=== PATIENT | female | born 1965 | race Caucasian/White ===

== ENCOUNTER 2016-06-22 15:52 | Emergency (ER) | payer MEDICAID ==
--- NOTE | 2016-06-22 16:32 | ERPHSYRPT ---
- History of Present Illness Time Seen by Provider: 06/22/16 16:26 Source: patient, family Exam Limitations: no limitations Patient Subjective Stated Complaint: PT FAMILY REPORTS THAT PT HAS BEEN HAVING SEIZURES AFTER LUNCH THE LAST FEW DAYS-TODAY SHE HAD BACK TO BACK SEIZURES- STATES THAT PT TURNED RED ET STOPPED BREATHING-STATES SHE TALKED PT THROUGH HER SEIZURE ET PT WAS THEN ANSWERING QUESTIONS LIKE HERSELF-DENIES INCONTINENCE Triage Nursing Assessment: PT PINK WARM ET [id number] EASY ET NONLABORED AT [facility] TIME-PT NOT ABLE TO ANSWER QUESTIONS-NORMAL FOR PT-BILATERAL EDEMA NOTED- PT FAMILY STATES THAT SHE HAS HX OF EDEMA-PT FOLLOWING SIMPLE COMMANDS ET MAKING NEEDS KNOWN DURING TRIAGE Physician History: The patient is a 50-year-old female with family brought in by ambulance from the [facility] where she had numerous [id number] seizures today. The last one was about 2 hours ago. She has a long history of seizure disorder. She has a VNS and is scheduled to have it reevaluated in 4 days. In addition to the seizure she had today she's had multiple seizures in the 2 days prior to today. The patient is mentally challenged. She has a past medical history that includes epilepsy, morbid obesity, hypertension, high cholesterol, and hypothyroidism. Timing/Duration: day(s) (3) Severity: moderate Character of Deficits: other (seizures) Deficits: decrease ability to walk Baseline/Normal Cognition: alert but confused Current Cognition: alert but confused Baseline Gait: uses walker Associated Symptoms: seizures Allergies/Adverse Reactions: No Known Drug Allergies Allergy (Unverified 06/22/16 16:10) Home Medications: Aspirin 81 gm Chew [Baby Aspirin 81 mg Chew] 81 mg PO DAILY 06/22/16 [ History] Atorvastatin Calcium [Lipitor] 10 mg PO DAILY 06/22/16 [History] Clobazam [Onfi] 15 mg PO DAILY 06/22/16 [History] Docusate Sodium 100 mg [Colace 100 MG] 100 mg PO BID 06/22/16 [History] Ferrous Sulfate 325 mg [Feosol 325 mg] 325 mg PO DAILY 06/22/16 [History] Levetiracetam [Keppra] 1,500 mg PO BID 06/22/16 [History] Levothyroxine Sodium 50 Mcg [Synthroid 50 Mcg] 50 mcg PO DAILY 06/22/16 [ History] Loratadine 10 mg [Claritin 10 mg] 10 mg PO DAILY 06/22/16 [History] Magnesium Oxide 400 mg [Mag-Ox 400] 400 mg PO DAILY 06/22/16 [History] Oxybutynin Chloride 5 mg PO BID 06/22/16 [History] PANTOPRAZOLE 40 mg Tablet [Protonix 40MG Tablet] 40 mg PO BID 06/22/16 [ History] Phenobarb 32.4 mg [Phenobarbital 32.4 mg] 32.4 mg PO TID 06/22/16 [History ] Potassium Chloride 20 Meq [Klor-Con 20 MEQ] 20 meq PO BID 06/22/16 [History] Ramipril 1.25 mg [Altace 1.25 MG] 1.25 mg PO DAILY 06/22/16 [History] Sennosides/Docusate Sodium [Senna Laxative Tablet] 1 each PO UD 06/22/16 [ History] Sertraline HCl 50 mg [Zoloft 50 mg Tablet] 100 mg PO DAILY 06/22/16 [History ] Torsemide [Demadex] 20 mg PO BID 06/22/16 [History] Hx Tetanus, Diphtheria Vaccination/Date Given: No Hx Influenza Vaccination/Date Given: Yes Hx Pneumococcal Vaccination/Date Given: Yes Immunizations Up to Date: Yes - Review of Systems Constitutional: No Fever, No Chills Eyes: No Symptoms Ears, Nose, & Throat: No Symptoms Respiratory: No Cough, No Dyspnea Cardiac: No Chest Pain, No Edema, No Syncope Abdominal/Gastrointestinal: No Abdominal Pain, No Nausea, No Vomiting, No Diarrhea Genitourinary Symptoms: No Dysuria Musculoskeletal: No Back Pain, No Neck Pain Skin: No Rash Neurological: No Dizziness, No Focal Weakness, No Sensory Changes Psychological: No Symptoms Endocrine: No Symptoms Hematologic/Lymphatic: No Symptoms Immunological/Allergic: No Symptoms All Other Systems: Reviewed and Negative - Past Medical History Pertinent Past Medical History: Yes Neurological History: Epilepsy Cardiac History: Congestive Heart Failure, High Cholesterol Endocrine Medical History: Hypothyroidism Psycho-Social History: Depression - Past Surgical History Past Surgical History: Yes - Social History Smoking Status: Never smoker Drug Use: none Patient Lives Alone: No - Nursing Vital Signs Nursing Vital Signs: Initial Vital Signs Temperature 98.7 F Temperature Source Oral Pulse Rate 68 Respiratory Rate 22 Blood Pressure [Right Arm] 151/76 Pain Intensity 0 - [place] Coma Scale Best Eye Response (Ramesh): (4) open spontaneously Best Verbal Response ([place]): (5) oriented Best Motor Response ([place]): (6) obeys commands [place] Total: 15 - Physical Exam General Appearance: no apparent distress, alert Eye Exam: bilateral eye: PERRL, EOMI Ears, Nose, Throat Exam: normal ENT inspection, moist mucous membranes Neck Exam: normal inspection, non-tender, supple Respiratory: normal breath sounds, lungs clear, airway intact, No respiratory distress Cardiovascular: regular rate/rhythm, No edema Gastrointestinal: soft, No tenderness, No distention Pelvic Exam: not done Rectal Exam: not done Back Exam: normal inspection Extremity Exam: pedal edema 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 Coordination/Gait: normal finger to nose Skin Exam: normal color, warm, dry, No rash SpO2 Interpretation: normal SpO2: 94 Oxygen Delivery: Room Air Ordered Tests: Active Orders 24 hr Category Date Time Status IV Insertion STAT Care 06/22/16 16:20 Active - Progress Progress: improved Counseled pt/family regarding: lab results, diagnosis, need for follow-up - Departure Time of Disposition: 17:27 Departure Disposition: Home Clinical Impression: Seizure, UTI (urinary tract infection) Condition: Stable Critical Care Time: No Additional Instructions: Jelly has a mild UTI that may be causing her to have more seizures. Take bactrim DS twice a day. Also increase phenobarbital at noon dose. Take 2 tabs of 32.4 mg of phenobarbital at noon dose. Follow up on Fri with the neurologist as scheduled. Prescriptions: Smz/Tmp Ds Tablet [Bactrim Ds Tablet] 1 udtab PO BID #6 tablet
[2016-06-22] MEDS ORDERED: Phenobarbital 65 MG/ML INJ. IV ONE (16:39)
[2016-06-22] MEDS ORDERED: Phenobarbital 65 MG/ML INJ. ONE (17:00)
[2016-06-22 17:02] LABS: BASOPHIL % 0.4 % (0.0-0.4); Granulocytes % 59.9 % (36.0-66.0); Lymphocytes % 30.2 % (24.0-44.0); Mean Corpuscular Hemoglobin 31.7 pg (26-32); Mean Platelet Volume 11.1 fl (6-9.5); Monocytes % 8.5 % (0.0-12.0); Platelet Count 162 K/mm3 (150-450); Red Blood Count 3.94 M/mm3 (4.1-5.4); Red Cell Distribution Width 12.8 % (11.5-14.0); White Blood Count 8.1 K/mm3 (4.0-10.5)
[2016-06-22 17:15] LABS: Bacteria RARE /HPF (NEGATIVE); COMPLETE URINE MICROSCOPIC? YES; Collection Type CATH; Ph 7.5 (5-6); WBC 0-2 /HPF (0-5)
[2016-06-22 17:22] LABS: ANION GAP 15.9 MEQ/L (5-15); Carbon Dioxide 25.4 mEq/L (21-32); Potassium 4.3 mEq/L (3.5-5.1)
[2016-06-22 17:35] VITALS: BP 136/77; PULSE 72; O2SAT 95
== END 2016-06-22 18:49 | disposition home or self-care (01) ==
LOC: ED 15:52
DX: R56.9 Unspecified convulsions (principal); N39.0 Urinary tract infection, site not specified; G40.909 Epilepsy, unspecified, not intractable, without status epilepticus; Z79.899 Other long term (current) drug therapy; Z79.82 Long term (current) use of aspirin; I50.9 Heart failure, unspecified; E78.00 Pure hypercholesterolemia, unspecified; E03.9 Hypothyroidism, unspecified
CPT/HCPCS: 36000; 36415; 80048; 80184; 81000; 85025; 93041; 96365; 96374; 99284; J2560; P9612

== ENCOUNTER 2016-06-23 15:19 | Emergency (ER) | payer MEDICARE ==
[2016-06-23] MEDS ORDERED: cereBYX 50 MG/ML*** 1,000 MG in Sodium Chloride 0.9% 100 ML IVPB 100 ML IV ONE (15:45)
--- NOTE | 2016-06-23 15:51 | ERPHSYRPT ---
- History of Present Illness Time Seen by Provider: 06/23/16 15:46 Source: family Exam Limitations: no limitations Patient Subjective Stated Complaint: seizure Triage Nursing Assessment: ems reports patient has had 10+ seizures today. had several yesterday and was seen here. phenobarb dose increased yesterday. Physician History: This is a 50-year-old female patient was brought into the emergency room by ambulance from the [facility] where she had a numerous [id number] seizure activities. Patient was seen in the emergency room yesterday, was treated for mild urinary tract infection and her phenobarbital nose was adjusted. She also has a vagal nerve stimulator and she is being scheduled with neurologist to have it reevaluated in next 4-5 days. After patient left emergency room yesterday. Patient continues to started having a seizure, which S in short burst. 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 Patient also has a Microcephaly, moderate to severe mental retardation, hypertension. Allergies/Adverse Reactions: No Known Drug Allergies Allergy (Verified 06/23/16 15:29) Home Medications: Aspirin 81 gm Chew [Baby Aspirin 81 mg Chew] 81 mg PO DAILY 06/22/16 [ History] Atorvastatin Calcium [Lipitor] 10 mg PO DAILY 06/22/16 [History] Clobazam [Onfi] 15 mg PO DAILY 06/22/16 [History] Docusate Sodium 100 mg [Colace 100 MG] 100 mg PO BID 06/22/16 [History] Ferrous Sulfate 325 mg [Feosol 325 mg] 325 mg PO DAILY 06/22/16 [History] Levetiracetam [Keppra] 1,500 mg PO BID 06/22/16 [History] Levothyroxine Sodium 50 Mcg [Synthroid 50 Mcg] 50 mcg PO DAILY 06/22/16 [ History] Loratadine 10 mg [Claritin 10 mg] 10 mg PO DAILY 06/22/16 [History] Magnesium Oxide 400 mg [Mag-Ox 400] 400 mg PO DAILY 06/22/16 [History] Oxybutynin Chloride 5 mg PO BID 06/22/16 [History] PANTOPRAZOLE 40 mg Tablet [Protonix 40MG Tablet] 40 mg PO BID 06/22/16 [ History] Phenobarb 32.4 mg [Phenobarbital 32.4 mg] 32.4 mg PO TID 06/22/16 [History ] Potassium Chloride 20 Meq [Klor-Con 20 MEQ] 20 meq PO BID 06/22/16 [History] Ramipril 1.25 mg [Altace 1.25 MG] 1.25 mg PO DAILY 06/22/16 [History] Sennosides/Docusate Sodium [Senna Laxative Tablet] 1 each PO UD 06/22/16 [ History] Sertraline HCl 50 mg [Zoloft 50 mg Tablet] 100 mg PO DAILY 06/22/16 [History ] Torsemide [Demadex] 20 mg PO BID 06/22/16 [History] Hx Tetanus, Diphtheria Vaccination/Date Given: No Hx Influenza Vaccination/Date Given: Yes Hx Pneumococcal Vaccination/Date Given: Yes - Review of Systems All Other Systems: Unable due to condition - Past Medical History Pertinent Past Medical History: Yes Neurological History: Epilepsy Cardiac History: Congestive Heart Failure, High Cholesterol Endocrine Medical History: Hypothyroidism Psycho-Social History: Depression - Past Surgical History Past Surgical History: Yes - Social History Smoking Status: Never smoker Exposure to second hand smoke: No Drug Use: none Patient Lives Alone: No - Nursing Vital Signs Nursing Vital Signs: Initial Vital Signs Temperature 99.6 F Temperature Source Oral Pulse Rate 77 Respiratory Rate 18 Blood Pressure [Right Arm] 140/85 Pain Intensity 0 - [place] Coma Scale Best Eye Response (Ramesh): (4) open spontaneously Best Verbal Response ([place]): (2) incomprehsible sounds Best Motor Response (Ramesh): (6) obeys commands [place] Total: 12 - Physical Exam General Appearance: no apparent distress Eye Exam: bilateral eye: normal inspection Ears, Nose, Throat Exam: normal ENT inspection Neck Exam: normal inspection Respiratory: normal breath sounds Cardiovascular: regular rate/rhythm Gastrointestinal: soft Pelvic Exam: not done Back Exam: normal inspection Extremity Exam: normal inspection Mental Status: alert SpO2: 100 Oxygen Delivery: Room Air - Course Nursing assessment & vital signs reviewed: Yes Ordered Tests: Medication Summary Generic Name Dose Route Start Last Admin Trade Name Freq PRN Reason Stop Dose Admin Fosphenytoin Sodium 1,000 mg/ 120 mls @ 240 mls/hr 06/23/16 15:45 Sodium Chloride IV 06/23/16 16:14 STAT ONE - Progress Progress: unchanged Discussed with Dr.: Other (hospitalist service at [place]- Dr Combs) Will see patient in: hospital (full admit) Counseled pt/family regarding: diagnosis - Departure Time of Disposition: 15:50 Departure Disposition: Transfer ([facility]) Clinical Impression: Intractable seizure disorder Condition: Stable Critical Care Time: Yes Critical Care Time(excluding separately billable procedures): 30-74 minutes Referrals: GUERRERO PATTEN [Primary Care Provider] -
[2016-06-23 16:40] VITALS: BP 136/100; PULSE 78; O2SAT 99
== END 2016-06-23 17:08 | disposition short-term general hospital (02) ==
LOC: ED 15:19
DX: G40.919 Epilepsy, unspecified, intractable, without status epilepticus (principal); Z79.899 Other long term (current) drug therapy
CPT/HCPCS: 99285

== ENCOUNTER 2018-05-10 08:10 | Emergency (ER) | payer MEDICARE ==
--- NOTE | 2018-05-10 08:51 | ERPHSYRPT ---
- History of Present Illness Time Seen by Provider: 05/10/18 08:39 Source: patient, sn[facility] records Exam Limitations: no limitations Patient Subjective Stated Complaint: snf nurs states "She has been getting more and more edema lately and now her face is swollen. Her wants her sent to ED." Triage Nursing Assessment: Pt alert and oriented X 3, skin pwd. Pt able to speak in full sentences. Difficulty to understand but that is her norm. Pt has +3 pitting edema noted bilat lower extremeties, facial edema on eyes and lower lip. Physician History: 52-year-old white female with history of epilepsy, congestive heart failure, hypercholesterolemia, hypothyroidism, depression Patient arrives with complaints of edema past several days now having swelling in her face she states she is having a hard time breathing. Patient does not have any chest pain no nausea no vomiting. Past medical history includes epilepsy, congestive heart failure, hypercholesterolemia, hypothyroidism, depression Timing/Duration: other (edema the last few days ) Severity of Dyspnea-Max: moderate Severity of Dyspnea-Current: mild Modifying Factors: Improves With: nothing Associated Symptoms: cough, edema, No constant, No intermittent, No anxiety, No chest pain/discomfort, No fever, No insomnia, No loss of appetite, No lightheadedness, No wheezing, No weakness, No ankle swelling, No chills, No hemoptysis (she wheezing she says sh), No dizziness, No heaviness, No heart racing, No lightheadedness, No leg swelling, No muscle spasms feet, No muscle spasms hands, No painful breathing, No productive cough, No sweating, No tightness, No tingling face International travel in last 2 weeks: No Allergies/Adverse Reactions: heparin Allergy (Verified 05/10/18 10:23) Home Medications: Aspirin 81 gm Chew [Baby Aspirin 81 mg Chew] 81 mg PO DAILY 06/22/16 [ History] Clobazam [Onfi] 15 mg PO DAILY 06/22/16 [History] Docusate Sodium 100 mg [Colace 100 MG] 100 mg PO BID 06/22/16 [History] Ferrous Sulfate 325 mg [Feosol 325 mg] 325 mg PO DAILY 06/22/16 [History] Levothyroxine Sodium 50 Mcg [Synthroid 50 Mcg] 50 mcg PO DAILY 06/22/16 [ History] Loratadine 10 mg [Claritin 10 mg] 10 mg PO DAILY 06/22/16 [History] Magnesium Oxide 400 mg [Mag-Ox 400] 400 mg PO DAILY 06/22/16 [History] PANTOPRAZOLE 40 mg Tablet [Protonix 40MG Tablet] 40 mg PO BID 06/22/16 [ History] Potassium Chloride 20 Meq [Klor-Con 20 MEQ] 20 meq PO BID 06/22/16 [History] Sertraline HCl 50 mg [Zoloft 50 mg Tablet] 100 mg PO DAILY 06/22/16 [History ] Torsemide [Demadex] 20 mg PO BID 06/22/16 [History] Brivaracetam [Briviact] 100 mg PO DAILY 05/10/18 [History] Ergocalciferol (Vitamin D2) [Vitamin D2] 50,000 unit PO Q7D 05/10/18 [History] Ergocalciferol (Vitamin D2) [Vitamin D] 400 unit PO DAILY 05/10/18 [History] Folic Acid 1 mg [Folate 1 mg] 1 mg PO DAILY 05/10/18 [History] Lacosamide [Vimpat] 100 mg PO BID 05/10/18 [History] Multivitamin [Raz-Qylfwo-Fvxon] 1 each PO DAILY 05/10/18 [History] Saw [place] Frt/Phytosterol 2 [Prostate Sr Softgel] 1 each PO BID 05/10/18 [ History] Hx Tetanus, Diphtheria Vaccination/Date Given: Yes Hx Influenza Vaccination/Date Given: Yes Hx Pneumococcal Vaccination/Date Given: No Immunizations Up to Date: Yes - Review of Systems Constitutional: No Fever, No Chills Eyes: No Symptoms Ears, Nose, & Throat: No Ear Pain, No Ear Discharge, No Hearing Changes, No Tinnitus, No Nose Pain, No Nose Congestion, No Nose Discharge, No Sinus Drainage , No Epistaxis, No Mouth Pain, No Mouth Swelling, No Loose Teeth, No Throat Pain , No Throat Swelling, No Hoarse, No Painful Swallowing, No Snoring, No Stridor Respiratory: Cough, Dyspnea Cardiac: Edema, No Chest Pain, No Syncope Abdominal/Gastrointestinal: No Abdominal Pain, No Nausea, No Vomiting, No Diarrhea Genitourinary Symptoms: No Dysuria Musculoskeletal: No Back Pain, No Neck Pain Skin: No Rash Neurological: No Dizziness, No Focal Weakness, No Sensory Changes Psychological: No Symptoms Endocrine: No Symptoms All Other Systems: Reviewed and Negative - Past Medical History Pertinent Past Medical History: Yes Neurological History: Epilepsy Cardiac History: Congestive Heart Failure, High Cholesterol Endocrine Medical History: Hypothyroidism Psycho-Social History: Depression - Past Surgical History Past Surgical History: Yes - Social History Smoking Status: Never smoker Exposure to second hand smoke: No Drug Use: none Patient Lives Alone: No - Female History Hx Now: No - Nursing Vital Signs Nursing Vital Signs: Initial Vital Signs Temperature 97.6 F 05/10/18 08:22 Pulse Rate 82 05/10/18 08:22 Respiratory Rate 20 05/10/18 08:22 Blood Pressure 155/97 05/10/18 08:22 O2 Sat by Pulse Oximetry 99 05/10/18 08:22 Pain Scale Pain Intensity 0 - Physical Exam General Appearance: mild distress, other (well-developed morbidly obese female occasional cough mild facial edema) Eye Exam: PERRL/EOMI Ears, Nose, Throat Exam: hearing grossly normal, No normal ENT inspection ( patient's uvula with mild edema) Neck Exam: normal inspection, supple, full range of motion Respiratory Exam: rhonchi Cardiovascular/Chest Exam: normal heart sounds, regular rate/rhythm, edema ( edema to lower extremities) Abdominal/Gastrointestinal Exam: soft, No tenderness, No distention, No mass Extremity Exam: non-tender, normal range of motion, normal inspection, no calf tenderness, no pedal edema Peripheral Pulses Exam: dorsalis-pedis (R): 2+, dorsalis-pedis (L): 2+ Neurologic Exam: alert, oriented x 3, cooperative, 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 Officer STAT Care 05/10/18 08:43 Active EKG-ER Only STAT Care 05/10/18 08:42 Active IV Insertion STAT Care 05/10/18 08:42 Active Oxygen-ED Only Nasal Cannula 4 lpm Care 05/10/18 08:42 Active Pulse Oximetry (ED) STAT Care 05/10/18 08:42 Active CHEST 1 VIEW (PORTABLE) Stat Exams 05/10/18 08:43 Completed BLOOD CULTURE Stat Lab 05/10/18 10:06 Ordered CBC W DIFF Stat Lab 05/10/18 09:00 Completed CMP Stat Lab 05/10/18 09:00 Completed CULTURE,SPUTUM Stat Lab 05/10/18 08:43 Uncollected NT PRO BNP Stat Lab 05/10/18 09:00 Completed TROPONIN Q3H Lab 05/10/18 09:00 Completed TROPONIN Q3H Lab 05/10/18 11:45 Ordered TROPONIN Q3H Lab 05/10/18 14:45 Ordered TROPONIN Q3H Lab 05/10/18 17:45 Ordered TROPONIN Q3H Lab 05/10/18 20:45 Ordered VENOUS BLOOD GAS Stat Lab 05/10/18 08:42 Completed Respiratory Nebulizer STAT RT 05/10/18 08:44 Completed Respiratory Therapy Assessment DAILY RT 05/10/18 09:15 Completed Medication Summary Discontinued Medications Generic Name Dose Route Start Last Admin Trade Name Freq PRN Reason Stop Dose Admin Albuterol/Ipratropium Confirm 05/10/18 08:56 Duoneb 0.5-3 Mg/3 Ml Neb Administered 05/10/18 08:57 Dose 3 ml IH .STK-MED ONE Epinephrine 0.5 ml 05/10/18 08:44 05/10/18 09:20 Racepinephrine Inh Solution 2.25% IH 05/10/18 08:45 0.5 ml STAT ONE Administration Epinephrine Confirm 05/10/18 09:17 Racepinephrine Inh Solution 2.25% Administered 05/10/18 09:18 Dose 0.5 ml IH .STK-MED ONE Ceftriaxone Sodium/Dextrose 1 g in 50 mls @ 100 mls/hr 05/10/18 10:08 10:19 Rocephin 1 Gm-D5w 50 Ml Bag IV 05/10/18 10:37 100 mls/hr STAT STA 100 mls/hr Administration Ceftriaxone Sodium/Dextrose Confirm 05/10/18 10:17 Rocephin 1 Gm-D5w 50 Ml Bag Administered 05/10/18 10:18 Dose 1 g in 50 mls @ ud IV .STK-MED ONE Methylprednisolone Sodium Succinate 125 mg 05/10/18 08:42 05/10/18 09:26 Solu-Medrol 125 Mg IV 05/10/18 08:43 125 mg STAT ONE Administration Methylprednisolone Sodium Succinate Confirm 05/10/18 09:15 Solu-Medrol 125 Mg Administered 05/10/18 09:16 Dose 125 mg .ROUTE .STK-MED ONE Sodium Chloride Confirm 05/10/18 09:18 Sodium Chloride 3 Ml Ud Nebules Administered 05/10/18 09:19 Dose 3 ml IH .STK-MED ONE Lab/Rad Data: Laboratory Result Diagrams 05/10/18 09:00 05/10/18 09:00 Laboratory Results 05/10/18 05/10/18 05/10/18 Range/Units 09:00 09:00 09:00 WBC 14.5 H (4.0-10.5) K/mm3 RBC 3.21 L (4.1-5.4) M/mm3 Hgb 9.8 L (12.0-16.0) gm/dl Hct 32.5 L (35-47) % MCV 101.2 H (78-100) fl MCH 30.5 (26-32) pg MCHC 30.2 L (32-36) g/dl RDW 16.5 H (11.5-14.0) % Plt Count 213 (150-450) K/mm3 MPV 10.8 H (6-9.5) fl Gran % 86.6 H (36.0-66.0) % Eos # (Auto) 0.29 (0-0.5) Absolute Lymphs (auto) 0.79 L (1.0-4.6) Absolute Monos (auto) 0.83 (0.0-1.3) Lymphocytes % 5.5 L (24.0-44.0) % Monocytes % 5.7 (0.0-12.0) % Eosinophils % 2.0 (0.00-5.0) % Basophils % 0.2 (0.0-0.4) % Absolute Granulocytes 12.53 H (1.4-6.9) Basophils # 0.03 (0-0.4) pO2/FiO2 Ratio % VBG pH (7.32-7.42) VBG pCO2 at Pat Temp (42-55) mm/Hg VBG pO2 at Pat Temp (25-40) mm/Hg VBG HCO3 (22-28) meq/L VBG O2 Sat (Yoel) (95-100) VBG Base Excess (-2.0-2.0) VBG Hemoglobin VBG Carboxyhemoglobin (0.0-6.9) % T HGB POC Potassium (3.5-5.1) Sodium 141 (137-145) mmol/L Potassium 4.4 (3.5-5.1) mmol/L Chloride 100 (98-107) mmol/L Carbon Dioxide 34 H (22-30) mmol/L Anion Gap 12.0 (5-15) MEQ/L BUN 35 H (7-17) mg/dL Creatinine 1.44 H (0.52-1.04) mg/dL Estimated GFR 40.5 ML/MIN Glucose 101 (74-106) mg/dL Calcium 9.7 (8.4-10.2) mg/dL Total Bilirubin 0.30 (0.2-1.3) mg/dL AST 28 (14-36) U/L ALT 16 (0-35) U/L Alkaline Phosphatase 173 H (38-126) U/L Troponin I < 0.012 (0.000-0.034) ng/mL NT-Pro-B Natriuret Pep 996 H (0-900) pg/mL Serum Total Protein 7.9 (6.3-8.2) g/dL Albumin 4.1 (3.5-5.0) g/dL 05/10/18 Range/Units 08:42 WBC (4.0-10.5) K/mm3 RBC (4.1-5.4) M/mm3 Hgb (12.0-16.0) gm/dl Hct (35-47) % MCV (78-100) fl MCH (26-32) pg MCHC (32-36) g/dl RDW (11.5-14.0) % Plt Count (150-450) K/mm3 MPV (6-9.5) fl Gran % (36.0-66.0) % Eos # (Auto) (0-0.5) Absolute Lymphs (auto) (1.0-4.6) Absolute Monos (auto) (0.0-1.3) Lymphocytes % (24.0-44.0) % Monocytes % (0.0-12.0) % Eosinophils % (0.00-5.0) % Basophils % (0.0-0.4) % Absolute Granulocytes (1.4-6.9) Basophils # (0-0.4) pO2/FiO2 Ratio 21.0 % VBG pH 7.39 (7.32-7.42) VBG pCO2 at Pat Temp 59 H (42-55) mm/Hg VBG pO2 at Pat Temp 114 H (25-40) mm/Hg VBG HCO3 35.7 H* (22-28) meq/L VBG O2 Sat (Yoel) 98.4 (95-100) VBG Base Excess 9.1 H (-2.0-2.0) VBG Hemoglobin 10.4 VBG Carboxyhemoglobin 2.0 (0.0-6.9) % T HGB POC Potassium 4.2 (3.5-5.1) Sodium (137-145) mmol/L Potassium (3.5-5.1) mmol/L Chloride (98-107) mmol/L Carbon Dioxide (22-30) mmol/L Anion Gap (5-15) MEQ/L BUN (7-17) mg/dL Creatinine (0.52-1.04) mg/dL Estimated GFR ML/MIN Glucose (74-106) mg/dL Calcium (8.4-10.2) mg/dL Total Bilirubin (0.2-1.3) mg/dL AST (14-36) U/L ALT (0-35) U/L Alkaline Phosphatase (38-126) U/L Troponin I (0.000-0.034) ng/mL NT-Pro-B Natriuret Pep (0-900) pg/mL Serum Total Protein (6.3-8.2) g/dL Albumin (3.5-5.0) g/dL - Progress Progress: improved Air Movement: fair Progress Note: 05/10/18 08:49 This is a 52-year-old morbidly obese white female with history of epilepsy, congestive heart failure, hypercholesterolemia, hypothyroidism, depression. Patient is sent from snf patient apparently has been having edema to her lower extremities for the past several days today complaining of shortness of breath she is noted to have some mild facial edema and infraorbital region. Patient frequently clears her throat she has some mild edema of the uvula. She has some rhonchi bilaterally with auscultation in the lung alvarado. Will give patient a racemic epinephrine Solu-Medrol obtain CBC CMP BMP troponin chest x-ray EKG. 05/10/18 10:37 Patient feeling better after receiving make epinephrine treatment and Solu- Medrol, chest x-ray shows new diffuse left lung airspace disease without consolidation or large effusion. Remaining heart, right lung, bony thorax and left electronic device lead unremarkable. Patient's labs white blood cell 14.5 hemoglobin 9.8 hematocrit 32.5 platelets 213 patient's Venous gases pH 7.39 PCO2 59 Chemistry sodium 141 potassium 4.4 chloride 100 bicarbonate 34 BUN 35 creatinine 1.44 glucose 101 Alkaline phosphatase 173 Troponin less than 0.012 BNP is elevated at 996 normal is 0-900 Blood cultures have been ordered Rocephin is ordered as soon as blood cultures are obtained sputum cultures have been ordered. Patient's extremities exam and possibly one to 2+ edema. Will discuss case with Dr. Roque. 05/10/18 10:46 I discussed the patient's case with Dr. Roque. He tells me that he recently started the patient on Zaroxolyn she is already on Bumex. Patient will receive Rocephin 1 g IV here she is feeling much better and wants to go back to the snf. Dr. Roque requests that we place the patient on Zithromax Z-Chi also place the patient on Omnicef 300 mg orally twice a day. Will also send patient on a tapering dose of prednisone. Diagnosis uvular edema. Left sided pneumonia. History of congestive heart failure. Plan Will continue the above, - Departure Time of Disposition: 10:47 Departure Disposition: Extended Care Facility Clinical Impression: Uvular edema, Shortness of breath, History of CHF (congestive heart failure) Pneumonia Qualifiers: Pneumonia type: due to unspecified organism Laterality: left Lung location: unspecified part of lung Qualified Code(s): J18.9 - Pneumonia, unspecified organism Condition: Fair Critical Care Time: No Referrals: HANS SALVADOR [Primary Care Provider] - Additional Instructions: Return home continue current medications and treatment including Zaroxolyn which was just started by patient's family doctor. Omnicef 300 mg orally twice a day for 7 days. Zithromax Z-CHI as directed. prednisone 20 mg 3 tablets orally daily 2 days then 2 tablets orally daily3 daysthen 1 tablet orally daily 3 days. Follow-up with patient's family doctor. Return for acute distress or for severe symptoms. Prescriptions: Azithromycin 250 mg [Zithromax 250 MG TABLET] 0 mg PO ZPACK #6 tablet Cefdinir [Omnicef] 300 mg PO BID #14 capsule
[2018-05-10] MEDS ORDERED: DUONEB 0.5-3 MG/3 ml Neb IH ONE (08:56)
[2018-05-10 09:08] LABS: VBG BASE EXCESS 9.1 (-2.0-2.0); VBG HCO3- 35.7 meq/L (22-28); VBG HEMOGLOBIN 10.4; VBG O2 SATURATION 98.4 (95-100); VBG POTASSIUM 4.2 (3.5-5.1); VBG pH 7.39 (7.32-7.42)
[2018-05-10] MEDS ORDERED: solu-MEDROL 125 MG ONE (09:15)
[2018-05-10] MEDS ORDERED: Racepinephrine INH Solution 2.25% IH ONE (09:17)
[2018-05-10] MEDS ORDERED: Sodium Chloride 3 ML UD NEBULES IH ONE (09:18)
[2018-05-10] MEDS: Racepinephrine INH Solution 2.25% IH ONE (09:20)
[2018-05-10] MEDS: solu-MEDROL 125 MG IV ONE (09:26)
[2018-05-10 09:31] LABS: BASOPHIL % 0.2 % (0.0-0.4); Basophil (Absolute #) 0.03 (0-0.4); Eosinophil (Absolute #) 0.29 (0-0.5); Granulocyte Absolute (ANC) 12.53 (1.4-6.9); Granulocytes % 86.6 % (36.0-66.0); Hematocrit 32.5 % (35-47); Hemoglobin 9.8 gm/dl (12.0-16.0); Lymphocyte (Absolute #) 0.79 (1.0-4.6); Lymphocytes % 5.5 % (24.0-44.0); Mean Cell Volume 101.2 fl (78-100); Mean Corpuscular Hemoglobin 30.5 pg (26-32); Mean Corpuscular Hgb Concent. 30.2 g/dl (32-36); Mean Platelet Volume 10.8 fl (6-9.5); Monocyte (Absolute #) 0.83 (0.0-1.3); Monocytes % 5.7 % (0.0-12.0); Platelet Count 213 K/mm3 (150-450); Red Blood Count 3.21 M/mm3 (4.1-5.4); Red Cell Distribution Width 16.5 % (11.5-14.0); White Blood Count 14.5 K/mm3 (4.0-10.5)
[2018-05-10 09:49] LABS: ALBUMIN 4.1 g/dL (3.5-5.0); BILIRUBIN,TOTAL 0.3 mg/dL (0.2-1.3); Calcium 9.7 mg/dL (8.4-10.2); Creatinine 1 1.44 mg/dL (0.52-1.04); Potassium 4.4 mmol/L (3.5-5.1); Total Protein 7.9 g/dL (6.3-8.2)
--- NOTE | 2018-05-10 09:49 | XRAY ---
Indication: Short of breath. Comparison: April 17, 2018. Portable chest demonstrates new diffuse left lung airspace disease without consolidation/large effusion. Remaining heart, right lung, bony thorax, and left electronic device/lead unremarkable.
[2018-05-10] MEDS ORDERED: ROCEPHIN 1 Gm-D5w 50 ml Bag** 1 G/50 ML IVPB IV ONE (10:17)
[2018-05-10] MEDS: ROCEPHIN 1 Gm-D5w 50 ml Bag** 1 G/50 ML IVPB IV STA (10:19)
[2018-05-10 11:39] VITALS: BP 124/78; PULSE 77; O2SAT 97
== END 2018-05-10 12:03 ==
LOC: ED 08:10
DX: J18.9 Pneumonia, unspecified organism (principal); R60.0 Localized edema; I50.9 Heart failure, unspecified; E66.01 Morbid (severe) obesity due to excess calories; G40.909 Epilepsy, unspecified, not intractable, without status epilepticus; E78.00 Pure hypercholesterolemia, unspecified; F32.9 Major depressive disorder, single episode, unspecified; Z79.899 Other long term (current) drug therapy
CPT/HCPCS: 36000; 36415; 71045; 80053; 82805; 83880; 84484; 85025; 87040; 93005; 93041; 94640; 96365; 96374; 99284; J0696; J2930; A9270-GY

== ENCOUNTER 2018-07-05 15:20 | Emergency (ER) | payer MEDICARE ==
[2018-07-05 15:54] VITALS: BP 119/69; O2SAT 98
[2018-07-05] MEDS ORDERED: TYLENOL 325 MG PO ONE (15:55)
--- NOTE | 2018-07-05 16:01 | ERPHSYRPT ---
- History of Present Illness Source: patient, EMS Exam Limitations: no limitations Patient Subjective Stated Complaint: [facility] called ahead stating she hasnt been herself today.patient denies abdominal pain. states she has a headache. was crying and states needed to go to the bathroom.. up with assist to the commode Triage Nursing Assessment: unable to tell me what her complaint is. [facility] states she has not been acting herself today. staff stated she vomited x 1. denies abdominal pain on palpation. states her head hurts.. staes her right side of her head. able to follow commands appears neuro intact. home care attendant = and strong.. Timing/Duration: today Severity: moderate Modifying Factors: Improves With: nothing Associated Symptoms: abdominal pain (usp thought patient was having some abdominal pain), headaches, other (patient appeared to be pale and not acting herself at [facility].), No nausea, No vomiting, No shortness of breath , No heartburn, No diaphoresis, No cough, No chills, No chest pain, No fever, No loss of appetite, No malaise, No rash, No syncope, No seizure, No weakness Hx Tetanus, Diphtheria Vaccination/Date Given: Yes Hx Influenza Vaccination/Date Given: Yes Hx Pneumococcal Vaccination/Date Given: No Immunizations Up to Date: Yes - History of Present Illness Time Seen by Provider: 07/05/18 15:55 Physician History: 52-year-old white female with history of epilepsy, congestive heart failure, hyperlipidemia, hypothyroidism, depression. Patient [facility] with reports that patient was "not acting like herself" he also stated the patient appear to be somewhat pale apparently some type of pain in her abdomen at the [facility] as well. On arrival patient is only complaint is that she is having some pain in the right side of her head she denies abdominal pain at this time she has not had any nausea or vomiting. Patient does have a history of a epilepsy, congestive heart failure, hyperlipidemia, hypothyroidism, depression. (MAYA MATIAS) Allergies/Adverse Reactions: heparin Allergy (Verified 05/10/18 10:23) Home Medications: Aspirin 81 gm Chew [Baby Aspirin 81 mg Chew] 81 mg PO DAILY 06/22/16 [ History] Clobazam [Onfi] 15 mg PO DAILY 06/22/16 [History] Docusate Sodium 100 mg [Colace 100 MG] 100 mg PO BID 06/22/16 [History] Ferrous Sulfate 325 mg [Feosol 325 mg] 325 mg PO DAILY 06/22/16 [History] Levothyroxine Sodium 50 Mcg [Synthroid 50 Mcg] 50 mcg PO DAILY 06/22/16 [ History] Loratadine 10 mg [Claritin 10 mg] 10 mg PO DAILY 06/22/16 [History] Magnesium Oxide 400 mg [Mag-Ox 400] 400 mg PO DAILY 06/22/16 [History] PANTOPRAZOLE 40 mg Tablet [Protonix 40MG Tablet] 40 mg PO BID 06/22/16 [ History] Potassium Chloride 20 Meq [Klor-Con 20 MEQ] 20 meq PO BID 06/22/16 [History] Sertraline HCl 50 mg [Zoloft 50 mg Tablet] 100 mg PO DAILY 06/22/16 [History ] Torsemide [Demadex] 20 mg PO BID 06/22/16 [History] Brivaracetam [Briviact] 100 mg PO DAILY 05/10/18 [History] Ergocalciferol (Vitamin D2) [Vitamin D2] 50,000 unit PO Q7D 05/10/18 [History] Ergocalciferol (Vitamin D2) [Vitamin D] 400 unit PO DAILY 05/10/18 [History] Folic Acid 1 mg [Folate 1 mg] 1 mg PO DAILY 05/10/18 [History] Lacosamide [Vimpat] 100 mg PO BID 05/10/18 [History] Multivitamin [Ejk-Zwqsnv-Uqymh] 1 each PO DAILY 05/10/18 [History] Saw [place] Frt/Phytosterol 2 [Prostate Sr Softgel] 1 each PO BID 05/10/18 [ History] - Review of Systems Constitutional: No Fever, No Chills Eyes: No Symptoms Ears, Nose, & Throat: No Symptoms Respiratory: No Cough, No Dyspnea Cardiac: Edema (chronic lower extremity edema with skin changes), No Chest Pain , No Syncope Abdominal/Gastrointestinal: No Abdominal Pain, No Nausea, No Vomiting, No Diarrhea Genitourinary Symptoms: No Dysuria Musculoskeletal: No Back Pain, No Neck Pain Skin: No Rash Neurological: Headache (right-sided headache per patient), Other (usp felt patient was not acting like herself earlier), No Dizziness, No Focal Weakness, No Gait Changes, No Irritability, No Lethargy, No Paralysis, No Parasthesia, No Sensory Changes, No Speech Changes, No Tics, No Tremors, No Vertigo Psychological: No Symptoms Endocrine: No Symptoms All Other Systems: Reviewed and Negative - Past Medical History Pertinent Past Medical History: Yes Neurological History: Epilepsy Cardiac History: Congestive Heart Failure, High Cholesterol Endocrine Medical History: Hypothyroidism Psycho-Social History: Depression - Past Surgical History Past Surgical History: Yes - Social History Smoking Status: Never smoker Exposure to second hand smoke: No Drug Use: none Patient Lives Alone: No - Physical Exam General Appearance: no apparent distress, other (Morbidly obese white female she is alert oriented to herself answers questions well ) Eye Exam: PERRL/EOMI, eyes nml inspection Ears, Nose, Throat Exam: normal ENT inspection ( on), TMs normal, pharynx normal , moist mucous membranes Neck Exam: normal inspection, non-tender, supple, full range of motion Respiratory Exam: normal breath sounds, lungs clear, No respiratory distress Cardiovascular Exam: regular rate/rhythm, normal heart sounds, normal peripheral pulses, capillary refill <2 sec Gastrointestinal/Abdomen Exam: soft, normal bowel sounds, No tenderness, No mass Back Exam: normal inspection, normal range of motion, No CVA tenderness, No vertebral tenderness Extremity Exam: normal inspection (family family feel like she), normal range of motion, pelvis stable, other (patient with chronic edema lower extremities nonpitting today old residual skin changes) Neurologic Exam: alert, oriented x 3, cooperative, maintenance supervisor II-XII nml as tested Skin Exam: other (old residual skin changes lower extremities no erythema) SpO2 Interpretation: normal (98%) SpO2: 98 - Nursing Vital Signs Nursing Vital Signs: Initial Vital Signs Pulse Rate 85 07/05/18 15:30 Respiratory Rate 18 07/05/18 15:30 Blood Pressure 119/69 07/05/18 15:30 O2 Sat by Pulse Oximetry 98 07/05/18 15:30 Pain Scale Pain Intensity 0 - Course Nursing assessment & vital signs reviewed: Yes EKG Interpreted by Me: RATE (82 bpm), Sinus Rhythm, NORMAL AXIS, Other (EKG: Sinus rhythm, 82 bpm normal axis, no acute ST or T wave changes compared to May 10, 2018) Ordered Tests: Active Orders 24 hr Category Date Time Status Accucheck STAT Care 07/05/18 16:58 Active Manager Of Transportation STAT Care 07/05/18 15:51 Active EKG-ER Only STAT Care 07/05/18 15:51 Active Pulse Oximetry (ED) STAT Care 07/05/18 15:51 Active CHEST 1 VIEW (PORTABLE) Stat Exams 07/05/18 15:51 Completed UA W/RFX UR CULTURE Stat Lab 07/05/18 17:15 Completed Medication Summary Discontinued Medications Generic Name Dose Route Start Last Admin Trade Name Freq PRN Reason Stop Dose Admin Acetaminophen 650 mg 07/05/18 15:55 07/05/18 18:15 Tylenol 325 Mg PO 07/05/18 15:56 Not Given STAT ONE Acetaminophen Confirm 07/05/18 16:15 Tylenol 325 Mg Administered 07/05/18 16:16 Dose 650 mg .ROUTE .ST[place]umatek-MED ONE Lab/Rad Data: Laboratory Results 07/05/18 Range/Units 17:15 Urine Color YELLOW (YELLOW) Urine Appearance CLEAR (CLEAR) Urine pH 6.0 (5-6) Ur Specific [place] 1.014 (1.005-1.025) Urine Protein NEGATIVE (Negative) Urine Ketones NEGATIVE (NEGATIVE) Urine Blood NEGATIVE (0-5) Gurjit/ul Urine Nitrite NEGATIVE (NEGATIVE) Urine Bilirubin NEGATIVE (NEGATIVE) Urine Urobilinogen NEGATIVE (0-1) mg/dL Ur Leukocyte Esterase TRACE (NEGATIVE) Urine WBC (Auto) 0-2 (0-5) /HPF Urine RBC (Auto) NONE (0-2) /HPF U Hyaline Cast (Auto) 0-2 (0-2) /LPF U Epithel Cells (Auto) RARE (FEW) /HPF Urine Bacteria (Auto) NONE (NEGATIVE) /HPF Urine Culture Reflexed NO (NO) Urine Glucose NEGATIVE (NEGATIVE) mg/dL - Progress Progress: improved - Progress Progress Note: 07/05/18 16:02 This is a 52-year-old white female with history of epilepsy, congestive heart failure, hyperlipidemia, hypothyroidism, depression She is [facility] with complaints that the patient had apparently been, complaining of some abdominal pain earlier and had appear to be pale and was not acting herself. On arrival patient denies any abdominal pain she does state she has some right- sided head pain she is alert is oriented she responds well to her family. She denies any shortness of breath or chest pain Patient is chronically mentally challenged. However she does appear to be alert she is able to indicate that she is not having abdominal pain any problems breathing or any chest pain . Because of the findings at the [facility] as well as the fact that the patient has a long history of congestive heart failure. Will go ahead and obtain of CT of the head chest x-ray EKG troponin CBC CMP amylase lipase and urine. Will go ahead and give patient Tylenol at this time for her headache. I have examined the patient's lower extremities I do see that she has some chronic edema however there does not appear to be any pitting there are some chronic skin changes on the lower extremities however the areas are not hot nor are they weeping. 07/05/18 16:10 I've had a discussion with the patient's power of property developer. She feels like the patient was up all night playing with an eye pad and perhaps could have a headache secondary to this, she also got new glasses this week she is not really wanting a head CT. She feels like the patient is acting her normal self. She is okay with going ahead and obtaining chest x-ray and blood work as well as urine. Will go ahead and cancel head CT at this point in time. 07/05/18 16:53 Patient is in no distress at this time she says she has a mild headache on the right. Parents do not want a head CT. Lab attempted to draw blood work on this patient however they've been unsuccessful. Patient is really denying any abdominal pain at all at this time patient's EKG is essentially normal. Chest x-ray no acute disease process patient's lungs are clear. Will go ahead and they have nurses obtain a urine on this patient. Will forgo blood work at this time patient had been stuck multiple times. 07/05/18 16:59 I discussed case with Dr. Canas who is performance management consultant for the patient's group. I've discussed the difficulty of obtaining blood on this patient. Patient really does not appear to be in any acute distress her parents feel like she is her normal self she denies any chest pain she does have a mild headache Tylenol has been ordered. Will go ahead and obtain an Accu-Chek on this patient. Will also check the patient's urine I have looked at her chest x-ray it appears to be no acute disease process. do not feel that aggressive measures for obtaining blood are warranted in this case at this time, 07/05/18 17:32 patient in no distress. Patient refused Tylenol. Accu-Chek 91. Urinalysis unremarkable. Will discharge patient. (MAYA MATIAS) call recieved from Dr. España that he agreed with Lou Matias that there was no CHF , but that there is persisting although improved Left lung diffuse infiltrate and minimal RML infiltrate/atelectasis- I advised Dr. Canas, who is covering for Dr. Roque , and she will f/u with [facility] on pt progress and determine if ab might be indicated or some further eval or intervention. addendum by Gary Gerber MD 20:00. 07/05/18 19:59 (GARY GERBER) - Departure Time of Disposition: 17:33 Departure Disposition: Home Critical Care Time: No - Departure Clinical Impression: Mental status change resolved, reported abdominal pain resolved Headache Qualifiers: Headache type: unspecified Headache chronicity pattern: acute headache Intractability: not intractable Qualified Code(s): R51 - Headache Condition: Fair Referrals: HANS SALVADOR [Primary Care Provider] - Additional Instructions: Return to [facility]. Resume current medications and treatments. Follow-up with patient's family doctor. Return for acute distress or for severe symptoms.
[2018-07-05] MEDS ORDERED: TYLENOL 325 MG ONE (16:15)
[2018-07-05 16:56] VITALS: PULSE 84
[2018-07-05 17:28] LABS: Appearance CLEAR (CLEAR); Bilirubin NEGATIVE (NEGATIVE); Blood NEGATIVE Ery/ul (0-5); Epithelial Cells RARE /HPF (FEW); Glucose NEGATIVE (NEGATIVE); Hyaline Casts 0-2 /LPF (0-2); Ketones NEGATIVE (NEGATIVE); Leukocyte Esterase TRACE (NEGATIVE); Nitrite NEGATIVE (NEGATIVE); Protein,Urine Dip NEGATIVE (Negative); Specific Gravity 1.014 (1.005-1.025); Urobilinogen NEGATIVE mg/dL (0-1); WBC 0-2 /HPF (0-5)
--- NOTE | 2018-07-05 19:34 | XRAY ---
Indication: CHF. Comparison: May 10, 2018. Portable chest again demonstrates diffuse left lung airspace opacity but much less than before. Minimal right mid to lower lung infiltrate/atelectasis. Remaining heart, bony thorax, and left electronic device/lead unremarkable. Comment: Lung findings not reported on preliminary interpretation by ER clinician. Case discussed with Dr. Gerber in the ER at 1930 hrs om July 05, 2018.
== END 2018-07-05 18:15 | disposition home or self-care (01) ==
LOC: ED 15:20
DX: R41.82 Altered mental status, unspecified (principal); R51 Headache; G40.909 Epilepsy, unspecified, not intractable, without status epilepticus; I50.9 Heart failure, unspecified; E78.5 Hyperlipidemia, unspecified; E03.9 Hypothyroidism, unspecified; F32.9 Major depressive disorder, single episode, unspecified; Z79.899 Other long term (current) drug therapy
CPT/HCPCS: 71045; 81001; 82962; 93005; 93041; 99284; A9270-GY

== ENCOUNTER 2019-06-06 15:56 | Emergency (ER) | payer MEDICARE ==
[2019-06-06 16:19] VITALS: BP 154/97
[2019-06-06 17:30] LABS: Absolute Neutrophil Ct (ANC) 8.17 (1.4-6.9); BASOPHIL % 0.2 % (0.0-0.4); Basophil (Absolute #) 0.03 (0-0.4); Eosinophil % 0.7 % (0.00-5.0); Eosinophil (Absolute #) 0.08 (0-0.5); Hemoglobin 13.5 gm/dl (12.0-16.0); Lymphocyte (Absolute #) 2.68 (1.0-4.6); Mean Cell Volume 93.5 fl (78-100); Mean Corpuscular Hemoglobin 30.1 pg (26-32); Mean Corpuscular Hgb Concent. 32.1 g/dl (32-36); Mean Platelet Volume 10.8 fl (7.5-11.0); Monocyte (Absolute #) 1.21 (0.0-1.3); Monocytes % 9.9 % (0.0-12.0); Neutrophil % 67.2 % (36.0-66.0); Platelet Count 207 K/mm3 (150-450); Red Blood Count 4.49 M/mm3 (4.1-5.4); Red Cell Distribution Width 14.8 % (11.5-14.0); White Blood Count 12.2 K/mm3 (4.0-10.5)
[2019-06-06 17:57] LABS: ALBUMIN 4.7 g/dL (3.5-5.0); BILIRUBIN,TOTAL 0.6 mg/dL (0.2-1.3); Calcium 9.7 mg/dL (8.4-10.2); Creatinine 1 1.36 mg/dL (0.52-1.04); Total Protein 9.9 g/dL (6.3-8.2)
--- NOTE | 2019-06-06 18:01 | ERPHSYRPT ---
- History of Present Illness Time Seen by Provider: 06/06/19 16:38 Historian: patient, family, EMS Exam Limitations: clinical condition (seizure disorder, ? MR - lives in a [facility]) Patient Subjective Stated Complaint: NH AND EMS REPORTS PATIENT HAD A SEIZURE TODAY AND ATTEMPTED TO USE BRACELET OVER CHEST TO STOP SEIZURE. AFTER SEIZURE PATIENT C/O CHEST PAIN SO WAS BROUGHT TO ER. PATIENT HAD ALSO VOMITED LAST NIGHT ONCE AND AGAIN THIS AM. PATIENT DENIES ANY PAIN AT THIS TIME. HX OF FREQ SEIZURES. Triage Nursing Assessment: TO ROOM PER EMS COT. SKIN W/D, COLOR NORMAL. RESP EASY. NO SEIZURE ACTIVITY AT THIS TIME AND DENIES ANY CHEST PAIN. PULSE REGULAR RHYTHM, STRONG. Timing/Duration: today, improved Activities at Onset: other (may have strained chest muscles moving her right arm ) Quality: stabbing (right chest, few episodes of stabbing pain , gone now) Location: central (right costochondral joints) Chest Pain Radiation: no radiation Severity of Pain-Max: mild Severity of Pain-Current: none Modifying Factors: Improves With: palpation Associated Symptoms: nausea (resolved) Prior Chest Pain/Cardiac Workup: no prior chest pain (limited history) Nitro Today/Relief: no nitro taken today (Not applicable) Aspirin Treatment Today: no aspirin today Allergies/Adverse Reactions: heparin Allergy (Verified 06/06/19 16:10) Home Medications: Aspirin 81 gm Chew [Baby Aspirin 81 mg Chew] 81 mg PO DAILY 06/22/16 [ History] Clobazam [Onfi] 15 mg PO DAILY 06/22/16 [History] Docusate Sodium 100 mg [Colace 100 MG] 100 mg PO BID 06/22/16 [History] Ferrous Sulfate 325 mg [Feosol 325 mg] 325 mg PO DAILY 06/22/16 [History] Levothyroxine Sodium 50 Mcg [Synthroid 50 Mcg] 50 mcg PO DAILY 06/22/16 [ History] Loratadine 10 mg [Claritin 10 mg] 10 mg PO DAILY 06/22/16 [History] Magnesium Oxide 400 mg [Mag-Ox 400] 400 mg PO DAILY 06/22/16 [History] PANTOPRAZOLE 40 mg Tablet [Protonix 40MG Tablet] 40 mg PO BID 06/22/16 [ History] Potassium Chloride 20 Meq [Klor-Con 20 MEQ] 20 meq PO BID 06/22/16 [History] Sertraline HCl 50 mg [Zoloft 50 mg Tablet] 100 mg PO DAILY 06/22/16 [History ] Torsemide [Demadex] 20 mg PO BID 06/22/16 [History] Brivaracetam [Briviact] 100 mg PO DAILY 05/10/18 [History] Ergocalciferol (Vitamin D2) [Vitamin D2] 50,000 unit PO Q7D 05/10/18 [History] Ergocalciferol (Vitamin D2) [Vitamin D] 400 unit PO DAILY 05/10/18 [History] Folic Acid 1 mg [Folate 1 mg] 1 mg PO DAILY 05/10/18 [History] Lacosamide [Vimpat] 100 mg PO BID 05/10/18 [History] Multivitamin [Ykb-Ulabbp-Midem] 1 each PO DAILY 05/10/18 [History] Saw [place] Frt/Phytosterol 2 [Prostate Sr Softgel] 1 each PO BID 05/10/18 [ History] Hx Tetanus, Diphtheria Vaccination/Date Given: Yes Hx Influenza Vaccination/Date Given: Yes Hx Pneumococcal Vaccination/Date Given: Yes - Review of Systems Constitutional: No Symptoms Eyes: No Symptoms Ears, Nose, & Throat: No Symptoms Respiratory: No Symptoms Cardiac: No Symptoms Abdominal/Gastrointestinal: Nausea Genitourinary Symptoms: No Symptoms Musculoskeletal: No Symptoms Skin: No Symptoms Neurological: No Symptoms Psychological: No Symptoms Endocrine: No Symptoms Hematologic/Lymphatic: No Symptoms Immunological/Allergic: No Symptoms All Other Systems: Reviewed and Negative - Past Medical History Pertinent Past Medical History: Yes Neurological History: Epilepsy Cardiac History: Congestive Heart Failure, High Cholesterol Endocrine Medical History: Hypothyroidism Psycho-Social History: Depression - Past Surgical History Past Surgical History: Yes - Social History Smoking Status: Never smoker Exposure to second hand smoke: No Drug Use: none Patient Lives Alone: No - Female History Hx Now: No - Nursing Vital Signs Nursing Vital Signs: Initial Vital Signs Temperature 98.2 F 06/06/19 15:57 Pulse Rate 86 06/06/19 15:57 Respiratory Rate 16 06/06/19 15:57 Blood Pressure 154/97 06/06/19 15:57 O2 Sat by Pulse Oximetry 92 L 06/06/19 15:57 Pain Scale Pain Intensity 0 - Physical Exam General Appearance: no apparent distress, obese Eye Exam: PERRL/EOMI, eyes nml inspection Ears, Nose, Throat Exam: normal ENT inspection Neck Exam: normal inspection, non-tender Respiratory Exam: normal breath sounds, chest tenderness (TTP right costochondral joints, this reproduces her pain) Cardiovascular Exam: regular rate/rhythm, normal heart sounds Gastrointestinal/Abdomen Exam: soft, normal bowel sounds Pelvic Exam: not done Rectal Exam: deferred Back Exam: other (N/E) Extremity Exam: normal inspection Neurologic Exam: alert, cooperative, normal mood/affect, other (at baseline per her sister) Skin Exam: normal color, warm SpO2 Interpretation: normal SpO2: 99 O2 Delivery: Room Air - Course Nursing assessment & vital signs reviewed: Yes EKG Interpreted by Me: RATE (86), Sinus Rhythm, NORMAL AXIS, NORMAL INTERVALS, NORMAL QRS, NORMAL ST-T, Other (Unchanged from June 2018.) - Radiology Exams Chest X-ray Interpretation: Interpreted by me, Reviewed by me, No Pneumonia, No Pneumothorax, No Infiltrates, Nml Mediastinum Ordered Tests: Active Orders 24 hr Category Date Time Status EKG-ER Only STAT Care 06/06/19 16:35 Active CHEST 1 VIEW (PORTABLE) Stat Exams 06/06/19 16:48 Taken CBC W DIFF Stat Lab 06/06/19 17:33 Completed CMP Stat Lab 06/06/19 17:51 Received TROPONIN Q3H Lab 06/06/19 17:51 Received TROPONIN Q3H Lab 06/06/19 19:45 Ordered TROPONIN Q3H Lab 06/06/19 22:45 Ordered TROPONIN Q3H Lab 06/07/19 01:45 Ordered TROPONIN Q3H Lab 06/07/19 04:45 Ordered Lab/Rad Data: Laboratory Result Diagrams 06/06/19 17:33 Laboratory Results 06/06/19 Range/Units 17:33 WBC 12.2 H (4.0-10.5) K/mm3 RBC 4.49 (4.1-5.4) M/mm3 Hgb 13.5 (12.0-16.0) gm/dl Hct 42.0 (35-47) % MCV 93.5 (78-100) fl MCH 30.1 (26-32) pg MCHC 32.1 (32-36) g/dl RDW 14.8 H (11.5-14.0) % Plt Count 207 (150-450) K/mm3 MPV 10.8 (7.5-11.0) fl Gran % 67.2 H (36.0-66.0) % Eos # (Auto) 0.08 (0-0.5) Absolute Lymphs (auto) 2.68 (1.0-4.6) Absolute Monos (auto) 1.21 (0.0-1.3) Lymphocytes % 22.0 L (24.0-44.0) % Monocytes % 9.9 (0.0-12.0) % Eosinophils % 0.7 (0.00-5.0) % Basophils % 0.2 (0.0-0.4) % Absolute Granulocytes 8.17 H (1.4-6.9) Basophils # 0.03 (0-0.4) - Progress Progress: unchanged Air Movement: good Progress Note: Chest wall pain, cardiac work-up neg, she refuses to be admitted anyway. Incidental finding of low potassium (2.8), she is on a 80 mg dose or demadex daily, and 80 MEq potassium daily. Mg level normal at 2.1 She and her sister want her to go back to the [place]. Gave KCl 75 MEq here and she will need a BMP in the morning and staff there to notify Dr. Bliss for further orders. 06/06/19 18:20 Blood Culture(s) Obtained: No Antibiotics given: No Counseled pt/family regarding: lab results, need for follow-up - Departure Departure Disposition: Extended Care Facility Clinical Impression: Chest wall pain, Hypokalemia Condition: Fair Critical Care Time: No Referrals: ZAIRA BLISS MD [Primary Care Provider] - Additional Instructions: BMP in the morning - call result to Dr. Bliss.Chest wall pain. Hypokalemia.
[2019-06-06 18:06] LABS: Potassium 2.8 mmol/L (3.5-5.1)
[2019-06-06] MEDS ORDERED: Zofran 4 MG/2 ML VIAL IV ONE (18:11)
[2019-06-06 18:12] LABS: ANION GAP 18.8 MEQ/L (5-15)
[2019-06-06] MEDS ORDERED: K-LYTE 25 MEQ PO ONE (18:12)
[2019-06-06] MEDS ORDERED: K-LYTE 25 MEQ ONE ×2 (18:13→18:15)
[2019-06-06] MEDS ORDERED: ZOFRAN ODT 4 MG ONE (18:13)
[2019-06-06] MEDS ORDERED: Zofran 4 MG/2 ML VIAL ONE (18:14)
--- NOTE | 2019-06-06 18:53 | XRAY ---
Indication: Chest pain. Comparison: July 05, 2018. Portable apical lordotic chest underinflated. No focal infiltrate, consolidation, or large effusion. Heart is not enlarged for AP portable technique. Bony thorax intact again with left sided electronic device and lead. Impression: Nonacute underinflated chest.
[2019-06-06 19:30] VITALS: PULSE 76; O2SAT 100
== END 2019-06-06 19:32 ==
LOC: ED 15:56
DX: R07.89 Other chest pain (principal); E87.6 Hypokalemia; Z79.899 Other long term (current) drug therapy; I50.9 Heart failure, unspecified; E78.00 Pure hypercholesterolemia, unspecified; E03.9 Hypothyroidism, unspecified
CPT/HCPCS: 36000; 36415; 71045; 80053; 83735; 84484; 85025; 93005; 96374; 99284; J2405; Q0162; A9270-GY

== ENCOUNTER 2020-05-16 00:34 | Observation (INO) | payer MEDICARE ==
[2020-05-16] MEDS ORDERED: Ativan 2 MG/1 ML VIAL IV ONE (01:09)
[2020-05-16] MEDS ORDERED: Ativan 2 MG/1 ML VIAL ONE (01:12)
--- NOTE | 2020-05-16 01:14 | ERPHSYRPT ---
- History of Present Illness Time Seen by Provider: 05/16/20 00:45 Source: patient Exam Limitations: no limitations Patient Subjective Stated Complaint: chest pain Triage Nursing Assessment: pt arrived per EMS. Per Detention staff, pt has had seizures off and on all day. Pt began complaining of chest pain around midnight. Pt denies chest pain upon arrival to ER. Pt has had 3 seizures while in ER during triage, one for 10 seconds and 2 for 20 seconds. Lungs clear, heart tones reg. Pt has 4+ pitting edema to bilat lower ext, red in color. Pt is alert and oriented x2, but is mentally challenged. Physician History: Patient is a 54-year-old female with a history of seizures presents to our ED from retirement via EMS for evaluation of recurrent seizures. Patient also complaining of chest pain. No trauma. No fever. No nausea or vomiting. No diaphoresis. Staff reports that they have been observing intermittent seizures throughout the day. Patient started to complain of chest pain just prior to a rrival. Patient has a history of mental retardation. HPI limited. Patient voices no other complaints or concerns at this time. Timing/Duration: today Severity: moderate Modifying Factors: Improves With: nothing Associated Symptoms: chest pain, No nausea, No vomiting, No abdominal pain, No shortness of breath, No diaphoresis, No cough, No chills, No fever, No headaches, No loss of appetite, No malaise, No rash, No syncope Allergies/Adverse Reactions: heparin Allergy (Verified 05/16/20 00:59) Home Medications: Aspirin 81 gm Chew [Baby Aspirin 81 mg Chew] 81 mg PO DAILY 06/22/16 [History] Clobazam [Onfi] 20 mg PO DAILY 06/22/16 [History] Docusate Sodium 100 mg [Colace 100 MG] 100 mg PO BID 06/22/16 [History] Ferrous Sulfate 325 mg [Feosol 325 mg] 325 mg PO DAILY 06/22/16 [History] Levothyroxine Sodium 50 Mcg [Synthroid 50 Mcg] 50 mcg PO DAILY 06/22/16 [History] Magnesium Oxide 400 mg [Mag-Ox 400] 400 mg PO DAILY 06/22/16 [History] PANTOPRAZOLE 40 mg Tablet [Protonix 40MG Tablet] 40 mg PO DAILY 06/22/16 [History] Potassium Chloride 20 Meq [Klor-Con 20 MEQ] 20 meq PO QID 06/22/16 [History] Sertraline HCl 50 mg [Zoloft 50 mg Tablet] 75 mg PO DAILY 06/22/16 [History] Torsemide [Demadex] 20 mg PO BID 06/22/16 [History] Brivaracetam [Briviact] 100 mg PO DAILY 05/10/18 [History] Ergocalciferol (Vitamin D2) [Vitamin D2] 50,000 unit PO Q7D 05/10/18 [History] Folic Acid 1 mg [Folate 1 mg] 1 mg PO DAILY 05/10/18 [History] Lacosamide [Vimpat] 100 mg PO BID 05/10/18 [History] Multivitamin [Xkf-Duvoim-Auxih] 1 each PO DAILY 05/10/18 [History] Albuterol Sulfate [Proair Hfa] 2 puff IH TID 05/16/20 [History] Budesonide/Formoterol Fumarate [Symbicort 160-4.5 Mcg Inhaler] 2 puff IH BID 05/16/20 [History] Cholecalciferol (Vitamin D3) [Vitamin D3] 400 unit PO DAILY 05/16/20 [History] Sulfamethoxazole/Trimethoprim [Bactrim Ds Tablet] 1 tab PO BID 05/16/20 [History] Hx Tetanus, Diphtheria Vaccination/Date Given: Yes Hx Influenza Vaccination/Date Given: Yes Hx Pneumococcal Vaccination/Date Given: Yes Immunizations Up to Date: Yes Travel Risk - International Travel Have you traveled outside of the country in past 3 weeks: No - Coronavirus Screening Are you exhibiting any of the following symptoms?: No Close contact with a COVID-19 positive Pt in past 14-21 Days: No - Review of Systems All Other Systems: Unable due to condition - Past Medical History Pertinent Past Medical History: Yes Neurological History: Epilepsy Cardiac History: Congestive Heart Failure, High Cholesterol Endocrine Medical History: Hypothyroidism GI Medical History: GERD Psycho-Social History: Depression - Past Surgical History Past Surgical History: Yes - Social History Smoking Status: Never smoker Exposure to second hand smoke: No Drug Use: none Patient Lives Alone: No - Female History Hx Now: No - Nursing Vital Signs Nursing Vital Signs: Initial Vital Signs O2 Sat by Pulse Oximetry 100 05/16/20 00:39 Pain Scale Pain Intensity 0 - Physical Exam General Appearance: no apparent distress, alert Eye Exam: PERRL/EOMI, eyes nml inspection Ears, Nose, Throat Exam: normal ENT inspection, TMs normal, pharynx normal, moist mucous membranes Neck Exam: normal inspection, non-tender, supple, full range of motion Respiratory Exam: normal breath sounds, lungs clear, No respiratory distress Cardiovascular Exam: regular rate/rhythm, normal heart sounds, normal peripheral pulses Gastrointestinal/Abdomen Exam: soft, normal bowel sounds, No tenderness, No mass Back Exam: normal inspection, normal range of motion, No CVA tenderness, No ve rtebral tenderness Extremity Exam: normal inspection, normal range of motion, pelvis stable, other (Lower extremity cellulitis patient currently on Bactrim.) Neurologic Exam: alert, oriented x 3, cooperative, normal mood/affect, sensation nml, No motor deficits Skin Exam: normal color, warm, dry, No rash Lymphatic Exam: No adenopathy SpO2 Interpretation: normal SpO2: 99 O2 Delivery: Room Air - Course Nursing assessment & vital signs reviewed: No - Radiology Exams Chest X-ray Interpretation: Teleradiologist Report (Inspiration. Lungs appear clear. Bony thorax intact. No infiltrate or consolidation. Left-sided electronic device observed.) - CT Exams Head CT Interpretation: Tele-radiologist Report (No acute intracranial process. Diffuse cortical atrophy and chronic deep white matter small vessel disease.) Ordered Tests: Active Orders 24 hr Category Date Time Status Balance And Hairspring Assembler STAT Care 05/16/20 00:40 Active EKG-ER Only STAT Care 05/16/20 00:39 Active IV Insertion STAT Care 05/16/20 00:39 Active Pulse Oximetry (ED) STAT Care 05/16/20 00:39 Active CHEST 1 VIEW (PORTABLE) Stat Exams 05/16/20 00:46 Taken HEAD WITHOUT CONTRAST [CT] Stat Exams 05/16/20 01:08 Taken CBC W DIFF Stat Lab 05/16/20 01:25 Completed CMP Stat Lab 05/16/20 01:25 Completed MAGNESIUM Stat Lab 05/16/20 01:25 Completed NT PRO BNP Stat Lab 05/16/20 01:25 Completed TROPONIN Q3H Lab 05/16/20 01:25 Completed TROPONIN Q3H Lab 05/16/20 03:45 Ordered TROPONIN Q3H Lab 05/16/20 06:45 Ordered TROPONIN Q3H Lab 05/16/20 09:45 Ordered TROPONIN Q3H Lab 05/16/20 12:45 Ordered TSH [TSH, 3RD Generation] Stat Lab 05/16/20 01:25 Completed UA W/RFX UR CULTURE Stat Lab 05/16/20 00:40 Ordered Transfer Order Routine Transfer 05/16/20 Ordered Medication Summary Discontinued Medications Generic Name Dose Route Start Last Admin Trade Name Jessica PRN Reason Stop Dose Admin Lorazepam 1 mg 05/16/20 01:09 05/16/20 01:24 Ativan 2 Mg/1 Ml Vial IV 05/16/20 01:10 1 mg STAT ONE Administration Lorazepam Confirm 05/16/20 01:12 Ativan 2 Mg/1 Ml Vial Administered 05/16/20 01:13 Dose 2 mg .ROUTE .STK-MED ONE Lab/Rad Data: Laboratory Result Diagrams 05/16/20 01:25 05/16/20 01:25 Laboratory Results 05/16/20 05/16/20 05/16/20 Range/Units 01:25 01:25 01:25 WBC (4.0-10.5) K/mm3 RBC (4.1-5.4) M/mm3 Hgb (12.0-16.0) gm/dl Hct (35-47) % MCV (78-100) fl MCH (26-32) pg MCHC (32-36) g/dl RDW (11.5-14.0) % Plt Count (150-450) K/mm3 MPV (7.5-11.0) fl Gran % (36.0-66.0) % Eos # (Auto) (0-0.5) Absolute Lymphs (auto) (1.0-4.6) Absolute Monos (auto) (0.0-1.3) Lymphocytes % (24.0-44.0) % Monocytes % (0.0-12.0) % Eosinophils % (0.00-5.0) % Basophils % (0.0-0.4) % Absolute Granulocytes (1.4-6.9) Basophils # (0-0.4) Sodium 133 L (137-145) mmol/L Potassium 3.9 (3.5-5.1) mmol/L Chloride 100 (98-107) mmol/L Carbon Dioxide 26 (22-30) mmol/L Anion Gap 11.3 (5-15) MEQ/L BUN 15 (7-17) mg/dL Creatinine 1.22 H (0.52-1.04) mg/dL Estimated GFR 48.6 ML/MIN Glucose 119 H (74-106) mg/dL Calcium 9.6 (8.4-10.2) mg/dL Magnesium 2.4 H (1.6-2.3) mg/dL Total Bilirubin 0.40 (0.2-1.3) mg/dL AST 39 H (14-36) U/L ALT 18 (0-35) U/L Alkaline Phosphatase 165 H (38-126) U/L Troponin I < 0.012 (0.000-0.034) ng/mL NT-Pro-B Natriuret Pep 465 (0-900) pg/mL Serum Total Protein 8.1 (6.3-8.2) g/dL Albumin 4.2 (3.5-5.0) g/dL TSH 3rd Generation 2.290 (0.47-4.68) mIU/L 05/16/20 Range/Units 01:25 WBC 9.9 (4.0-10.5) K/mm3 RBC 3.52 L (4.1-5.4) M/mm3 Hgb 10.5 L (12.0-16.0) gm/dl Hct 34.1 L (35-47) % MCV 96.9 (78-100) fl MCH 29.8 (26-32) pg MCHC 30.8 L (32-36) g/dl RDW 15.1 H (11.5-14.0) % Plt Count 220 (150-450) K/mm3 MPV 10.6 (7.5-11.0) fl Gran % 66.7 H (36.0-66.0) % Eos # (Auto) 0.12 (0-0.5) Absolute Lymphs (auto) 2.10 (1.0-4.6) Absolute Monos (auto) 1.04 (0.0-1.3) Lymphocytes % 21.2 L (24.0-44.0) % Monocytes % 10.5 (0.0-12.0) % Eosinophils % 1.2 (0.00-5.0) % Basophils % 0.4 (0.0-0.4) % Absolute Granulocytes 6.60 (1.4-6.9) Basophils # 0.04 (0-0.4) Sodium (137-145) mmol/L Potassium (3.5-5.1) mmol/L Chloride (98-107) mmol/L Carbon Dioxide (22-30) mmol/L Anion Gap (5-15) MEQ/L BUN (7-17) mg/dL Creatinine (0.52-1.04) mg/dL Estimated GFR ML/MIN Glucose (74-106) mg/dL Calcium (8.4-10.2) mg/dL Magnesium (1.6-2.3) mg/dL Total Bilirubin (0.2-1.3) mg/dL AST (14-36) U/L ALT (0-35) U/L Alkaline Phosphatase (38-126) U/L Troponin I (0.000-0.034) ng/mL NT-Pro-B Natriuret Pep (0-900) pg/mL Serum Total Protein (6.3-8.2) g/dL Albumin (3.5-5.0) g/dL TSH 3rd Generation (0.47-4.68) mIU/L - Progress Progress: improved Progress Note: 05/16/20 02:[address] Bliss who accepts admission to observation. Patient currently on Bactrim for lower extremity cellulitis. There is question as to whether the Bactrim may be contributing to seizures. We will admit patient to [facility] telemetry for cardiac rule out and telemetry neuro consult. Patient has a seizure electronic device implanted. Family reports that this is due for adjustment. Family updated on admission. Patient understand that she will be admitted to [facility] for further evaluation and treatment. Discussed with : Aminah Will see patient in: hospital (observation) Counseled pt/family regarding: lab results, diagnosis, rad results - Departure Departure Disposition: Observation Clinical Impression: Seizure, ACS (acute coronary syndrome), Cellulitis Condition: Stable Critical Care Time: No Referrals: ZAIRA BLISS MD [Primary Care Provider] -
[2020-05-16 01:34] LABS: BASOPHIL % 0.4 % (0.0-0.4); Basophil (Absolute #) 0.04 (0-0.4); Eosinophil % 1.2 % (0.00-5.0); Eosinophil (Absolute #) 0.12 (0-0.5); Hematocrit 34.1 % (35-47); Hemoglobin 10.5 gm/dl (12.0-16.0); Lymphocytes % 21.2 % (24.0-44.0); Mean Cell Volume 96.9 fl (78-100); Mean Corpuscular Hemoglobin 29.8 pg (26-32); Mean Corpuscular Hgb Concent. 30.8 g/dl (32-36); Mean Platelet Volume 10.6 fl (7.5-11.0); Monocyte (Absolute #) 1.04 (0.0-1.3); Monocytes % 10.5 % (0.0-12.0); Neutrophil % 66.7 % (36.0-66.0); Platelet Count 220 K/mm3 (150-450); Red Blood Count 3.52 M/mm3 (4.1-5.4); Red Cell Distribution Width 15.1 % (11.5-14.0); White Blood Count 9.9 K/mm3 (4.0-10.5)
[2020-05-16 01:51] LABS: ALBUMIN 4.2 g/dL (3.5-5.0); ANION GAP 11.3 MEQ/L (5-15); BILIRUBIN,TOTAL 0.4 mg/dL (0.2-1.3); Calcium 9.6 mg/dL (8.4-10.2); Creatinine 1 1.22 mg/dL (0.52-1.04); EST GLOMERULAR FILTRATION RATE 48.6 ML/MIN; MAGNESIUM 2.4 mg/dL (1.6-2.3); Potassium 3.9 mmol/L (3.5-5.1); Total Protein 8.1 g/dL (6.3-8.2)
[2020-05-16] MEDS ORDERED: TYLENOL 325 MG PO PRN ×2 (03:11→08:53)
[2020-05-16] MEDS ORDERED: Zofran 4 MG/2 ML VIAL IV PRN (03:11)
[2020-05-16] MEDS ORDERED: MAALOX ES 30 ML UNIT DOSE PO PRN (03:11)
[2020-05-16] MEDS ORDERED: Senokot-S Tablet PO PRN (03:11)
[2020-05-16] MEDS ORDERED: MILK OF MAGNESIA 30 ML PO PRN ×2 (03:11→08:53)
[2020-05-16 04:34] LABS: Risk Ratio 3.8
[2020-05-16] MEDS ORDERED: Ativan 2 MG/1 ML VIAL IV PRN (04:39)
[2020-05-16 05:12] LABS: Appearance CLEAR (CLEAR); Bacteria RARE /HPF (NEGATIVE); Bilirubin NEGATIVE (NEGATIVE); Blood NEGATIVE Ery/ul (0-5); Epithelial Cells RARE /HPF (FEW); Glucose NEGATIVE (NEGATIVE); Ketones NEGATIVE (NEGATIVE); Leukocyte Esterase SMALL (NEGATIVE); Nitrite NEGATIVE (NEGATIVE); Protein,Urine Dip NEGATIVE (Negative); Specific Gravity 1.012 (1.005-1.025); Urobilinogen NEGATIVE mg/dL (0-1)
[2020-05-16 08:24] VITALS: BP 116/56
--- NOTE | 2020-05-16 08:24 | PCM.SSS ---
History of Present Illness - Chief Complaint Chief Complaint: Chest pain History of Present Illness: is a 54 year old female with seizure disorder, has a VNS device and sees Dr Sanchez, having recurrent seizures, chronic lymphedema of lower extremities. - Review of Systems Constitutional: No Fever, No Chills Respiratory: No Cough, No Short Of Breath Cardiac: Chest Pain, No Edema, No Syncope Abdominal/Gastrointestinal: No Abdominal Pain, No Nausea, No Vomiting, No Diarrhea Skin: No Rash All Other Systems: Reviewed and Negative Medications & Allergies Home Medications: Home Medication List Aspirin 81 gm Chew [Baby Aspirin 81 mg Chew] 81 mg PO DAILY 06/22/16 [Hist ory Confirmed 05/16/20] Clobazam [Onfi] 20 mg PO BID 06/22/16 [History Confirmed 05/16/20] Docusate Sodium 100 mg [Colace 100 MG] 100 mg PO BID 06/22/16 [History Confirmed 05/16/20] Ferrous Sulfate 325 mg [Feosol 325 mg] 325 mg PO DAILY 06/22/16 [History Confirmed 05/16/20] Levothyroxine Sodium 50 Mcg [Synthroid 50 Mcg] 50 mcg PO DAILY 06/22/16 [History Confirmed 05/16/20] Magnesium Oxide 400 mg [Mag-Ox 400] 400 mg PO DAILY 06/22/16 [History Confirmed 05/16/20] PANTOPRAZOLE 40 mg Tablet [Protonix 40MG Tablet] 40 mg PO DAILY 06/22/16 [History Confirmed 05/16/20] Potassium Chloride 20 Meq [Klor-Con 20 MEQ] 20 meq PO QID 06/22/16 [History Confirmed 05/16/20] Sertraline HCl 50 mg [Zoloft 50 mg Tablet] 75 mg PO DAILY 06/22/16 [History Confirmed 05/16/20] Torsemide [Demadex] 20 mg PO BID 06/22/16 [History Confirmed 05/16/20] Brivaracetam [Briviact] 100 mg PO DAILY 05/10/18 [History Confirmed 05/16/20] Ergocalciferol (Vitamin D2) [Vitamin D2] 50,000 unit PO Q7D 05/10/18 [History Confirmed 05/16/20] Folic Acid 1 mg [Folate 1 mg] 1 mg PO DAILY 05/10/18 [History Confirmed 05/16/20] Lacosamide [Vimpat] 150 mg PO BID 05/10/18 [History Confirmed 05/16/20] Multivitamin [Pny-Malhim-Mdyrm] 1 each PO DAILY 05/10/18 [History Confirmed 05/16/20] Acetaminophen 325 mg [Tylenol 325 mg] 325 mg PO Q4H PRN PRN 05/16/20 [History Confirmed 05/16/20] Albuterol Sulfate [Proair Hfa] 2 puff IH TID 05/16/20 [History Confirmed 05/16/20] Budesonide/Formoterol Fumarate [Symbicort 160-4.5 Mcg Inhaler] 2 puff IH BID 05/16/20 [History Confirmed 05/16/20] Calcium Carbonate [Tums] 500 mg PO Q2H/PRN PRN 05/16/20 [History Confirmed 05/16/20] Cholecalciferol (Vitamin D3) [Vitamin D3] 400 unit PO DAILY 05/16/20 [History Confirmed 05/16/20] Guaifenesin 100 mg/5 ml [Robitussin 100 MG/5 ML] 10 ml [id number] PRN 05/16/20 [History Confirmed 05/16/20] Loratadine 10 mg [Claritin 10 mg] 10 mg PO DAILY PRN PRN 05/16/20 [History Confirmed 05/16/20] Magnesium Hydroxide 30 ml [Milk of Magnesia 30 ml] 30 ml PO DAILY PRN PRN 05/16/20 [History Confirmed 05/16/20] Nystatin Powder 15 gm [Nystop Powder 15 gm] 1 gm TP BID #1 powder 05/16/20 [Rx] Sennosides [Senna] 8.6 mg PO HS PRN PRN 05/16/20 [History Confirmed 05/16/20] Sodium Phosphate,Antelope-Dibasic [Fleet Enema] 133 ml RC DAILY PRN PRN 05/16/20 [History Confirmed 05/16/20] Allergies/Adverse Reactions: Allergies Allergy/AdvReac Type Severity Reaction Status Date / Time heparin Allergy Verified 05/16/20 00:59 - Past Medical History Past Medical History: Yes Neurological History: Epilepsy ENT History: No Pertinent History Cardiac History: Congestive Heart Failure, High Cholesterol Respiratory History: No Pertinent History Endocrine Medical History: Hypothyroidism Musculoskelatal History: No Pertinent History GI Medical History: GERD History: No Pertinent History Pyscho-Social History: Depression Reproductive Disorders: No Pertinent History - Female History Are you now?: No - Past Surgical History Past Surgical History: Yes Other Surgical History: implanted seizure device - Social History Smoking Status: Never smoker Exposure to second hand smoke: No Alcohol: None Drug Use: none - Physical Exam Vital Signs: Vital Signs - 24 hr Temp Pulse Pulse Resp BP Pulse Ox 05/16/20 03:50 98.4 F 101 H 20 142/78 96 05/16/20 03:11 98.4 F 101 H 20 142/78 96 05/16/20 03:08 98.4 F 101 H 20 142/78 96 05/16/20 02:42 99 05/16/20 02:00 89 22 134/77 95 05/16/20 01:45 89 22 134/77 95 05/16/20 00:47 95 H 05/16/20 00:45 98.1 F 95 H 24 158/89 99 05/16/20 00:39 100 General Appearance: obese Neurologic Exam: alert, oriented x 3 Respiratory Exam: normal breath sounds, lungs clear, No respiratory distress Cardiovascular Exam: regular rate/rhythm, normal heart sounds, normal peripheral pulses Gastrointestinal/Abdomen Exam: soft, normal bowel sounds, No tenderness, No mass Extremity Exam: swelling Results - Labs Lab/Micro Results: Lab Results-Last 24 Hours 05/16/20 05/16/20 05/16/20 Range/Units 01:25 01:25 01:25 WBC 9.9 (4.0-10.5) K/mm3 RBC 3.52 L (4.1-5.4) M/mm3 Hgb 10.5 L (12.0-16.0) gm/dl Hct 34.1 L (35-47) % MCV 96.9 (78-100) fl MCH 29.8 (26-32) pg MCHC 30.8 L (32-36) g/dl RDW 15.1 H (11.5-14.0) % Plt Count 220 (150-450) K/mm3 MPV 10.6 (7.5-11.0) fl Gran % 66.7 H (36.0-66.0) % Eos # (Auto) 0.12 (0-0.5) Absolute Lymphs (auto) 2.10 (1.0-4.6) Absolute Monos (auto) 1.04 (0.0-1.3) Lymphocytes % 21.2 L (24.0-44.0) % Monocytes % 10.5 (0.0-12.0) % Eosinophils % 1.2 (0.00-5.0) % Basophils % 0.4 (0.0-0.4) % Absolute Granulocytes 6.60 (1.4-6.9) Basophils # 0.04 (0-0.4) Sodium 133 L (137-145) mmol/L Potassium 3.9 (3.5-5.1) mmol/L Chloride 100 (98-107) mmol/L Carbon Dioxide 26 (22-30) mmol/L Anion Gap 11.3 (5-15) MEQ/L BUN 15 (7-17) mg/dL Creatinine 1.22 H (0.52-1.04) mg/dL Estimated GFR 48.6 ML/MIN Glucose 119 H (74-106) mg/dL Calcium 9.6 (8.4-10.2) mg/dL Magnesium 2.4 H (1.6-2.3) mg/dL Total Bilirubin 0.40 (0.2-1.3) mg/dL AST 39 H (14-36) U/L ALT 18 (0-35) U/L Alkaline Phosphatase 165 H (38-126) U/L Troponin I < 0.012 (0.000-0.034) ng/mL NT-Pro-B Natriuret Pep 465 (0-900) pg/mL Serum Total Protein 8.1 (6.3-8.2) g/dL Albumin 4.2 (3.5-5.0) g/dL Triglycerides (30-150) mg/dL Cholesterol (50-200) mg/dL LDL Cholesterol (30-100) mg/dL HDL Cholesterol (40-60) mg/dL Heart Disease Risk Ratio TSH 3rd Generation (0.47-4.68) mIU/L Urine Color (YELLOW) Urine Appearance (CLEAR) Urine pH (5-6) Ur Specific Hunter (1.005-1.025) Urine Protein (Negative) Urine Ketones (NEGATIVE) Urine Blood (0-5) Gurjit/ul Urine Nitrite (NEGATIVE) Urine Bilirubin (NEGATIVE) Urine Urobilinogen (0-1) mg/dL Ur Leukocyte Esterase (NEGATIVE) Urine WBC (Auto) (0-5) /HPF Urine RBC (Auto) (0-2) /HPF U Hyaline Cast (Auto) (0-2) /LPF U Epithel Cells (Auto) (FEW) /HPF Urine Bacteria (Auto) (NEGATIVE) /HPF Urine Culture Reflexed (NO) Urine Glucose (NEGATIVE) mg/dL 05/16/20 05/16/20 05/16/20 Range/Units 01:25 03:59 04:05 WBC (4.0-10.5) K/mm3 RBC (4.1-5.4) M/mm3 Hgb (12.0-16.0) gm/dl Hct (35-47) % MCV (78-100) fl MCH (26-32) pg MCHC (32-36) g/dl RDW (11.5-14.0) % Plt Count (150-450) K/mm3 MPV (7.5-11.0) fl Gran % (36.0-66.0) % Eos # (Auto) (0-0.5) Absolute Lymphs (auto) (1.0-4.6) Absolute Monos (auto) (0.0-1.3) Lymphocytes % (24.0-44.0) % Monocytes % (0.0-12.0) % Eosinophils % (0.00-5.0) % Basophils % (0.0-0.4) % Absolute Granulocytes (1.4-6.9) Basophils # (0-0.4) Sodium (137-145) mmol/L Potassium (3.5-5.1) mmol/L Chloride (98-107) mmol/L Carbon Dioxide (22-30) mmol/L Anion Gap (5-15) MEQ/L BUN (7-17) mg/dL Creatinine (0.52-1.04) mg/dL Estimated GFR ML/MIN Glucose (74-106) mg/dL Calcium (8.4-10.2) mg/dL Magnesium (1.6-2.3) mg/dL Total Bilirubin (0.2-1.3) mg/dL AST (14-36) U/L ALT (0-35) U/L Alkaline Phosphatase (38-126) U/L Troponin I < 0.012 (0.000-0.034) ng/mL NT-Pro-B Natriuret Pep (0-900) pg/mL Serum Total Protein (6.3-8.2) g/dL Albumin (3.5-5.0) g/dL Triglycerides (30-150) mg/dL Cholesterol (50-200) mg/dL LDL Cholesterol (30-100) mg/dL HDL Cholesterol (40-60) mg/dL Heart Disease Risk Ratio TSH 3rd Generation 2.290 (0.47-4.68) mIU/L Urine Color YELLOW (YELLOW) Urine Appearance CLEAR (CLEAR) Urine pH 7.0 (5-6) Ur Specific Hunter 1.012 (1.005-1.025) Urine Protein NEGATIVE (Negative) Urine Ketones NEGATIVE (NEGATIVE) Urine Blood NEGATIVE (0-5) Gurjit/ul Urine Nitrite NEGATIVE (NEGATIVE) Urine Bilirubin NEGATIVE (NEGATIVE) Urine Urobilinogen NEGATIVE (0-1) mg/dL Ur Leukocyte Esterase SMALL (NEGATIVE) Urine WBC (Auto) 6-10 (0-5) /HPF Urine RBC (Auto) 3-5 (0-2) /HPF U Hyaline Cast (Auto) 3-5 (0-2) /LPF U Epithel Cells (Auto) RARE (FEW) /HPF Urine Bacteria (Auto) RARE (NEGATIVE) /HPF Urine Culture Reflexed NO (NO) Urine Glucose NEGATIVE (NEGATIVE) mg/dL 05/16/20 05/16/20 Range/Units 04:05 06:50 WBC (4.0-10.5) K/mm3 RBC (4.1-5.4) M/mm3 Hgb (12.0-16.0) gm/dl Hct (35-47) % MCV (78-100) fl MCH (26-32) pg MCHC (32-36) g/dl RDW (11.5-14.0) % Plt Count (150-450) K/mm3 MPV (7.5-11.0) fl Gran % (36.0-66.0) % Eos # (Auto) (0-0.5) Absolute Lymphs (auto) (1.0-4.6) Absolute Monos (auto) (0.0-1.3) Lymphocytes % (24.0-44.0) % Monocytes % (0.0-12.0) % Eosinophils % (0.00-5.0) % Basophils % (0.0-0.4) % Absolute Granulocytes (1.4-6.9) Basophils # (0-0.4) Sodium (137-145) mmol/L Potassium (3.5-5.1) mmol/L Chloride (98-107) mmol/L Carbon Dioxide (22-30) mmol/L Anion Gap (5-15) MEQ/L BUN (7-17) mg/dL Creatinine (0.52-1.04) mg/dL Estimated GFR ML/MIN Glucose (74-106) mg/dL Calcium (8.4-10.2) mg/dL Magnesium (1.6-2.3) mg/dL Total Bilirubin (0.2-1.3) mg/dL AST (14-36) U/L ALT (0-35) U/L Alkaline Phosphatase (38-126) U/L Troponin I < 0.012 (0.000-0.034) ng/mL NT-Pro-B Natriuret Pep (0-900) pg/mL Serum Total Protein (6.3-8.2) g/dL Albumin (3.5-5.0) g/dL Triglycerides 80 (30-150) mg/dL Cholesterol 226 H (50-200) mg/dL LDL Cholesterol 117 H (30-100) mg/dL HDL Cholesterol 60 (40-60) mg/dL Heart Disease Risk Ratio 3.8 TSH 3rd Generation (0.47-4.68) mIU/L Urine Color (YELLOW) Urine Appearance (CLEAR) Urine pH (5-6) Ur Specific Hunter (1.005-1.025) Urine Protein (Negative) Urine Ketones (NEGATIVE) Urine Blood (0-5) Gurjit/ul Urine Nitrite (NEGATIVE) Urine Bilirubin (NEGATIVE) Urine Urobilinogen (0-1) mg/dL Ur Leukocyte Esterase (NEGATIVE) Urine WBC (Auto) (0-5) /HPF Urine RBC (Auto) (0-2) /HPF U Hyaline Cast (Auto) (0-2) /LPF U Epithel Cells (Auto) (FEW) /HPF Urine Bacteria (Auto) (NEGATIVE) /HPF Urine Culture Reflexed (NO) Urine Glucose (NEGATIVE) mg/dL - Radiology Impressions Radiology Exams & Impressions: Radiology Procedures Category Date Time Status CHEST 1 VIEW (PORTABLE) Stat Exams 05/16/20 00:46 Taken HEAD WITHOUT CONTRAST [CT] Stat Exams 05/16/20 01:08 Taken - Other Procedures and Tests Respiratory Therapy 05/16/20 07:00 Oxygen Nasal Cannula 2 lpm 05/16/20 08:39 EKG ROUTINE 05/17/20 05:00 EKG DAILY 05/18/20 05:00 EKG DAILY 05/19/20 05:00 EKG DAILY Assessment/Plan (1) Seizure Current Visit: Yes Status: Acute Assessment & Plan: discharging to see Dr Sanchez today per family request, has appt at 10:00 Code(s): R56.9 - UNSPECIFIED CONVULSIONS (2) Lymphedema Current Visit: Yes Status: Acute Assessment & Plan: chronic, elevated legs and compression. no further abx required Code(s): I89.0 - LYMPHEDEMA, NOT ELSEWHERE CLASSIFIED (3) Chest wall pain Current Visit: No Status: Acute Code(s): R07.89 - OTHER CHEST PAIN (4) History of CHF (congestive heart failure) Current Visit: No Status: Acute Code(s): Z86.79 - PERSONAL HISTORY OF OTHER DISEASES OF THE CIRCULATORY SYSTEM Hospital Summary - Vitals & Intake/Output Vital Signs: Vital Signs Temperature 98.4 F 05/16/20 03:50 Pulse Rate 101 H 05/16/20 03:50 Respiratory Rate 20 05/16/20 03:50 Blood Pressure 142/78 05/16/20 03:50 O2 Sat by Pulse Oximetry 96 05/16/20 03:50 Intake & Output: Intake & Output 05/13/20 05/14/20 05/15/20 05/16/20 11:59 11:59 11:59 11:59 Output Total 200 Balance -200 Weight 113.9 kg - Lab Result Diagrams: 05/16/20 01:25 05/16/20 01:25 Lab Results-Last 24 Hrs: Lab Results-Last 24 Hours 05/16/20 05/16/20 05/16/20 Range/Units 01:25 01:25 01:25 WBC 9.9 (4.0-10.5) K/mm3 RBC 3.52 L (4.1-5.4) M/mm3 Hgb 10.5 L (12.0-16.0) gm/dl Hct 34.1 L (35-47) % MCV 96.9 (78-100) fl MCH 29.8 (26-32) pg MCHC 30.8 L (32-36) g/dl RDW 15.1 H (11.5-14.0) % Plt Count 220 (150-450) K/mm3 MPV 10.6 (7.5-11.0) fl Gran % 66.7 H (36.0-66.0) % Eos # (Auto) 0.12 (0-0.5) Absolute Lymphs (auto) 2.10 (1.0-4.6) Absolute Monos (auto) 1.04 (0.0-1.3) Lymphocytes % 21.2 L (24.0-44.0) % Monocytes % 10.5 (0.0-12.0) % Eosinophils % 1.2 (0.00-5.0) % Basophils % 0.4 (0.0-0.4) % Absolute Granulocytes 6.60 (1.4-6.9) Basophils # 0.04 (0-0.4) Sodium 133 L (137-145) mmol/L Potassium 3.9 (3.5-5.1) mmol/L Chloride 100 (98-107) mmol/L Carbon Dioxide 26 (22-30) mmol/L Anion Gap 11.3 (5-15) MEQ/L BUN 15 (7-17) mg/dL Creatinine 1.22 H (0.52-1.04) mg/dL Estimated GFR 48.6 ML/MIN Glucose 119 H (74-106) mg/dL Calcium 9.6 (8.4-10.2) mg/dL Magnesium 2.4 H (1.6-2.3) mg/dL Total Bilirubin 0.40 (0.2-1.3) mg/dL AST 39 H (14-36) U/L ALT 18 (0-35) U/L Alkaline Phosphatase 165 H (38-126) U/L Troponin I < 0.012 (0.000-0.034) ng/mL NT-Pro-B Natriuret Pep 465 (0-900) pg/mL Serum Total Protein 8.1 (6.3-8.2) g/dL Albumin 4.2 (3.5-5.0) g/dL Triglycerides (30-150) mg/dL Cholesterol (50-200) mg/dL LDL Cholesterol (30-100) mg/dL HDL Cholesterol (40-60) mg/dL Heart Disease Risk Ratio TSH 3rd Generation (0.47-4.68) mIU/L Urine Color (YELLOW) Urine Appearance (CLEAR) Urine pH (5-6) Ur Specific Hunter (1.005-1.025) Urine Protein (Negative) Urine Ketones (NEGATIVE) Urine Blood (0-5) Gurjit/ul Urine Nitrite (NEGATIVE) Urine Bilirubin (NEGATIVE) Urine Urobilinogen (0-1) mg/dL Ur Leukocyte Esterase (NEGATIVE) Urine WBC (Auto) (0-5) /HPF Urine RBC (Auto) (0-2) /HPF U Hyaline Cast (Auto) (0-2) /LPF U Epithel Cells (Auto) (FEW) /HPF Urine Bacteria (Auto) (NEGATIVE) /HPF Urine Culture Reflexed (NO) Urine Glucose (NEGATIVE) mg/dL 05/16/20 05/16/20 05/16/20 Range/Units 01:25 03:59 04:05 WBC (4.0-10.5) K/mm3 RBC (4.1-5.4) M/mm3 Hgb (12.0-16.0) gm/dl Hct (35-47) % MCV (78-100) fl MCH (26-32) pg MCHC (32-36) g/dl RDW (11.5-14.0) % Plt Count (150-450) K/mm3 MPV (7.5-11.0) fl Gran % (36.0-66.0) % Eos # (Auto) (0-0.5) Absolute Lymphs (auto) (1.0-4.6) Absolute Monos (auto) (0.0-1.3) Lymphocytes % (24.0-44.0) % Monocytes % (0.0-12.0) % Eosinophils % (0.00-5.0) % Basophils % (0.0-0.4) % Absolute Granulocytes (1.4-6.9) Basophils # (0-0.4) Sodium (137-145) mmol/L Potassium (3.5-5.1) mmol/L Chloride (98-107) mmol/L Carbon Dioxide (22-30) mmol/L Anion Gap (5-15) MEQ/L BUN (7-17) mg/dL Creatinine (0.52-1.04) mg/dL Estimated GFR ML/MIN Glucose (74-106) mg/dL Calcium (8.4-10.2) mg/dL Magnesium (1.6-2.3) mg/dL Total Bilirubin (0.2-1.3) mg/dL AST (14-36) U/L ALT (0-35) U/L Alkaline Phosphatase (38-126) U/L Troponin I < 0.012 (0.000-0.034) ng/mL NT-Pro-B Natriuret Pep (0-900) pg/mL Serum Total Protein (6.3-8.2) g/dL Albumin (3.5-5.0) g/dL Triglycerides (30-150) mg/dL Cholesterol (50-200) mg/dL LDL Cholesterol (30-100) mg/dL HDL Cholesterol (40-60) mg/dL Heart Disease Risk Ratio TSH 3rd Generation 2.290 (0.47-4.68) mIU/L Urine Color YELLOW (YELLOW) Urine Appearance CLEAR (CLEAR) Urine pH 7.0 (5-6) Ur Specific Hunter 1.012 (1.005-1.025) Urine Protein NEGATIVE (Negative) Urine Ketones NEGATIVE (NEGATIVE) Urine Blood NEGATIVE (0-5) Gurjit/ul Urine Nitrite NEGATIVE (NEGATIVE) Urine Bilirubin NEGATIVE (NEGATIVE) Urine Urobilinogen NEGATIVE (0-1) mg/dL Ur Leukocyte Esterase SMALL (NEGATIVE) Urine WBC (Auto) 6-10 (0-5) /HPF Urine RBC (Auto) 3-5 (0-2) /HPF U Hyaline Cast (Auto) 3-5 (0-2) /LPF U Epithel Cells (Auto) RARE (FEW) /HPF Urine Bacteria (Auto) RARE (NEGATIVE) /HPF Urine Culture Reflexed NO (NO) Urine Glucose NEGATIVE (NEGATIVE) mg/dL 05/16/20 05/16/20 Range/Units 04:05 06:50 WBC (4.0-10.5) K/mm3 RBC (4.1-5.4) M/mm3 Hgb (12.0-16.0) gm/dl Hct (35-47) % MCV (78-100) fl MCH (26-32) pg MCHC (32-36) g/dl RDW (11.5-14.0) % Plt Count (150-450) K/mm3 MPV (7.5-11.0) fl Gran % (36.0-66.0) % Eos # (Auto) (0-0.5) Absolute Lymphs (auto) (1.0-4.6) Absolute Monos (auto) (0.0-1.3) Lymphocytes % (24.0-44.0) % Monocytes % (0.0-12.0) % Eosinophils % (0.00-5.0) % Basophils % (0.0-0.4) % Absolute Granulocytes (1.4-6.9) Basophils # (0-0.4) Sodium (137-145) mmol/L Potassium (3.5-5.1) mmol/L Chloride (98-107) mmol/L Carbon Dioxide (22-30) mmol/L Anion Gap (5-15) MEQ/L BUN (7-17) mg/dL Creatinine (0.52-1.04) mg/dL Estimated GFR ML/MIN Glucose (74-106) mg/dL Calcium (8.4-10.2) mg/dL Magnesium (1.6-2.3) mg/dL Total Bilirubin (0.2-1.3) mg/dL AST (14-36) U/L ALT (0-35) U/L Alkaline Phosphatase (38-126) U/L Troponin I < 0.012 (0.000-0.034) ng/mL NT-Pro-B Natriuret Pep (0-900) pg/mL Serum Total Protein (6.3-8.2) g/dL Albumin (3.5-5.0) g/dL Triglycerides 80 (30-150) mg/dL Cholesterol 226 H (50-200) mg/dL LDL Cholesterol 117 H (30-100) mg/dL HDL Cholesterol 60 (40-60) mg/dL Heart Disease Risk Ratio 3.8 TSH 3rd Generation (0.47-4.68) mIU/L Urine Color (YELLOW) Urine Appearance (CLEAR) Urine pH (5-6) Ur Specific Hunter (1.005-1.025) Urine Protein (Negative) Urine Ketones (NEGATIVE) Urine Blood (0-5) Gurjit/ul Urine Nitrite (NEGATIVE) Urine Bilirubin (NEGATIVE) Urine Urobilinogen (0-1) mg/dL Ur Leukocyte Esterase (NEGATIVE) Urine WBC (Auto) (0-5) /HPF Urine RBC (Auto) (0-2) /HPF U Hyaline Cast (Auto) (0-2) /LPF U Epithel Cells (Auto) (FEW) /HPF Urine Bacteria (Auto) (NEGATIVE) /HPF Urine Culture Reflexed (NO) Urine Glucose (NEGATIVE) mg/dL - Radiology Exams Ordered Rad Exams-Entire Visit: Radiology Procedures Category Date Time Status CHEST 1 VIEW (PORTABLE) Stat Exams 05/16/20 00:46 Taken HEAD WITHOUT CONTRAST [CT] Stat Exams 05/16/20 01:08 Taken - Procedures and Test Procedures and Tests throughout Hospitalization: Therapy Orders & Screens 05/16/20 03:11 EKG Q8HX2,QAMX3,PRN Comment: 05/16/20 07:00 Oxygen Nasal Cannula 2 lpm Comment: Diagnosis: Chest pain 05/16/20 08:39 EKG ROUTINE Comment: Diagnosis: Chest pain 05/17/20 05:00 EKG DAILY Comment: Diagnosis: Chest pain 05/18/20 05:00 EKG DAILY Comment: Diagnosis: Chest pain 05/19/20 05:00 EKG DAILY Comment: Diagnosis: Chest pain - Discharge Disposition: Home, Self-Care Condition: Stable Prescriptions: New Nystatin Powder 15 gm [Nystop Powder 15 gm] 1 gm TP BID #1 powder Continue Torsemide [Demadex] 20 mg PO BID Levothyroxine Sodium 50 Mcg [Synthroid 50 Mcg] 50 mcg PO DAILY Potassium Chloride 20 Meq [Klor-Con 20 MEQ] 20 meq PO QID PANTOPRAZOLE 40 mg Tablet [Protonix 40MG Tablet] 40 mg PO DAILY Clobazam [Onfi] 20 mg PO BID Magnesium Oxide 400 mg [Mag-Ox 400] 400 mg PO DAILY Ferrous Sulfate 325 mg [Feosol 325 mg] 325 mg PO DAILY Docusate Sodium 100 mg [Colace 100 MG] 100 mg PO BID Aspirin 81 gm Chew [Baby Aspirin 81 mg Chew] 81 mg PO DAILY Sertraline HCl 50 mg [Zoloft 50 mg Tablet] 75 mg PO DAILY Multivitamin [Oie-Scdthr-Apmlj] 1 each PO DAILY Lacosamide [Vimpat] 150 mg PO BID Ergocalciferol (Vitamin D2) [Vitamin D2] 50,000 unit PO Q7D Folic Acid 1 mg [Folate 1 mg] 1 mg PO DAILY Brivaracetam [Briviact] 100 mg PO DAILY Cholecalciferol (Vitamin D3) [Vitamin D3] 400 unit PO DAILY Budesonide/Formoterol Fumarate [Symbicort 160-4.5 Mcg Inhaler] 2 puff IH BID Albuterol Sulfate [Proair Hfa] 2 puff IH TID Loratadine 10 mg [Claritin 10 mg] 10 mg PO DAILY PRN PRN PRN Reason: Allergies Sodium Phosphate,Antelope-Dibasic [Fleet Enema] 133 ml RC DAILY PRN PRN PRN Reason: Constipation Sennosides [Senna] 8.6 mg PO HS PRN PRN PRN Reason: Constipation Magnesium Hydroxide 30 ml [Milk of Magnesia 30 ml] 30 ml PO DAILY PRN PRN PRN Reason: Constipation Guaifenesin 100 mg/5 ml [Robitussin 100 MG/5 ML] 10 ml [id number] PRN PRN Reason: Cough Calcium Carbonate [Tums] 500 mg PO Q2H/PRN PRN PRN Reason: GERD Acetaminophen 325 mg [Tylenol 325 mg] 325 mg PO Q4H PRN PRN PRN Reason: pain/temp Follow up with: ZAIRA BLISS MD [Primary Care Provider] -
[2020-05-16] MEDS ORDERED: Tums EX 750 MG PO PRN (08:53)
[2020-05-16] MEDS ORDERED: Robitussin 100 MG/5 ML PO PRN (08:53)
[2020-05-16] MEDS ORDERED: CLARITIN 10 MG PO PRN (08:53)
[2020-05-16] MEDS ORDERED: SENOKOT 8.6 MG PO PRN (08:53)
--- NOTE | 2020-05-16 09:13 | XRAY ---
Indication: Chest pain, hypokalemia, and pitting edema. Comparison: February 04, 2020. Portable apical lordotic chest demonstrates new borderline cardiomegaly and central vascular prominence. No focal infiltrate, consolidation, or large effusion. New left electronic stimulator device with lead terminating base of neck. Bony thorax intact. Impression: New borderline cardiomegaly and central vascular prominence possibly related to apical lordotic projection. Early cardiac decompensation not completely excluded.
[2020-05-16] MEDS ORDERED: Advair Hfa 115/21 Common canister IH SCH (09:15)
--- NOTE | 2020-05-16 09:17 | XRAY ---
Indication: Multiple seizures. Multiple contiguous axial images obtained through the head without contrast. Comparison: None Global atrophy more than expected for patient's age either developmental, metabolic, or sequela to old injury/insult. Mild periventricular degenerative micro-ischemia bilaterally. No acute intracranial hemorrhage, hydrocephalus, or mass effect. Fourth ventricle is midline without hydrocephalus. Duke-white matter differentiation preserved. Bony calvarium intact. Visualized paranasal sinuses and mastoid air cells are clear. Impression: Global atrophy and degenerative micro-ischemia. No acute intracranial abnormalities. Comment: Preliminary interpretation was made by [facility]. No critical discrepancy.
[2020-05-16] MEDS ORDERED: MEDICATION INTERVENTION MC SCH ×3 (09:30)
[2020-05-16 09:43] VITALS: PULSE 82; O2SAT 96
[2020-05-16] MEDS ORDERED: LACOSAMIDE 150 MG PO SCH (10:00)
[2020-05-16] MEDS ORDERED: BRIVARACETAM 100 MG PO SCH (10:00)
[2020-05-16] MEDS ORDERED: NYSTOP POWDER 15 GM TP SCH (10:00)
[2020-05-16] MEDS ORDERED: THERAGRAN MULTIVITAMIN PO SCH (10:00)
[2020-05-16] MEDS ORDERED: BABY ASPIRIN 81 MG CHEW PO SCH (10:00)
[2020-05-16] MEDS ORDERED: Ventolin Hfa MDI IH SCH (10:00)
[2020-05-16] MEDS ORDERED: Klor Con 10 MEQ PO SCH (10:00)
[2020-05-16] MEDS ORDERED: FEOSOL 325 MG PO SCH (10:00)
[2020-05-16] MEDS ORDERED: NON-FORMULARY ITEM (Cholecalciferol (Vitamin D3) [Vitamin D3] 400 UNIT) PO SCH (10:00)
[2020-05-16] MEDS ORDERED: ZOLOFT 50 MG TABLET PO SCH (10:00)
[2020-05-16] MEDS ORDERED: DEMADEX 20 MG PO SCH (10:00)
[2020-05-16] MEDS ORDERED: NON-FORMULARY ITEM (Potassium Chloride 20 Meq [Klor-Con 20 Meq] 20 MEQ) PO SCH (10:00)
[2020-05-16] MEDS ORDERED: NON-FORMULARY ITEM (Budesonide/Formoterol Fumarate [Symbicort 160-4.5 Mcg Inhaler] 2 PUFF) IH SCH (10:00)
[2020-05-16] MEDS ORDERED: SYNTHROID 50 MCG PO SCH (10:00)
[2020-05-16] MEDS ORDERED: FOLATE 1 MG PO SCH (10:00)
[2020-05-16] MEDS ORDERED: MAG-OX 400 PO SCH (10:00)
[2020-05-16] MEDS ORDERED: CLOBAZAM 20 MG PO SCH (10:00)
[2020-05-16] MEDS ORDERED: MULTIVITAMIN PO SCH (10:00)
[2020-05-16] MEDS ORDERED: ECOTRIN 81 MG PO SCH (10:00)
[2020-05-16] MEDS ORDERED: Colace 100 MG PO SCH (10:00)
[2020-05-16] MEDS ORDERED: Protonix 40MG Tablet PO SCH (10:00)
[2020-05-16] MEDS ORDERED: VENTOLIN COMMON CANISTER IH SCH (13:00)
[2020-05-22] MEDS ORDERED: VITAMIN D2 PO SCH (09:00)
== END 2020-05-16 09:55 ==
LOC: ED 00:34 → MED SURG 03:01
PROVIDERS: ADMIT Family Medicine; ATTEND Family Medicine
DX: R56.9 Unspecified convulsions (principal); R07.89 Other chest pain; E78.00 Pure hypercholesterolemia, unspecified; E03.9 Hypothyroidism, unspecified; I89.0 Lymphedema, not elsewhere classified; Z86.79 Personal history of other diseases of the circulatory system; Z79.899 Other long term (current) drug therapy; Z96.82 Presence of neurostimulator
CPT/HCPCS: 36000; 36415; 70450; 71045; 80053; 80061; 81001; 83721; 83735; 83880; 84443; 84484; 85025; 93005; 93041; 93268; 94640; 94760; 96374; 99284; G0378; J2060; A9270-GY

== ENCOUNTER 2020-05-24 08:55 | Emergency (ER) | payer MEDICARE ==
[2020-05-24] MEDS ORDERED: Keppra 500 MG/5 ML*** 1,000 MG in D5w 100ML Mini Bag 100 ML 100 ML IV ONE (09:02)
[2020-05-24] MEDS ORDERED: Sodium Chloride 0.9% 1000 ML 1,000 ML IV STA (09:02)
[2020-05-24] MEDS ORDERED: Zofran 4 MG/2 ML VIAL IV ONE (09:02)
[2020-05-24] MEDS ORDERED: Ativan 2 MG/1 ML VIAL IM ONE (09:02)
[2020-05-24] MEDS ORDERED: Ativan 2 MG/1 ML VIAL ONE (09:06)
[2020-05-24] MEDS ORDERED: Keppra 500 MG/5 ML ONE (09:06)
[2020-05-24] MEDS ORDERED: Sodium Chloride 0.9% 100 ML IVPB 100 ML IV ONE (09:08)
[2020-05-24 09:13] LABS: Absolute Neutrophil Ct (ANC) 5.99 (1.4-6.9); BASOPHIL % 0.3 % (0.0-0.4); Basophil (Absolute #) 0.03 (0-0.4); Eosinophil % 2.5 % (0.00-5.0); Eosinophil (Absolute #) 0.22 (0-0.5); Hematocrit 36.7 % (35-47); Hemoglobin 10.9 gm/dl (12.0-16.0); Lymphocyte (Absolute #) 1.99 (1.0-4.6); Lymphocytes % 22.4 % (24.0-44.0); Mean Cell Volume 100.3 fl (78-100); Mean Corpuscular Hemoglobin 29.8 pg (26-32); Mean Corpuscular Hgb Concent. 29.7 g/dl (32-36); Mean Platelet Volume 10.3 fl (7.5-11.0); Monocyte (Absolute #) 0.64 (0.0-1.3); Monocytes % 7.2 % (0.0-12.0); Neutrophil % 67.6 % (36.0-66.0); Platelet Count 253 K/mm3 (150-450); Red Blood Count 3.66 M/mm3 (4.1-5.4); Red Cell Distribution Width 15.4 % (11.5-14.0); White Blood Count 8.9 K/mm3 (4.0-10.5)
[2020-05-24] MEDS ORDERED: Zofran 4 MG/2 ML VIAL ONE (09:19)
[2020-05-24] MEDS ORDERED: Sodium Chloride 0.9% 1000 ML 1,000 ML ONE (09:20)
[2020-05-24] MEDS ORDERED: Ativan 2 MG/1 ML VIAL IV ONE (09:22)
--- NOTE | 2020-05-24 09:29 | ERPHSYRPT ---
- History of Present Illness Time Seen by Provider: 05/24/20 09:05 Patient Subjective Stated Complaint: . Triage Nursing Assessment: . Physician History: 54 years old female with complicated medical history including seizure disorder, hypertension, hyperlipidemia, hypothyroidism, mental retardation resident of assisted living is brought in the ER with chief complaint of left-sided weakness/left side facial droop and multiple seizures. Per report patient is having weakness in left upper and lower extremities since yesterday and this morning started to have left facial droop. She is having uncontrolled seizures for the last week and had 4 seizures episodes prior to arrival in the ER where her left body started shaking, last for 10-15 seconds and improved and patient is fully conversant in between. She has another episode on presentation in the ER. Patient is able to move her left upper and lower extremities and follows commands. Not a good historian and history is limited. She also had a fall yesterday with a bruise on the left shoulder/upper arm area. Allergies/Adverse Reactions: heparin Allergy (Verified 05/16/20 00:59) Home Medications: Aspirin 81 gm Chew [Baby Aspirin 81 mg Chew] 81 mg PO DAILY 06/22/16 [History] Clobazam [Onfi] 20 mg PO BID 06/22/16 [History] Docusate Sodium 100 mg [Colace 100 MG] 100 mg PO BID 06/22/16 [History] Ferrous Sulfate 325 mg [Feosol 325 mg] 325 mg PO DAILY 06/22/16 [History] Levothyroxine Sodium 50 Mcg [Synthroid 50 Mcg] 50 mcg PO DAILY 06/22/16 [History] Magnesium Oxide 400 mg [Mag-Ox 400] 400 mg PO DAILY 06/22/16 [History] PANTOPRAZOLE 40 mg Tablet [Protonix 40MG Tablet] 40 mg PO DAILY 06/22/16 [History] Potassium Chloride 20 Meq [Klor-Con 20 MEQ] 20 meq PO QID 06/22/16 [History] Sertraline HCl 50 mg [Zoloft 50 mg Tablet] 75 mg PO DAILY 06/22/16 [History] Torsemide [Demadex] 20 mg PO BID 06/22/16 [History] Brivaracetam [Briviact] 100 mg PO DAILY 05/10/18 [History] Ergocalciferol (Vitamin D2) [Vitamin D2] 50,000 unit PO Q7D 05/10/18 [History] Folic Acid 1 mg [Folate 1 mg] 1 mg PO DAILY 05/10/18 [History] Lacosamide [Vimpat] 150 mg PO BID 05/10/18 [History] Multivitamin [Bja-Kclpvx-Ajpok] 1 each PO DAILY 05/10/18 [History] Acetaminophen 325 mg [Tylenol 325 mg] 325 mg PO Q4H PRN PRN 05/16/20 [History] Albuterol Sulfate [Proair Hfa] 2 puff IH TID 05/16/20 [History] Budesonide/Formoterol Fumarate [Symbicort 160-4.5 Mcg Inhaler] 2 puff IH BID 05/16/20 [History] Calcium Carbonate [Tums] 500 mg PO Q2H/PRN PRN 05/16/20 [History] Cholecalciferol (Vitamin D3) [Vitamin D3] 400 unit PO DAILY 05/16/20 [History] Guaifenesin 100 mg/5 ml [Robitussin 100 MG/5 ML] 10 ml [id number] PRN 05/16 [History] Loratadine 10 mg [Claritin 10 mg] 10 mg PO DAILY PRN PRN 05/16/20 [History] Magnesium Hydroxide 30 ml [Milk of Magnesia 30 ml] 30 ml PO DAILY PRN PRN 05/16/20 [History] Sennosides [Senna] 8.6 mg PO HS PRN PRN 05/16/20 [History] Sodium Phosphate,[place]-Dibasic [Fleet Enema] 133 ml RC DAILY PRN PRN 05/16/20 [History] Hx Tetanus, Diphtheria Vaccination/Date Given: No Hx Influenza Vaccination/Date Given: No Hx Pneumococcal Vaccination/Date Given: No Immunizations Up to Date: No Travel Risk - International Travel Have you traveled outside of the country in past 3 weeks: No - Coronavirus Screening Are you exhibiting any of the following symptoms?: No Close contact with a COVID-19 positive Pt in past 14-21 Days: No - Review of Systems All Other Systems: Unable due to condition - Past Medical History Pertinent Past Medical History: Yes Neurological History: Epilepsy, Seizures ENT History: No Pertinent History Cardiac History: Congestive Heart Failure, High Cholesterol Respiratory History: No Pertinent History Endocrine Medical History: Hypothyroidism, Other Musculoskeletal History: No Pertinent History GI Medical History: GERD History: No Pertinent History Psycho-Social History: Depression Female Reproductive Disorders: No Pertinent History Other Medical History: kidney disease - Past Surgical History Past Surgical History: Yes Other Surgical History: implanted seizure device - Social History Smoking Status: Unknown if ever smoked Exposure to second hand smoke: No Drug Use: none Patient Lives Alone: (unknown) - Nursing Vital Signs Nursing Vital Signs: Initial Vital Signs Temperature 97.1 F 05/24/20 09:02 Pulse Rate 85 05/24/20 09:02 Respiratory Rate 24 05/24/20 09:02 Blood Pressure 142/77 05/24/20 09:02 O2 Sat by Pulse Oximetry 98 05/24/20 09:02 Pain Scale Pain Intensity 0 - [place] Coma Scale Best Eye Response (Ramesh): (4) open spontaneously Best Verbal Response ([place]): (5) oriented Best Motor Response ([place]): (6) obeys commands [place] Total: 15 - Physical Exam General Appearance: no apparent distress, alert Eye Exam: bilateral eye: normal inspection, PERRL, EOMI Ears, Nose, Throat Exam: pharyngeal erythema, other (Dry mucous membranes) Neck Exam: normal inspection, non-tender, full range of motion Respiratory: normal breath sounds, lungs clear, No chest tenderness Cardiovascular: regular rate/rhythm, normal heart sounds Gastrointestinal: soft, normal bowel sounds, No tenderness Back Exam: normal inspection Extremity Exam: limited range of motion (Left shoulder with bruising on the left outer upper arm), swelling, tenderness 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 Exam: normal hearing, normal speech, PERRL Motor/Sensory: weak motor strength LUE, weak motor strength LLE DTR: bicep (R): 2+, bicep (L): 2+, knee (R): 2+, knee (L): 2+ Skin Exam: normal color SpO2 Interpretation: normal SpO2: 98 O2 Delivery: Nasal Cannula - Course EKG Interpreted by Me: RATE (78), Sinus Rhythm, NORMAL AXIS, prolonged QT interval, Q-wave (Anterior) Ordered Tests: Active Orders 24 hr Category Date Time Status Virtual Classroom Manager STAT Care 05/24/20 09:03 Active EKG-ER Only STAT Care 05/24/20 09:02 Active IV Insertion STAT Care 05/24/20 09:02 Active NPO (ED) STAT Care 05/24/20 09:02 Active Oxygen-ED Only Nasal Cannula 3 lpm Care 05/24/20 09:02 Active POCT Glucose Check STAT Care 05/24/20 09:02 Active CHEST 1 VIEW (PORTABLE) Stat Exams 05/24/20 09:[address] ANGIOGRAPHY NECK [CT] Stat Exams 05/24/20 11:24 Completed CTA HEAD W AND/OR WO CONTRAST [CT] Stat Exams 05/24/20 11:24 Completed HEAD WITHOUT CONTRAST [CT] Stat Exams 05/24/20 09:03 Completed SHOULDER Stat Exams 05/24/20 09:38 Completed BLOOD CULTURE Stat Lab 05/24/20 09:30 Ordered CBC W DIFF Stat Lab 05/24/20 09:02 Completed CMP Stat Lab 05/24/20 09:40 Completed Lactic Acid Stat Lab 05/24/20 09:09 Completed MAG [MAGNESIUM] Stat Lab 05/24/20 10:36 Completed TSH [TSH, 3RD Generation] Stat Lab 05/24/20 09:04 Completed UA W/RFX UR CULTURE Stat Lab 05/24/20 09:43 Completed Medication Summary Generic Name Dose Route Start Last Admin Trade Name Freq PRN Reason Stop Dose Admin Ceftriaxone Sodium/Dextrose 1 g in 50 mls @ 100 mls/hr 05/24/20 13:11 Rocephin 1 Gm-D5w 50 Ml Bag IV 05/24/20 13:40 STAT STA Discontinued Medications Generic Name Dose Route Start Last Admin Trade Name Freq PRN Reason Stop Dose Admin Aspirin 324 mg 05/24/20 11:25 05/24/20 12:26 Baby Aspirin 81 Mg Chew PO 05/24/20 11:26 Not Given STAT ONE Aspirin 325 mg 05/24/20 12:26 05/24/20 12:29 Aspirin 600 Mg WA 05/24/20 12:27 325 mg STAT ONE Administration Aspirin Confirm 05/24/20 12:28 Aspirin 600 Mg Administered 05/24/20 12:29 Dose 600 mg .ROUTE .STK-MED ONE Sodium Chloride 1,000 mls @ 999 mls/hr 05/24/20 09:02 05/24/20 10:21 Sodium Chloride 0.9% 1000 Ml IV 05/24/20 10:02 Infused .Q1H1M STA Infusion Levetiracetam 1,000 mg/ 110 mls @ 400 mls/hr 05/24/20 09:02 05/24/20 09:18 Dextrose IV 05/24/20 09:18 400 mls/hr STAT ONE Administration Sodium Chloride Confirm 05/24/20 09:08 Sodium Chloride 0.9% 100 Ml Ivpb Administered 05/24/20 09:09 Dose 100 mls @ ud IV .STK-MED ONE Sodium Chloride Confirm 05/24/20 09:20 Sodium Chloride 0.9% 1000 Ml Administered 05/24/20 09:21 Dose 1,000 mls @ ud .ROUTE .STK-MED ONE Levetiracetam Confirm 05/24/20 09:06 Keppra 500 Mg/5 Ml Administered 05/24/20 09:07 Dose 1,000 mg .ROUTE .STK-MED ONE Lorazepam 2 mg 05/24/20 09:02 05/24/20 09:02 Ativan 2 Mg/1 Ml Vial IM 05/24/20 09:03 2 mg STAT ONE Administration Lorazepam Confirm 05/24/20 09:06 Ativan 2 Mg/1 Ml Vial Administered 05/24/20 09:07 Dose 2 mg .ROUTE .STK-MED ONE Lorazepam 2 mg 05/24/20 09:22 05/24/20 09:23 Ativan 2 Mg/1 Ml Vial IV 05/24/20 09:23 2 mg STAT ONE Administration Ondansetron HCl 4 mg 05/24/20 09:02 05/24/20 09:20 Zofran 4 Mg/2 Ml Vial IV 05/24/20 09:03 4 mg STAT ONE Administration Ondansetron HCl Confirm 05/24/20 09:19 Zofran 4 Mg/2 Ml Vial Administered 05/24/20 09:20 Dose 4 mg .ROUTE .STK-MED ONE Lab/Rad Data: Laboratory Result Diagrams 05/24/20 09:02 05/24/20 09:40 Laboratory Results 02/03/21 02/03/21 02/03/21 Range/Units 10:36 09:43 09:40 WBC (4.0-10.5) K/mm3 RBC (4.1-5.4) M/mm3 Hgb (12.0-16.0) gm/dl Hct (35-47) % MCV (78-100) fl MCH (26-32) pg MCHC (32-36) g/dl RDW (11.5-14.0) % Plt Count (150-450) K/mm3 MPV (7.5-11.0) fl Gran % (36.0-66.0) % Eos # (Auto) (0-0.5) Absolute Lymphs (auto) (1.0-4.6) Absolute Monos (auto) (0.0-1.3) Lymphocytes % (24.0-44.0) % Monocytes % (0.0-12.0) % Eosinophils % (0.00-5.0) % Basophils % (0.0-0.4) % Absolute Granulocytes (1.4-6.9) Basophils # (0-0.4) Sodium 138 (137-145) mmol/L Potassium 4.7 (3.5-5.1) mmol/L Chloride 102 (98-107) mmol/L Carbon Dioxide 28 (22-30) mmol/L Anion Gap 12.4 (5-15) MEQ/L BUN 22 H (7-17) mg/dL Creatinine 1.04 (0.52-1.04) mg/dL Estimated GFR 58.5 ML/MIN Glucose 103 (74-106) mg/dL Lactic Acid (0.4-2.0) Calcium 9.0 (8.4-10.2) mg/dL Magnesium 2.4 H (1.6-2.3) mg/dL Total Bilirubin 0.40 (0.2-1.3) mg/dL AST 42 H (14-36) U/L ALT 20 (0-35) U/L Alkaline Phosphatase 126 (38-126) U/L Serum Total Protein 7.5 (6.3-8.2) g/dL Albumin 3.8 (3.5-5.0) g/dL TSH 3rd Generation (0.47-4.68) mIU/L Urine Color YELLOW (YELLOW) Urine Appearance CLEAR (CLEAR) Urine pH 6.0 (5-6) Ur Specific [place] 1.012 (1.005-1.025) Urine Protein NEGATIVE (Negative) Urine Ketones NEGATIVE (NEGATIVE) Urine Blood NEGATIVE (0-5) Gurjit/ul Urine Nitrite NEGATIVE (NEGATIVE) Urine Bilirubin NEGATIVE (NEGATIVE) Urine Urobilinogen NEGATIVE (0-1) mg/dL Ur Leukocyte Esterase TRACE (NEGATIVE) Urine WBC (Auto) 6-10 (0-5) /HPF Urine RBC (Auto) 0-2 (0-2) /HPF U Epithel Cells (Auto) NONE (FEW) /HPF Urine Bacteria (Auto) FEW (NEGATIVE) /HPF Urine Culture Reflexed NO (NO) Urine Glucose NEGATIVE (NEGATIVE) mg/dL 05/24/20 05/24/20 05/24/20 Range/Units 09:09 09:04 09:02 WBC 8.9 (4.0-10.5) K/mm3 RBC 3.66 L (4.1-5.4) M/mm3 Hgb 10.9 L (12.0-16.0) gm/dl Hct 36.7 (35-47) % MCV 100.3 H (78-100) fl MCH 29.8 (26-32) pg MCHC 29.7 L (32-36) g/dl RDW 15.4 H (11.5-14.0) % Plt Count 253 (150-450) K/mm3 MPV 10.3 (7.5-11.0) fl Gran % 67.6 H (36.0-66.0) % Eos # (Auto) 0.22 (0-0.5) Absolute Lymphs (auto) 1.99 (1.0-4.6) Absolute Monos (auto) 0.64 (0.0-1.3) Lymphocytes % 22.4 L (24.0-44.0) % Monocytes % 7.2 (0.0-12.0) % Eosinophils % 2.5 (0.00-5.0) % Basophils % 0.3 (0.0-0.4) % Absolute Granulocytes 5.99 (1.4-6.9) Basophils # 0.03 (0-0.4) Sodium (137-145) mmol/L Potassium (3.5-5.1) mmol/L Chloride (98-107) mmol/L Carbon Dioxide (22-30) mmol/L Anion Gap (5-15) MEQ/L BUN (7-17) mg/dL Creatinine (0.52-1.04) mg/dL Estimated GFR ML/MIN Glucose (74-106) mg/dL Lactic Acid 1.7 (0.4-2.0) Calcium (8.4-10.2) mg/dL Magnesium (1.6-2.3) mg/dL Total Bilirubin (0.2-1.3) mg/dL AST (14-36) U/L ALT (0-35) U/L Alkaline Phosphatase (38-126) U/L Serum Total Protein (6.3-8.2) g/dL Albumin (3.5-5.0) g/dL TSH 3rd Generation 1.310 (0.47-4.68) mIU/L Urine Color (YELLOW) Urine Appearance (CLEAR) Urine pH (5-6) Ur Specific [place] (1.005-1.025) Urine Protein (Negative) Urine Ketones (NEGATIVE) Urine Blood (0-5) Gurjit/ul Urine Nitrite (NEGATIVE) Urine Bilirubin (NEGATIVE) Urine Urobilinogen (0-1) mg/dL Ur Leukocyte Esterase (NEGATIVE) Urine WBC (Auto) (0-5) /HPF Urine RBC (Auto) (0-2) /HPF U Epithel Cells (Auto) (FEW) /HPF Urine Bacteria (Auto) (NEGATIVE) /HPF Urine Culture Reflexed (NO) Urine Glucose (NEGATIVE) mg/dL - Progress Progress: improved Progress Note: 05/24/20 11:04 54 years old is evaluated for multiple seizures focally on the left side and weakness on the left side with left facial droop. Patient had multiple seizure while in the ER as well and is given Ativan and loading dose of Keppra. I have obtained CT head which is negative for any acute intracranial findings. She has grossly unremarkable chemistries. Normal white count. EKG did not show any acute ischemic changes. I have obtained [facility] neurology consult with recommendations to get MRI of brain to rule out stroke. Patient left-sided weakness could be is part of paralysis most probably per neurology. Also recommended increasing dose of Vimpat to 200 twice a day and brei act 100 twice a day. Patient does have a VNS that needs to be short of before getting MRI. Do not have any interrogation services available here at [facility] and also patient needs further evaluation by neurology because of her intractable seizures despite being on multiple medication and VNS implant. Recommended transfer to a higher level of care with inpatient neuro services. I have discussed with On you may at [facility] and patient is accepted for transfer. 05/24/20 13:19 Patient does have UTI and is given a dose of Rocephin as well. As per recommendation from neurology CTA head neck is obtained which is negative for an y large occlusion. Discussed with DrObinna: Other ([place] ) Counseled pt/family regarding: lab results, diagnosis, rad results - Departure Departure Disposition: Transfer Clinical Impression: Seizure, Left-sided weakness UTI (urinary tract infection) Qualifiers: Urinary tract infection type: site unspecified Hematuria presence: without hematuria Qualified Code(s): N39.0 - Urinary tract infection, site not specified Condition: Fair Critical Care Time: Yes Critical Care Time(excluding separately billable procedures): Critical 30-74 mins Referrals: ZAIRA BLISS MD [Primary Care Provider] -
--- NOTE | 2020-05-24 09:35 | XRAY ---
Indication: Seizure. Possible stroke. Multiple contiguous axial images obtained through the head without contrast. Comparison: May 16, 2020. Stable global atrophy and mild periventricular degenerative micro-ischemia. No acute intracranial hemorrhage, abnormal extra-axial fluid collection, or mass effect. Fourth ventricle is midline. Bony calvarium remains intact. Visualized paranasal sinuses and mastoid air cells are clear. Impression: Stable atrophy and degenerative micro-ischemia. No new/acute intracranial abnormalities.
--- NOTE | 2020-05-24 09:46 | XRAY ---
Indication: Pain following fall. Comparison: None 2 view left humerus demonstrates left chest stimulator device and benign-appearing chunky left breast calcification. No other bony, articular, or soft tissue abnormalities.
--- NOTE | 2020-05-24 09:48 | XRAY ---
Indication: Seizure. Comparison: May 16, 2020. Portable chest again demonstrates cardiomegaly, left mid lung fibrosis/scarring, and left chest stimulator device with lead terminating base of neck. Remaining heart, lungs, and bony thorax unremarkable.
[2020-05-24 10:20] LABS: ALBUMIN 3.8 g/dL (3.5-5.0); ANION GAP 12.4 MEQ/L (5-15); BILIRUBIN,TOTAL 0.4 mg/dL (0.2-1.3); Creatinine 1 1.04 mg/dL (0.52-1.04); EST GLOMERULAR FILTRATION RATE 58.5 ML/MIN; Potassium 4.7 mmol/L (3.5-5.1); Total Protein 7.5 g/dL (6.3-8.2)
[2020-05-24 10:26] LABS: Appearance CLEAR (CLEAR); Bacteria FEW /HPF (NEGATIVE); Bilirubin NEGATIVE (NEGATIVE); Blood NEGATIVE Ery/ul (0-5); Glucose NEGATIVE (NEGATIVE); Ketones NEGATIVE (NEGATIVE); Leukocyte Esterase TRACE (NEGATIVE); Nitrite NEGATIVE (NEGATIVE); Protein,Urine Dip NEGATIVE (Negative); RBC 0-2 /HPF (0-2); Specific Gravity 1.012 (1.005-1.025); Urobilinogen NEGATIVE mg/dL (0-1)
[2020-05-24] MEDS ORDERED: BABY ASPIRIN 81 MG CHEW PO ONE (11:25)
[2020-05-24] MEDS ORDERED: ASPIRIN 600 MG PR ONE (12:26)
[2020-05-24] MEDS ORDERED: ASPIRIN 600 MG ONE (12:28)
--- NOTE | 2020-05-24 12:31 | XRAY ---
Indication: Stroke. Conventional contrast enhanced CTA neck performed using 80 cc Isovue 370 contrast. Two-dimensional sagittal and coronal reformatted images obtained. Additional 3-dimensional reformatted images obtained using a separate workstation. Comparison: None Visualized aortic arch is normal in course and caliber with anatomic variant for bovine arch. Examination of the right carotid circulation demonstrates minimal eccentric calcified plaquing in the proximal internal carotid artery. Remaining common carotid, carotid bulb, and external carotid arteries are normal in CTA appearance. Examination of the left carotid circulation demonstrates normal CT appearance to the common carotid, carotid bulb, internal carotid, and external carotid arteries. Vertebral arteries are bilaterally symmetric and normal in CTA appearance. Visualized soft tissues demonstrates stimulator lead terminating posterior left lateral to the hyoid, probable vagus nerve stimulator. No pathologic cervical/supraclavicular lymphadenopathy. Supra-and infraglottic airway widely patent. Lung apices demonstrates bilateral subsegmental atelectasis/scarring. Cervical spine intact. Patient is incidentally edentulous. Impression: Minimal right internal carotid calcification. Remaining CTA neck is normal.
--- NOTE | 2020-05-24 12:33 | XRAY ---
Indication: Stroke. Conventional contrast enhanced CTA head performed using 80 cc Isovue 370 contrast. Two-dimensional sagittal and coronal reformatted images obtained. Additional 3-dimensional reformatted images obtained using a separate workstation. Comparison: None Distal internal carotid arteries demonstrates minimal parasellar calcifications right greater than left without critical stenosis/obstruction. Remaining distal internal carotid arteries are widely patent. Normal carotid terminus with normal branching A1 and M1 segments. More distal anterior cerebral and middle cerebral arteries are normal in CTA appearance bilaterally. Posterior circulation demonstrates normal CTA appearance to the distal vertebral, basilar, posterior cerebral, and superior cerebellar arteries. Whole brain images are negative for abnormal enhancing intra or extra-axial mass. Venous sinuses are unremarkable. Impression: Minimal distal internal carotid calcifications right greater than left. Remaining CTA head is normal.
[2020-05-24] MEDS ORDERED: ROCEPHIN 1 Gm-D5w 50 ml Bag** 1 G/50 ML IVPB IV STA (13:11)
[2020-05-24] MEDS ORDERED: ROCEPHIN 1 Gm-D5w 50 ml Bag** 1 G/50 ML IVPB IV ONE (13:36)
[2020-05-24 14:03] VITALS: PULSE 80
[2020-05-24 15:33] VITALS: BP 141/99; O2SAT 98
== END 2020-05-24 15:48 | disposition short-term general hospital (02) ==
LOC: ED 08:55
DX: R56.9 Unspecified convulsions (principal); I10 Essential (primary) hypertension; E78.5 Hyperlipidemia, unspecified; E03.9 Hypothyroidism, unspecified
CPT/HCPCS: 36000; 36415; 51702; 70450; 70496; 70498; 71045; 73030; 80053; 81001; 83605; 83735; 84443; 85025; 87040; 93005; 93041; 96360; 96365; 96372; 96374; 96375; 96376; 99285; 99291; J0696; J1953; J2060; J2405; A9270-GY

== ENCOUNTER 2020-06-12 17:47 | Emergency (ER) | payer MEDICARE ==
--- NOTE | 2020-06-12 17:50 | ERPHSYRPT ---
- History of Present Illness Time Seen by Provider: 06/12/20 17:50 Source: patient, EMS Exam Limitations: clinical condition Physician History: This is a morbidly obese 54-year-old white female who has a history of CHF, chronic recurrent shortness of breath, morbid obesity, bilateral lower extremity lymphedema and is significantly mentally challenged. She is a resident of [facility]. Patient has been having worsening shortness of breath and increased bilateral lower extremity swelling over 3 days. Patient was brought in to the emergency department by the [facility] ([facility] They came in only after the patient was able to continue eating her dinner. Patient was on 2 L of oxygen via nasal cannula at the [facility]. Upon arrival to the emergency department her oxygen saturation on 2 L nasal cannula is 98%. Timing/Duration: day(s) (Last few days) Activities at Onset: none Severity of Dyspnea-Max: mild Severity of Dyspnea-Current: mild Possible Cause: occasional episodes Modifying Factors: Improves With: activity Associated Symptoms: ankle swelling Allergies/Adverse Reactions: heparin Allergy (Verified 05/16/20 00:59) Home Medications: Aspirin 81 gm Chew [Baby Aspirin 81 mg Chew] 81 mg PO DAILY 06/22/16 [History] Clobazam [Onfi] 20 mg PO BID 06/22/16 [History] Docusate Sodium 100 mg [Colace 100 MG] 100 mg PO BID 06/22/16 [History] Ferrous Sulfate 325 mg [Feosol 325 mg] 325 mg PO DAILY 06/22/16 [History] Levothyroxine Sodium 50 Mcg [Synthroid 50 Mcg] 50 mcg PO DAILY 06/22/16 [History] Magnesium Oxide 400 mg [Mag-Ox 400] 400 mg PO DAILY 06/22/16 [History] PANTOPRAZOLE 40 mg Tablet [Protonix 40MG Tablet] 40 mg PO DAILY 06/22/16 [History] Potassium Chloride 20 Meq [Klor-Con 20 MEQ] 20 meq PO QID 06/22/16 [History] Sertraline HCl 50 mg [Zoloft 50 mg Tablet] 75 mg PO DAILY 06/22/16 [History] Torsemide [Demadex] 20 mg PO BID 06/22/16 [History] Brivaracetam [Briviact] 100 mg PO DAILY 05/10/18 [History] Ergocalciferol (Vitamin D2) [Vitamin D2] 50,000 unit PO Q7D 05/10/18 [History] Folic Acid 1 mg [Folate 1 mg] 1 mg PO DAILY 05/10/18 [History] Lacosamide [Vimpat] 150 mg PO BID 05/10/18 [History] Multivitamin [Lps-Wurdng-Itcza] 1 each PO DAILY 05/10/18 [History] Acetaminophen 325 mg [Tylenol 325 mg] 325 mg PO Q4H PRN PRN 05/16/20 [History] Albuterol Sulfate [Proair Hfa] 2 puff IH TID 05/16/20 [History] Budesonide/Formoterol Fumarate [Symbicort 160-4.5 Mcg Inhaler] 2 puff IH BID 05/16/20 [History] Calcium Carbonate [Tums] 500 mg PO Q2H/PRN PRN 05/16/20 [History] Cholecalciferol (Vitamin D3) [Vitamin D3] 400 unit PO DAILY 05/16/20 [History] Guaifenesin 100 mg/5 ml [Robitussin 100 MG/5 ML] 10 ml [id number] PRN 05/16/20 [History] Loratadine 10 mg [Claritin 10 mg] 10 mg PO DAILY PRN PRN 05/16/20 [History] Magnesium Hydroxide 30 ml [Milk of Magnesia 30 ml] 30 ml PO DAILY PRN PRN 05/16/20 [History] Sennosides [Senna] 8.6 mg PO HS PRN PRN 05/16/20 [History] Sodium Phosphate,[place]-Dibasic [Fleet Enema] 133 ml RC DAILY PRN PRN 05/16/20 [History] Hx Tetanus, Diphtheria Vaccination/Date Given: No Hx Influenza Vaccination/Date Given: No Hx Pneumococcal Vaccination/Date Given: No Travel Risk - International Travel Have you traveled outside of the country in past 3 weeks: No - Coronavirus Screening Are you exhibiting any of the following symptoms?: No Close contact with a COVID-19 positive Pt in past 14-21 Days: No - Review of Systems Constitutional: No Symptoms Eyes: No Symptoms Ears, Nose, & Throat: No Symptoms Respiratory: No Symptoms Cardiac: No Symptoms Abdominal/Gastrointestinal: No Symptoms Genitourinary Symptoms: No Symptoms Musculoskeletal: No Symptoms Skin: Other (Bilateral lower extremity lymphedema with mild anterior pretibial redness) Neurological: No Symptoms Psychological: No Symptoms Endocrine: No Symptoms Hematologic/Lymphatic: No Symptoms Immunological/Allergic: No Symptoms All Other Systems: Reviewed and Negative - Past Medical History Pertinent Past Medical History: Yes Neurological History: Epilepsy, Seizures ENT History: No Pertinent History Cardiac History: Congestive Heart Failure, High Cholesterol Respiratory History: No Pertinent History Endocrine Medical History: Hypothyroidism, Other Musculoskeletal History: No Pertinent History GI Medical History: GERD History: No Pertinent History Psycho-Social History: Depression Female Reproductive Disorders: No Pertinent History Other Medical History: kidney disease - Past Surgical History Past Surgical History: Yes Neuro Surgical History: No Pertinent History Cardiac: No Pertinent History Respiratory: No Pertinent History Gastrointestinal: No Pertinent History Genitourinary: No Pertinent History Musculoskeletal: No Pertinent History Female Surgical History: No Pertinent History Other Surgical History: implanted seizure device - Social History Smoking Status: Unknown if ever smoked Exposure to second hand smoke: No Drug Use: none Patient Lives Alone: (unknown) - Nursing Vital Signs Nursing Vital Signs: Initial Vital Signs Temperature 98.6 F 06/12/20 18:07 Pulse Rate 83 06/12/20 18:07 Respiratory Rate 22 06/12/20 18:07 Blood Pressure 112/74 06/12/20 18:07 O2 Sat by Pulse Oximetry 96 06/12/20 18:07 Pain Scale Pain Intensity 0 - Physical Exam General Appearance: no apparent distress, alert, anxiety, obese Eye Exam: PERRL/EOMI, eyes nml inspection Ears, Nose, Throat Exam: hearing grossly normal Neck Exam: normal inspection, non-tender, supple, full range of motion Respiratory Exam: normal breath sounds, lungs clear, No chest tenderness, No respiratory distress, No airway intact Cardiovascular/Chest Exam: normal heart sounds, regular rate/rhythm, murmur Abdominal/Gastrointestinal Exam: soft, normal bowel sounds, No tenderness Rectal Exam: not done Extremity Exam: pedal edema (Bilateral lower extremity lower extremity lymphedema with mild redness anterior tibial region bilaterally) Neurologic Exam: alert, oriented x 3, cooperative, changer fixer II-XII nml as tested, normal mood/affect Skin Exam: normal color, warm, dry Lymphatic Exam: No adenopathy SpO2 Interpretation: normal O2 Delivery: Room Air - Course Nursing assessment & vital signs reviewed: Yes EKG Interpreted by Me: RATE (81), Sinus Rhythm, prolonged QT interval, NORMAL ST-T, Other (Borderline prolonged AR interval. When compared to EKG dated 05/24/2020, there are no changes present. There are no acute ischemic changes on either EKG.) Ordered Tests: Active Orders 24 hr Category Date Time Status EKG-ER Only STAT Care 06/12/20 17:50 Active IV Insertion STAT Care 06/12/20 17:50 Active Pulse Oximetry (ED) STAT Care 06/12/20 17:50 Active CHEST 1 VIEW (PORTABLE) Stat Exams 06/12/20 17:50 Taken CHEST WITH CONTRAST [CT] Stat Exams 06/12/20 22:23 Taken BMP Routine Lab 06/12/20 21:40 Completed CBC W DIFF Stat Lab 06/12/20 18:45 Completed CMP Stat Lab 06/12/20 18:45 Completed CULTURE,URINE Stat Lab 06/12/20 19:10 Received D-DIMER QUANTITATIVE Stat Lab 06/12/20 18:45 Completed MAGNESIUM Stat Lab 06/12/20 18:45 Completed NT PRO BNP Stat Lab 06/12/20 18:45 Completed PROTIME WITH INR Stat Lab 06/12/20 18:45 Completed T4 (Thyroxine) Stat Lab 06/12/20 18:45 Completed TROPONIN Q3H Lab 06/12/20 18:45 Completed TROPONIN Q3H Lab 06/12/20 21:40 Completed TROPONIN Q3H Lab 06/13/20 00:00 Ordered TROPONIN Q3H Lab 06/13/20 03:00 Ordered TROPONIN Q3H Lab 06/13/20 06:00 Ordered TSH, 3RD Generation Stat Lab 06/12/20 18:45 Completed UA W/RFX UR CULTURE Stat Lab 06/12/20 19:10 Completed Medication Summary Discontinued Medications Generic Name Dose Route Start Last Admin Trade Name Freq PRN Reason Stop Dose Admin Sodium Chloride 500 mls @ 500 mls/hr 06/12/20 19:53 06/12/20 20:51 Sodium Chloride 0.9% 500 Ml IV 06/12/20 20:52 Infused .Q1H ONE Infusion Ceftriaxone Sodium/Dextrose 1 g in 50 mls @ 100 mls/hr 06/12/20 19:54 06/12/20 20:51 Rocephin 1 Gm-D5w 50 Ml Bag IV 06/12/20 20:23 Infused STAT STA Infusion Ceftriaxone Sodium/Dextrose Confirm 06/12/20 19:55 Rocephin 1 Gm-D5w 50 Ml Bag Administered 06/12/20 19:56 Dose 1 g in 50 mls @ ud IV .STK-MED ONE Sodium Chloride Confirm 06/12/20 19:55 Sodium Chloride 0.9% 500 Ml Administered 06/12/20 19:56 Dose 500 mls @ ud IV .STK-MED ONE Lab/Rad Data: Laboratory Result Diagrams 06/12/20 18:45 06/12/20 21:40 Laboratory Results 06/12/20 06/12/20 06/12/20 Range/Units 21:40 19:10 18:45 WBC (4.0-10.5) K/mm3 RBC (4.1-5.4) M/mm3 Hgb (12.0-16.0) gm/dl Hct (35-47) % MCV (78-100) fl MCH (26-32) pg MCHC (32-36) g/dl RDW (11.5-14.0) % Plt Count (150-450) K/mm3 MPV (7.5-11.0) fl Gran % (36.0-66.0) % Eos # (Auto) (0-0.5) Absolute Lymphs (auto) (1.0-4.6) Absolute Monos (auto) (0.0-1.3) Lymphocytes % (24.0-44.0) % Monocytes % (0.0-12.0) % Eosinophils % (0.00-5.0) % Basophils % (0.0-0.4) % Absolute Granulocytes (1.4-6.9) Basophils # (0-0.4) PT (9.95-12.35) SECONDS INR (0.8-3.0) D-Dimer (215-500) ng/mL Sodium 138 (137-145) mmol/L Potassium 5.0 (3.5-5.1) mmol/L Chloride 101 (98-107) mmol/L Carbon Dioxide 33 H (22-30) mmol/L Anion Gap 10.2 (5-15) MEQ/L BUN 29 H (7-17) mg/dL Creatinine 1.16 H (0.52-1.04) mg/dL Estimated GFR 51.6 ML/MIN Glucose 101 (74-106) mg/dL Calcium 9.1 (8.4-10.2) mg/dL Magnesium (1.6-2.3) mg/dL Total Bilirubin (0.2-1.3) mg/dL AST (14-36) U/L ALT (0-35) U/L Alkaline Phosphatase (38-126) U/L Troponin I < 0.012 < 0.012 (0.000-0.034) ng/mL NT-Pro-B Natriuret Pep (0-900) pg/mL Serum Total Protein (6.3-8.2) g/dL Albumin (3.5-5.0) g/dL Thyroxine (T4) (5.53-10.96) ug/dL TSH 3rd Generation (0.47-4.68) mIU/L Urine Color YELLOW (YELLOW) Urine Appearance CLOUDY (CLEAR) Urine pH 5.0 (5-6) Ur Specific [place] 1.012 (1.005-1.025) Urine Protein NEGATIVE (Negative) Urine Ketones NEGATIVE (NEGATIVE) Urine Blood NEGATIVE (0-5) Gurjit/ul Urine Nitrite NEGATIVE (NEGATIVE) Urine Bilirubin NEGATIVE (NEGATIVE) Urine Urobilinogen NEGATIVE (0-1) mg/dL Ur Leukocyte Esterase LARGE (NEGATIVE) Urine WBC (Auto) >100 (0-5) /HPF Urine RBC (Auto) 6-10 (0-2) /HPF U Hyaline Cast (Auto) 0-2 (0-2) /LPF U Epithel Cells (Auto) RARE (FEW) /HPF Urine Bacteria (Auto) MODERATE (NEGATIVE) /HPF Urine Culture Reflexed YES (NO) Urine Glucose NEGATIVE (NEGATIVE) mg/dL Slides for Path Review 06/12/20 06/12/20 06/12/20 Range/Units 18:45 18:45 18:45 WBC 9.9 (4.0-10.5) K/mm3 RBC 3.14 L (4.1-5.4) M/mm3 Hgb 9.3 L (12.0-16.0) gm/dl Hct 32.4 L (35-47) % MCV 103.2 H (78-100) fl MCH 29.6 (26-32) pg MCHC 28.7 L (32-36) g/dl RDW 16.5 H (11.5-14.0) % Plt Count 210 (150-450) K/mm3 MPV 10.3 (7.5-11.0) fl Gran % 69.5 H (36.0-66.0) % Eos # (Auto) 0.33 (0-0.5) Absolute Lymphs (auto) 1.91 (1.0-4.6) Absolute Monos (auto) 0.74 (0.0-1.3) Lymphocytes % 19.4 L (24.0-44.0) % Monocytes % 7.5 (0.0-12.0) % Eosinophils % 3.3 (0.00-5.0) % Basophils % 0.3 (0.0-0.4) % Absolute Granulocytes 6.85 (1.4-6.9) Basophils # 0.03 (0-0.4) PT 12.7 H (9.95-12.35) SECONDS INR 1.12 (0.8-3.0) D-Dimer 1069 H* (215-500) ng/mL Sodium 141 (137-145) mmol/L Potassium 4.4 (3.5-5.1) mmol/L Chloride 99 (98-107) mmol/L Carbon Dioxide 36 H (22-30) mmol/L Anion Gap 10.5 (5-15) MEQ/L BUN 26 H (7-17) mg/dL Creatinine 1.45 H (0.52-1.04) mg/dL Estimated GFR 39.8 ML/MIN Glucose 151 H (74-106) mg/dL Calcium 9.4 (8.4-10.2) mg/dL Magnesium 2.5 H (1.6-2.3) mg/dL Total Bilirubin 0.20 (0.2-1.3) mg/dL AST 33 (14-36) U/L ALT 26 (0-35) U/L Alkaline Phosphatase 144 H (38-126) U/L Troponin I (0.000-0.034) ng/mL NT-Pro-B Natriuret Pep 753 (0-900) pg/mL Serum Total Protein 8.2 (6.3-8.2) g/dL Albumin 4.3 (3.5-5.0) g/dL Thyroxine (T4) 7.11 (5.53-10.96) ug/dL TSH 3rd Generation 2.200 (0.47-4.68) mIU/L Urine Color (YELLOW) Urine Appearance (CLEAR) Urine pH (5-6) Ur Specific [place] (1.005-1.025) Urine Protein (Negative) Urine Ketones (NEGATIVE) Urine Blood (0-5) Gurjit/ul Urine Nitrite (NEGATIVE) Urine Bilirubin (NEGATIVE) Urine Urobilinogen (0-1) mg/dL Ur Leukocyte Esterase (NEGATIVE) Urine WBC (Auto) (0-5) /HPF Urine RBC (Auto) (0-2) /HPF U Hyaline Cast (Auto) (0-2) /LPF U Epithel Cells (Auto) (FEW) /HPF Urine Bacteria (Auto) (NEGATIVE) /HPF Urine Culture Reflexed (NO) Urine Glucose (NEGATIVE) mg/dL Slides for Path Review YES - Progress Progress: improved, re-examined Air Movement: good Progress Note: 06/12/20 23:48 Chest x-ray shows a ? Right mid to lower lobe infiltrate. 06/12/20 23:50 CTA of the chest vRad reading shows patchy bilateral airspace opacities reflux and infectious process. There initially was no mention of pulmonary emboli. I contacted Dr. Wood Cody and I discussed that with him and he stated that there was no gross evidence of any pulmonary emboli and he will make an addendum to his V rad reading. 06/12/20 23:56 Medical decision making: I spoke with Dr. Zaira Bliss earlier this evening and told him that the patient had a urinary tract infection as well as an infiltrate on the chest x-ray. The patient is oxygenating well on the 2 L that she came in on. He told me that her BNP was normal earlier today and the repeat BNP tonight is also normal. The patient had an elevated D-dimer and we performed a CTA of the chest. There was no evidence of any pulmonary emboli but there was pulmonary infiltrates and therefore we will treat her urinary tract infection and pulmonary infiltrate with Levaquin orally as suggested by Dr. Bliss earlier today. We will send her back to the [facility]. Blood Culture(s) Obtained: Yes Antibiotics given: Yes Discussed with : Aminah Counseled pt/family regarding: lab results, diagnosis, need for follow-up, rad results - Departure Departure Disposition: Extended Care Facility Clinical Impression: Pulmonary infiltrate on chest x-ray, UTI (urinary tract infection) Condition: Stable Critical Care Time: No Referrals: ZAIRA BLISS MD [Primary Care Provider] - Additional Instructions: Resume [facility] orders. Fill the Levaquin prescription. Contact Dr. Bliss for any further management issues.
[2020-06-12 19:01] LABS: Absolute Neutrophil Ct (ANC) 6.85 (1.4-6.9); BASOPHIL % 0.3 % (0.0-0.4); Basophil (Absolute #) 0.03 (0-0.4); Eosinophil % 3.3 % (0.00-5.0); Eosinophil (Absolute #) 0.33 (0-0.5); Hematocrit 32.4 % (35-47); Hemoglobin 9.3 gm/dl (12.0-16.0); Lymphocyte (Absolute #) 1.91 (1.0-4.6); Lymphocytes % 19.4 % (24.0-44.0); Mean Cell Volume 103.2 fl (78-100); Mean Corpuscular Hemoglobin 29.6 pg (26-32); Mean Corpuscular Hgb Concent. 28.7 g/dl (32-36); Mean Platelet Volume 10.3 fl (7.5-11.0); Monocyte (Absolute #) 0.74 (0.0-1.3); Monocytes % 7.5 % (0.0-12.0); Neutrophil % 69.5 % (36.0-66.0); Platelet Count 210 K/mm3 (150-450); Red Blood Count 3.14 M/mm3 (4.1-5.4); Red Cell Distribution Width 16.5 % (11.5-14.0); White Blood Count 9.9 K/mm3 (4.0-10.5)
[2020-06-12 19:14] LABS: INR 1.12 (0.8-3.0); PROTIME 12.7 SECONDS (9.95-12.35)
[2020-06-12 19:31] LABS: Appearance CLOUDY (CLEAR); Bacteria MODERATE /HPF (NEGATIVE); Bilirubin NEGATIVE (NEGATIVE); Blood NEGATIVE Ery/ul (0-5); Epithelial Cells RARE /HPF (FEW); Glucose NEGATIVE (NEGATIVE); Hyaline Casts 0-2 /LPF (0-2); Ketones NEGATIVE (NEGATIVE); Leukocyte Esterase LARGE (NEGATIVE); Nitrite NEGATIVE (NEGATIVE); Protein,Urine Dip NEGATIVE (Negative); Specific Gravity 1.012 (1.005-1.025); Urobilinogen NEGATIVE mg/dL (0-1); WBC >100 /HPF (0-5)
[2020-06-12 19:49] LABS: ALBUMIN 4.3 g/dL (3.5-5.0); ANION GAP 10.5 MEQ/L (5-15); BILIRUBIN,TOTAL 0.2 mg/dL (0.2-1.3); Calcium 9.4 mg/dL (8.4-10.2); Creatinine 1 1.45 mg/dL (0.52-1.04); EST GLOMERULAR FILTRATION RATE 39.8 ML/MIN; MAGNESIUM 2.5 mg/dL (1.6-2.3); Potassium 4.4 mmol/L (3.5-5.1); T4 (Thyroxine) 7.11 ug/dL (5.53-10.96); TSH, 3RD Generation 2.2 mIU/L (0.47-4.68); Total Protein 8.2 g/dL (6.3-8.2)
[2020-06-12] MEDS ORDERED: Sodium Chloride 0.9% 500 ML 500 ML IV ONE ×2 (19:53→19:55)
[2020-06-12] MEDS ORDERED: ROCEPHIN 1 Gm-D5w 50 ml Bag** 1 G/50 ML IVPB IV STA (19:54)
[2020-06-12] MEDS ORDERED: ROCEPHIN 1 Gm-D5w 50 ml Bag** 1 G/50 ML IVPB IV ONE (19:55)
[2020-06-12 21:59] LABS: ANION GAP 10.2 MEQ/L (5-15); BLOOD UREA NITROGEN 29 mg/dL (7-17); CHLORIDE 101 mmol/L (98-107); Calcium 9.1 mg/dL (8.4-10.2); Carbon Dioxide 33 mmol/L (22-30); Creatinine 1 1.16 mg/dL (0.52-1.04); EST GLOMERULAR FILTRATION RATE 51.6 ML/MIN; Glucose 101 mg/dL (74-106); SODIUM 138 mmol/L (137-145); TROPONIN < 0.012 ng/mL (0.000-0.034)
[2020-06-12 22:44] LABS: Slide Review 1 YES
[2020-06-13 00:06] VITALS: BP 98/54; PULSE 75; O2SAT 96
--- NOTE | 2020-06-13 08:38 | XRAY ---
Indication: Chronic short of breath. Elevated d-dimer. CHF. Multiple contiguous axial images obtained through the chest using 100 cc Isovue 370 contrast and PE protocol. Comparison: None There is inadequate opacification of the pulmonary arteries and mild diffuse respiration artifact limiting evaluation for pulmonary embolus. No obvious central pulmonary embolus. Heart is enlarged. Aorta is normal in course and caliber. No pathologic mediastinal/hilar lymphadenopathy. Moderate size hiatal hernia with partial intrathoracic stomach. Visualized lungs demonstrates diffuse patchy airspace disease, right greater than left. Also scattered subsegmental atelectasis/scarring bilaterally. No consolidation or effusion. Bony thorax intact. Incidental left anterior chest wall vagus nerve stimulator with lead. Limited upper abdomen demonstrates mild diffuse fecal debris. Impression: 1. Pulmonary embolus evaluation limited due to inadequate opacification and respiration artifact. No obvious central pulmonary embolus. 2. Diffuse bilateral patchy airspace disease. 3. Incidental cardiomegaly and hiatal hernia with partial intrathoracic stomach. Comment: Preliminary interpretation was made by [facility]. No critical discrepancy.
--- NOTE | 2020-06-13 08:40 | XRAY ---
Indication: Short of breath. Comparison: May 24, 2020. Portable chest demonstrates new diffuse bilateral patchy interstitial alveolar opacities without consolidation/large effusion. Heart borderline enlarged. Stable left vagus nerve stimulator device.
== END 2020-06-13 00:30 | disposition home or self-care (01) ==
LOC: ED 17:47
DX: R06.02 Shortness of breath (principal); M79.89 Other specified soft tissue disorders; N39.0 Urinary tract infection, site not specified; R79.89 Other specified abnormal findings of blood chemistry; R91.8 Other nonspecific abnormal finding of lung field; I50.9 Heart failure, unspecified; E78.5 Hyperlipidemia, unspecified; E03.9 Hypothyroidism, unspecified; E66.9 Obesity, unspecified; Z79.899 Other long term (current) drug therapy
CPT/HCPCS: 36000; 36415; 71045; 71260; 80048; 80053; 81001; 83735; 83880; 84436; 84443; 84484; 85025; 85027; 85379; 85610; 87077; 87086; 87186; 93005; 94760; 96360; 99284; P9603; J0696

== ENCOUNTER 2020-06-13 08:51 | Inpatient (IN) | payer MEDICARE ==
[2020-06-13] MEDS: BUMEX 1 MG IV SCH (20:52)
[2020-06-13] MEDS ORDERED: Ativan 2 MG/1 ML VIAL IV PRN (21:59)
[2020-06-13] MEDS ORDERED: DEMADEX 20 MG PO SCH (22:00)
[2020-06-13] MEDS ORDERED: Keppra 500 MG/5 ML*** 1,000 MG in D5w 100ML Mini Bag 100 ML 100 ML IV SCH (22:00)
[2020-06-13] MEDS ORDERED: DILANTIN IV 250 MG/5 ML IV SCH (22:00)
[2020-06-13] MEDS ORDERED: SENOKOT 8.6 MG PO SCH (22:00)
[2020-06-13] MEDS ORDERED: DEMADEX 20 MG ONE (22:07)
[2020-06-13] MEDS: Klor Con 10 MEQ PO SCH (22:10)
[2020-06-13] MEDS: Colace 100 MG PO SCH (22:10)
[2020-06-13] MEDS ORDERED: KEPPRA 500 MG ONE (23:06)
[2020-06-13] MEDS ORDERED: Dilantin 100 MG ONE (23:16)
[2020-06-13] MEDS: KEPPRA 500 MG PO SCH (23:20)
[2020-06-13] MEDS: Dilantin 100 MG PO SCH (23:20)
[2020-06-14] MEDS: KEPPRA 500 MG PO SCH (04:41)
[2020-06-14 05:27] LABS: Absolute Neutrophil Ct (ANC) 6.56 (1.4-6.9); BASOPHIL % 0.3 % (0.0-0.4); Basophil (Absolute #) 0.03 (0-0.4); Eosinophil % 4.7 % (0.00-5.0); Eosinophil (Absolute #) 0.45 (0-0.5); Hematocrit 31.2 % (35-47); Lymphocyte (Absolute #) 1.72 (1.0-4.6); Lymphocytes % 18.1 % (24.0-44.0); Mean Cell Volume 102.6 fl (78-100); Mean Corpuscular Hemoglobin 29.6 pg (26-32); Mean Corpuscular Hgb Concent. 28.8 g/dl (32-36); Mean Platelet Volume 11.1 fl (7.5-11.0); Monocyte (Absolute #) 0.74 (0.0-1.3); Monocytes % 7.8 % (0.0-12.0); Neutrophil % 69.1 % (36.0-66.0); Platelet Count 191 K/mm3 (150-450); Red Blood Count 3.04 M/mm3 (4.1-5.4); Red Cell Distribution Width 16.4 % (11.5-14.0); White Blood Count 9.5 K/mm3 (4.0-10.5)
[2020-06-14 05:35] LABS: ANION GAP 9.1 MEQ/L (5-15); Calcium 9.2 mg/dL (8.4-10.2); Creatinine 1 1.2 mg/dL (0.52-1.04); EST GLOMERULAR FILTRATION RATE 49.6 ML/MIN; Potassium 4.2 mmol/L (3.5-5.1)
[2020-06-14] MEDS ORDERED: Dilantin 100 MG ONE (06:42)
[2020-06-14] MEDS: Dilantin 100 MG PO SCH (06:43)
[2020-06-14] MEDS ORDERED: Voltaren GEL TOP PRN (06:57)
[2020-06-14] MEDS ORDERED: ACETYLCYSTEINE IH PRN (06:57)
[2020-06-14] MEDS ORDERED: MILK OF MAGNESIA 30 ML PO PRN (06:57)
[2020-06-14] MEDS ORDERED: Robitussin 100 MG/5 ML PO PRN (06:57)
[2020-06-14] MEDS ORDERED: CLARITIN 10 MG PO PRN (06:57)
[2020-06-14] MEDS ORDERED: NYSTOP POWDER 15 GM TP PRN (06:57)
[2020-06-14] MEDS ORDERED: TYLENOL 325 MG PO PRN (06:57)
[2020-06-14] MEDS ORDERED: VITAMIN D2 PO SCH (07:00)
[2020-06-14] MEDS ORDERED: VENTOLIN COMMON CANISTER IH SCH (07:00)
[2020-06-14] MEDS ORDERED: Mucomyst 200 MG/ML IH PRN (07:17)
[2020-06-14] MEDS: Advair Hfa 230/21 Mcg COMMON CANISTER IH SCH ×2 (07:37→19:33)
[2020-06-14] MEDS: VENTOLIN COMMON CANISTER IH SCH ×4 (07:37→19:33)
[2020-06-14] MEDS ORDERED: MEDICATION INTERVENTION MC SCH ×3 (07:45→08:15)
[2020-06-14] MEDS: BUMEX 1 MG IV SCH ×2 (07:51→19:35)
[2020-06-14 08:34] LABS: Slide Review 1 YES
--- NOTE | 2020-06-14 08:55 | PCM.HP ---
History of Present Illness - Chief Complaint Chief Complaint: CHF History of Present Illness: is a 54 year old female patient of [facility] with history of seizure disorder, has VNS managed by Dr Sanchez and history of chf. she has had increasing swelling and shortness of breath at [facility], had evaluation yesterday by Dr Allen and recommended IV diuresis so direct admitted, she denies any pain this morning. has swelling and shortness of breath, has tenderness to lower legs. - Review of Systems Constitutional: No Fever, No Chills Respiratory: Short Of Breath Cardiac: Edema Abdominal/Gastrointestinal: No Abdominal Pain, No Nausea, No Vomiting, No Diarrhea Skin: Cellulitis All Other Systems: Reviewed and Negative Medications & Allergies Home Medications: Home Medication List Aspirin 81 gm Chew [Baby Aspirin 81 mg Chew] 81 mg PO DAILY 06/22/16 [History Confirmed 06/13/20] Clobazam [Onfi] 20 mg PO BID 06/22/16 [History Confirmed 06/13/20] Docusate Sodium 100 mg [Colace 100 MG] 100 mg PO BID 06/22/16 [History Confirmed 06/13/20] Ferrous Sulfate 325 mg [Feosol 325 mg] 325 mg PO DAILY 06/22/16 [History Confirmed 06/13/20] Levothyroxine Sodium 50 Mcg [Synthroid 50 Mcg] 50 mcg PO DAILY 06/22/16 [History Confirmed 06/13/20] Magnesium Oxide 400 mg [Mag-Ox 400] 400 mg PO DAILY 06/22/16 [History Confirmed 06/13/20] PANTOPRAZOLE 40 mg Tablet [Protonix 40MG Tablet] 40 mg PO DAILY 06/22/16 [History Confirmed 06/13/20] Potassium Chloride 20 Meq [Klor-Con 20 MEQ] 20 meq PO QID 06/22/16 [History Confirmed 06/13/20] Sertraline HCl 50 mg [Zoloft 50 mg Tablet] 75 mg PO DAILY 06/22/16 [History Confirmed 06/13/20] Torsemide [Demadex] 40 mg PO BID 06/22/16 [History Confirmed 06/13/20] Brivaracetam [Briviact] 100 mg PO BID 05/10/18 [History Confirmed 06/13/20] Ergocalciferol (Vitamin D2) [Vitamin D2] 50,000 unit PO Q7D 05/10/18 [History Confirmed 06/13/20] Folic Acid 1 mg [Folate 1 mg] 1 mg PO DAILY 05/10/18 [History Confirmed 06/13/20] Lacosamide [Vimpat] 200 mg PO BID 05/10/18 [History Confirmed 06/13/20] Multivitamin [Jqy-Gwlqew-Lvtnt] 1 each PO DAILY 05/10/18 [History Confirmed 06/13/20] Acetaminophen 325 mg [Tylenol 325 mg] 325 mg PO Q4H PRN PRN 05/16/20 [History Confirmed 06/13/20] Albuterol Sulfate [Proair Hfa] 2 puff IH TID 05/16/20 [History Confirmed 06/13/20] Budesonide/Formoterol Fumarate [Symbicort 160-4.5 Mcg Inhaler] 2 puff IH BID 05/16/20 [History Confirmed 06/13/20] Calcium Carbonate [Tums] 500 mg PO Q2H/PRN PRN 05/16/20 [History Confirmed 06/13/20] Cholecalciferol (Vitamin D3) [Vitamin D3] 400 unit PO DAILY 05/16/20 [History Confirmed 06/13/20] Guaifenesin 100 mg/5 ml [Robitussin 100 MG/5 ML] 10 ml [id number] PRN 05/16/20 [History Confirmed 06/13/20] Loratadine 10 mg [Claritin 10 mg] 10 mg PO DAILY PRN PRN 05/16/20 [History Confirmed 06/13/20] Magnesium Hydroxide 30 ml [Milk of Magnesia 30 ml] 30 ml PO DAILY PRN PRN 05/16/20 [History Confirmed 06/13/20] Sennosides [Senna] 8.6 mg PO HS PRN PRN 05/16/20 [History Confirmed 06/13/20] Sodium Phosphate,[place]-Dibasic [Fleet Enema] 133 ml RC DAILY PRN PRN 05/16/20 [History Confirmed 06/13/20] Acetylcysteine 3 ml IH QIDPRN PRN 06/13/20 [History Confirmed 06/13/20] Albuterol Sulfate 3 ml IH QIDPRN PRN 06/13/20 [History Confirmed 06/13/20] Diclofenac Sodium Gel [Voltaren GEL] 4 gm TOP BID PRN PRN 06/13/20 [History Confirmed 06/13/20] Nystatin Powder 15 gm [Nystop Powder 15 gm] 1 gm TP BID PRN PRN 06/13/20 [ History Confirmed 06/13/20] Allergies/Adverse Reactions: Allergies Allergy/AdvReac Type Severity Reaction Status Date / Time eslicarbazepine Allergy Verified 06/13/20 20:19 heparin Allergy Verified 05/16/20 00:59 perampanel [From Fycompa] Allergy Verified 06/13/20 20:20 - Past Medical History Past Medical History: Yes Neurological History: Epilepsy, Seizures ENT History: No Pertinent History Cardiac History: Congestive Heart Failure, High Cholesterol Respiratory History: No Pertinent History Endocrine Medical History: Hypothyroidism, Other Musculoskelatal History: No Pertinent History GI Medical History: GERD History: No Pertinent History Pyscho-Social History: Depression Reproductive Disorders: No Pertinent History Comment: kidney disease - Female History Are you now?: No - Past Surgical History Past Surgical History: Yes Neuro Surgical History: No Pertinent History Cardiac History: No Pertinent History Respiratory Surgery: No Pertinent History GI Surgical History: No Pertinent History Genitourinary Surgical Hx: No Pertinent History Musculskeletal Surgical Hx: No Pertinent History Female Surgical History: No Pertinent History Other Surgical History: implanted seizure device - Social History Smoking Status: Never smoker Exposure to second hand smoke: No Alcohol: None Drug Use: none - Physical Exam Vital Signs: Vital Signs - 24 hr Temp Pulse Resp BP Pulse Ox 06/14/20 07:15 98.0 F 76 16 122/69 95 06/14/20 04:50 98.2 F 74 18 132/80 96 06/14/20 04:00 97.9 F 72 18 120/73 92 L 06/14/20 00:00 97.9 F 72 18 120/73 92 L 06/13/20 22:00 73 20 97 06/13/20 20:21 97.5 F 85 20 130/78 100 06/13/20 18:31 97.5 F 85 20 100 General Appearance: no apparent distress, obese Neurologic Exam: cooperative Respiratory Exam: rhonchi Cardiovascular Exam: regular rate/rhythm, normal heart sounds, normal peripheral pulses Gastrointestinal/Abdomen Exam: soft, normal bowel sounds, No tenderness, No mass Extremity Exam: swelling (lymphedema changes to lower extremities, erythema to anterior lower shins, tender to palpation, slight warmth) Wound Assessment: Skin/Wound Assessment Wound/Incision Assessment Start: 06/13/20 20:42 Text: Status: Active Freq: Q6H Protocol: Document 06/14/20 02:00 (Rec: 06/14/20 02:22 [id number]) Wound/Incision Assessment Lower Other Wound Assessment Admission Wound Type cellulitis and blisters Dressing Status Dry & Intact Drainage Amount None Drainage Odor None/Absent Surrounding Tissue [place] Comment cellulitis and blisters noted on bilateral lower legs and feet. no drainage noted and no dressings needed at this point Results - Labs Lab/Micro Results: Lab Results-Last 24 Hours 06/14/20 06/14/20 Range/Units 04:25 04:25 WBC 9.5 (4.0-10.5) K/mm3 RBC 3.04 L (4.1-5.4) M/mm3 Hgb 9.0 L (12.0-16.0) gm/dl Hct 31.2 L (35-47) % MCV 102.6 H (78-100) fl MCH 29.6 (26-32) pg MCHC 28.8 L (32-36) g/dl RDW 16.4 H (11.5-14.0) % Plt Count 191 (150-450) K/mm3 MPV 11.1 H (7.5-11.0) fl Gran % 69.1 H (36.0-66.0) % Eos # (Auto) 0.45 (0-0.5) Absolute Lymphs (auto) 1.72 (1.0-4.6) Absolute Monos (auto) 0.74 (0.0-1.3) Lymphocytes % 18.1 L (24.0-44.0) % Monocytes % 7.8 (0.0-12.0) % Eosinophils % 4.7 (0.00-5.0) % Basophils % 0.3 (0.0-0.4) % Absolute Granulocytes 6.56 (1.4-6.9) Basophils # 0.03 (0-0.4) Sodium 138 (137-145) mmol/L Potassium 4.2 (3.5-5.1) mmol/L Chloride 97 L (98-107) mmol/L Carbon Dioxide 36 H (22-30) mmol/L Anion Gap 9.1 (5-15) MEQ/L BUN 23 H (7-17) mg/dL Creatinine 1.20 H (0.52-1.04) mg/dL Estimated GFR 49.6 ML/MIN Glucose 93 (74-106) mg/dL Calcium 9.2 (8.4-10.2) mg/dL Slides for Path Review YES Microbiology 06/13/20 18:30 Urine Culture - Preliminary Urine, Indwelling Catheter NO GROWTH TO DATE - Other Procedures and Tests Respiratory Therapy 06/13/20 22:12 Oxygen Nasal Cannula 2 lpm Respiratory Therapy Assessment DAILY Assessment/Plan (1) Acute exacerbation of CHF (congestive heart failure) Current Visit: Yes Status: Acute Assessment & Plan: continue IV bumetanide at this time, monitor input/output Code(s): I50.9 - HEART FAILURE, UNSPECIFIED (2) Cellulitis of both lower extremities Current Visit: Yes Status: Acute Assessment & Plan: add Unasyn Code(s): L03.115 - CELLULITIS OF RIGHT LOWER LIMB; L03.116 - CELLULITIS OF LEFT LOWER LIMB (3) Seizure disorder Current Visit: Yes Status: Acute Assessment & Plan: resume home meds Code(s): G40.909 - EPILEPSY, UNSP, NOT INTRACTABLE, WITHOUT STATUS EPILEPTICUS
[2020-06-14] MEDS ORDERED: MULTIVITAMIN PO SCH (10:00)
[2020-06-14] MEDS ORDERED: BABY ASPIRIN 81 MG CHEW PO SCH (10:00)
[2020-06-14] MEDS ORDERED: NON-FORMULARY ITEM (Cholecalciferol (Vitamin D3) [Vitamin D3] 400 UNIT) PO SCH (10:00)
[2020-06-14] MEDS ORDERED: CLOBAZAM 20 MG PO SCH (10:00)
[2020-06-14] MEDS ORDERED: VITAMIN D PO SCH (10:00)
[2020-06-14] MEDS ORDERED: BRIVARACETAM 100 MG PO SCH (10:00)
[2020-06-14] MEDS ORDERED: LACOSAMIDE 200 MG PO SCH (10:00)
[2020-06-14] MEDS: SYNTHROID 50 MCG PO SCH (10:01)
[2020-06-14] MEDS: FOLATE 1 MG PO SCH (10:01)
[2020-06-14] MEDS: Colace 100 MG PO SCH ×2 (10:01→22:35)
[2020-06-14] MEDS: ECOTRIN 81 MG PO SCH (10:01)
[2020-06-14] MEDS: MAG-OX 400 PO SCH (10:01)
[2020-06-14] MEDS: THERAGRAN MULTIVITAMIN PO SCH (10:01)
[2020-06-14] MEDS: Protonix 40MG Tablet PO SCH (10:01)
[2020-06-14] MEDS: FEOSOL 325 MG PO SCH (10:02)
[2020-06-14] MEDS: Klor Con 10 MEQ PO SCH ×4 (10:02→22:35)
[2020-06-14] MEDS: ZOLOFT 50 MG TABLET PO SCH (10:03)
[2020-06-14] MEDS: PATIENT OWN MEDICATION PO SCH ×6 (10:04→22:40)
[2020-06-14] MEDS ORDERED: SENOKOT 8.6 MG PO PRN (11:17)
[2020-06-14] MEDS: Unasyn 3GM / NaCl 100ML 3 GM/100 ML IVPB IV SCH ×3 (12:02→23:45)
[2020-06-14] MEDS: Tums EX 750 MG PO PRN (19:35)
[2020-06-15] MEDS: Unasyn 3GM / NaCl 100ML 3 GM/100 ML IVPB IV SCH (05:16)
[2020-06-15 05:18] LABS: Absolute Neutrophil Ct (ANC) 5.67 (1.4-6.9); BASOPHIL % 0.3 % (0.0-0.4); Basophil (Absolute #) 0.02 (0-0.4); Eosinophil % 4.8 % (0.00-5.0); Eosinophil (Absolute #) 0.38 (0-0.5); Hematocrit 28.7 % (35-47); Hemoglobin 8.3 gm/dl (12.0-16.0); Lymphocyte (Absolute #) 1.12 (1.0-4.6); Lymphocytes % 14.1 % (24.0-44.0); Mean Cell Volume 102.1 fl (78-100); Mean Corpuscular Hemoglobin 29.5 pg (26-32); Mean Corpuscular Hgb Concent. 28.9 g/dl (32-36); Mean Platelet Volume 11.2 fl (7.5-11.0); Monocyte (Absolute #) 0.73 (0.0-1.3); Monocytes % 9.2 % (0.0-12.0); Neutrophil % 71.6 % (36.0-66.0); Platelet Count 172 K/mm3 (150-450); Red Blood Count 2.81 M/mm3 (4.1-5.4); Red Cell Distribution Width 16.2 % (11.5-14.0); White Blood Count 7.9 K/mm3 (4.0-10.5)
[2020-06-15 05:33] LABS: ANION GAP 7.5 MEQ/L (5-15); Creatinine 1 1.03 mg/dL (0.52-1.04); EST GLOMERULAR FILTRATION RATE 59.1 ML/MIN; MAGNESIUM 2.3 mg/dL (1.6-2.3); Potassium 4.1 mmol/L (3.5-5.1)
[2020-06-15] MEDS: Advair Hfa 230/21 Mcg COMMON CANISTER IH SCH ×2 (06:43→20:34)
[2020-06-15] MEDS: VENTOLIN COMMON CANISTER IH SCH ×4 (06:43→20:34)
[2020-06-15] MEDS: BUMEX 1 MG IV SCH ×2 (07:37→20:51)
[2020-06-15 08:40] LABS: Slide Review 1 YES
--- NOTE | 2020-06-15 09:01 | PCM.NOTE ---
Date and Time: 06/15/2059 Subjective Assessment: patient with no specific complaints, "I want to go home" and "I want a pop" Objective Exam General Appearance: obese Neurologic Exam: alert, cooperative Wound Assessment: Skin/Wound Assessment Wound/Incision Assessment Start: 06/13/20 20:42 Text: Status: Active Freq: Q6H Protocol: Document 06/15/20 07:59 MS (Rec: 06/15/20 08:01 MS [id number]) Wound/Incision Assessment Lower Other Wound Assessment Shift Assessment Wound Type CELLULITIS WITH BLISTERS Drainage Amount None Drainage Odor None/Absent Surrounding Tissue Okay Comment NO DRAINAGE SEEN AT THIS TIME. OPEN TO AIR. Respiratory Exam: normal breath sounds, lungs clear, No respiratory distress Cardiovascular Exam: regular rate/rhythm, normal heart sounds Gastrointestinal/Abdomen Exam: soft, No tenderness, No mass Extremity Exam: pedal edema, swelling, other (erythema and warmth to lower legs) OBJECTIVE DATA Vital Signs: Vital Signs - 24 hr Temp Pulse Resp BP Pulse Ox 06/15/20 07:34 97.4 F 67 18 108/56 06/15/20 06:44 71 21 95 06/15/20 04:00 97.5 F 69 21 119/74 94 L 06/15/20 00:22 21 06/14/20 23:52 97.9 F 69 22 118/73 100 06/14/20 19:52 97.9 F 64 21 133/82 100 06/14/20 19:33 62 20 98 06/14/20 16:00 97.9 F 65 20 126/72 95 06/14/20 14:48 70 22 97 06/14/20 12:00 97.7 F 64 18 117/63 96 06/14/20 10:57 61 16 96 Pain Assessment - Last Documented Pain Intensity 0 Pain Scale Used [facility] Intake and Output: Intake & Output 06/12/20 06/13/20 06/14/20 06/15/20 11:59 11:59 11:59 11:59 Intake Total 180 Output Total 1100 2350 Balance -1100 -2170 Weight 125 kg 123.4 kg Lab Results: Lab Results-Last 24 Hours 06/15/20 06/15/20 Range/Units 04:58 04:58 WBC 7.9 (4.0-10.5) K/mm3 RBC 2.81 L (4.1-5.4) M/mm3 Hgb 8.3 L (12.0-16.0) gm/dl Hct 28.7 L (35-47) % MCV 102.1 H (78-100) fl MCH 29.5 (26-32) pg MCHC 28.9 L (32-36) g/dl RDW 16.2 H (11.5-14.0) % Plt Count 172 (150-450) K/mm3 MPV 11.2 H (7.5-11.0) fl Gran % 71.6 H (36.0-66.0) % Eos # (Auto) 0.38 (0-0.5) Absolute Lymphs (auto) 1.12 (1.0-4.6) Absolute Monos (auto) 0.73 (0.0-1.3) Lymphocytes % 14.1 L (24.0-44.0) % Monocytes % 9.2 (0.0-12.0) % Eosinophils % 4.8 (0.00-5.0) % Basophils % 0.3 (0.0-0.4) % Absolute Granulocytes 5.67 (1.4-6.9) Basophils # 0.02 (0-0.4) Sodium 137 (137-145) mmol/L Potassium 4.1 (3.5-5.1) mmol/L Chloride 97 L (98-107) mmol/L Carbon Dioxide 36 H (22-30) mmol/L Anion Gap 7.5 (5-15) MEQ/L BUN 18 H (7-17) mg/dL Creatinine 1.03 (0.52-1.04) mg/dL Estimated GFR 59.1 ML/MIN Glucose 86 (74-106) mg/dL Calcium 9.0 (8.4-10.2) mg/dL Magnesium 2.3 (1.6-2.3) mg/dL NT-Pro-B Natriuret Pep 497 (0-900) pg/mL Slides for Path Review YES Assessment/Plan (1) Acute exacerbation of CHF (congestive heart failure) Current Visit: Yes Status: Acute Assessment & Plan: continue bumex IV Code(s): I50.9 - HEART FAILURE, UNSPECIFIED (2) Cellulitis of both lower extremities Current Visit: Yes Status: Acute Assessment & Plan: on unasyn, appears to have a component of lymphedema Code(s): L03.115 - CELLULITIS OF RIGHT LOWER LIMB; L03.116 - CELLULITIS OF LEFT LOWER LIMB (3) Seizure disorder Current Visit: Yes Status: Acute Code(s): G40.909 - EPILEPSY, UNSP, NOT INTRACTABLE, WITHOUT STATUS EPILEPTICUS
[2020-06-15] MEDS: FEOSOL 325 MG PO SCH (09:22)
[2020-06-15] MEDS: MAG-OX 400 PO SCH (09:22)
[2020-06-15] MEDS: ZOLOFT 50 MG TABLET PO SCH (09:22)
[2020-06-15] MEDS: Protonix 40MG Tablet PO SCH (09:22)
[2020-06-15] MEDS: Klor Con 10 MEQ PO SCH ×3 (09:23→21:47)
[2020-06-15] MEDS: ECOTRIN 81 MG PO SCH (09:23)
[2020-06-15] MEDS: THERAGRAN MULTIVITAMIN PO SCH (09:23)
[2020-06-15] MEDS: Colace 100 MG PO SCH ×2 (09:23→21:46)
[2020-06-15] MEDS: FOLATE 1 MG PO SCH (09:23)
[2020-06-15] MEDS: SYNTHROID 50 MCG PO SCH (09:23)
[2020-06-15] MEDS: PATIENT OWN MEDICATION PO SCH ×6 (09:39→21:48)
[2020-06-15] MEDS: Levofloxacin 500 MG Tablet PO SCH (10:57)
[2020-06-16 05:05] LABS: BASOPHIL % 0.3 % (0.0-0.4); Basophil (Absolute #) 0.02 (0-0.4); Eosinophil % 5.7 % (0.00-5.0); Eosinophil (Absolute #) 0.37 (0-0.5); Hematocrit 28.3 % (35-47); Hemoglobin 8.2 gm/dl (12.0-16.0); Lymphocyte (Absolute #) 1.43 (1.0-4.6); Mean Cell Volume 102.5 fl (78-100); Mean Corpuscular Hemoglobin 29.7 pg (26-32); Mean Platelet Volume 11.1 fl (7.5-11.0); Monocyte (Absolute #) 0.69 (0.0-1.3); Monocytes % 10.6 % (0.0-12.0); Neutrophil % 61.4 % (36.0-66.0); Platelet Count 175 K/mm3 (150-450); Red Blood Count 2.76 M/mm3 (4.1-5.4); Red Cell Distribution Width 15.9 % (11.5-14.0); White Blood Count 6.5 K/mm3 (4.0-10.5)
[2020-06-16 06:04] LABS: ANION GAP 8.1 MEQ/L (5-15); Calcium 9.1 mg/dL (8.4-10.2); Creatinine 1 1.19 mg/dL (0.52-1.04); EST GLOMERULAR FILTRATION RATE 50.1 ML/MIN
[2020-06-16] MEDS: VENTOLIN COMMON CANISTER IH SCH ×4 (06:43→19:33)
[2020-06-16] MEDS: Advair Hfa 230/21 Mcg COMMON CANISTER IH SCH ×2 (06:43→19:33)
--- NOTE | 2020-06-16 08:56 | PCM.NOTE ---
Date and Time: 06/16/20 0853 Subjective Assessment: patient eating breakfast, states she feels better Objective Exam General Appearance: obese Neurologic Exam: alert, cooperative Wound Assessment: Skin/Wound Assessment Wound/Incision Assessment Start: 06/13/20 20:42 Text: Status: Active Freq: Q6H Protocol: Document 06/16/20 08:00 RN (Rec: 06/16/20 08:28 RN [id number]) Wound/Incision Assessment Lower Other Wound Assessment Shift Assessment Wound Type CELLULITIS WITH BLISTERS Drainage Amount None Drainage Odor None/Absent General Appearance Open to air Surrounding Tissue [place] Wound Photo Photo Taken No Respiratory Exam: normal breath sounds, lungs clear, No respiratory distress Cardiovascular Exam: regular rate/rhythm, normal heart sounds Gastrointestinal/Abdomen Exam: soft, No tenderness, No mass Extremity Exam: pedal edema (improving, erythema and warmth improving.) OBJECTIVE DATA Vital Signs: Vital Signs - 24 hr Temp Pulse Resp BP Pulse Ox 06/16/20 08:00 16 06/16/20 07:44 97.6 F 76 16 112/59 97 06/16/20 06:46 66 20 97 06/16/20 04:00 97.7 F 75 21 111/56 98 06/16/20 00:05 21 06/16/20 00:00 97.5 F 69 21 114/68 98 06/15/20 20:40 22 06/15/20 20:34 71 22 96 06/15/20 20:00 97.9 F 73 21 127/71 94 L 06/15/20 16:00 95.3 F 70 22 117/70 93 L 06/15/20 12:00 96.3 F 62 18 99/58 96 Pain Assessment - Last Documented Pain Intensity 0 Pain Scale Used [facility] Intake and Output: Intake & Output 06/13/20 06/14/20 06/15/20 06/16/20 11:59 11:59 11:59 11:59 Intake Total 180 240 Output Total 1100 2350 Balance -1100 -2170 240 Weight 125 kg 123.4 kg 122.9 kg Lab Results: Lab Results-Last 24 Hours 06/16/20 06/16/20 Range/Units 05:00 05:00 WBC 6.5 (4.0-10.5) K/mm3 RBC 2.76 L (4.1-5.4) M/mm3 Hgb 8.2 L (12.0-16.0) gm/dl Hct 28.3 L (35-47) % MCV 102.5 H (78-100) fl MCH 29.7 (26-32) pg MCHC 29.0 L (32-36) g/dl RDW 15.9 H (11.5-14.0) % Plt Count 175 (150-450) K/mm3 MPV 11.1 H (7.5-11.0) fl Gran % 61.4 (36.0-66.0) % Eos # (Auto) 0.37 (0-0.5) Absolute Lymphs (auto) 1.43 (1.0-4.6) Absolute Monos (auto) 0.69 (0.0-1.3) Lymphocytes % 22.0 L (24.0-44.0) % Monocytes % 10.6 (0.0-12.0) % Eosinophils % 5.7 H (0.00-5.0) % Basophils % 0.3 (0.0-0.4) % Absolute Granulocytes 4.00 (1.4-6.9) Basophils # 0.02 (0-0.4) Sodium 138 (137-145) mmol/L Potassium 4.0 (3.5-5.1) mmol/L Chloride 99 (98-107) mmol/L Carbon Dioxide 35 H (22-30) mmol/L Anion Gap 8.1 (5-15) MEQ/L BUN 17 (7-17) mg/dL Creatinine 1.19 H (0.52-1.04) mg/dL Estimated GFR 50.1 ML/MIN Glucose 82 (74-106) mg/dL Calcium 9.1 (8.4-10.2) mg/dL NT-Pro-B Natriuret Pep 603 (0-900) pg/mL Multi-Disciplinary Progress Notes: Multi-Disciplinary Progress Notes 06/15/20 13:01 Case Management Note by Di Cohen NO CHANGE IN DC PLANS AT THIS TIME, PATIENT LIKELY BACK TO [place] TOMORROW Initialized on 06/15/20 13:01 - END OF NOTE Assessment/Plan (1) Acute exacerbation of CHF (congestive heart failure) Current Visit: Yes Status: Acute Assessment & Plan: diuresing, wt down >2kg since admission, clinically improving. continue IV bumex, likely back to [facility] tomorrow Code(s): I50.9 - HEART FAILURE, UNSPECIFIED (2) Cellulitis of both lower extremities Current Visit: Yes Status: Acute Assessment & Plan: on levaquin, improving. Code(s): L03.115 - CELLULITIS OF RIGHT LOWER LIMB; L03.116 - CELLULITIS OF LEFT LOWER LIMB (3) UTI (urinary tract infection) Current Visit: No Status: Acute Assessment & Plan: levaquin based on culture from 06/12 with morganella morganii Code(s): N39.0 - URINARY TRACT INFECTION, SITE NOT SPECIFIED (4) Seizure disorder Current Visit: Yes Status: Acute Code(s): G40.909 - EPILEPSY, UNSP, NOT INTRACTABLE, WITHOUT STATUS EPILEPTICUS
[2020-06-16] MEDS: ECOTRIN 81 MG PO SCH (09:03)
[2020-06-16] MEDS: ZOLOFT 50 MG TABLET PO SCH (09:03)
[2020-06-16] MEDS: MAG-OX 400 PO SCH (09:03)
[2020-06-16] MEDS: FEOSOL 325 MG PO SCH (09:03)
[2020-06-16] MEDS: FOLATE 1 MG PO SCH (09:04)
[2020-06-16] MEDS: Colace 100 MG PO SCH ×2 (09:04→21:16)
[2020-06-16] MEDS: SYNTHROID 50 MCG PO SCH (09:04)
[2020-06-16] MEDS: Protonix 40MG Tablet PO SCH (09:04)
[2020-06-16] MEDS: Levofloxacin 500 MG Tablet PO SCH (09:04)
[2020-06-16] MEDS: THERAGRAN MULTIVITAMIN PO SCH (09:04)
[2020-06-16] MEDS: Klor Con 10 MEQ PO SCH ×5 (09:04→21:15)
[2020-06-16] MEDS: BUMEX 1 MG IV SCH ×2 (09:07→19:43)
[2020-06-16] MEDS: PATIENT OWN MEDICATION PO SCH ×6 (09:08→21:17)
[2020-06-16] MEDS: Tums EX 750 MG PO PRN (10:32)
[2020-06-17 06:18] LABS: Absolute Neutrophil Ct (ANC) 4.13 (1.4-6.9); BASOPHIL % 0.4 % (0.0-0.4); Basophil (Absolute #) 0.03 (0-0.4); Eosinophil % 5.1 % (0.00-5.0); Eosinophil (Absolute #) 0.34 (0-0.5); Hemoglobin 8.5 gm/dl (12.0-16.0); Lymphocyte (Absolute #) 1.58 (1.0-4.6); Lymphocytes % 23.5 % (24.0-44.0); Mean Cell Volume 102.7 fl (78-100); Mean Corpuscular Hemoglobin 29.1 pg (26-32); Mean Corpuscular Hgb Concent. 28.3 g/dl (32-36); Mean Platelet Volume 10.9 fl (7.5-11.0); Monocyte (Absolute #) 0.64 (0.0-1.3); Monocytes % 9.5 % (0.0-12.0); Neutrophil % 61.5 % (36.0-66.0); Platelet Count 191 K/mm3 (150-450); Red Blood Count 2.92 M/mm3 (4.1-5.4); Red Cell Distribution Width 15.9 % (11.5-14.0); White Blood Count 6.7 K/mm3 (4.0-10.5)
[2020-06-17 06:25] LABS: ANION GAP 10.1 MEQ/L (5-15); Calcium 9.1 mg/dL (8.4-10.2); Creatinine 1 1.14 mg/dL (0.52-1.04); EST GLOMERULAR FILTRATION RATE 52.6 ML/MIN; MAGNESIUM 2.3 mg/dL (1.6-2.3); Potassium 3.8 mmol/L (3.5-5.1)
[2020-06-17] MEDS: Advair Hfa 230/21 Mcg COMMON CANISTER IH SCH (06:34)
[2020-06-17] MEDS: VENTOLIN COMMON CANISTER IH SCH ×2 (06:34→10:31)
[2020-06-17] MEDS: BUMEX 1 MG IV SCH (08:23)
--- NOTE | 2020-06-17 08:25 | PCM.DS ---
Discharge Summary Date of Admission: 06/14/20 08:51 Admitting Physician: ZAIRA BLISS Primary Care Provider: ZAIRA BLISS Allergies Allergies eslicarbazepine Allergy (Verified 06/13/20 20:19) heparin Allergy (Verified 05/16/20 00:59) perampanel [From [facility]] Allergy (Verified 06/13/20 20:20) Hospital Summary - Hospital Course Hospital Course: Chief Complaint Diagnosis ACUTE EXAC CHF, CELLULITIS BLE Allergies Allergy/AdvReac Type Severity Reaction Status Date / Time eslicarbazepine Allergy Verified 06/13/20 20:19 heparin Allergy Verified 05/16/20 00:59 perampanel [From [facility]] Allergy Verified 06/13/20 20:20 Vital Signs (Last 24 hours) Temp Pulse Resp BP Pulse Ox 06/17/20 07:13 98.2 F 74 18 121/71 96 06/17/20 06:38 71 18 94 L 06/17/20 04:08 98.2 F 86 22 112/56 94 L 06/17/20 04:00 22 06/17/20 00:00 24 06/16/20 23:44 97.9 F 78 24 128/64 95 06/16/20 22:00 77 16 98 06/16/20 20:00 21 06/16/20 19:31 97.7 F 83 21 110/57 96 06/16/20 16:00 98.6 F 67 15 106/53 99 06/16/20 12:00 18 06/16/20 11:49 97.5 F 74 15 106/63 94 L 06/16/20 10:56 76 18 96 Home Medications Medication Instructions Recorded Confirmed Last Taken Type Acetylcysteine 3 ml IH QIDPRN PRN 06/13/20 06/13/20 Unknown History Albuterol Sulfate 3 ml IH QIDPRN PRN 06/13/20 06/13/20 Unknown History Diclofenac Sodium Gel [Voltaren 4 gm TOP BID PRN PRN 06/13/20 06/13/20 Unknown History GEL] Nystatin Powder 15 gm [Nystop 1 gm TP BID PRN PRN 06/13/20 06/13/20 Unknown History Powder 15 gm] Current Medications Generic Name Dose Route Start Last Admin Trade Name Freq PRN Reason Stop Dose Admin Acetaminophen 325 mg 06/14/20 06:57 06/14/20 15:45 Tylenol 325 Mg PO 07/14/20 06:56 325 mg Q4H PRN PRN Administration pain/temp Acetylcysteine 600 mg 06/14/20 07:17 Mucomyst 200 Mg/Ml IH 07/14/20 07:16 QIDPRN PRN cough/SOB Albuterol Sulfate 2 puff 06/14/20 07:00 06/17/20 06:34 Ventolin Common Canister IH 07/14/20 06:59 2 puff QIDRT ANDREE Administration Aspirin 81 mg 06/14/20 10:00 06/16/20 09:03 Ecotrin 81 Mg PO 07/14/20 09:59 81 mg DAILY ANDREE Administration Bumetanide 2 mg 06/13/20 19:30 06/16/20 19:43 Bumex 1 Mg IV 07/13/20 19:29 2 mg Q12H ANDREE Administration Calcium Carbonate/Glycine 500 mg 06/14/20 06:57 06/16/20 10:32 Tums Ex 750 Mg PO 07/14/20 06:56 500 mg Q2H/PRN PRN Administration GERD Diclofenac Sodium 4 gm 06/14/20 06:57 Voltaren Gel TOP 07/14/20 06:56 BID PRN PRN PAIN Docusate Sodium 100 mg 06/13/20 22:00 06/16/20 21:16 Colace 100 Mg PO 07/13/20 21:59 100 mg BID ANDREE Administration Ergocalciferol 50,000 unit 06/14/20 07:00 06/14/20 07:51 Vitamin D2 PO 07/14/20 06:59 50,000 unit Q7D ANDREE Administration Ferrous Sulfate 325 mg 06/14/20 10:00 06/16/20 09:03 Feosol 325 Mg PO 07/14/20 09:59 325 mg DAILY ANDREE Administration Folic Acid 1 mg 06/14/20 10:00 06/16/20 09:04 Folate 1 Mg PO 07/14/20 09:59 1 mg DAILY ANDREE Administration Guaifenesin 10 ml 06/14/20 06:57 06/16/20 22:28 Robitussin 100 Mg/5 Ml PO 07/14/20 06:56 10 ml [id number] PRN Administration COUGH Levofloxacin 500 mg 06/15/20 11:00 06/16/20 09:04 Levofloxacin 500 Mg Tablet PO 07/15/20 10:59 500 mg DAILY ANDREE Administration Levothyroxine Sodium 50 mcg 06/14/20 10:00 06/16/20 09:04 Synthroid 50 Mcg PO 07/14/20 09:59 50 mcg DAILY ANDREE Administration Loratadine 10 mg 06/14/20 06:57 Claritin 10 Mg PO 07/14/20 06:56 DAILY PRN PRN ALLERGIES Lorazepam 2 mg 06/13/20 21:59 Ativan 2 Mg/1 Ml Vial IV 07/13/20 21:58 Q1HPRN PRN SEIZURES Magnesium Hydroxide 30 ml 06/14/20 06:57 Milk Of Magnesia 30 Ml PO 07/14/20 06:56 DAILY PRN PRN CONSTIPATION Magnesium Oxide 400 mg 06/14/20 10:00 06/16/20 09:03 Mag-Ox 400 PO 07/14/20 09:59 400 mg DAILY ANDREE Administration Multivitamins Therapeutic 1 tab 06/14/20 10:00 06/16/20 09:04 Theragran Multivitamin PO 07/14/20 09:59 1 tab DAILY ANDREE Administration Nystatin 1 gm 06/14/20 06:57 Nystop Powder 15 Gm TP 07/14/20 06:56 BID PRN PRN Gaulding Pantoprazole Sodium 40 mg 06/14/20 10:00 06/16/20 09:04 Protonix 40mg Tablet PO 07/14/20 09:59 40 mg DAILY ANDREE Administration Patient Own Med ( 0 each 06/14/20 10:00 06/16/20 21:17 Briviact) PO 07/14/20 09:59 10 each BID ANDREE Administration Patient Own Med( 0 each 06/14/20 10:00 06/16/20 21:16 Clobazam) PO 07/14/20 09:59 1 each BID ANDREE Administration Patient Own Med ( 0 each 06/14/20 10:00 02/26/21 21:17 Vimpat) PO 07/14/20 09:59 1 each BID ANDREE Administration Potassium Chloride 20 meq 06/13/20 22:00 06/16/20 21:15 Klor Con 10 Meq PO 07/13/20 21:59 20 meq QID ANDREE Administration Fluticasone/Salmeterol 2 puff 06/14/20 07:00 06/17/20 06:34 Advair Hfa 230/21 Mcg Common Canister* IH 07/14/20 06:59 2 puff BIDRT ANDREE Administration Senna 8.6 mg 06/14/20 11:17 06/15/20 21:47 Senokot 8.6 Mg PO 07/14/20 11:15 8.6 mg HSPRN PRN Administration CONSTIPATION Sertraline HCl 75 mg 06/14/20 10:00 06/16/20 09:03 Zoloft 50 Mg Tablet PO 07/14/20 09:59 75 mg DAILY ANDREE Administration Discontinued Medications Generic Name Dose Route Start Last Admin Trade Name Freq PRN Reason Stop Dose Admin Albuterol Sulfate 4 puff 06/14/20 07:00 Ventolin Common Canister IH 07/14/20 06:59 QIDRT ANDREE Levetiracetam 1,000 mg/ 110 mls @ 220 mls/hr 06/13/20 22:00 06/14/20 11:29 Dextrose IV 07/13/20 21:59 Not Given Q6H ANDREE Ampicillin Sodium/Sulbactam Sodium 3 gm in 100 mls @ 200 mls/hr 06/14/20 12:00 06/15/20 05:16 Unasyn 3gm / Nacl 100ml IV 07/14/20 11:59 200 mls/hr Q6HT ANDREE Administration Levetiracetam 1,000 mg 06/13/20 23:00 06/14/20 04:41 Keppra 500 Mg PO 07/13/20 22:59 1,000 mg Q6H ANDREE Administration Levetiracetam Confirm 06/13/20 23:06 Keppra 500 Mg Administered 06/13/20 23:07 Dose 1,000 mg .ROUTE .STK-MED ONE Miscellaneous Information 0 each 06/14/20 07:45 Medication Intervention 07/14/20 07:44 .RN TO CHECK WITH PT ANDREE Miscellaneous Information 0 each 06/14/20 08:00 Medication Intervention 07/14/20 07:59 .RN TO CHECK WITH PT ANDREE Miscellaneous Information 0 each 06/14/20 08:15 Medication Intervention 07/14/20 08:14 .RN TO CHECK WITH PT ANDREE Phenytoin Sodium 750 mg 06/13/20 22:00 06/14/20 11:29 Dilantin Iv 250 Mg/5 Ml IV 07/13/20 21:59 Not Given Q8H ANDREE Phenytoin Sodium 750 mg 06/13/20 23:00 06/14/20 06:43 Dilantin 100 Mg PO 07/13/20 22:59 700 mg Q8H ANDREE Administration Phenytoin Sodium Confirm 06/13/20 23:16 Dilantin 100 Mg Administered 06/13/20 23:17 Dose 700 mg .ROUTE .STK-MED ONE Phenytoin Sodium Confirm 06/14/20 06:42 Dilantin 100 Mg Administered 06/14/20 06:43 Dose 700 mg .ROUTE .STK-MED ONE Senna 8.6 mg 06/13/20 22:00 06/13/20 22:11 Senokot 8.6 Mg PO 07/13/20 21:59 8.6 mg HS ANDREE Administration Torsemide 40 mg 06/13/20 22:00 06/13/20 22:11 Demadex 20 Mg PO 07/13/20 21:59 40 mg BID ANDREE Administration Torsemide Confirm 06/13/20 22:07 Demadex 20 Mg Administered 06/13/20 22:08 Dose 40 mg .ROUTE .STK-MED ONE Intake & Output (Last 24 hours) 06/14/20 06/15/20 06/16/20 06/17/20 11:59 11:59 11:59 11:59 Intake Total 636 601 1642 Output Total 1100 2350 2150 Balance -1100 -2170 240 -170 Weight 125 kg 123.4 kg 122.9 kg 122.2 kg Microbiology Results (Last 24 hours) 06/15/20 14:19 Catherized Urine Culture - Pending 06/13/20 18:30 Urine, Indwelling Catheter Urine Culture - Final Enterococcus Faecium Laboratory Results (Last 24 hours) 06/17/20 06/17/20 05:35 05:35 WBC 6.7 RBC 2.92 L Hgb 8.5 L Hct 30.0 L MCV 102.7 H MCH 29.1 MCHC 28.3 L RDW 15.9 H Plt Count 191 MPV 10.9 Gran % 61.5 Eos # (Auto) 0.34 Absolute Lymphs (auto) 1.58 Absolute Monos (auto) 0.64 Lymphocytes % 23.5 L Monocytes % 9.5 Eosinophils % 5.1 H Basophils % 0.4 Absolute Granulocytes 4.13 Basophils # 0.03 Sodium 136 L Potassium 3.8 Chloride 97 L Carbon Dioxide 33 H Anion Gap 10.1 BUN 16 Creatinine 1.14 H Estimated GFR 52.6 Glucose 99 Calcium 9.1 Magnesium 2.3 Orders (Last 24 hours) Category Date Time Status BMP AM.LAB Lab 06/17/20 05:35 Completed CBC W DIFF AM.LAB Lab 06/17/20 05:35 Completed MAGNESIUM AM.LAB Lab 06/17/20 05:35 Completed Patient Care Notes (Last 24 hours) 06/16/20 13:30 Case Management Note by Di Cohen NO CHANGE IN DC PLANS AT THIS TIME- PATIENT TO RETURN TO [place] AT TIME OF DC Initialized on 06/16/20 13:30 - END OF NOTE - Vitals & Intake/Output Vital Signs: Vital Signs Temperature 98.2 F 06/17/20 07:13 Pulse Rate 74 06/17/20 07:13 Respiratory Rate 18 06/17/20 07:13 Blood Pressure 121/71 06/17/20 07:13 O2 Sat by Pulse Oximetry 96 06/17/20 07:13 Intake & Output: Intake & Output 06/14/20 06/15/20 06/16/20 06/17/20 11:59 11:59 11:59 11:59 Intake Total 021 597 9109 Output Total 1100 2350 2150 Balance -1100 -2170 240 -170 Weight 125 kg 123.4 kg 122.9 kg 122.2 kg - Lab Result Diagrams: 06/17/20 05:35 06/17/20 05:35 Lab Results-Last 24 Hrs: Lab Results-Last 24 Hours 06/17/20 06/17/20 Range/Units 05:35 05:35 WBC 6.7 (4.0-10.5) K/mm3 RBC 2.92 L (4.1-5.4) M/mm3 Hgb 8.5 L (12.0-16.0) gm/dl Hct 30.0 L (35-47) % MCV 102.7 H (78-100) fl MCH 29.1 (26-32) pg MCHC 28.3 L (32-36) g/dl RDW 15.9 H (11.5-14.0) % Plt Count 191 (150-450) K/mm3 MPV 10.9 (7.5-11.0) fl Gran % 61.5 (36.0-66.0) % Eos # (Auto) 0.34 (0-0.5) Absolute Lymphs (auto) 1.58 (1.0-4.6) Absolute Monos (auto) 0.64 (0.0-1.3) Lymphocytes % 23.5 L (24.0-44.0) % Monocytes % 9.5 (0.0-12.0) % Eosinophils % 5.1 H (0.00-5.0) % Basophils % 0.4 (0.0-0.4) % Absolute Granulocytes 4.13 (1.4-6.9) Basophils # 0.03 (0-0.4) Sodium 136 L (137-145) mmol/L Potassium 3.8 (3.5-5.1) mmol/L Chloride 97 L (98-107) mmol/L Carbon Dioxide 33 H (22-30) mmol/L Anion Gap 10.1 (5-15) MEQ/L BUN 16 (7-17) mg/dL Creatinine 1.14 H (0.52-1.04) mg/dL Estimated GFR 52.6 ML/MIN Glucose 99 (74-106) mg/dL Calcium 9.1 (8.4-10.2) mg/dL Magnesium 2.3 (1.6-2.3) mg/dL Micro Results-Entire Visit: Microbiology 06/13/20 18:30 Urine Culture - Final Urine, Indwelling Catheter Enterococcus Faecium - Procedures and Test Procedures and Tests throughout Hospitalization: Therapy Orders & Screens 06/13/20 22:12 Oxygen Nasal Cannula 2 lpm Comment: Diagnosis: CHF Respiratory Therapy Assessment DAILY Comment: Diagnosis: CHF Discharge Exam General Appearance: no apparent distress, alert Neurologic Exam: alert, oriented x 3, cooperative, normal mood/affect, nml cerebellar function, sensation nml, No motor deficits Eye Exam: PERRL, EOMI, eyes nml inspection Ears, Nose, Throat Exam: normal ENT inspection, pharynx normal, moist mucous membranes Neck Exam: normal inspection, non-tender, supple, full range of motion Respiratory Exam: normal breath sounds, lungs clear, No respiratory distress Cardiovascular Exam: regular rate/rhythm, normal heart sounds Gastrointestinal/Abdomen Exam: soft, No tenderness, No mass Pelvic Exam: deferred Rectal Exam: deferred Back Exam: normal inspection, normal range of motion, No CVA tenderness, No vertebral tenderness Extremity Exam: normal inspection, normal range of motion Skin Exam: normal color, warm, dry Wound Assessment: Skin/Wound Assessment Wound/Incision Assessment Start: 06/13/20 20:42 Text: Status: Active Freq: Q6H Protocol: Document 06/17/20 02:00 SG (Rec: 06/17/20 02:44 SG [id number]) Wound/Incision Assessment Lower Other Wound Assessment Shift Assessment Wound Type CELLULITIS WITH BLISTERS Drainage Amount None Drainage Odor None/Absent General Appearance Open to air Surrounding Tissue [place] Wound Photo Photo Taken No Final Diagnosis/Problem List - Final Discharge Diagnosis/Problem (1) Acute exacerbation of CHF (congestive heart failure) Current Visit: Yes Status: Resolved Code(s): I50.9 - HEART FAILURE, UNSPECIFIED (2) Cellulitis of both lower extremities Current Visit: Yes Status: Chronic Code(s): L03.115 - CELLULITIS OF RIGHT LOWER LIMB; L03.116 - CELLULITIS OF LEFT LOWER LIMB (3) Seizure disorder Current Visit: Yes Status: Chronic Code(s): G40.909 - EPILEPSY, UNSP, NOT INTRACTABLE, WITHOUT STATUS EPILEPTICUS - Discharge Discharge Date: 06/17/20 Disposition: Skilled Care @ [facility] Condition: Stable Prescriptions: Continue Torsemide [Demadex] 40 mg PO BID Levothyroxine Sodium 50 Mcg [Synthroid 50 Mcg] 50 mcg PO DAILY Potassium Chloride 20 Meq [Klor-Con 20 MEQ] 20 meq PO QID PANTOPRAZOLE 40 mg Tablet [Protonix 40MG Tablet] 40 mg PO DAILY Clobazam [Onfi] 20 mg PO BID Magnesium Oxide 400 mg [Mag-Ox 400] 400 mg PO DAILY Ferrous Sulfate 325 mg [Feosol 325 mg] 325 mg PO DAILY Docusate Sodium 100 mg [Colace 100 MG] 100 mg PO BID Aspirin 81 gm Chew [Baby Aspirin 81 mg Chew] 81 mg PO DAILY Sertraline HCl 50 mg [Zoloft 50 mg Tablet] 75 mg PO DAILY Multivitamin [Unr-Vqkyfc-Oiqad] 1 each PO DAILY Lacosamide [Vimpat] 200 mg PO BID Ergocalciferol (Vitamin D2) [Vitamin D2] 50,000 unit PO Q7D Folic Acid 1 mg [Folate 1 mg] 1 mg PO DAILY Brivaracetam [Briviact] 100 mg PO BID Cholecalciferol (Vitamin D3) [Vitamin D3] 400 unit PO DAILY Budesonide/Formoterol Fumarate [Symbicort 160-4.5 Mcg Inhaler] 2 puff IH BID Albuterol Sulfate [Proair Hfa] 2 puff IH TID Loratadine 10 mg [Claritin 10 mg] 10 mg PO DAILY PRN PRN PRN Reason: Allergies Sodium Phosphate,Waldo-Dibasic [Fleet Enema] 133 ml RC DAILY PRN PRN PRN Reason: Constipation Sennosides [Senna] 8.6 mg PO HS PRN PRN PRN Reason: Constipation Magnesium Hydroxide 30 ml [Milk of Magnesia 30 ml] 30 ml PO DAILY PRN PRN PRN Reason: Constipation Guaifenesin 100 mg/5 ml [Robitussin 100 MG/5 ML] 10 ml [id number] PRN PRN Reason: Cough Calcium Carbonate [Tums] 500 mg PO Q2H/PRN PRN PRN Reason: GERD Acetaminophen 325 mg [Tylenol 325 mg] 325 mg PO Q4H PRN PRN PRN Reason: pain/temp Nystatin Powder 15 gm [Nystop Powder 15 gm] 1 gm TP BID PRN PRN PRN Reason: Gaulding Acetylcysteine 3 ml IH QIDPRN PRN PRN Reason: cough/SOB Diclofenac Sodium Gel [Voltaren GEL] 4 gm TOP BID PRN PRN PRN Reason: Pain Albuterol Sulfate 3 ml IH QIDPRN PRN PRN Reason: cough/SOB Follow up with: ZAIRA BLISS MD [Primary Care Provider] -
[2020-06-17 10:36] LABS: Slide Review 1 YES
[2020-06-17] MEDS: MAG-OX 400 PO SCH (11:14)
[2020-06-17] MEDS: ECOTRIN 81 MG PO SCH (11:14)
[2020-06-17] MEDS: ZOLOFT 50 MG TABLET PO SCH (11:15)
[2020-06-17] MEDS: FOLATE 1 MG PO SCH (11:16)
[2020-06-17] MEDS: Colace 100 MG PO SCH (11:16)
[2020-06-17] MEDS: FEOSOL 325 MG PO SCH (11:16)
[2020-06-17] MEDS: Protonix 40MG Tablet PO SCH (11:16)
[2020-06-17] MEDS: SYNTHROID 50 MCG PO SCH (11:16)
[2020-06-17] MEDS: Klor Con 10 MEQ PO SCH (11:16)
[2020-06-17] MEDS: Levofloxacin 500 MG Tablet PO SCH (11:16)
[2020-06-17] MEDS: THERAGRAN MULTIVITAMIN PO SCH (11:16)
[2020-06-17] MEDS: PATIENT OWN MEDICATION PO SCH ×3 (11:17→11:20)
[2020-06-17 11:49] VITALS: BP 114/80; PULSE 73; O2SAT 99
== END 2020-06-17 13:00 | DRG 292 ==
LOC: MED SURG 08:51 → OBSVTOIN 06-14 08:51
PROVIDERS: ADMIT Family Medicine; ATTEND Family Medicine
DX: I50.9 Heart failure, unspecified (principal); L03.115 Cellulitis of right lower limb; L03.116 Cellulitis of left lower limb; N39.0 Urinary tract infection, site not specified; G40.909 Epilepsy, unspecified, not intractable, without status epilepticus; Z79.899 Other long term (current) drug therapy; E78.00 Pure hypercholesterolemia, unspecified; E03.9 Hypothyroidism, unspecified
CPT/HCPCS: 36415; 80048; 83735; 83880; 85025; 87077; 87086; 87186; 93268; 94640; 94760; G0378; J0295; A9270-GY

== ENCOUNTER 2020-10-26 18:39 | Observation (INO) | payer MEDICARE ==
[2020-10-26] MEDS ORDERED: Zofran 4 MG/2 ML VIAL IV ONE (19:27)
[2020-10-26] MEDS ORDERED: MORPHINE SULFATE 2 MG INJ IV ONE (19:27)
[2020-10-26] MEDS ORDERED: Sodium Chloride 0.9% 1000 ML 1,000 ML IV SCH (19:30)
--- NOTE | 2020-10-26 19:56 | ERPHSYRPT ---
- History of Present Illness Time Seen by Provider: 10/26/20 18:54 Historian: EMS, skilled nursing records Exam Limitations: physical impairment Patient Subjective Stated Complaint: skilled nursing states that pt has been vomiting for 2 days and has only had a couple of bowel movements today that have been janell, stated that bowel sounds x3 and none at the LLQ Triage Nursing Assessment: Pt brought to the ER by EMS, vitals wnl, vomiting, diaz catheter in place upon arrival, pt stated that she "pooped" but she had not, denies pain, denies pain to the abdomen with palpatation, bowel sounds heard in all 4 quadrants, keeps asking for a pop Physician History: 55 years old female with cognitive impairment, multiple medical problems resident of skilled nursing and sent in ER with 2 days history of off and on nonprojectile, nonbilious vomiting with no hematemesis and generalized abdominal pain with constipation. She does have 2 small bowel movements today. Is not able to hold anything down. snf is concerned about intestinal obstruction. History is limited secondary to her clinical impairment. Timing/Duration: day(s) (2), constant, gradual onset, worse Activities at Onset: rest Quality: sharpness Abdominal Pain Onset Location: generalized abdomen Severity of Pain-Max: moderate Severity of Pain-Current: moderate Modifying Factors: Worsens With: vomiting Associated Symptoms: nausea, vomiting Allergies/Adverse Reactions: eslicarbazepine Allergy (Verified 10/26/20 19:18) heparin Allergy (Verified 10/26/20 19:18) perampanel [From Fycompa] Allergy (Verified 10/26/20 19:18) Home Medications: Aspirin 81 gm Chew [Baby Aspirin 81 mg Chew] 81 mg PO DAILY 06/22/16 [History] Clobazam [Onfi] 20 mg PO BID 06/22/16 [History] Docusate Sodium 100 mg [Colace 100 MG] 100 mg PO BID 06/22/16 [History] Ferrous Sulfate 325 mg [Feosol 325 mg] 325 mg PO DAILY 06/22/16 [History] Levothyroxine Sodium 50 Mcg [Synthroid 50 Mcg] 50 mcg PO DAILY 06/22/16 [History] Magnesium Oxide 400 mg [Mag-Ox 400] 400 mg PO DAILY 06/22/16 [History] PANTOPRAZOLE 40 mg Tablet [Protonix 40MG Tablet] 40 mg PO DAILY 06/22/16 [History] Potassium Chloride 20 Meq [Klor-Con 20 MEQ] 20 meq PO QID 06/22/16 [History] Sertraline HCl 50 mg [Zoloft 50 mg Tablet] 75 mg PO DAILY 06/22/16 [History] Torsemide [Demadex] 40 mg PO BID 06/22/16 [History] Brivaracetam [Briviact] 100 mg PO BID 05/10/18 [History] Ergocalciferol (Vitamin D2) [Vitamin D2] 50,000 unit PO Q7D 05/10/18 [History] Folic Acid 1 mg [Folate 1 mg] 1 mg PO DAILY 05/10/18 [History] Lacosamide [Vimpat] 200 mg PO BID 05/10/18 [History] Multivitamin [Qtk-Rjipnz-Yhnir] 1 each PO DAILY 05/10/18 [History] Albuterol Sulfate [Proair Hfa] 2 puff IH TID 05/16/20 [History] Budesonide/Formoterol Fumarate [Symbicort 160-4.5 Mcg Inhaler] 2 puff IH BID 05/16/20 [History] Cholecalciferol (Vitamin D3) [Vitamin D3] 400 unit PO DAILY 05/16/20 [History] Albuterol/Ipratropium 3ml Neb* [DUONEB 0.5-3 MG/3 ml Neb] 3 ml IH TID 10/26/20 [History] Bumetanide [Bumex] 2 mg PO BID 10/26/20 [History] Oxcarbazepine 300 mg [Trileptal 300 MG Tablet] 900 mg PO UD 10/26/20 [History] Spironolactone 25 mg [Aldactone 25 MG] 25 mg PO DAILY 10/26/20 [History] Hx Tetanus, Diphtheria Vaccination/Date Given: No Hx Influenza Vaccination/Date Given: No Hx Pneumococcal Vaccination/Date Given: No Travel Risk - International Travel Have you traveled outside of the country in past 3 weeks: No - Coronavirus Screening Are you exhibiting any of the following symptoms?: No Close contact with a COVID-19 positive Pt in past 14-21 Days: No - Vaccine Status Have you recieved a Covid-19 vaccination: No (unknown) - Review of Systems All Other Systems: Unable due to condition - Past Medical History Pertinent Past Medical History: Yes Neurological History: Epilepsy, Seizures ENT History: No Pertinent History Cardiac History: Congestive Heart Failure, High Cholesterol Respiratory History: No Pertinent History Endocrine Medical History: Hypothyroidism, Other Musculoskeletal History: No Pertinent History GI Medical History: GERD History: No Pertinent History Psycho-Social History: Depression Female Reproductive Disorders: No Pertinent History Other Medical History: kidney disease - Past Surgical History Past Surgical History: Yes Neuro Surgical History: No Pertinent History Cardiac: No Pertinent History Respiratory: No Pertinent History Gastrointestinal: No Pertinent History Genitourinary: No Pertinent History Musculoskeletal: No Pertinent History Female Surgical History: No Pertinent History Other Surgical History: implanted seizure device - Social History Smoking Status: Never smoker Exposure to second hand smoke: No Drug Use: none Patient Lives Alone: No - Female History Hx Now: No - Nursing Vital Signs Nursing Vital Signs: Initial Vital Signs Temperature 97.2 F 10/26/20 18:51 Pulse Rate 78 10/26/20 18:51 Blood Pressure 110/75 10/26/20 18:51 O2 Sat by Pulse Oximetry 100 10/26/20 18:51 Pain Scale Pain Intensity 0 - Physical Exam General Appearance: no apparent distress, alert Eye Exam: eyes nml inspection Ears, Nose, Throat Exam: TMs normal, pharyngeal erythema Neck Exam: non-tender, full range of motion Respiratory Exam: normal breath sounds, wheezing Cardiovascular Exam: regular rate/rhythm, normal heart sounds Gastrointestinal/Abdomen Exam: soft, tenderness (Generalized), guarding (Minimal guarding in the upper abdomen), No normal bowel sounds (Hypoactive bowel sounds) Extremity Exam: pelvis stable Neurologic Exam: alert, cooperative, No oriented x 3 Skin Exam: normal color SpO2 Interpretation: normal SpO2: 100 O2 Delivery: Room Air Ordered Tests: Active Orders 24 hr Category Date Time Status IV Insertion STAT Care 10/26/20 19:27 Active NPO (ED) STAT Care 10/26/20 19:27 Active ABDOMEN AND PELVIS W/0 CONTRAS [CT] Stat Exams 10/26/20 19:28 Taken CBC W DIFF Stat Lab 10/26/20 19:55 Completed CMP Stat Lab 10/26/20 19:55 Completed LIPASE Stat Lab 10/26/20 19:55 Completed Manual Differential NC Stat Lab 10/26/20 19:55 Completed UA W/RFX UR CULTURE Stat Lab 10/27/20 00:04 Ordered Medication Summary Generic Name Dose Route Start Last Admin Trade Name Jessica PRN Reason Stop Dose Admin Sodium Chloride 1,000 mls @ 100 mls/hr 10/26/20 19:30 Sodium Chloride 0.9% 1000 Ml IV 11/25/20 19:29 .Q10H ANDREE Discontinued Medications Generic Name Dose Route Start Last Admin Trade Name Jessica PRN Reason Stop Dose Admin Morphine Sulfate 2 mg 10/26/20 19:27 Morphine Sulfate 2 Mg Inj IV 10/26/20 19:28 STAT ONE Ondansetron HCl 4 mg 10/26/20 19:27 Zofran 4 Mg/2 Ml Vial IV 10/26/20 19:28 STAT ONE Lab/Rad Data: Laboratory Result Diagrams 10/26/20 19:55 10/26/20 19:55 Laboratory Results 10/26/20 10/26/20 Range/Units 19:55 19:55 WBC 10.1 (4.0-10.5) K/mm3 RBC 3.83 L (4.1-5.4) M/mm3 Hgb 11.7 L (12.0-16.0) gm/dl Hct 37.8 (35-47) % MCV 98.7 (78-100) fl MCH 30.5 (26-32) pg MCHC 31.0 L (32-36) g/dl RDW 16.1 H (11.5-14.0) % Plt Count 196 (150-450) K/mm3 MPV 9.7 (7.5-11.0) fl Sodium 135 L (137-145) mmol/L Potassium 3.2 L (3.5-5.1) mmol/L Chloride 83 L (98-107) mmol/L Carbon Dioxide 32 H (22-30) mmol/L Anion Gap 23.2 H (5-15) MEQ/L BUN 33 H (7-17) mg/dL Creatinine 1.28 H (0.52-1.04) mg/dL Estimated GFR 45.8 ML/MIN Glucose 96 (74-106) mg/dL Calcium 10.1 (8.4-10.2) mg/dL Total Bilirubin 0.10 L (0.2-1.3) mg/dL AST 50 H (14-36) U/L ALT 44 H (0-35) U/L Alkaline Phosphatase 155 H (38-126) U/L Serum Total Protein 9.3 H (6.3-8.2) g/dL Albumin 4.6 (3.5-5.0) g/dL Lipase 339 H (23-300) U/L - Progress Progress: improved, pain not gone completely, re-examined Progress Note: 10/27/20 00:14 55 years old is evaluated for multiple episodes of vomiting and abdominal pain. She is given Zofran and small dose of morphine, on reevaluation feeling much better. She has a normal white count chemistry profile showed mild hypokalemia and dehydration with elevated BUN 33, and creatinine of 1.28 and a gap of 23 with normal glucose. She is given fluid bolus. I believe patient is dehydrated from multiple episodes of vomiting. She has also has mildly elevated lipase of [address] negative for any acute findings related to pancreatitis. CT did show diffuse fecal stasis and some impaction in the rectum. She did have a b owel movement while in the ER and feeling much better. Patient discussed with Dr. Roque and is being admitted for IV hydration. Counseled pt/family regarding: lab results, diagnosis, need for follow-up, rad results - Departure Departure Disposition: Observation Clinical Impression: Dehydration, AMOR (acute kidney injury) Nausea & vomiting Qualifiers: Vomiting type: unspecified Vomiting Intractability: non-intractable Qualified Code(s): R11.2 - Nausea with vomiting, unspecified Constipation Qualifiers: Constipation type: unspecified constipation type Qualified Code(s): K59.00 - Constipation, unspecified Condition: Stable Critical Care Time: No Referrals: HANS SALVADOR [Primary Care Provider] -
[2020-10-26 20:05] LABS: Hematocrit 37.8 % (35-47); Hemoglobin 11.7 gm/dl (12.0-16.0); Mean Cell Volume 98.7 fl (78-100); Mean Corpuscular Hemoglobin 30.5 pg (26-32); Mean Platelet Volume 9.7 fl (7.5-11.0); Platelet Count 196 K/mm3 (150-450); Red Blood Count 3.83 M/mm3 (4.1-5.4); Red Cell Distribution Width 16.1 % (11.5-14.0); White Blood Count 10.1 K/mm3 (4.0-10.5)
[2020-10-26 20:11] LABS: ALBUMIN 4.6 g/dL (3.5-5.0); BILIRUBIN,TOTAL 0.1 mg/dL (0.2-1.3); Calcium 10.1 mg/dL (8.4-10.2); Creatinine 1 1.28 mg/dL (0.52-1.04); EST GLOMERULAR FILTRATION RATE 45.8 ML/MIN; Potassium 3.2 mmol/L (3.5-5.1); Total Protein 9.3 g/dL (6.3-8.2)
[2020-10-26 20:19] LABS: ANION GAP 23.2 MEQ/L (5-15)
[2020-10-27] MEDS ORDERED: Sodium Chloride 0.9% 1000 ML 1,000 ML ONE ×2 (00:12→00:14)
[2020-10-27] MEDS ORDERED: Zofran 4 MG/2 ML VIAL ONE (00:19)
[2020-10-27] MEDS ORDERED: MORPHINE SULFATE 2 MG INJ ONE (00:19)
[2020-10-27 00:49] LABS: Appearance CLEAR (CLEAR); Bilirubin NEGATIVE (NEGATIVE); Blood MODERATE Ery/ul (0-5); Glucose NEGATIVE (NEGATIVE); Ketones NEGATIVE (NEGATIVE); Mucus SLIGHT /HPF (NEGATIVE); Nitrite NEGATIVE (NEGATIVE); Protein,Urine Dip NEGATIVE (Negative); Specific Gravity 1.009 (1.005-1.025); Urobilinogen NEGATIVE mg/dL (0-1)
[2020-10-27 00:50] LABS: Leukocyte Esterase TRACE (NEGATIVE)
[2020-10-27 01:47] LABS: Basophil 2 % (0.0-1.0); Eosinophil 2 % (0.00-3.0); Lymphocytes 26 % (24-44); Monocyte 6 % (0.0-12.0); Neutrophils 64 % (36.0-66.0); Platelet Estimate NORMAL (NORMAL); Total Cells Counted 100
[2020-10-27] MEDS ORDERED: Sodium Chloride 0.9% W/ 20 mEq KCl/LITER 1,000 ML IV SCH (04:11)
[2020-10-27] MEDS ORDERED: DUONEB 0.5-3 MG/3 ml Neb IH PRN (04:11)
[2020-10-27] MEDS ORDERED: Zofran 4 MG/2 ML VIAL IV PRN (04:11)
[2020-10-27] MEDS ORDERED: MORPHINE SULFATE 2 MG INJ IV PRN (04:11)
[2020-10-27] MEDS ORDERED: TYLENOL 325 MG PO PRN (04:11)
[2020-10-27 06:32] LABS: Calcium 9.3 mg/dL (8.4-10.2); Creatinine 1 1.16 mg/dL (0.52-1.04); EST GLOMERULAR FILTRATION RATE 51.4 ML/MIN; PREALBUMIN 23.69 mg/dL (17.6-36.0)
[2020-10-27 06:51] LABS: Hematocrit 34.4 % (35-47); Hemoglobin 10.5 gm/dl (12.0-16.0); Mean Cell Volume 99.4 fl (78-100); Mean Corpuscular Hemoglobin 30.3 pg (26-32); Mean Corpuscular Hgb Concent. 30.5 g/dl (32-36); Mean Platelet Volume 9.8 fl (7.5-11.0); Platelet Count 170 K/mm3 (150-450); Red Blood Count 3.46 M/mm3 (4.1-5.4); Red Cell Distribution Width 16.2 % (11.5-14.0)
[2020-10-27] MEDS: DUONEB 0.5-3 MG/3 ml Neb IH SCH ×3 (07:55→19:55)
[2020-10-27] MEDS: Advair Hfa 230/21 Mcg COMMON CANISTER IH SCH ×2 (07:55→19:55)
[2020-10-27] MEDS ORDERED: K-LYTE 25 MEQ PO ONE (08:26)
--- NOTE | 2020-10-27 08:33 | PCM.HP ---
History of Present Illness - Chief Complaint Chief Complaint: Nausea vomiting History of Present Illness: is a 55 year old female who was sent to ER from [facility] last evening with acute onset of vomiting and abd pain, had a large bowel movement in ER and improved, CT scan showed fecal impaction, had low potassium on labs. 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 She has a seizure disorder and significant mental handicap. - Review of Systems Constitutional: No Symptoms Respiratory: No Cough, No Short Of Breath Abdominal/Gastrointestinal: Constipation, No Abdominal Pain, No Nausea, No Vomiting Genitourinary Symptoms: No Dysuria Skin: No Rash All Other Systems: Reviewed and Negative Medications & Allergies Home Medications: Home Medication List Aspirin 81 gm Chew [Baby Aspirin 81 mg Chew] 81 mg PO DAILY 06/22/16 [History Confirmed 10/26/20] Clobazam [Onfi] 20 mg PO BID 06/22/16 [History Confirmed 10/26/20] Docusate Sodium 100 mg [Colace 100 MG] 100 mg PO BID 06/22/16 [History Confirmed 10/26/20] Ferrous Sulfate 325 mg [Feosol 325 mg] 325 mg PO DAILY 06/22/16 [History Confirmed 10/26/20] Levothyroxine Sodium 50 Mcg [Synthroid 50 Mcg] 50 mcg PO DAILY 06/22/16 [History Confirmed 10/26/20] Magnesium Oxide 400 mg [Mag-Ox 400] 400 mg PO DAILY 06/22/16 [History Confirmed 10/26/20] PANTOPRAZOLE 40 mg Tablet [Protonix 40MG Tablet] 40 mg PO DAILY 06/22/16 [History Confirmed 10/26/20] Potassium Chloride 20 Meq [Klor-Con 20 MEQ] 20 meq PO QID 06/22/16 [History Confirmed 10/26/20] Sertraline HCl 50 mg [Zoloft 50 mg Tablet] 75 mg PO DAILY 06/22/16 [History Confirmed 10/26/20] Torsemide [Demadex] 40 mg PO BID 06/22/16 [History Confirmed 06/13/20] Ergocalciferol (Vitamin D2) [Vitamin D2] 50,000 unit PO Q7D 05/10/18 [History Confirmed 10/26/20] Folic Acid 1 mg [Folate 1 mg] 1 mg PO DAILY 05/10/18 [History Confirmed 10/26/20] Lacosamide [Vimpat] 200 mg PO BID 05/10/18 [History Confirmed 10/26/20] Multivitamin [Hcy-Gpwcjt-Ajxdt] 1 each PO DAILY 05/10/18 [History Confirmed 10/26/20] Albuterol Sulfate [Proair Hfa] 2 puff IH TID 05/16/20 [History Confirmed 10/26/20] Budesonide/Formoterol Fumarate [Symbicort 160-4.5 Mcg Inhaler] 2 puff IH BID 05/16/20 [History Confirmed 10/26/20] Cholecalciferol (Vitamin D3) [Vitamin D3] 400 unit PO DAILY 05/16/20 [History Confirmed 10/26/20] Albuterol/Ipratropium 3ml Neb* [DUONEB 0.5-3 MG/3 ml Neb] 3 ml IH TID 10/26/20 [History Confirmed 10/26/20] Bumetanide [Bumex] 2 mg PO BID 10/26/20 [History Confirmed 10/26/20] Oxcarbazepine 300 mg [Trileptal 300 MG Tablet] 450 mg PO BID 10/26/20 [History Confirmed 10/27/20] Spironolactone 25 mg [Aldactone 25 MG] 25 mg PO DAILY 10/26/20 [History Confirmed 10/26/20] Brivaracetam [Briviact] 10 ml PO BID 10/27/20 [History Confirmed 10/27/20] Melatonin 1 tab PO HS 10/27/20 [History Confirmed 10/27/20] Metolazone 2.5 mg [Zaroxolyn 2.5 MG] 2.5 mg PO UD 10/27/20 [History Confirmed 10/27/20] Non-Formulary Drug [Non-Formulary Bulk Item] 30 ml PO TID 10/27/20 [History Confirmed 10/27/20] Allergies/Adverse Reactions: Allergies Allergy/AdvReac Type Severity Reaction Status Date / Time eslicarbazepine Allergy Verified 10/26/20 19:18 heparin Allergy Verified 10/26/20 19:18 perampanel [From Fycompa] Allergy Verified 10/26/20 19:18 - Past Medical History Past Medical History: Yes Neurological History: Epilepsy, Seizures ENT History: No Pertinent History Cardiac History: Congestive Heart Failure, High Cholesterol Respiratory History: No Pertinent History Endocrine Medical History: Hypothyroidism, Other Musculoskelatal History: No Pertinent History GI Medical History: GERD History: No Pertinent History Pyscho-Social History: Depression Reproductive Disorders: No Pertinent History Comment: kidney disease - Female History Are you now?: No - Past Surgical History Past Surgical History: Yes Neuro Surgical History: No Pertinent History Cardiac History: No Pertinent History Respiratory Surgery: No Pertinent History GI Surgical History: No Pertinent History Genitourinary Surgical Hx: No Pertinent History Musculskeletal Surgical Hx: No Pertinent History Female Surgical History: No Pertinent History Other Surgical History: implanted seizure device - Social History Smoking Status: Never smoker Exposure to second hand smoke: No Alcohol: None Drug Use: none - Physical Exam Vital Signs: Vital Signs - 24 hr Temp Pulse Resp BP Pulse Ox 10/27/20 07:55 64 16 97 10/27/20 05:47 73 22 98 10/27/20 04:20 98.2 F 73 22 110/70 98 10/27/20 03:46 74 118/76 98 10/27/20 00:35 69 122/83 99 10/27/20 00:20 100 10/26/20 18:51 97.2 F 78 110/75 100 Oxygen-Last 24 hours Oxygen Flowrate (L/min)-RT 2 General Appearance: no apparent distress, obese Neurologic Exam: alert, cooperative Respiratory Exam: normal breath sounds, lungs clear, No respiratory distress Cardiovascular Exam: regular rate/rhythm, normal heart sounds, normal peripheral pulses Gastrointestinal/Abdomen Exam: soft, normal bowel sounds, No tenderness, No distention, No mass, No guarding Extremity Exam: pedal edema, swelling Skin Exam: normal color, warm, dry Results - Labs Lab/Micro Results: Lab Results-Last 24 Hours 10/26/20 10/26/20 10/27/20 Range/Units 19:55 19:55 00:04 WBC 10.1 (4.0-10.5) K/mm3 RBC 3.83 L (4.1-5.4) M/mm3 Hgb 11.7 L (12.0-16.0) gm/dl Hct 37.8 (35-47) % MCV 98.7 (78-100) fl MCH 30.5 (26-32) pg MCHC 31.0 L (32-36) g/dl RDW 16.1 H (11.5-14.0) % Plt Count 196 (150-450) K/mm3 MPV 9.7 (7.5-11.0) fl Segmented Neutrophils 64 (36.0-66.0) % Lymphocytes (Manual) 26 (24-44) % Monocytes (Manual) 6 (0.0-12.0) % Eosinophils (Manual) 2 (0.00-3.0) % Basophils (Manual) 2 H (0.0-1.0) % Platelet Estimate NORMAL (NORMAL) RBC Morphology NORMAL Sodium 135 L (137-145) mmol/L Potassium 3.2 L (3.5-5.1) mmol/L Chloride 83 L (98-107) mmol/L Carbon Dioxide 32 H (22-30) mmol/L Anion Gap 23.2 H (5-15) MEQ/L BUN 33 H (7-17) mg/dL Creatinine 1.28 H (0.52-1.04) mg/dL Estimated GFR 45.8 ML/MIN Glucose 96 (74-106) mg/dL Calcium 10.1 (8.4-10.2) mg/dL Total Bilirubin 0.10 L (0.2-1.3) mg/dL AST 50 H (14-36) U/L ALT 44 H (0-35) U/L Alkaline Phosphatase 155 H (38-126) U/L Serum Total Protein 9.3 H (6.3-8.2) g/dL Albumin 4.6 (3.5-5.0) g/dL Prealbumin (17.6-36.0) mg/dL Lipase 339 H (23-300) U/L Urine Color YELLOW (YELLOW) Urine Appearance CLEAR (CLEAR) Urine pH 6.0 (5-6) Ur Specific [place] 1.009 (1.005-1.025) Urine Protein NEGATIVE (Negative) Urine Ketones NEGATIVE (NEGATIVE) Urine Blood MODERATE (0-5) Gurjit/ul Urine Nitrite NEGATIVE (NEGATIVE) Urine Bilirubin NEGATIVE (NEGATIVE) Urine Urobilinogen NEGATIVE (0-1) mg/dL Ur Leukocyte Esterase TRACE (NEGATIVE) Urine WBC (Auto) NONE (0-5) /HPF Urine RBC (Auto) 6-10 (0-2) /HPF U Hyaline Cast (Auto) 6-10 (0-2) /LPF U Epithel Cells (Auto) NONE (FEW) /HPF Urine Bacteria (Auto) NONE (NEGATIVE) /HPF Urine Mucus (Auto) SLIGHT (NEGATIVE) /HPF Urine Culture Reflexed NO (NO) Urine Glucose NEGATIVE (NEGATIVE) mg/dL SARS-CoV-2 (PCR) (NEGATIVE) 10/27/20 10/27/20 10/27/20 Range/Units 00:34 04:35 04:35 WBC 9.0 (4.0-10.5) K/mm3 RBC 3.46 L (4.1-5.4) M/mm3 Hgb 10.5 L (12.0-16.0) gm/dl Hct 34.4 L (35-47) % MCV 99.4 (78-100) fl MCH 30.3 (26-32) pg MCHC 30.5 L (32-36) g/dl RDW 16.2 H (11.5-14.0) % Plt Count 170 (150-450) K/mm3 MPV 9.8 (7.5-11.0) fl Segmented Neutrophils (36.0-66.0) % Lymphocytes (Manual) (24-44) % Monocytes (Manual) (0.0-12.0) % Eosinophils (Manual) (0.00-3.0) % Basophils (Manual) (0.0-1.0) % Platelet Estimate (NORMAL) RBC Morphology Sodium 135 L (137-145) mmol/L Potassium 3.0 L* (3.5-5.1) mmol/L Chloride 86 L (98-107) mmol/L Carbon Dioxide 36 H (22-30) mmol/L Anion Gap 16.0 H (5-15) MEQ/L BUN 33 H (7-17) mg/dL Creatinine 1.16 H (0.52-1.04) mg/dL Estimated GFR 51.4 ML/MIN Glucose 99 (74-106) mg/dL Calcium 9.3 (8.4-10.2) mg/dL Total Bilirubin (0.2-1.3) mg/dL AST (14-36) U/L ALT (0-35) U/L Alkaline Phosphatase (38-126) U/L Serum Total Protein (6.3-8.2) g/dL Albumin (3.5-5.0) g/dL Prealbumin 23.69 (17.6-36.0) mg/dL Lipase (23-300) U/L Urine Color (YELLOW) Urine Appearance (CLEAR) Urine pH (5-6) Ur Specific [place] (1.005-1.025) Urine Protein (Negative) Urine Ketones (NEGATIVE) Urine Blood (0-5) Gurjit/ul Urine Nitrite (NEGATIVE) Urine Bilirubin (NEGATIVE) Urine Urobilinogen (0-1) mg/dL Ur Leukocyte Esterase (NEGATIVE) Urine WBC (Auto) (0-5) /HPF Urine RBC (Auto) (0-2) /HPF U Hyaline Cast (Auto) (0-2) /LPF U Epithel Cells (Auto) (FEW) /HPF Urine Bacteria (Auto) (NEGATIVE) /HPF Urine Mucus (Auto) (NEGATIVE) /HPF Urine Culture Reflexed (NO) Urine Glucose (NEGATIVE) mg/dL SARS-CoV-2 (PCR) NEGATIVE (NEGATIVE) - Radiology Impressions Radiology Exams & Impressions: Radiology Procedures Category Date Time Status ABDOMEN AND PELVIS W/0 CONTRAS [CT] Stat Exams 10/26/20 19:28 Taken - Other Procedures and Tests Respiratory Therapy 10/27/20 05:46 Oxygen Nasal Cannula 2 lpm Respiratory Therapy Assessment DAILY Assessment/Plan (1) Hypokalemia Current Visit: No Status: Acute Assessment & Plan: replacing potassium po, advance to clear diet Code(s): E87.6 - HYPOKALEMIA (2) Nausea & vomiting Current Visit: Yes Status: Acute Qualifiers: Vomiting type: unspecified Vomiting Intractability: non-intractable Qualified Code(s): R11.2 - Nausea with vomiting, unspecified Assessment & Plan: advance diet, resolved and appears related to her constipation on arrival Code(s): R11.2 - NAUSEA WITH VOMITING, UNSPECIFIED (3) Lymphedema Current Visit: No Status: Acute Code(s): I89.0 - LYMPHEDEMA, NOT ELSEWHERE CLASSIFIED (4) Seizure disorder Current Visit: No Status: Chronic Code(s): G40.909 - EPILEPSY, UNSP, NOT INTRACTABLE, WITHOUT STATUS EPILEPTICUS
--- NOTE | 2020-10-27 08:50 | XRAY ---
Indication: Difficulty with bowel movements 10 days. Hard stools. Bowel obstruction. Multiple contiguous axial images obtained through the abdomen and pelvis without contrast. Comparison: None Lung bases demonstrates mild subsegmental atelectasis/scarring. No focal infiltrate or effusion. Heart is not enlarged. Moderate size hiatal hernia with partial intrathoracic stomach. Noncontrasted stomach and bowel loops nonobstructed. Normal appendix. There is moderate diffuse scattered colonic fecal debris throughout including moderate rectal impaction. No free fluid/air. Urinary bladder is empty with Loera balloon catheter in situ. Remaining liver, gallbladder, pancreas, spleen, adrenal glands, kidneys, ureters, uterus, and aorta are unremarkable for noncontrast exam. 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 No ventral or inguinal hernias. Impression: 1. Moderate diffuse fecal stasis with rectal impaction. 2. Hiatal hernia with partial intrathoracic stomach and chronic bony findings. 3. Remaining CT abdomen/pelvis without contrast exam is negative.
[2020-10-27] MEDS ORDERED: MEDICATION INTERVENTION MC SCH ×3 (09:15)
[2020-10-27] MEDS ORDERED: CLOBAZAM 20 MG PO SCH (10:00)
[2020-10-27] MEDS ORDERED: NON-FORMULARY ITEM (Bumetanide [Bumex] 2 MG) PO SCH (10:00)
[2020-10-27] MEDS ORDERED: NON-FORMULARY ITEM (Potassium Chloride 20 Meq [Klor-Con 20 Meq] 20 MEQ) PO SCH (10:00)
[2020-10-27] MEDS ORDERED: BRIVARACETAM PO SCH (10:00)
[2020-10-27] MEDS ORDERED: PROTONIX 40 MG IV IV SCH (10:00)
[2020-10-27] MEDS ORDERED: LACOSAMIDE 200 MG PO SCH (10:00)
[2020-10-27] MEDS ORDERED: BABY ASPIRIN 81 MG CHEW PO SCH (10:00)
[2020-10-27] MEDS: MAG-OX 400 PO SCH (10:01)
[2020-10-27] MEDS: ZOLOFT 50 MG TABLET PO SCH (10:01)
[2020-10-27] MEDS: Klor Con 10 MEQ PO SCH ×4 (10:01→22:50)
[2020-10-27] MEDS: BUMEX 1 MG PO SCH ×2 (10:04→22:50)
[2020-10-27] MEDS: SYNTHROID 50 MCG PO SCH (10:04)
[2020-10-27] MEDS: Aldactone 25 MG PO SCH (10:04)
[2020-10-27] MEDS: Colace 100 MG PO SCH ×2 (10:04→22:50)
[2020-10-27] MEDS: Protonix 40MG Tablet PO SCH (10:04)
[2020-10-27] MEDS: ECOTRIN 81 MG PO SCH (10:04)
[2020-10-27] MEDS: Trileptal 300 MG Tablet PO SCH ×2 (10:05→22:50)
[2020-10-28 06:11] LABS: Absolute Neutrophil Ct (ANC) 3.07 (1.4-6.9); BASOPHIL % 0.6 % (0.0-0.4); Basophil (Absolute #) 0.04 (0-0.4); Eosinophil % 6.3 % (0.00-5.0); Eosinophil (Absolute #) 0.42 (0-0.5); Hemoglobin 10.7 gm/dl (12.0-16.0); Lymphocyte (Absolute #) 2.61 (1.0-4.6); Mean Cell Volume 99.2 fl (78-100); Mean Corpuscular Hemoglobin 30.3 pg (26-32); Mean Corpuscular Hgb Concent. 30.6 g/dl (32-36); Mean Platelet Volume 9.8 fl (7.5-11.0); Monocyte (Absolute #) 0.56 (0.0-1.3); Monocytes % 8.4 % (0.0-12.0); Neutrophil % 45.7 % (36.0-66.0); Platelet Count 190 K/mm3 (150-450); Red Blood Count 3.53 M/mm3 (4.1-5.4); Red Cell Distribution Width 15.9 % (11.5-14.0); White Blood Count 6.7 K/mm3 (4.0-10.5)
[2020-10-28 07:06] LABS: ALBUMIN 4.2 g/dL (3.5-5.0); BILIRUBIN,TOTAL < 0.10 mg/dL (0.2-1.3); CHLORIDE 84 mmol/L (98-107); Calcium 9.5 mg/dL (8.4-10.2); Potassium 3.5 mmol/L (3.5-5.1); SGOT/AST 47 U/L (14-36); SODIUM 135 mmol/L (137-145)
[2020-10-28 07:26] LABS: ALKALINE PHOSPHATASE 130 U/L (38-126); BLOOD UREA NITROGEN 30 mg/dL (7-17); Creatinine 1 1.04 mg/dL (0.52-1.04); EST GLOMERULAR FILTRATION RATE 58.3 ML/MIN; Glucose 94 mg/dL (74-106); SGPT/ALT 42 U/L (0-35); Total Protein 8.4 g/dL (6.3-8.2)
[2020-10-28 07:33] LABS: ANION GAP 13.5 MEQ/L (5-15); Carbon Dioxide 41 mmol/L (22-30)
[2020-10-28] MEDS: DUONEB 0.5-3 MG/3 ml Neb IH SCH (07:54)
[2020-10-28] MEDS: Advair Hfa 230/21 Mcg COMMON CANISTER IH SCH (07:54)
[2020-10-28] MEDS: BUMEX 1 MG PO SCH (09:24)
[2020-10-28] MEDS: Protonix 40MG Tablet PO SCH (09:25)
[2020-10-28] MEDS: Aldactone 25 MG PO SCH (09:25)
[2020-10-28] MEDS: SYNTHROID 50 MCG PO SCH (09:25)
[2020-10-28] MEDS: ZOLOFT 50 MG TABLET PO SCH (09:25)
[2020-10-28] MEDS: ECOTRIN 81 MG PO SCH (09:25)
[2020-10-28] MEDS: Klor Con 10 MEQ PO SCH ×2 (09:26→12:54)
[2020-10-28] MEDS: MAG-OX 400 PO SCH (09:26)
[2020-10-28] MEDS: Colace 100 MG PO SCH (09:26)
[2020-10-28] MEDS: Trileptal 300 MG Tablet PO SCH (10:44)
--- NOTE | 2020-10-28 11:19 | PCM.DS ---
Discharge Summary Date of Admission: 10/27/20 04:00 Admitting Physician: ZAIRA BLISS Primary Care Provider: GENOVEVA Allergies Allergies eslicarbazepine Allergy (Verified 10/26/20 19:18) heparin Allergy (Verified 10/26/20 19:18) perampanel [From [facility]] Allergy (Verified 10/26/20 19:18) Hospital Summary - Hospital Course Hospital Course: patient was admitted with nausea and vomiting, had a large bowel movement in ER. had a low potassium and doing better now, she is tolerating po and feels well. - Vitals & Intake/Output Vital Signs: Vital Signs Temperature 98.3 F 10/28/20 08:00 Pulse Rate 66 10/28/20 08:00 Respiratory Rate 18 10/28/20 08:00 Blood Pressure 110/66 10/28/20 08:00 O2 Sat by Pulse Oximetry 98 10/28/20 08:00 Intake & Output: Intake & Output 10/25/20 10/26/20 10/27/20 10/28/20 11:59 11:59 11:59 11:59 Intake Total 30 1540 Output Total 1850 Balance 30 -310 Weight 103.4 kg - Lab Result Diagrams: 10/28/20 05:54 10/28/20 05:54 Lab Results-Last 24 Hrs: Lab Results-Last 24 Hours 10/28/20 10/28/20 10/28/20 Range/Units 05:54 05:54 05:54 WBC 6.7 (4.0-10.5) K/mm3 RBC 3.53 L (4.1-5.4) M/mm3 Hgb 10.7 L (12.0-16.0) gm/dl Hct 35.0 (35-47) % MCV 99.2 (78-100) fl MCH 30.3 (26-32) pg MCHC 30.6 L (32-36) g/dl RDW 15.9 H (11.5-14.0) % Plt Count 190 (150-450) K/mm3 MPV 9.8 (7.5-11.0) fl Gran % 45.7 (36.0-66.0) % Eos # (Auto) 0.42 (0-0.5) Absolute Lymphs (auto) 2.61 (1.0-4.6) Absolute Monos (auto) 0.56 (0.0-1.3) Lymphocytes % 39.0 (24.0-44.0) % Monocytes % 8.4 (0.0-12.0) % Eosinophils % 6.3 H (0.00-5.0) % Basophils % 0.6 (0.0-0.4) % Absolute Granulocytes 3.07 (1.4-6.9) Basophils # 0.04 (0-0.4) Sodium 135 L (137-145) mmol/L Potassium 3.5 (3.5-5.1) mmol/L Chloride 84 L (98-107) mmol/L Carbon Dioxide 41 H (22-30) mmol/L Anion Gap 13.5 (5-15) MEQ/L BUN 30 H (7-17) mg/dL Creatinine 1.04 (0.52-1.04) mg/dL Estimated GFR 58.3 ML/MIN Glucose 94 (74-106) mg/dL Calcium 9.5 (8.4-10.2) mg/dL Magnesium 2.0 (1.6-2.3) mg/dL Total Bilirubin < 0.10 L (0.2-1.3) mg/dL AST 47 H (14-36) U/L ALT 42 H (0-35) U/L Alkaline Phosphatase 130 H (38-126) U/L Serum Total Protein 8.4 H (6.3-8.2) g/dL Albumin 4.2 (3.5-5.0) g/dL - Radiology Exams Ordered Rad Exams-Entire Visit: Radiology Procedures Category Date Time Status ABDOMEN AND PELVIS W/0 CONTRAS [CT] Stat Exams 10/26/20 19:28 Completed - Procedures and Test Procedures and Tests throughout Hospitalization: Therapy Orders & Screens 10/27/20 05:46 Oxygen Nasal Cannula 2 lpm Comment: Diagnosis: Nausea vomiting Respiratory Therapy Assessment DAILY Comment: Diagnosis: Nausea vomiting Discharge Exam General Appearance: no apparent distress, alert, obese Eye Exam: PERRL, EOMI, eyes nml inspection Respiratory Exam: normal breath sounds, lungs clear, No respiratory distress Cardiovascular Exam: regular rate/rhythm, normal heart sounds Gastrointestinal/Abdomen Exam: soft, No tenderness, No mass Skin Exam: normal color, warm, dry Final Diagnosis/Problem List - Final Discharge Diagnosis/Problem (1) Hypokalemia Current Visit: No Status: Acute Assessment & Plan: replaced Code(s): E87.6 - HYPOKALEMIA (2) Nausea & vomiting Current Visit: Yes Status: Acute Code(s): R11.2 - NAUSEA WITH VOMITING, UNSPECIFIED (3) Lymphedema Current Visit: No Status: Acute Code(s): I89.0 - LYMPHEDEMA, NOT ELSEWHERE CLASSIFIED (4) Seizure disorder Current Visit: No Status: Chronic Code(s): G40.909 - EPILEPSY, UNSP, NOT INTRACTABLE, WITHOUT STATUS EPILEPTICUS - Discharge Disposition: Home, Self-Care Condition: Stable Prescriptions: Continue Levothyroxine Sodium 50 Mcg [Synthroid 50 Mcg] 50 mcg PO DAILY Potassium Chloride 20 Meq [Klor-Con 20 MEQ] 20 meq PO QID PANTOPRAZOLE 40 mg Tablet [Protonix 40MG Tablet] 40 mg PO DAILY Clobazam [Onfi] 20 mg PO BID Magnesium Oxide 400 mg [Mag-Ox 400] 400 mg PO DAILY Ferrous Sulfate 325 mg [Feosol 325 mg] 325 mg PO DAILY Docusate Sodium 100 mg [Colace 100 MG] 100 mg PO BID Aspirin 81 gm Chew [Baby Aspirin 81 mg Chew] 81 mg PO DAILY Sertraline HCl 50 mg [Zoloft 50 mg Tablet] 75 mg PO DAILY Multivitamin [Blg-Iwswzq-Tkhur] 1 each PO DAILY Lacosamide [Vimpat] 200 mg PO BID Ergocalciferol (Vitamin D2) [Vitamin D2] 50,000 unit PO Q7D Folic Acid 1 mg [Folate 1 mg] 1 mg PO DAILY Cholecalciferol (Vitamin D3) [Vitamin D3] 400 unit PO DAILY Budesonide/Formoterol Fumarate [Symbicort 160-4.5 Mcg Inhaler] 2 puff IH BID Albuterol Sulfate [Proair Hfa] 2 puff IH TID Albuterol/Ipratropium 3ml Neb* [DUONEB 0.5-3 MG/3 ml Neb] 3 ml IH TID Spironolactone 25 mg [Aldactone 25 MG] 25 mg PO DAILY Oxcarbazepine 300 mg [Trileptal 300 MG Tablet] 450 mg PO BID Bumetanide [Bumex] 2 mg PO BID Non-Formulary Drug [Non-Formulary Bulk Item] 30 ml PO TID Melatonin 1 tab PO HS Brivaracetam [Briviact] 10 ml PO BID Metolazone 2.5 mg [Zaroxolyn 2.5 MG] 2.5 mg PO UD Discontinued Torsemide [Demadex] 40 mg PO BID Follow up with: HANS SALVADOR [Primary Care Provider] -
[2020-10-28 12:02] VITALS: BP 105/72; PULSE 62; O2SAT 99
== END 2020-10-28 13:12 ==
LOC: ED 18:39 → MED SURG 10-27 04:00
PROVIDERS: ADMIT Family Medicine; ATTEND Family Medicine
DX: E87.6 Hypokalemia (principal); E86.0 Dehydration; I89.0 Lymphedema, not elsewhere classified; R11.2 Nausea with vomiting, unspecified; R10.9 Unspecified abdominal pain; G40.909 Epilepsy, unspecified, not intractable, without status epilepticus; Z79.899 Other long term (current) drug therapy; E03.9 Hypothyroidism, unspecified; E78.00 Pure hypercholesterolemia, unspecified; Z20.828 Contact with and (suspected) exposure to other viral communicable diseases; F71 Moderate intellectual disabilities
CPT/HCPCS: 36000; 36415; 74176; 80048; 80053; 81001; 83690; 83735; 83880; 84134; 85025; 85027; 94640; 94760; 96360; 96361; 96374; 96375; 99285; G0378; P9604; U0003; J2270; J2405; A9270-GY

== ENCOUNTER 2021-03-18 08:05 | Inpatient (IN) | payer MEDICARE ==
[2021-03-18] MEDS ORDERED: Zofran 4 MG/2 ML VIAL IV ONE (08:10)
[2021-03-18] MEDS ORDERED: ZOFRAN ODT 4 MG PO ONE (09:12)
[2021-03-18] MEDS ORDERED: ZOFRAN ODT 4 MG ONE (09:13)
[2021-03-18 09:34] LABS: Hematocrit 40.5 % (35-47); Hemoglobin 13.2 gm/dl (12.0-16.0); Mean Cell Volume 98.3 fl (78-100); Mean Corpuscular Hgb Concent. 32.6 g/dl (32-36); Mean Platelet Volume 10.7 fl (7.5-11.0); Platelet Count 235 K/mm3 (150-450); Red Blood Count 4.12 M/mm3 (4.1-5.4); Red Cell Distribution Width 13.7 % (11.5-14.0); White Blood Count 22.9 K/mm3 (4.0-10.5)
[2021-03-18 09:38] LABS: Appearance CLEAR (CLEAR); Bilirubin NEGATIVE (NEGATIVE); Blood NEGATIVE Ery/ul (0-5); Glucose NEGATIVE (NEGATIVE); Ketones NEGATIVE (NEGATIVE); Leukocyte Esterase NEGATIVE (NEGATIVE); Mucus SLIGHT /HPF (NEGATIVE); Nitrite NEGATIVE (NEGATIVE); Protein,Urine Dip NEGATIVE (Negative); Specific Gravity 1.011 (1.005-1.025); Urobilinogen NEGATIVE mg/dL (0-1)
[2021-03-18 09:39] LABS: ALBUMIN 4.7 g/dL (3.5-5.0); BILIRUBIN,TOTAL 0.5 mg/dL (0.2-1.3); Calcium 9.6 mg/dL (8.4-10.2); Creatinine 1 1.16 mg/dL (0.52-1.04); EST GLOMERULAR FILTRATION RATE 51.4 ML/MIN; Potassium 3.1 mmol/L (3.5-5.1); Total Protein 9.2 g/dL (6.3-8.2)
[2021-03-18 09:50] LABS: ANION GAP 15.1 MEQ/L (5-15)
[2021-03-18 09:57] LABS: INR 1.05 (0.8-3.0); PROTIME 12.4 SECONDS (9.4-12.5)
[2021-03-18] MEDS ORDERED: Zofran 4 MG/2 ML VIAL ONE (10:04)
[2021-03-18] MEDS: Sodium Chloride 0.9% 1000 ML 1,000 ML IV SCH ×2 (10:29→17:28)
[2021-03-18 10:30] LABS: BAND 10 % (0.0-2.0); Lymphocytes 5 % (24-44); Neutrophils 85 % (36.0-66.0); Platelet Estimate NORMAL (NORMAL); Total Cells Counted 100; Toxic Granulation 2+
--- NOTE | 2021-03-18 10:43 | ERPHSYRPT ---
- History of Present Illness Time Seen by Provider: 03/18/21 08:15 Historian: patient, EMS, retirement records Exam Limitations: clinical condition Patient Subjective Stated Complaint: skilled nursing states "Her sister thinks she has a bowel obstruction, she has a hx of them. She has been vomiting since yesterday and her sister said it was kind of bowel colored." Triage Nursing Assessment: Pt presented alert and oriented X 3, skin pwd Pt ambulates with an upright steady gait, able to speak in clear full sentences pt in no apparent respiratory distress. Physician History: Patient is a 55-year-old white female who presents to the ER by ambulance with a questionable bowel obstruction. She started vomiting early this morning at the retirement and she has been vomiting on and off since. She has not vomited while she has been here in the ER to this point. Her sister is concerned she might have a bowel obstruction because she has a history of those. She has a long history of seizure disorder she has a history of CHF and she has a history of constipation. The patient complains of generalized abdominal pain but really has no rebound no guarding only a subjective complaint of tenderness. Timing/Duration: today Activities at Onset: none Quality: fullness Abdominal Pain Onset Location: generalized abdomen Pain Radiation: no radiation Severity of Pain-Max: mild Severity of Pain-Current: mild Modifying Factors: Improves With: vomiting Previous symptoms: same symptoms as today Allergies/Adverse Reactions: eslicarbazepine Allergy (Verified 10/26/20 19:18) heparin Allergy (Verified 10/26/20 19:18) perampanel [From [facility]] Allergy (Verified 10/26/20 19:18) Home Medications: Aspirin 81 gm Chew [Baby Aspirin 81 mg Chew] 81 mg PO DAILY 06/22/16 [History] Clobazam [Onfi] 20 mg PO BID 06/22/16 [History] Docusate Sodium 100 mg [Colace 100 MG] 100 mg PO BID 06/22/16 [History] Ferrous Sulfate 325 mg [Feosol 325 mg] 325 mg PO DAILY 06/22/16 [History] Levothyroxine Sodium 50 Mcg [Synthroid 50 Mcg] 50 mcg PO DAILY 06/22/16 [History] Magnesium Oxide 400 mg [Mag-Ox 400] 400 mg PO DAILY 06/22/16 [History] PANTOPRAZOLE 40 mg Tablet [Protonix 40MG Tablet] 40 mg PO DAILY 06/22/16 [History] Potassium Chloride 20 Meq [Klor-Con 20 MEQ] 20 meq PO QID 06/22/16 [History] Sertraline HCl 50 mg [Zoloft 50 mg Tablet] 75 mg PO DAILY 06/22/16 [History] Ergocalciferol (Vitamin D2) [Vitamin D2] 50,000 unit PO Q7D 05/10/18 [History] Folic Acid 1 mg [Folate 1 mg] 1 mg PO DAILY 05/10/18 [History] Lacosamide [Vimpat] 200 mg PO BID 05/10/18 [History] Multivitamin [Dpb-Iijhxh-Qhcmg] 1 each PO DAILY 05/10/18 [History] Albuterol Sulfate [Proair Hfa] 2 puff IH TID 05/16/20 [History] Budesonide/Formoterol Fumarate [Symbicort 160-4.5 Mcg Inhaler] 2 puff IH BID 05/16/20 [History] Cholecalciferol (Vitamin D3) [Vitamin D3] 400 unit PO DAILY 05/16/20 [History] Albuterol/Ipratropium 3ml Neb* [DUONEB 0.5-3 MG/3 ml Neb] 3 ml IH TID 10/26/20 [History] Bumetanide [Bumex] 2 mg PO BID 10/26/20 [History] Oxcarbazepine 300 mg [Trileptal 300 MG Tablet] 450 mg PO BID 10/26/20 [History] Spironolactone 25 mg [Aldactone 25 MG] 25 mg PO DAILY 10/26/20 [History] Brivaracetam [Briviact] 10 ml PO BID 10/27/20 [History] Melatonin 1 tab PO HS 10/27/20 [History] Metolazone 2.5 mg [Zaroxolyn 2.5 MG] 2.5 mg PO UD 10/27/20 [History] Non-Formulary Drug [Non-Formulary Bulk Item] 30 ml PO TID 10/27/20 [History] Hx Tetanus, Diphtheria Vaccination/Date Given: No Hx Influenza Vaccination/Date Given: No Hx Pneumococcal Vaccination/Date Given: No Immunizations Up to Date: Yes Travel Risk - International Travel Have you traveled outside of the country in past 3 weeks: No - Coronavirus Screening Are you exhibiting any of the following symptoms?: No Close contact with a COVID-19 positive Pt in past 14-21 Days: No - Vaccine Status Have you recieved a Covid-19 vaccination: No (unknown) - Review of Systems Constitutional: No Fever, No Chills Eyes: No Symptoms Ears, Nose, & Throat: No Symptoms Respiratory: No Cough, No Dyspnea Cardiac: No Chest Pain, No Edema, No Syncope Abdominal/Gastrointestinal: Abdominal Pain, Nausea, Vomiting, No Diarrhea Genitourinary Symptoms: No Dysuria Musculoskeletal: No Back Pain, No Neck Pain Skin: No Rash Neurological: No Dizziness, No Focal Weakness, No Sensory Changes Psychological: No Symptoms Endocrine: No Symptoms All Other Systems: Reviewed and Negative - Past Medical History Pertinent Past Medical History: Yes Neurological History: Epilepsy, Seizures ENT History: No Pertinent History Cardiac History: Congestive Heart Failure, High Cholesterol Respiratory History: No Pertinent History Endocrine Medical History: Hypothyroidism, Other Musculoskeletal History: No Pertinent History GI Medical History: GERD History: No Pertinent History Psycho-Social History: Depression Female Reproductive Disorders: No Pertinent History Other Medical History: kidney disease - Past Surgical History Past Surgical History: Yes Neuro Surgical History: No Pertinent History Cardiac: No Pertinent History Respiratory: No Pertinent History Gastrointestinal: No Pertinent History Genitourinary: No Pertinent History Musculoskeletal: No Pertinent History Female Surgical History: No Pertinent History Other Surgical History: implanted seizure device - Social History Smoking Status: Never smoker Exposure to second hand smoke: No Drug Use: none Patient Lives Alone: No - Nursing Vital Signs Nursing Vital Signs: Initial Vital Signs Temperature 97.5 F 03/18/21 08:05 Pulse Rate 82 03/18/21 08:05 Respiratory Rate 20 03/18/21 08:05 Blood Pressure 180/120 03/18/21 08:05 O2 Sat by Pulse Oximetry 96 03/18/21 08:05 Pain Scale Pain Intensity 4 - Physical Exam General Appearance: mild distress, alert Eye Exam: PERRL/EOMI, eyes nml inspection Ears, Nose, Throat Exam: normal ENT inspection, pharynx normal, moist mucous membranes Neck Exam: normal inspection, non-tender, supple, full range of motion Respiratory Exam: normal breath sounds, lungs clear, No respiratory distress Cardiovascular Exam: regular rate/rhythm, normal heart sounds Gastrointestinal/Abdomen Exam: soft, tenderness, No mass, No guarding, No rebound Back Exam: normal inspection, normal range of motion, No CVA tenderness, No vertebral tenderness Extremity Exam: normal inspection, normal range of motion, pelvis stable Neurologic Exam: alert, oriented x 3, cooperative, normal mood/affect, nml cerebellar function, sensation nml, No motor deficits Skin Exam: normal color, warm, dry SpO2 Interpretation: normal SpO2: 98 O2 Delivery: Room Air - Radiology Exams Chest X-ray Interpretation: Reviewed by me, Pneumonia (Left lower lobe) - CT Exams Abdomen/Pelvis CT Interpretation: Tele-radiologist Report Ordered Tests: Active Orders 24 hr Category Date Time Status EKG-ER Only STAT Care 03/18/21 08:10 Active ABDOMEN AND PELVIS W/0 CONTRAS [CT] Stat Exams 03/18/21 09:29 Taken CHEST 1 VIEW (PORTABLE) Stat Exams 03/18/21 09:28 Taken AMYLASE Stat Lab 03/18/21 09:10 Completed BLOOD CULTURE Stat Lab 03/18/21 09:10 Received CBC W DIFF Stat Lab 03/18/21 09:10 Completed CMP Stat Lab 03/18/21 09:10 Completed CULTURE,URINE Stat Lab 03/18/21 08:38 Ordered LIPASE Stat Lab 03/18/21 09:10 Completed Lactic Acid Stat Lab 03/18/21 08:10 Ordered Manual Differential NC Stat Lab 03/18/21 09:10 Completed PROTIME WITH INR Stat Lab 03/18/21 09:10 Completed TROPONIN Q3H Lab 03/18/21 09:10 Completed TROPONIN Q3H Lab 03/18/21 11:15 Ordered TROPONIN Q3H Lab 03/18/21 14:15 Ordered TROPONIN Q3H Lab 03/18/21 17:15 Ordered TROPONIN Q3H Lab 03/18/21 20:15 Ordered UA W/RFX UR CULTURE Stat Lab 03/18/21 08:38 Completed Medication Summary Generic Name Dose Route Start Last Admin Trade Name Freq PRN Reason Stop Dose Admin Sodium Chloride 1,000 mls @ 200 mls/hr 03/18/21 08:15 03/18/21 10:29 Sodium Chloride 0.9% 1000 Ml IV 04/17/21 08:14 200 mls/hr .Q5H ANDREE Administration Ceftriaxone Sodium/Dextrose 1 g in 50 mls @ 100 mls/hr 03/18/21 10:52 Rocephin 1 Gm-D5w 50 Ml Bag IV 03/18/21 11:21 STAT STA Azithromycin 500 mg in 250 mls @ 250 mls/hr 03/18/21 11:05 Zithromax 500 Mg/ 250 Ml Nacl Premix IV 03/18/21 12:04 STAT STA Discontinued Medications Generic Name Dose Route Start Last Admin Trade Name Freq PRN Reason Stop Dose Admin Ondansetron HCl 4 mg 03/18/21 08:10 03/18/21 10:29 Ondansetron Hcl 4 Mg/2 Ml Vial IV 03/18/21 08:11 4 mg STAT ONE Administration Ondansetron HCl 4 mg 03/18/21 09:12 03/18/21 09:14 Zofran 4 Mg/Udtablet Orally Disintegrating PO 03/18/21 09:13 4 mg STAT ONE Administration Ondansetron HCl Confirm 03/18/21 09:13 Zofran 4 Mg/Udtablet Orally Disintegrating Administered 03/18/21 09:14 Dose 4 mg .ROUTE .STK-MED ONE Ondansetron HCl Confirm 03/18/21 10:04 Ondansetron Hcl 4 Mg/2 Ml Vial Administered 03/18/21 10:05 Dose 4 mg .ROUTE .STK-MED ONE Lab/Rad Data: Laboratory Result Diagrams 03/18/21 09:10 03/18/21 09:10 Laboratory Results 03/18/21 03/18/21 03/18/21 Range/Units 09:10 09:10 09:10 WBC (4.0-10.5) K/mm3 RBC (4.1-5.4) M/mm3 Hgb (12.0-16.0) gm/dl Hct (35-47) % MCV (78-100) fl MCH (26-32) pg MCHC (32-36) g/dl RDW (11.5-14.0) % Plt Count (150-450) K/mm3 MPV (7.5-11.0) fl Segmented Neutrophils (36.0-66.0) % Band Neutrophils (0.0-2.0) % Lymphocytes (Manual) (24-44) % Toxic Granulation Platelet Estimate (NORMAL) RBC Morphology PT 12.4 (9.4-12.5) SECONDS INR 1.05 (0.8-3.0) Sodium 137 (137-145) mmol/L Potassium 3.1 L (3.5-5.1) mmol/L Chloride 87 L (98-107) mmol/L Carbon Dioxide 38 H (22-30) mmol/L Anion Gap 15.1 H (5-15) MEQ/L BUN 25 H (7-17) mg/dL Creatinine 1.16 H (0.52-1.04) mg/dL Estimated GFR 51.4 ML/MIN Glucose 125 H (74-106) mg/dL Calcium 9.6 (8.4-10.2) mg/dL Total Bilirubin 0.50 (0.2-1.3) mg/dL AST 28 (14-36) U/L ALT 20 (0-35) U/L Alkaline Phosphatase 158 H (38-126) U/L Troponin I < 0.012 (0.000-0.034) ng/mL Serum Total Protein 9.2 H (6.3-8.2) g/dL Albumin 4.7 (3.5-5.0) g/dL Amylase 120 H (30-110) U/L Lipase 138 (23-300) U/L Urine Color (YELLOW) Urine Appearance (CLEAR) Urine pH (5-6) Ur Specific [place] (1.005-1.025) Urine Protein (Negative) Urine Ketones (NEGATIVE) Urine Blood (0-5) Gurjit/ul Urine Nitrite (NEGATIVE) Urine Bilirubin (NEGATIVE) Urine Urobilinogen (0-1) mg/dL Ur Leukocyte Esterase (NEGATIVE) Urine WBC (Auto) (0-5) /HPF Urine RBC (Auto) (0-2) /HPF U Hyaline Cast (Auto) (0-2) /LPF U Epithel Cells (Auto) (FEW) /HPF Urine Bacteria (Auto) (NEGATIVE) /HPF Urine Mucus (Auto) (NEGATIVE) /HPF Urine Culture Reflexed (NO) Urine Glucose (NEGATIVE) mg/dL 03/18/21 03/18/21 Range/Units 09:10 08:38 WBC 22.9 H (4.0-10.5) K/mm3 RBC 4.12 (4.1-5.4) M/mm3 Hgb 13.2 (12.0-16.0) gm/dl Hct 40.5 (35-47) % MCV 98.3 (78-100) fl MCH 32.0 (26-32) pg MCHC 32.6 (32-36) g/dl RDW 13.7 (11.5-14.0) % Plt Count 235 (150-450) K/mm3 MPV 10.7 (7.5-11.0) fl Segmented Neutrophils 85 H (36.0-66.0) % Band Neutrophils 10 H (0.0-2.0) % Lymphocytes (Manual) 5 L (24-44) % Toxic Granulation 2+ Platelet Estimate NORMAL (NORMAL) RBC Morphology NORMAL PT (9.4-12.5) SECONDS INR (0.8-3.0) Sodium (137-145) mmol/L Potassium (3.5-5.1) mmol/L Chloride (98-107) mmol/L Carbon Dioxide (22-30) mmol/L Anion Gap (5-15) MEQ/L BUN (7-17) mg/dL Creatinine (0.52-1.04) mg/dL Estimated GFR ML/MIN Glucose (74-106) mg/dL Calcium (8.4-10.2) mg/dL Total Bilirubin (0.2-1.3) mg/dL AST (14-36) U/L ALT (0-35) U/L Alkaline Phosphatase (38-126) U/L Troponin I (0.000-0.034) ng/mL Serum Total Protein (6.3-8.2) g/dL Albumin (3.5-5.0) g/dL Amylase (30-110) U/L Lipase (23-300) U/L Urine Color YELLOW (YELLOW) Urine Appearance CLEAR (CLEAR) Urine pH 7.0 (5-6) Ur Specific [place] 1.011 (1.005-1.025) Urine Protein NEGATIVE (Negative) Urine Ketones NEGATIVE (NEGATIVE) Urine Blood NEGATIVE (0-5) Gurjit/ul Urine Nitrite NEGATIVE (NEGATIVE) Urine Bilirubin NEGATIVE (NEGATIVE) Urine Urobilinogen NEGATIVE (0-1) mg/dL Ur Leukocyte Esterase NEGATIVE (NEGATIVE) Urine WBC (Auto) NONE (0-5) /HPF Urine RBC (Auto) NONE (0-2) /HPF U Hyaline Cast (Auto) 3-5 (0-2) /LPF U Epithel Cells (Auto) NONE (FEW) /HPF Urine Bacteria (Auto) NONE (NEGATIVE) /HPF Urine Mucus (Auto) SLIGHT (NEGATIVE) /HPF Urine Culture Reflexed ORDERED SEPARATELY (NO) Urine Glucose NEGATIVE (NEGATIVE) mg/dL - Progress Progress: improved Discussed with : Mannie Will see patient in: hospital (full admit) - Departure Departure Disposition: In-patient Admission Clinical Impression: Left lower lobe pneumonia, Pulmonary infiltrate on chest x-ray, Seizure disorder, Nausea & vomiting Condition: Fair Critical Care Time: No Referrals: HANS SALVADOR [Primary Care Provider] - Follow up/PCP as directed
[2021-03-18] MEDS ORDERED: ROCEPHIN 1 Gm-D5w 50 ml Bag** 1 G/50 ML IVPB IV STA (10:52)
[2021-03-18] MEDS ORDERED: Zithromax 500 MG/ 250 ML NaCl Premix 500 MG/250 ML IVPB IV STA (11:05)
[2021-03-18] MEDS ORDERED: ROCEPHIN 1 Gm-D5w 50 ml Bag** 1 G/50 ML IVPB IV ONE (11:27)
[2021-03-18] MEDS ORDERED: Zithromax 500 MG/ 250 ML NaCl Premix 500 MG/250 ML IVPB IV ONE (11:27)
[2021-03-18 12:16] LABS: INFLUENZA A NEGATIVE (NEGATIVE); INFLUENZA B NEGATIVE (NEGATIVE); RESPIRATORY SYNCTIAL VIRUS NEGATIVE (Negative); SARS-CoV-2 Xpert Express NEGATIVE (NEGATIVE)
[2021-03-18] MEDS ORDERED: K-LYTE 25 MEQ PO ONE (16:23)
[2021-03-18 17:58] LABS: Appearance CLEAR (CLEAR); Bilirubin NEGATIVE (NEGATIVE); Blood NEGATIVE Ery/ul (0-5); Glucose NEGATIVE (NEGATIVE); Ketones NEGATIVE (NEGATIVE); Leukocyte Esterase NEGATIVE (NEGATIVE); Nitrite NEGATIVE (NEGATIVE); Protein,Urine Dip NEGATIVE (Negative); RBC 0-2 /HPF (0-2); Specific Gravity 1.014 (1.005-1.025); Urobilinogen NEGATIVE mg/dL (0-1); WBC 0-2 /HPF (0-5)
[2021-03-18 17:59] LABS: Bacteria NONE SEEN /HPF (NEGATIVE)
--- NOTE | 2021-03-18 18:43 | XRAY ---
Indication: Abdomen pain, nausea, and vomiting. Fecal impaction. Multiple contiguous axial images obtained through the abdomen and pelvis without contrast. Comparison: October 26, 2020. Lung bases demonstrates new moderate diffuse consolidating/nonconsolidating left lung patchy airspace disease without effusion. Heart is not enlarged. Stable moderate-sized hiatal hernia with partial intrathoracic stomach. Noncontrasted stomach and bowel loops remain nonobstructed and normal appendix. Minimal scattered colonic fecal debris without rectal impaction. No free fluid/air. Urinary bladder demonstrates new tiny intraluminal air bubble either iatrogenic from recent catheterization versus gas-forming infection. Remaining liver, gallbladder, pancreas, spleen, adrenal glands, kidneys, ureters, bladder, uterus, and aorta are unremarkable for noncontrast exam. Osseous structures intact taken with minimal degenerative changes throughout the spine, T12 vertebral hemangioma/Schmorl node, and congenital fusion L4-L5. Impression: 1. New diffuse left lung consolidating/nonconsolidating airspace disease. 2. Negative fecal stasis/rectal impaction. 3. New urinary bladder intraluminal air bubble either iatrogenic versus gas-forming infection. 4. Again incidental hiatal hernia with partial intrathoracic stomach and chronic bony findings. Comment: Preliminary interpretation made by [facility]. No critical discrepancy.
--- NOTE | 2021-03-18 18:45 | XRAY ---
Indication: Abdomen pain. Vomiting. Comparison: June 12, 2020. Portable chest again demonstrates diffuse bilateral interstitial alveolar opacities, worsened in left lung and improved in right lung. Heart remains borderline enlarged. Bony thorax intact again with osteopenia and incidental left vagus nerve stimulator device.
[2021-03-18] MEDS ORDERED: Trileptal 300 MG Tablet PO SCH (22:00)
--- NOTE | 2021-03-19 00:01 | PCM.HP ---
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 Patient has Hx SBO ,started vomiting and was brought to ER . Evaluation showed WBC 22.900 CXR bilateral opacities Left > Right. Medications & Allergies Home Medications: Home Medication List Aspirin 81 gm Chew [Baby Aspirin 81 mg Chew] 81 mg PO DAILY 06/22/16 [History Confirmed 03/18/21] Clobazam [Onfi] 20 mg PO BID 06/22/16 [History Confirmed 03/18/21] Docusate Sodium 100 mg [Colace 100 MG] 100 mg PO BID 06/22/16 [History Confirmed 03/18/21] Ferrous Sulfate 325 mg [Feosol 325 mg] 325 mg PO DAILY 06/22/16 [History Confirmed 03/18/21] Levothyroxine Sodium 50 Mcg [Synthroid 50 Mcg] 50 mcg PO DAILY 06/22/16 [History Confirmed 03/18/21] Magnesium Oxide 400 mg [Mag-Ox 400] 400 mg PO DAILY 06/22/16 [History Confirmed 03/18/21] PANTOPRAZOLE 40 mg Tablet [Protonix 40MG Tablet] 40 mg PO DAILY 06/22/16 [History Confirmed 03/18/21] Potassium Chloride 20 Meq [Klor-Con 20 MEQ] 20 meq PO QID 06/22/16 [History Confirmed 03/18/21] Sertraline HCl 50 mg [Zoloft 50 mg Tablet] 75 mg PO DAILY 06/22/16 [History Confirmed 03/18/21] Ergocalciferol (Vitamin D2) [Vitamin D2] 50,000 unit PO Q7D 05/10/18 [History Confirmed 03/18/21] Folic Acid 1 mg [Folate 1 mg] 1 mg PO DAILY 05/10/18 [History Confirmed 03/18/21] Lacosamide [Vimpat] 200 mg PO BID 05/10/18 [History Confirmed 03/18/21] Multivitamin [Uuf-Toshsa-Jvuaz] 1 each PO DAILY 05/10/18 [History Confirmed 03/18/21] Albuterol Sulfate [Proair Hfa] 2 puff IH TID 05/16/20 [History Confirmed 03/18/21] Budesonide/Formoterol Fumarate [Symbicort 160-4.5 Mcg Inhaler] 2 puff IH BID 05/16/20 [History Confirmed 03/18/21] Cholecalciferol (Vitamin D3) [Vitamin D3] 400 unit PO DAILY 05/16/20 [History Confirmed 03/18/21] Albuterol/Ipratropium 3ml Neb* [DUONEB 0.5-3 MG/3 ml Neb] 3 ml IH TID 10/26/20 [History Confirmed 03/18/21] Bumetanide [Bumex] 2 mg PO BID 10/26/20 [History Confirmed 03/18/21] Oxcarbazepine 300 mg [Trileptal 300 MG Tablet] 450 mg PO BID 10/26/20 [History Confirmed 03/18/21] Spironolactone 25 mg [Aldactone 25 MG] 25 mg PO DAILY 10/26/20 [History Confirmed 03/18/21] Brivaracetam [Briviact] 10 ml PO BID 10/27/20 [History Confirmed 03/18/21] Melatonin 1 tab PO HS 10/27/20 [History Confirmed 03/18/21] Metolazone 2.5 mg [Zaroxolyn 2.5 MG] 2.5 mg PO UD 10/27/20 [History Confirmed 03/18/21] Non-Formulary Drug [Non-Formulary Bulk Item] 30 ml PO TID 10/27/20 [History Confirmed 03/18/21] Allergies/Adverse Reactions: Allergies Allergy/AdvReac Type Severity Reaction Status Date / Time eslicarbazepine Allergy Verified 10/26/20 19:18 heparin Allergy Verified 10/26/20 19:18 perampanel [From Fycompa] Allergy Verified 10/26/20 19:18 - Past Medical History Past Medical History: Yes Neurological History: Epilepsy, Seizures ENT History: No Pertinent History Cardiac History: Congestive Heart Failure, High Cholesterol Respiratory History: No Pertinent History Endocrine Medical History: Hypothyroidism, Other Musculoskelatal History: No Pertinent History GI Medical History: GERD History: No Pertinent History Pyscho-Social History: Depression Reproductive Disorders: No Pertinent History Comment: kidney disease - Female History Are you now?: No - Past Surgical History Past Surgical History: Yes Neuro Surgical History: No Pertinent History Cardiac History: No Pertinent History Respiratory Surgery: No Pertinent History GI Surgical History: No Pertinent History Genitourinary Surgical Hx: No Pertinent History Musculskeletal Surgical Hx: No Pertinent History Female Surgical History: No Pertinent History Other Surgical History: implanted seizure device - Social History Smoking Status: Never smoker Exposure to second hand smoke: No Alcohol: None Drug Use: none - Physical Exam Vital Signs: Vital Signs - 24 hr Temp Pulse Resp BP Pulse Ox 03/18/21 19:45 98.2 F 70 18 107/56 100 03/18/21 16:00 98.7 F 78 22 120/68 98 03/18/21 14:45 98.2 F 78 20 92/44 100 03/18/21 12:14 78 20 92/44 100 03/18/21 11:14 98 03/18/21 11:00 80 18 111/63 98 03/18/21 09:19 98.2 F 93 H 22 180/104 98 03/18/21 08:05 97.5 F 82 20 180/120 96 Results - Labs Lab/Micro Results: Lab Results-Last 24 Hours 03/18/21 03/18/21 03/18/21 Range/Units 08:38 09:10 09:10 WBC 22.9 H (4.0-10.5) K/mm3 RBC 4.12 (4.1-5.4) M/mm3 Hgb 13.2 (12.0-16.0) gm/dl Hct 40.5 (35-47) % MCV 98.3 (78-100) fl MCH 32.0 (26-32) pg MCHC 32.6 (32-36) g/dl RDW 13.7 (11.5-14.0) % Plt Count 235 (150-450) K/mm3 MPV 10.7 (7.5-11.0) fl Segmented Neutrophils 85 H (36.0-66.0) % Band Neutrophils 10 H (0.0-2.0) % Lymphocytes (Manual) 5 L (24-44) % Toxic Granulation 2+ Platelet Estimate NORMAL (NORMAL) RBC Morphology NORMAL PT (9.4-12.5) SECONDS INR (0.8-3.0) Sodium 137 (137-145) mmol/L Potassium 3.1 L (3.5-5.1) mmol/L Chloride 87 L (98-107) mmol/L Carbon Dioxide 38 H (22-30) mmol/L Anion Gap 15.1 H (5-15) MEQ/L BUN 25 H (7-17) mg/dL Creatinine 1.16 H (0.52-1.04) mg/dL Estimated GFR 51.4 ML/MIN Glucose 125 H (74-106) mg/dL POC Glucometer (74 to 106) mg/dL Hemoglobin A1c (4.5-6.0) % Lactic Acid (0.4-2.0) Calcium 9.6 (8.4-10.2) mg/dL Total Bilirubin 0.50 (0.2-1.3) mg/dL AST 28 (14-36) U/L ALT 20 (0-35) U/L Alkaline Phosphatase 158 H (38-126) U/L Troponin I (0.000-0.034) ng/mL Serum Total Protein 9.2 H (6.3-8.2) g/dL Albumin 4.7 (3.5-5.0) g/dL Amylase 120 H (30-110) U/L Lipase 138 (23-300) U/L Urine Color YELLOW (YELLOW) Urine Appearance CLEAR (CLEAR) Urine pH 7.0 (5-6) Ur Specific [place] 1.011 (1.005-1.025) Urine Protein NEGATIVE (Negative) Urine Ketones NEGATIVE (NEGATIVE) Urine Blood NEGATIVE (0-5) Gurjit/ul Urine Nitrite NEGATIVE (NEGATIVE) Urine Bilirubin NEGATIVE (NEGATIVE) Urine Urobilinogen NEGATIVE (0-1) mg/dL Ur Leukocyte Esterase NEGATIVE (NEGATIVE) Urine WBC (Auto) NONE (0-5) /HPF Urine RBC (Auto) NONE (0-2) /HPF U Hyaline Cast (Auto) 3-5 (0-2) /LPF U Epithel Cells (Auto) NONE (FEW) /HPF Urine Bacteria (Auto) NONE (NEGATIVE) /HPF Urine Mucus (Auto) SLIGHT (NEGATIVE) /HPF Urine Culture Reflexed ORDERED SEPARATELY (NO) Urine Glucose NEGATIVE (NEGATIVE) mg/dL Influenza Type A Ag (NEGATIVE) Influenza Type B Ag (NEGATIVE) RSV (PCR) (Negative) SARS-CoV-2 (PCR) (NEGATIVE) 03/18/21 03/18/21 03/18/21 Range/Units 09:10 09:10 09:18 WBC (4.0-10.5) K/mm3 RBC (4.1-5.4) M/mm3 Hgb (12.0-16.0) gm/dl Hct (35-47) % MCV (78-100) fl MCH (26-32) pg MCHC (32-36) g/dl RDW (11.5-14.0) % Plt Count (150-450) K/mm3 MPV (7.5-11.0) fl Segmented Neutrophils (36.0-66.0) % Band Neutrophils (0.0-2.0) % Lymphocytes (Manual) (24-44) % Toxic Granulation Platelet Estimate (NORMAL) RBC Morphology PT 12.4 (9.4-12.5) SECONDS INR 1.05 (0.8-3.0) Sodium (137-145) mmol/L Potassium (3.5-5.1) mmol/L Chloride (98-107) mmol/L Carbon Dioxide (22-30) mmol/L Anion Gap (5-15) MEQ/L BUN (7-17) mg/dL Creatinine (0.52-1.04) mg/dL Estimated GFR ML/MIN Glucose (74-106) mg/dL POC Glucometer (74 to 106) mg/dL Hemoglobin A1c (4.5-6.0) % Lactic Acid 2.9 H (0.4-2.0) Calcium (8.4-10.2) mg/dL Total Bilirubin (0.2-1.3) mg/dL AST (14-36) U/L ALT (0-35) U/L Alkaline Phosphatase (38-126) U/L Troponin I < 0.012 (0.000-0.034) ng/mL Serum Total Protein (6.3-8.2) g/dL Albumin (3.5-5.0) g/dL Amylase (30-110) U/L Lipase (23-300) U/L Urine Color (YELLOW) Urine Appearance (CLEAR) Urine pH (5-6) Ur Specific [place] (1.005-1.025) Urine Protein (Negative) Urine Ketones (NEGATIVE) Urine Blood (0-5) Gurjit/ul Urine Nitrite (NEGATIVE) Urine Bilirubin (NEGATIVE) Urine Urobilinogen (0-1) mg/dL Ur Leukocyte Esterase (NEGATIVE) Urine WBC (Auto) (0-5) /HPF Urine RBC (Auto) (0-2) /HPF U Hyaline Cast (Auto) (0-2) /LPF U Epithel Cells (Auto) (FEW) /HPF Urine Bacteria (Auto) (NEGATIVE) /HPF Urine Mucus (Auto) (NEGATIVE) /HPF Urine Culture Reflexed (NO) Urine Glucose (NEGATIVE) mg/dL Influenza Type A Ag (NEGATIVE) Influenza Type B Ag (NEGATIVE) RSV (PCR) (Negative) SARS-CoV-2 (PCR) (NEGATIVE) 03/18/21 03/18/21 03/18/21 Range/Units 09:25 11:00 11:30 WBC (4.0-10.5) K/mm3 RBC (4.1-5.4) M/mm3 Hgb (12.0-16.0) gm/dl Hct (35-47) % MCV (78-100) fl MCH (26-32) pg MCHC (32-36) g/dl RDW (11.5-14.0) % Plt Count (150-450) K/mm3 MPV (7.5-11.0) fl Segmented Neutrophils (36.0-66.0) % Band Neutrophils (0.0-2.0) % Lymphocytes (Manual) (24-44) % Toxic Granulation Platelet Estimate (NORMAL) RBC Morphology PT (9.4-12.5) SECONDS INR (0.8-3.0) Sodium (137-145) mmol/L Potassium (3.5-5.1) mmol/L Chloride (98-107) mmol/L Carbon Dioxide (22-30) mmol/L Anion Gap (5-15) MEQ/L BUN (7-17) mg/dL Creatinine (0.52-1.04) mg/dL Estimated GFR ML/MIN Glucose (74-106) mg/dL POC Glucometer (74 to 106) mg/dL Hemoglobin A1c 5.12 (4.5-6.0) % Lactic Acid (0.4-2.0) Calcium (8.4-10.2) mg/dL Total Bilirubin (0.2-1.3) mg/dL AST (14-36) U/L ALT (0-35) U/L Alkaline Phosphatase (38-126) U/L Troponin I < 0.012 (0.000-0.034) ng/mL Serum Total Protein (6.3-8.2) g/dL Albumin (3.5-5.0) g/dL Amylase (30-110) U/L Lipase (23-300) U/L Urine Color (YELLOW) Urine Appearance (CLEAR) Urine pH (5-6) Ur Specific [place] (1.005-1.025) Urine Protein (Negative) Urine Ketones (NEGATIVE) Urine Blood (0-5) Gurjit/ul Urine Nitrite (NEGATIVE) Urine Bilirubin (NEGATIVE) Urine Urobilinogen (0-1) mg/dL Ur Leukocyte Esterase (NEGATIVE) Urine WBC (Auto) (0-5) /HPF Urine RBC (Auto) (0-2) /HPF U Hyaline Cast (Auto) (0-2) /LPF U Epithel Cells (Auto) (FEW) /HPF Urine Bacteria (Auto) (NEGATIVE) /HPF Urine Mucus (Auto) (NEGATIVE) /HPF Urine Culture Reflexed (NO) Urine Glucose (NEGATIVE) mg/dL Influenza Type A Ag NEGATIVE (NEGATIVE) Influenza Type B Ag NEGATIVE (NEGATIVE) RSV (PCR) NEGATIVE (Negative) SARS-CoV-2 (PCR) NEGATIVE (NEGATIVE) 03/18/21 03/18/21 Range/Units 17:34 20:49 WBC (4.0-10.5) K/mm3 RBC (4.1-5.4) M/mm3 Hgb (12.0-16.0) gm/dl Hct (35-47) % MCV (78-100) fl MCH (26-32) pg MCHC (32-36) g/dl RDW (11.5-14.0) % Plt Count (150-450) K/mm3 MPV (7.5-11.0) fl Segmented Neutrophils (36.0-66.0) % Band Neutrophils (0.0-2.0) % Lymphocytes (Manual) (24-44) % Toxic Granulation Platelet Estimate (NORMAL) RBC Morphology PT (9.4-12.5) SECONDS INR (0.8-3.0) Sodium (137-145) mmol/L Potassium (3.5-5.1) mmol/L Chloride (98-107) mmol/L Carbon Dioxide (22-30) mmol/L Anion Gap (5-15) MEQ/L BUN (7-17) mg/dL Creatinine (0.52-1.04) mg/dL Estimated GFR ML/MIN Glucose (74-106) mg/dL POC Glucometer 90 (74 to 106) mg/dL Hemoglobin A1c (4.5-6.0) % Lactic Acid (0.4-2.0) Calcium (8.4-10.2) mg/dL Total Bilirubin (0.2-1.3) mg/dL AST (14-36) U/L ALT (0-35) U/L Alkaline Phosphatase (38-126) U/L Troponin I (0.000-0.034) ng/mL Serum Total Protein (6.3-8.2) g/dL Albumin (3.5-5.0) g/dL Amylase (30-110) U/L Lipase (23-300) U/L Urine Color YELLOW (YELLOW) Urine Appearance CLEAR (CLEAR) Urine pH 6.0 (5-6) Ur Specific [place] 1.014 (1.005-1.025) Urine Protein NEGATIVE (Negative) Urine Ketones NEGATIVE (NEGATIVE) Urine Blood NEGATIVE (0-5) Gurjit/ul Urine Nitrite NEGATIVE (NEGATIVE) Urine Bilirubin NEGATIVE (NEGATIVE) Urine Urobilinogen NEGATIVE (0-1) mg/dL Ur Leukocyte Esterase NEGATIVE (NEGATIVE) Urine WBC (Auto) 0-2 (0-5) /HPF Urine RBC (Auto) 0-2 (0-2) /HPF U Hyaline Cast (Auto) (0-2) /LPF U Epithel Cells (Auto) NONE (FEW) /HPF Urine Bacteria (Auto) NONE SEEN (NEGATIVE) /HPF Urine Mucus (Auto) (NEGATIVE) /HPF Urine Culture Reflexed NO (NO) Urine Glucose NEGATIVE (NEGATIVE) mg/dL Influenza Type A Ag (NEGATIVE) Influenza Type B Ag (NEGATIVE) RSV (PCR) (Negative) SARS-CoV-2 (PCR) (NEGATIVE) - Radiology Impressions Radiology Exams & Impressions: Radiology Procedures Category Date Time Status ABDOMEN AND PELVIS W/0 CONTRAS [CT] Stat Exams 03/18/21 09:29 Completed CHEST 1 VIEW (PORTABLE) Stat Exams 03/18/21 09:28 Completed
[2021-03-19] MEDS ORDERED: NON-FORMULARY ITEM PO SCH ×4 (00:21→00:32)
[2021-03-19] MEDS ORDERED: TYLENOL 325 MG ONE (00:23)
[2021-03-19] MEDS ORDERED: ZYLOPRIM 100 MG ONE (00:23)
[2021-03-19] MEDS ORDERED: Sinemet CR 50/200 MG PO ONE (00:23)
[2021-03-19] MEDS ORDERED: NITRO-DUR 0.2 MG/HR ONE (00:23)
[2021-03-19] MEDS ORDERED: Levofloxacin 500MG/100ML D5W 500 MG/100 ML BAG IV ONE (00:24)
[2021-03-19] MEDS ORDERED: Lopressor 25MG Tab ONE (00:24)
[2021-03-19] MEDS ORDERED: LIORESAL 10 MG ONE (00:24)
[2021-03-19] MEDS: Klor Con 10 MEQ PO SCH ×6 (01:00→21:53)
[2021-03-19] MEDS ORDERED: PATIENT OWN MEDICATION PO SCH (01:05)
[2021-03-19] MEDS: Colace 100 MG PO SCH ×3 (01:12→21:53)
[2021-03-19] MEDS ORDERED: K-LYTE 25 MEQ PO ONE (06:09)
[2021-03-19 06:24] LABS: ALBUMIN 3.4 g/dL (3.5-5.0); ALKALINE PHOSPHATASE 98 U/L (38-126); ANION GAP 8.6 MEQ/L (5-15); BLOOD UREA NITROGEN 18 mg/dL (7-17); CHLORIDE 91 mmol/L (98-107); Calcium 8.3 mg/dL (8.4-10.2); Carbon Dioxide 39 mmol/L (22-30); Creatinine 1 0.85 mg/dL (0.52-1.04); EST GLOMERULAR FILTRATION RATE > 60.0 ML/MIN; Glucose 83 mg/dL (74-106); Potassium 3.1 mmol/L (3.5-5.1); SGOT/AST 24 U/L (14-36); SGPT/ALT 14 U/L (0-35); SODIUM 136 mmol/L (137-145); Total Protein 6.6 g/dL (6.3-8.2)
[2021-03-19 07:09] LABS: Absolute Neutrophil Ct (ANC) 17.77 (1.4-6.9); BASOPHIL % 0.1 % (0.0-0.4); Basophil (Absolute #) 0.03 (0-0.4); Eosinophil % 0.5 % (0.00-5.0); Eosinophil (Absolute #) 0.11 (0-0.5); Hematocrit 32.7 % (35-47); Lymphocyte (Absolute #) 2.84 (1.0-4.6); Lymphocytes % 13.1 % (24.0-44.0); Mean Cell Volume 102.2 fl (78-100); Mean Corpuscular Hemoglobin 31.3 pg (26-32); Mean Corpuscular Hgb Concent. 30.6 g/dl (32-36); Mean Platelet Volume 11.1 fl (7.5-11.0); Monocyte (Absolute #) 0.99 (0.0-1.3); Monocytes % 4.6 % (0.0-12.0); Neutrophil % 81.7 % (36.0-66.0); Platelet Count 184 K/mm3 (150-450); Red Cell Distribution Width 13.7 % (11.5-14.0); White Blood Count 21.7 K/mm3 (4.0-10.5)
[2021-03-19] MEDS ORDERED: VENTOLIN COMMON CANISTER IH PRN (08:09)
[2021-03-19] MEDS ORDERED: MEDICATION INTERVENTION MC SCH ×4 (08:30)
[2021-03-19 08:31] LABS: INR 1.14 (0.8-3.0); PROTIME 13.4 SECONDS (9.4-12.5)
[2021-03-19 08:33] LABS: PTT 30.8 SECONDS (25.1-36.5)
[2021-03-19] MEDS ORDERED: DUONEB 0.5-3 MG/3 ml Neb IH ONE (08:45)
[2021-03-19] MEDS: DUONEB 0.5-3 MG/3 ml Neb IH SCH ×3 (08:46→19:39)
[2021-03-19] MEDS: Advair Hfa 115/21 Common canister IH SCH ×2 (08:49→19:40)
--- NOTE | 2021-03-19 08:52 | PCM.NOTE ---
Date and Time: 03/19/21 0849 Subjective Assessment: patient answers questions, she is at her baseline which is significantly handicapped mentally. she states she feels bad when asked and states she is coughing. Objective Exam General Appearance: no apparent distress, obese Neurologic Exam: alert, cooperative Wound Assessment: Skin/Wound Assessment Wound/Incision Assessment Start: 03/18/21 14:36 Text: Status: Active Freq: Q6H Protocol: Document 03/19/21 05:59 AW (Rec: 03/19/21 06:00 AW [id number]) Wound Photo Photo Taken No Respiratory Exam: crackles/rales, rhonchi, No respiratory distress, No accessory muscle use Cardiovascular Exam: regular rate/rhythm, normal heart sounds Gastrointestinal/Abdomen Exam: soft, No tenderness, No mass Extremity Exam: normal inspection, normal range of motion OBJECTIVE DATA Vital Signs: Vital Signs - 24 hr Temp Pulse Resp BP Pulse Ox 03/19/21 07:56 98.3 F 66 18 95/44 97 03/19/21 04:00 98.4 F 63 12 103/55 98 03/19/21 00:00 97.5 F 64 16 90/55 96 03/18/21 19:45 98.2 F 70 18 107/56 100 03/18/21 16:00 98.7 F 78 22 120/68 98 03/18/21 14:45 98.2 F 78 20 92/44 100 03/18/21 12:14 78 20 92/44 100 03/18/21 11:14 98 03/18/21 11:00 80 18 111/63 98 03/18/21 09:19 98.2 F 93 H 22 180/104 98 Pain Assessment - Last Documented Pain Intensity 0 Intake and Output: Intake & Output 03/16/21 03/17/21 03/18/21 03/19/21 11:59 11:59 11:59 11:59 Intake Total 1592 Output Total 550 Balance 1042 Weight 106.4 kg 105.1 kg Lab Results: Lab Results-Last 24 Hours 03/18/21 03/18/21 03/18/21 Range/Units 08:38 09:10 09:10 WBC 22.9 H (4.0-10.5) K/mm3 RBC 4.12 (4.1-5.4) M/mm3 Hgb 13.2 (12.0-16.0) gm/dl Hct 40.5 (35-47) % MCV 98.3 (78-100) fl MCH 32.0 (26-32) pg MCHC 32.6 (32-36) g/dl RDW 13.7 (11.5-14.0) % Plt Count 235 (150-450) K/mm3 MPV 10.7 (7.5-11.0) fl Gran % (36.0-66.0) % Eos # (Auto) (0-0.5) Absolute Lymphs (auto) (1.0-4.6) Absolute Monos (auto) (0.0-1.3) Lymphocytes % (24.0-44.0) % Monocytes % (0.0-12.0) % Eosinophils % (0.00-5.0) % Basophils % (0.0-0.4) % Absolute Granulocytes (1.4-6.9) Segmented Neutrophils 85 H (36.0-66.0) % Band Neutrophils 10 H (0.0-2.0) % Lymphocytes (Manual) 5 L (24-44) % Basophils # (0-0.4) Toxic Granulation 2+ Platelet Estimate NORMAL (NORMAL) RBC Morphology NORMAL PT (9.4-12.5) SECONDS INR (0.8-3.0) APTT (25.1-36.5) SECONDS Sodium 137 (137-145) mmol/L Potassium 3.1 L (3.5-5.1) mmol/L Chloride 87 L (98-107) mmol/L Carbon Dioxide 38 H (22-30) mmol/L Anion Gap 15.1 H (5-15) MEQ/L BUN 25 H (7-17) mg/dL Creatinine 1.16 H (0.52-1.04) mg/dL Estimated GFR 51.4 ML/MIN Glucose 125 H (74-106) mg/dL POC Glucometer (74 to 106) mg/dL Hemoglobin A1c (4.5-6.0) % Lactic Acid (0.4-2.0) Calcium 9.6 (8.4-10.2) mg/dL Total Bilirubin 0.50 (0.2-1.3) mg/dL AST 28 (14-36) U/L ALT 20 (0-35) U/L Alkaline Phosphatase 158 H (38-126) U/L Troponin I (0.000-0.034) ng/mL Serum Total Protein 9.2 H (6.3-8.2) g/dL Albumin 4.7 (3.5-5.0) g/dL Amylase 120 H (30-110) U/L Lipase 138 (23-300) U/L Urine Color YELLOW (YELLOW) Urine Appearance CLEAR (CLEAR) Urine pH 7.0 (5-6) Ur Specific [place] 1.011 (1.005-1.025) Urine Protein NEGATIVE (Negative) Urine Ketones NEGATIVE (NEGATIVE) Urine Blood NEGATIVE (0-5) Gurjit/ul Urine Nitrite NEGATIVE (NEGATIVE) Urine Bilirubin NEGATIVE (NEGATIVE) Urine Urobilinogen NEGATIVE (0-1) mg/dL Ur Leukocyte Esterase NEGATIVE (NEGATIVE) Urine WBC (Auto) NONE (0-5) /HPF Urine RBC (Auto) NONE (0-2) /HPF U Hyaline Cast (Auto) 3-5 (0-2) /LPF U Epithel Cells (Auto) NONE (FEW) /HPF Urine Bacteria (Auto) NONE (NEGATIVE) /HPF Urine Mucus (Auto) SLIGHT (NEGATIVE) /HPF Urine Culture Reflexed ORDERED SEPARATELY (NO) Urine Glucose NEGATIVE (NEGATIVE) mg/dL Influenza Type A Ag (NEGATIVE) Influenza Type B Ag (NEGATIVE) RSV (PCR) (Negative) SARS-CoV-2 (PCR) (NEGATIVE) 03/18/21 03/18/21 03/18/21 Range/Units 09:10 09:10 09:18 WBC (4.0-10.5) K/mm3 RBC (4.1-5.4) M/mm3 Hgb (12.0-16.0) gm/dl Hct (35-47) % MCV (78-100) fl MCH (26-32) pg MCHC (32-36) g/dl RDW (11.5-14.0) % Plt Count (150-450) K/mm3 MPV (7.5-11.0) fl Gran % (36.0-66.0) % Eos # (Auto) (0-0.5) Absolute Lymphs (auto) (1.0-4.6) Absolute Monos (auto) (0.0-1.3) Lymphocytes % (24.0-44.0) % Monocytes % (0.0-12.0) % Eosinophils % (0.00-5.0) % Basophils % (0.0-0.4) % Absolute Granulocytes (1.4-6.9) Segmented Neutrophils (36.0-66.0) % Band Neutrophils (0.0-2.0) % Lymphocytes (Manual) (24-44) % Basophils # (0-0.4) Toxic Granulation Platelet Estimate (NORMAL) RBC Morphology PT 12.4 (9.4-12.5) SECONDS INR 1.05 (0.8-3.0) APTT (25.1-36.5) SECONDS Sodium (137-145) mmol/L Potassium (3.5-5.1) mmol/L Chloride (98-107) mmol/L Carbon Dioxide (22-30) mmol/L Anion Gap (5-15) MEQ/L BUN (7-17) mg/dL Creatinine (0.52-1.04) mg/dL Estimated GFR ML/MIN Glucose (74-106) mg/dL POC Glucometer (74 to 106) mg/dL Hemoglobin A1c (4.5-6.0) % Lactic Acid 2.9 H (0.4-2.0) Calcium (8.4-10.2) mg/dL Total Bilirubin (0.2-1.3) mg/dL AST (14-36) U/L ALT (0-35) U/L Alkaline Phosphatase (38-126) U/L Troponin I < 0.012 (0.000-0.034) ng/mL Serum Total Protein (6.3-8.2) g/dL Albumin (3.5-5.0) g/dL Amylase (30-110) U/L Lipase (23-300) U/L Urine Color (YELLOW) Urine Appearance (CLEAR) Urine pH (5-6) Ur Specific [place] (1.005-1.025) Urine Protein (Negative) Urine Ketones (NEGATIVE) Urine Blood (0-5) Gurjit/ul Urine Nitrite (NEGATIVE) Urine Bilirubin (NEGATIVE) Urine Urobilinogen (0-1) mg/dL Ur Leukocyte Esterase (NEGATIVE) Urine WBC (Auto) (0-5) /HPF Urine RBC (Auto) (0-2) /HPF U Hyaline Cast (Auto) (0-2) /LPF U Epithel Cells (Auto) (FEW) /HPF Urine Bacteria (Auto) (NEGATIVE) /HPF Urine Mucus (Auto) (NEGATIVE) /HPF Urine Culture Reflexed (NO) Urine Glucose (NEGATIVE) mg/dL Influenza Type A Ag (NEGATIVE) Influenza Type B Ag (NEGATIVE) RSV (PCR) (Negative) SARS-CoV-2 (PCR) (NEGATIVE) 03/18/21 03/18/21 03/18/21 Range/Units 09:25 11:00 11:30 WBC (4.0-10.5) K/mm3 RBC (4.1-5.4) M/mm3 Hgb (12.0-16.0) gm/dl Hct (35-47) % MCV (78-100) fl MCH (26-32) pg MCHC (32-36) g/dl RDW (11.5-14.0) % Plt Count (150-450) K/mm3 MPV (7.5-11.0) fl Gran % (36.0-66.0) % Eos # (Auto) (0-0.5) Absolute Lymphs (auto) (1.0-4.6) Absolute Monos (auto) (0.0-1.3) Lymphocytes % (24.0-44.0) % Monocytes % (0.0-12.0) % Eosinophils % (0.00-5.0) % Basophils % (0.0-0.4) % Absolute Granulocytes (1.4-6.9) Segmented Neutrophils (36.0-66.0) % Band Neutrophils (0.0-2.0) % Lymphocytes (Manual) (24-44) % Basophils # (0-0.4) Toxic Granulation Platelet Estimate (NORMAL) RBC Morphology PT (9.4-12.5) SECONDS INR (0.8-3.0) APTT (25.1-36.5) SECONDS Sodium (137-145) mmol/L Potassium (3.5-5.1) mmol/L Chloride (98-107) mmol/L Carbon Dioxide (22-30) mmol/L Anion Gap (5-15) MEQ/L BUN (7-17) mg/dL Creatinine (0.52-1.04) mg/dL Estimated GFR ML/MIN Glucose (74-106) mg/dL POC Glucometer (74 to 106) mg/dL Hemoglobin A1c 5.12 (4.5-6.0) % Lactic Acid (0.4-2.0) Calcium (8.4-10.2) mg/dL Total Bilirubin (0.2-1.3) mg/dL AST (14-36) U/L ALT (0-35) U/L Alkaline Phosphatase (38-126) U/L Troponin I < 0.012 (0.000-0.034) ng/mL Serum Total Protein (6.3-8.2) g/dL Albumin (3.5-5.0) g/dL Amylase (30-110) U/L Lipase (23-300) U/L Urine Color (YELLOW) Urine Appearance (CLEAR) Urine pH (5-6) Ur Specific [place] (1.005-1.025) Urine Protein (Negative) Urine Ketones (NEGATIVE) Urine Blood (0-5) Gurjit/ul Urine Nitrite (NEGATIVE) Urine Bilirubin (NEGATIVE) Urine Urobilinogen (0-1) mg/dL Ur Leukocyte Esterase (NEGATIVE) Urine WBC (Auto) (0-5) /HPF Urine RBC (Auto) (0-2) /HPF U Hyaline Cast (Auto) (0-2) /LPF U Epithel Cells (Auto) (FEW) /HPF Urine Bacteria (Auto) (NEGATIVE) /HPF Urine Mucus (Auto) (NEGATIVE) /HPF Urine Culture Reflexed (NO) Urine Glucose (NEGATIVE) mg/dL Influenza Type A Ag NEGATIVE (NEGATIVE) Influenza Type B Ag NEGATIVE (NEGATIVE) RSV (PCR) NEGATIVE (Negative) SARS-CoV-2 (PCR) NEGATIVE (NEGATIVE) 03/18/21 03/18/21 03/19/21 Range/Units 17:34 20:49 04:00 WBC (4.0-10.5) K/mm3 RBC (4.1-5.4) M/mm3 Hgb (12.0-16.0) gm/dl Hct (35-47) % MCV (78-100) fl MCH (26-32) pg MCHC (32-36) g/dl RDW (11.5-14.0) % Plt Count (150-450) K/mm3 MPV (7.5-11.0) fl Gran % (36.0-66.0) % Eos # (Auto) (0-0.5) Absolute Lymphs (auto) (1.0-4.6) Absolute Monos (auto) (0.0-1.3) Lymphocytes % (24.0-44.0) % Monocytes % (0.0-12.0) % Eosinophils % (0.00-5.0) % Basophils % (0.0-0.4) % Absolute Granulocytes (1.4-6.9) Segmented Neutrophils (36.0-66.0) % Band Neutrophils (0.0-2.0) % Lymphocytes (Manual) (24-44) % Basophils # (0-0.4) Toxic Granulation Platelet Estimate (NORMAL) RBC Morphology PT 13.4 H (9.4-12.5) SECONDS INR 1.14 (0.8-3.0) APTT 30.8 (25.1-36.5) SECONDS Sodium (137-145) mmol/L Potassium (3.5-5.1) mmol/L Chloride (98-107) mmol/L Carbon Dioxide (22-30) mmol/L Anion Gap (5-15) MEQ/L BUN (7-17) mg/dL Creatinine (0.52-1.04) mg/dL Estimated GFR ML/MIN Glucose (74-106) mg/dL POC Glucometer 90 (74 to 106) mg/dL Hemoglobin A1c (4.5-6.0) % Lactic Acid (0.4-2.0) Calcium (8.4-10.2) mg/dL Total Bilirubin (0.2-1.3) mg/dL AST (14-36) U/L ALT (0-35) U/L Alkaline Phosphatase (38-126) U/L Troponin I (0.000-0.034) ng/mL Serum Total Protein (6.3-8.2) g/dL Albumin (3.5-5.0) g/dL Amylase (30-110) U/L Lipase (23-300) U/L Urine Color YELLOW (YELLOW) Urine Appearance CLEAR (CLEAR) Urine pH 6.0 (5-6) Ur Specific [place] 1.014 (1.005-1.025) Urine Protein NEGATIVE (Negative) Urine Ketones NEGATIVE (NEGATIVE) Urine Blood NEGATIVE (0-5) Gurjit/ul Urine Nitrite NEGATIVE (NEGATIVE) Urine Bilirubin NEGATIVE (NEGATIVE) Urine Urobilinogen NEGATIVE (0-1) mg/dL Ur Leukocyte Esterase NEGATIVE (NEGATIVE) Urine WBC (Auto) 0-2 (0-5) /HPF Urine RBC (Auto) 0-2 (0-2) /HPF U Hyaline Cast (Auto) (0-2) /LPF U Epithel Cells (Auto) NONE (FEW) /HPF Urine Bacteria (Auto) NONE SEEN (NEGATIVE) /HPF Urine Mucus (Auto) (NEGATIVE) /HPF Urine Culture Reflexed NO (NO) Urine Glucose NEGATIVE (NEGATIVE) mg/dL Influenza Type A Ag (NEGATIVE) Influenza Type B Ag (NEGATIVE) RSV (PCR) (Negative) SARS-CoV-2 (PCR) (NEGATIVE) 03/19/21 03/19/21 03/19/21 Range/Units 04:36 04:36 08:22 WBC 21.7 H (4.0-10.5) K/mm3 RBC 3.20 L (4.1-5.4) M/mm3 Hgb 10.0 L D (12.0-16.0) gm/dl Hct 32.7 L (35-47) % MCV 102.2 H (78-100) fl MCH 31.3 (26-32) pg MCHC 30.6 L (32-36) g/dl RDW 13.7 (11.5-14.0) % Plt Count 184 (150-450) K/mm3 MPV 11.1 H (7.5-11.0) fl Gran % 81.7 H (36.0-66.0) % Eos # (Auto) 0.11 (0-0.5) Absolute Lymphs (auto) 2.84 (1.0-4.6) Absolute Monos (auto) 0.99 (0.0-1.3) Lymphocytes % 13.1 L (24.0-44.0) % Monocytes % 4.6 (0.0-12.0) % Eosinophils % 0.5 (0.00-5.0) % Basophils % 0.1 (0.0-0.4) % Absolute Granulocytes 17.77 H (1.4-6.9) Segmented Neutrophils (36.0-66.0) % Band Neutrophils (0.0-2.0) % Lymphocytes (Manual) (24-44) % Basophils # 0.03 (0-0.4) Toxic Granulation Platelet Estimate (NORMAL) RBC Morphology PT (9.4-12.5) SECONDS INR (0.8-3.0) APTT (25.1-36.5) SECONDS Sodium 136 L (137-145) mmol/L Potassium 3.1 L (3.5-5.1) mmol/L Chloride 91 L (98-107) mmol/L Carbon Dioxide 39 H (22-30) mmol/L Anion Gap 8.6 (5-15) MEQ/L BUN 18 H (7-17) mg/dL Creatinine 0.85 (0.52-1.04) mg/dL Estimated GFR > 60.0 ML/MIN Glucose 83 (74-106) mg/dL POC Glucometer 82 (74 to 106) mg/dL Hemoglobin A1c (4.5-6.0) % Lactic Acid (0.4-2.0) Calcium 8.3 L (8.4-10.2) mg/dL Total Bilirubin 0.40 (0.2-1.3) mg/dL AST 24 (14-36) U/L ALT 14 (0-35) U/L Alkaline Phosphatase 98 (38-126) U/L Troponin I (0.000-0.034) ng/mL Serum Total Protein 6.6 (6.3-8.2) g/dL Albumin 3.4 L (3.5-5.0) g/dL Amylase (30-110) U/L Lipase (23-300) U/L Urine Color (YELLOW) Urine Appearance (CLEAR) Urine pH (5-6) Ur Specific [place] (1.005-1.025) Urine Protein (Negative) Urine Ketones (NEGATIVE) Urine Blood (0-5) Gurjit/ul Urine Nitrite (NEGATIVE) Urine Bilirubin (NEGATIVE) Urine Urobilinogen (0-1) mg/dL Ur Leukocyte Esterase (NEGATIVE) Urine WBC (Auto) (0-5) /HPF Urine RBC (Auto) (0-2) /HPF U Hyaline Cast (Auto) (0-2) /LPF U Epithel Cells (Auto) (FEW) /HPF Urine Bacteria (Auto) (NEGATIVE) /HPF Urine Mucus (Auto) (NEGATIVE) /HPF Urine Culture Reflexed (NO) Urine Glucose (NEGATIVE) mg/dL Influenza Type A Ag (NEGATIVE) Influenza Type B Ag (NEGATIVE) RSV (PCR) (Negative) SARS-CoV-2 (PCR) (NEGATIVE) Radiology Exams: Radiology Procedures Category Date Time Status ABDOMEN AND PELVIS W/0 CONTRAS [CT] Stat Exams 03/18/21 09:29 Completed CHEST 1 VIEW (PORTABLE) Stat Exams 03/18/21 09:28 Completed PICC LINE PLACEMENT Routine Exams 03/19/21 Ordered Assessment/Plan (1) Pneumonia Current Visit: No Status: Acute Qualifiers: Pneumonia type: due to unspecified organism Laterality: left Lung location: unspecified part of lung Qualified Code(s): J18.9 - Pneumonia, unspecified organism Assessment & Plan: change rocephin to pseudomonas, patient is a care home resident of [facility] with multiple complicated infections in the past particularly in the urine, has risk factors for complicated nosocomial pneumonia. will also add vanc for mrsa coverage, cultures are pending, wbc has not improved. Code(s): J18.9 - PNEUMONIA, UNSPECIFIED ORGANISM (2) History of CHF (congestive heart failure) Current Visit: No Status: Acute Code(s): Z86.79 - PERSONAL HISTORY OF OTHER DISEASES OF THE CIRCULATORY SYSTEM (3) Seizure Current Visit: No Status: Acute Code(s): R56.9 - UNSPECIFIED CONVULSIONS
[2021-03-19] MEDS ORDERED: VANCOCIN 1 GM VIAL*** 1 GM in Sodium Chloride 0.9% 250 ML 250 ML IV SCH (09:00)
[2021-03-19] MEDS ORDERED: NON-FORMULARY ITEM (Budesonide/Formoterol Fumarate [Symbicort 160-4.5 Mcg Inhaler] 10.2 GM IH SCH (10:00)
[2021-03-19] MEDS ORDERED: [UNRECOGNIZED DRUG - OTHER] PO SCH (10:00)
[2021-03-19] MEDS ORDERED: CHOLECALCIFEROL 400 UNIT PO SCH (10:00)
[2021-03-19] MEDS ORDERED: MULTIVITAMIN PO SCH (10:00)
[2021-03-19] MEDS ORDERED: LACOSAMIDE 100 MG PO SCH (10:00)
[2021-03-19] MEDS ORDERED: Zithromax 500 MG/ 250 ML NaCl Premix 500 MG/250 ML IVPB IV SCH (10:00)
[2021-03-19] MEDS ORDERED: Ventolin Hfa MDI IH SCH (10:00)
[2021-03-19] MEDS ORDERED: BABY ASPIRIN 81 MG CHEW PO SCH (10:00)
[2021-03-19] MEDS ORDERED: ROCEPHIN 1 Gm-D5w 50 ml Bag** 1 G/50 ML IVPB IV SCH (10:00)
[2021-03-19] MEDS ORDERED: CLOBAZAM 10 MG PO SCH (10:00)
[2021-03-19] MEDS: ZOLOFT 50 MG TABLET PO SCH (10:29)
[2021-03-19] MEDS: BUMEX 1 MG PO SCH ×2 (10:32→17:52)
[2021-03-19] MEDS: ECOTRIN 81 MG PO SCH (10:32)
[2021-03-19] MEDS: Protonix 40MG Tablet PO SCH (10:32)
[2021-03-19] MEDS: Aldactone 25 MG PO SCH (10:32)
[2021-03-19] MEDS: THERAGRAN MULTIVITAMIN PO SCH (10:32)
[2021-03-19] MEDS: MAG-OX 400 PO SCH (10:33)
[2021-03-19] MEDS: SYNTHROID 50 MCG PO SCH (10:33)
[2021-03-19] MEDS: FOLATE 1 MG PO SCH (10:33)
[2021-03-19] MEDS: Trileptal 300 MG Tablet PO SCH ×2 (10:34→21:57)
[2021-03-19] MEDS: VITAMIN D PO SCH (10:35)
[2021-03-19] MEDS: FEOSOL 325 MG PO SCH (10:39)
[2021-03-19] MEDS: Zosyn 3.375 GM Vial 3.375 GM in Sodium Chloride 100ML MINI-BAG PLUS 100 ML IV SCH ×2 (14:45→19:51)
[2021-03-19] MEDS ORDERED: Xylocaine 1% Vial 30 ML PF IJ ONE (15:07)
[2021-03-19] MEDS ORDERED: XYLOCAINE 1% HCL 20 ML MDV ONE ×2 (15:08→15:47)
[2021-03-19] MEDS: PATIENT OWN MEDICATION PO SCH ×6 (16:00→21:57)
[2021-03-19] MEDS ORDERED: Xylocaine-Mpf 2% 5 Ml Vial ONE (16:16)
[2021-03-19] MEDS: VANCOMYCIN 1.25 GM/250 ML BAG 1.25 GM/250 ML PIGGYBACK IV SCH (16:21)
[2021-03-19] MEDS: Sodium Chloride 0.9% 1000 ML 1,000 ML IV SCH ×2 (21:52→22:13)
[2021-03-19] MEDS ORDERED: MELATONIN 3 MG PO SCH (22:00)
[2021-03-20] MEDS: Zosyn 3.375 GM Vial 3.375 GM in Sodium Chloride 100ML MINI-BAG PLUS 100 ML IV SCH ×4 (01:09→17:19)
[2021-03-20] MEDS: VANCOMYCIN 1.25 GM/250 ML BAG 1.25 GM/250 ML PIGGYBACK IV SCH ×3 (04:22→21:26)
[2021-03-20 06:25] LABS: Absolute Neutrophil Ct (ANC) 6.87 (1.4-6.9); BASOPHIL % 0.2 % (0.0-0.4); Basophil (Absolute #) 0.02 (0-0.4); Eosinophil % 2.2 % (0.00-5.0); Eosinophil (Absolute #) 0.23 (0-0.5); Hematocrit 31.7 % (35-47); Hemoglobin 9.5 gm/dl (12.0-16.0); Lymphocyte (Absolute #) 2.54 (1.0-4.6); Lymphocytes % 24.4 % (24.0-44.0); Mean Cell Volume 104.3 fl (78-100); Mean Corpuscular Hemoglobin 31.3 pg (26-32); Mean Platelet Volume 10.8 fl (7.5-11.0); Monocyte (Absolute #) 0.75 (0.0-1.3); Monocytes % 7.2 % (0.0-12.0); Platelet Count 106 K/mm3 (150-450); Red Blood Count 3.04 M/mm3 (4.1-5.4); Red Cell Distribution Width 13.6 % (11.5-14.0); White Blood Count 10.4 K/mm3 (4.0-10.5)
[2021-03-20] MEDS: DUONEB 0.5-3 MG/3 ml Neb IH SCH ×3 (07:18→19:03)
[2021-03-20] MEDS: Advair Hfa 115/21 Common canister IH SCH ×2 (07:21→19:05)
[2021-03-20 07:52] LABS: ANION GAP 7.9 MEQ/L (5-15); BLOOD UREA NITROGEN 18 mg/dL (7-17); CHLORIDE 90 mmol/L (98-107); Calcium 8.5 mg/dL (8.4-10.2); Carbon Dioxide 35 mmol/L (22-30); EST GLOMERULAR FILTRATION RATE > 60.0 ML/MIN; Glucose 93 mg/dL (74-106); MAGNESIUM 1.8 mg/dL (1.6-2.3); SODIUM 129 mmol/L (137-145)
[2021-03-20 07:56] LABS: Potassium 3.7 mmol/L (3.5-5.1)
--- NOTE | 2021-03-20 08:50 | PCM.NOTE ---
Date and Time: 03/20/21 0847 Subjective Assessment: Pt's only complaint is that she's hungry. Nods that she's feeling better. Knows she's in [place]. - Review of Systems All Other Systems: Unable due to condition (mentally challenged) Objective Exam General Appearance: no apparent distress, obese Neurologic Exam: alert, cooperative Skin Exam: normal color, warm, dry, No rash Eye Exam: eyes nml inspection Ears, Nose, Throat Exam: moist mucous membranes Respiratory Exam: normal breath sounds, lungs clear, No crackles/rales, No rhonchi, No wheezing Cardiovascular Exam: regular rate/rhythm, normal heart sounds, No murmur Gastrointestinal/Abdomen Exam: soft, normal bowel sounds, No tenderness, No distention, No mass, No guarding, No rebound Extremity Exam: No pedal edema, No swelling Back Exam: normal inspection, No rash OBJECTIVE DATA Vital Signs: Vital Signs - 24 hr Temp Pulse Resp BP Pulse Ox 03/20/21 07:58 96.8 F 62 111/58 03/20/21 07:00 64 18 99 03/20/21 04:00 97.8 F 76 16 110/59 97 03/20/21 00:00 97.5 F 78 12 103/59 94 L 03/19/21 20:00 96.6 F 64 18 117/66 98 03/19/21 19:40 65 18 98 03/19/21 16:00 98.1 F 65 16 122/58 99 03/19/21 12:51 56 L 16 99 03/19/21 12:00 97.8 F 63 16 121/57 99 03/19/21 08:49 68 18 97 Pain Assessment - Last Documented Pain Intensity 0 Intake and Output: Intake & Output 03/17/21 03/18/21 03/19/21 03/20/21 11:59 11:59 11:59 11:59 Intake Total 1592 2109 Output Total 550 300 Balance 1042 1809 Weight 106.4 kg 105.1 kg 107.3 kg Lab Results: Lab Results-Last 24 Hours 03/20/21 03/20/21 Range/Units 04:52 07:00 WBC 10.4 (4.0-10.5) K/mm3 RBC 3.04 L (4.1-5.4) M/mm3 Hgb 9.5 L (12.0-16.0) gm/dl Hct 31.7 L (35-47) % MCV 104.3 H (78-100) fl MCH 31.3 (26-32) pg MCHC 30.0 L (32-36) g/dl RDW 13.6 (11.5-14.0) % Plt Count 106 L D (150-450) K/mm3 MPV 10.8 (7.5-11.0) fl Gran % 66.0 (36.0-66.0) % Eos # (Auto) 0.23 (0-0.5) Absolute Lymphs (auto) 2.54 (1.0-4.6) Absolute Monos (auto) 0.75 (0.0-1.3) Lymphocytes % 24.4 (24.0-44.0) % Monocytes % 7.2 (0.0-12.0) % Eosinophils % 2.2 (0.00-5.0) % Basophils % 0.2 (0.0-0.4) % Absolute Granulocytes 6.87 (1.4-6.9) Basophils # 0.02 (0-0.4) Sodium 129 L D (137-145) mmol/L Potassium 3.7 (3.5-5.1) mmol/L Chloride 90 L (98-107) mmol/L Carbon Dioxide 35 H (22-30) mmol/L Anion Gap 7.9 (5-15) MEQ/L BUN 18 H (7-17) mg/dL Creatinine 0.80 (0.52-1.04) mg/dL Estimated GFR > 60.0 ML/MIN Glucose 93 (74-106) mg/dL Calcium 8.5 (8.4-10.2) mg/dL Magnesium 1.8 (1.6-2.3) mg/dL Radiology Exams: Radiology Procedures Category Date Time Status ABDOMEN AND PELVIS W/0 CONTRAS [CT] Stat Exams 03/18/21 09:29 Completed CHEST 1 VIEW (PORTABLE) Stat Exams 03/18/21 09:28 Completed Multi-Disciplinary Progress Notes: Multi-Disciplinary Progress Notes 03/19/21 09:12 Pharmacy Note by Jeremy Magaña Pharmacokinetic dosing service Date: 03/19/21 Time: 09 Objective: POSSIBLE PNEUMONIA - PSEUDOMONAS + GRAM + COVERAGE REQUIRED Patient: RADHA MONTALVO Floor: [address] Age: 55 yo Serum creatinine: 0.85 mg/dL Height: 66 Inches Weight (kg): 105 Diagnosis: POSSIBLE PNEUMONIA Relevant medical/social history: Cultures and sensitivities: PNEDING Other labs: SR CR = 0.85 WBC 21.7 Estimated Creatinine clearance (ml/min): 69.2 CRCL method: Cockcroft and Gault using ibw(default). Drug selected: Vancomycin Loading dose (mg): 0 Vd (liters): 78.8 (factor used: 0.75 L/kg) [place] (hr-1): 0.062 Half life (hrs): 11.18 Recommended dose: 1250 mg Interval: 12 hrs Infusion time (hrs): 2.0 Predicted peak (mcg/mL): 28.4 Predicted trough (mcg/mL): 15.28 Total body weight is being used for vancomycin dosing. Renal function is stable [XXX ] /unstable [ ] Recommendations: Give Vancomycin 1250 mg q 12 hrs with an expected Cpeak of 28.4 mcg/ml and an expected Ctrough of 15.28 mcg/ml Renal dosing of other antibiotics (review renal dosing of other medications and list guidelines here): ZOSYN Q6H Thank you for the consult, will continue to follow. Signature: DINORAH Initialized on 03/19/21 09:12 - END OF NOTE Assessment/Plan (1) Left lower lobe pneumonia Current Visit: Yes Status: Acute Qualifiers: Pneumonia type: due to unspecified organism Qualified Code(s): J18.9 - Pneumonia, unspecified organism Assessment & Plan: Doing much better, on day #2 of vancomycin and zosyn. WBC are back to normal, 10.4 today down from 21.7 yesterday. Pt appears to be feeling better. Code(s): J18.9 - PNEUMONIA, UNSPECIFIED ORGANISM (2) Hyponatremia Current Visit: Yes Status: Acute Assessment & Plan: To 129 today, was 136 yesterday. Mild fluid restriction and 500 cc NS; recheck in a.m. Code(s): E87.1 - HYPO-OSMOLALITY AND HYPONATREMIA (3) History of CHF (congestive heart failure) Current Visit: No Status: Chronic Code(s): Z86.79 - PERSONAL HISTORY OF OTHER DISEASES OF THE CIRCULATORY SYSTEM (4) Seizure disorder Current Visit: Yes Status: Chronic Code(s): G40.909 - EPILEPSY, UNSP, NOT INTRACTABLE, WITHOUT STATUS EPILEPTICUS (5) Mentally challenged Current Visit: Yes Status: Chronic Code(s): F79 - UNSPECIFIED INTELLECTUAL DISABILITIES
[2021-03-20] MEDS: ECOTRIN 81 MG PO SCH (09:34)
[2021-03-20] MEDS: VITAMIN D PO SCH (09:34)
[2021-03-20] MEDS: Aldactone 25 MG PO SCH (09:35)
[2021-03-20] MEDS: BUMEX 1 MG PO SCH ×2 (09:35→17:19)
[2021-03-20] MEDS: Klor Con 10 MEQ PO SCH ×4 (09:35→21:23)
[2021-03-20] MEDS: FOLATE 1 MG PO SCH (09:35)
[2021-03-20] MEDS: MAG-OX 400 PO SCH (09:36)
[2021-03-20] MEDS: Protonix 40MG Tablet PO SCH (09:36)
[2021-03-20] MEDS: SYNTHROID 50 MCG PO SCH (09:36)
[2021-03-20] MEDS: Colace 100 MG PO SCH ×2 (09:36→21:23)
[2021-03-20] MEDS: THERAGRAN MULTIVITAMIN PO SCH (09:36)
[2021-03-20] MEDS: ZOLOFT 50 MG TABLET PO SCH (09:37)
[2021-03-20] MEDS: FEOSOL 325 MG PO SCH (09:37)
[2021-03-20] MEDS: PATIENT OWN MEDICATION PO SCH ×6 (09:37→21:25)
[2021-03-20] MEDS: Trileptal 300 MG Tablet PO SCH ×2 (09:38→21:26)
[2021-03-20] MEDS: Zaroxolyn 2.5 MG PO SCH (09:45)
[2021-03-20 10:43] LABS: Slide Review 1 YES
--- NOTE | 2021-03-20 16:28 | XRAY ---
Indication: Urinary retention. Two-dimensional urinary bladder sonogram obtained post void as ordered. Post void volume is 57 cc. No focal bladder mass/abnormality.
[2021-03-20] MEDS: Sodium Chloride 0.9% 1000 ML 1,000 ML IV SCH ×2 (20:55→21:22)
[2021-03-21] MEDS: Zosyn 3.375 GM Vial 3.375 GM in Sodium Chloride 100ML MINI-BAG PLUS 100 ML IV SCH ×4 (00:06→19:03)
[2021-03-21 05:34] LABS: Absolute Neutrophil Ct (ANC) 4.77 (1.4-6.9); BASOPHIL % 0.3 % (0.0-0.4); Basophil (Absolute #) 0.02 (0-0.4); Eosinophil % 2.9 % (0.00-5.0); Eosinophil (Absolute #) 0.21 (0-0.5); Hematocrit 31.9 % (35-47); Hemoglobin 9.7 gm/dl (12.0-16.0); Lymphocytes % 23.3 % (24.0-44.0); Mean Cell Volume 101.9 fl (78-100); Mean Corpuscular Hgb Concent. 30.4 g/dl (32-36); Mean Platelet Volume 10.5 fl (7.5-11.0); Monocyte (Absolute #) 0.61 (0.0-1.3); Monocytes % 8.3 % (0.0-12.0); Neutrophil % 65.2 % (36.0-66.0); Platelet Count 176 K/mm3 (150-450); Red Blood Count 3.13 M/mm3 (4.1-5.4); Red Cell Distribution Width 13.6 % (11.5-14.0); White Blood Count 7.3 K/mm3 (4.0-10.5)
[2021-03-21 06:06] LABS: ALBUMIN 3.4 g/dL (3.5-5.0); ANION GAP 11.1 MEQ/L (5-15); BILIRUBIN,TOTAL 0.2 mg/dL (0.2-1.3); Calcium 8.5 mg/dL (8.4-10.2); Creatinine 1 1.04 mg/dL (0.52-1.04); EST GLOMERULAR FILTRATION RATE 58.3 ML/MIN; Potassium 3.6 mmol/L (3.5-5.1); Total Protein 6.6 g/dL (6.3-8.2)
--- NOTE | 2021-03-21 09:14 | PCM.NOTE ---
Date and Time: 03/21/21910 Subjective Assessment: patient with no complaints, states she feels "ok" denies pain Objective Exam General Appearance: obese Neurologic Exam: alert, cooperative Respiratory Exam: rhonchi (improved), No respiratory distress, No accessory m uscle use Cardiovascular Exam: regular rate/rhythm, normal heart sounds Gastrointestinal/Abdomen Exam: soft, No tenderness, No mass Extremity Exam: swelling OBJECTIVE DATA Vital Signs: Vital Signs - 24 hr Temp Pulse Resp BP Pulse Ox 03/21/21 06:57 96.9 F 67 18 96/52 98 03/21/21 04:00 97.7 F 68 19 108/53 100 03/20/21 23:49 97.7 F 65 18 116/55 100 03/20/21 20:00 97.7 F 67 18 118/65 99 03/20/21 19:05 67 16 99 03/20/21 16:12 97.9 F 63 20 114/58 99 03/20/21 12:55 60 16 98 03/20/21 11:40 97.8 F 66 20 104/59 98 Pain Assessment - Last Documented Pain Intensity 0 Intake and Output: Intake & Output 03/18/21 03/19/21 03/20/21 03/21/21 11:59 11:59 11:59 11:59 Intake Total 1592 2109 3238 Output Total 277 854 2351 Balance 1042 1809 1388 Weight 106.4 kg 105.1 kg 107.3 kg 107.3 kg Lab Results: Lab Results-Last 24 Hours 03/20/21 03/21/21 03/21/21 Range/Units 04:52 05:24 05:24 WBC 7.3 (4.0-10.5) K/mm3 RBC 3.13 L (4.1-5.4) M/mm3 Hgb 9.7 L (12.0-16.0) gm/dl Hct 31.9 L (35-47) % MCV 101.9 H (78-100) fl MCH 31.0 (26-32) pg MCHC 30.4 L (32-36) g/dl RDW 13.6 (11.5-14.0) % Plt Count 176 D (150-450) K/mm3 MPV 10.5 (7.5-11.0) fl Gran % 65.2 (36.0-66.0) % Eos # (Auto) 0.21 (0-0.5) Absolute Lymphs (auto) 1.70 (1.0-4.6) Absolute Monos (auto) 0.61 (0.0-1.3) Lymphocytes % 23.3 L (24.0-44.0) % Monocytes % 8.3 (0.0-12.0) % Eosinophils % 2.9 (0.00-5.0) % Basophils % 0.3 (0.0-0.4) % Absolute Granulocytes 4.77 (1.4-6.9) Basophils # 0.02 (0-0.4) Sodium 137 D (137-145) mmol/L Potassium 3.6 (3.5-5.1) mmol/L Chloride 95 L (98-107) mmol/L Carbon Dioxide 35 H (22-30) mmol/L Anion Gap 11.1 (5-15) MEQ/L BUN 16 (7-17) mg/dL Creatinine 1.04 (0.52-1.04) mg/dL Estimated GFR 58.3 ML/MIN Glucose 98 (74-106) mg/dL Calcium 8.5 (8.4-10.2) mg/dL Total Bilirubin 0.20 (0.2-1.3) mg/dL AST 22 (14-36) U/L ALT 14 (0-35) U/L Alkaline Phosphatase 108 (38-126) U/L NT-Pro-B Natriuret Pep (0-900) pg/mL Serum Total Protein 6.6 (6.3-8.2) g/dL Albumin 3.4 L (3.5-5.0) g/dL Slides for Path Review YES 03/21/21 Range/Units 05:24 WBC (4.0-10.5) K/mm3 RBC (4.1-5.4) M/mm3 Hgb (12.0-16.0) gm/dl Hct (35-47) % MCV (78-100) fl MCH (26-32) pg MCHC (32-36) g/dl RDW (11.5-14.0) % Plt Count (150-450) K/mm3 MPV (7.5-11.0) fl Gran % (36.0-66.0) % Eos # (Auto) (0-0.5) Absolute Lymphs (auto) (1.0-4.6) Absolute Monos (auto) (0.0-1.3) Lymphocytes % (24.0-44.0) % Monocytes % (0.0-12.0) % Eosinophils % (0.00-5.0) % Basophils % (0.0-0.4) % Absolute Granulocytes (1.4-6.9) Basophils # (0-0.4) Sodium (137-145) mmol/L Potassium (3.5-5.1) mmol/L Chloride (98-107) mmol/L Carbon Dioxide (22-30) mmol/L Anion Gap (5-15) MEQ/L BUN (7-17) mg/dL Creatinine (0.52-1.04) mg/dL Estimated GFR ML/MIN Glucose (74-106) mg/dL Calcium (8.4-10.2) mg/dL Total Bilirubin (0.2-1.3) mg/dL AST (14-36) U/L ALT (0-35) U/L Alkaline Phosphatase (38-126) U/L NT-Pro-B Natriuret Pep 1510 H (0-900) pg/mL Serum Total Protein (6.3-8.2) g/dL Albumin (3.5-5.0) g/dL Slides for Path Review Radiology Exams: Radiology Procedures Category Date Time Status Ultrasound Bladder [BLADDER] [US] Urgent Exams 03/20/21 15:33 Completed Multi-Disciplinary Progress Notes: Multi-Disciplinary Progress Notes 03/20/21 13:17 Case Management Note by Di Cohen NO CHANGE IN DC PLANS AT THIS TIME- PATIENT TO RETURN TO IN AT TIME OF DC Initialized on 03/20/21 13:17 - END OF NOTE Assessment/Plan (1) Pneumonia Current Visit: No Status: Acute Qualifiers: Pneumonia type: due to unspecified organism Laterality: left Lung location: unspecified part of lung Qualified Code(s): J18.9 - Pneumonia, unspecified organism Assessment & Plan: wbc normalized, on vanc/zosyn emperically and clinically improving. will repeat chest xray today, likely back to [facility] tomorrow if continues to do well. Code(s): J18.9 - PNEUMONIA, UNSPECIFIED ORGANISM (2) History of CHF (congestive heart failure) Current Visit: No Status: Chronic Assessment & Plan: d/c IV fluids, will follow volume status, likely hyponatremia was from early volume overload. her volume status is tenuous and requires high doses of diuretics at baseline Code(s): Z86.79 - PERSONAL HISTORY OF OTHER DISEASES OF THE CIRCULATORY SYSTEM (3) Seizure Current Visit: No Status: Acute Code(s): R56.9 - UNSPECIFIED CONVULSIONS
[2021-03-21] MEDS ORDERED: VITAMIN D2 PO SCH (10:00)
[2021-03-21] MEDS: DUONEB 0.5-3 MG/3 ml Neb IH SCH ×3 (10:09→19:35)
[2021-03-21] MEDS: VITAMIN D PO SCH (10:50)
[2021-03-21] MEDS: ECOTRIN 81 MG PO SCH (10:50)
[2021-03-21] MEDS: Aldactone 25 MG PO SCH (10:51)
[2021-03-21] MEDS: ZOLOFT 50 MG TABLET PO SCH (10:51)
[2021-03-21] MEDS: FEOSOL 325 MG PO SCH (10:51)
[2021-03-21] MEDS: Protonix 40MG Tablet PO SCH (10:52)
[2021-03-21] MEDS: FOLATE 1 MG PO SCH (10:52)
[2021-03-21] MEDS: Colace 100 MG PO SCH ×2 (10:52→21:07)
[2021-03-21] MEDS: THERAGRAN MULTIVITAMIN PO SCH (10:52)
[2021-03-21] MEDS: SYNTHROID 50 MCG PO SCH (10:52)
[2021-03-21] MEDS: MAG-OX 400 PO SCH (10:52)
[2021-03-21] MEDS: Klor Con 10 MEQ PO SCH ×4 (10:52→21:07)
[2021-03-21] MEDS: PATIENT OWN MEDICATION PO SCH ×6 (10:53→21:08)
[2021-03-21] MEDS: BUMEX 1 MG PO SCH ×2 (10:54→17:58)
[2021-03-21] MEDS: Trileptal 300 MG Tablet PO SCH ×2 (10:55→21:09)
--- NOTE | 2021-03-21 11:01 | XRAY ---
Indication: Follow-up pneumonia. Comparison: March 18, 2021. Portable chest grossly unchanged again demonstrating diffuse bilateral interstitial alveolar opacities left greater than right. Heart remains borderline enlarged. No new cardiopulmonary abnormalities.
[2021-03-21] MEDS: VANCOMYCIN 1.25 GM/250 ML BAG 1.25 GM/250 ML PIGGYBACK IV SCH (11:50)
[2021-03-21] MEDS ORDERED: DUONEB 0.5-3 MG/3 ml Neb IH ONE (19:10)
[2021-03-21] MEDS: Advair Hfa 115/21 Common canister IH SCH (19:36)
[2021-03-22] MEDS: Zosyn 3.375 GM Vial 3.375 GM in Sodium Chloride 100ML MINI-BAG PLUS 100 ML IV SCH ×2 (03:18→06:27)
[2021-03-22 06:02] LABS: Absolute Neutrophil Ct (ANC) 3.21 (1.4-6.9); BASOPHIL % 0.5 % (0.0-0.4); Basophil (Absolute #) 0.03 (0-0.4); Eosinophil % 3.3 % (0.00-5.0); Eosinophil (Absolute #) 0.21 (0-0.5); Hematocrit 32.4 % (35-47); Hemoglobin 9.8 gm/dl (12.0-16.0); Lymphocyte (Absolute #) 2.22 (1.0-4.6); Lymphocytes % 35.4 % (24.0-44.0); Mean Cell Volume 100.9 fl (78-100); Mean Corpuscular Hemoglobin 30.5 pg (26-32); Mean Corpuscular Hgb Concent. 30.2 g/dl (32-36); Mean Platelet Volume 10.6 fl (7.5-11.0); Monocytes % 9.6 % (0.0-12.0); Neutrophil % 51.2 % (36.0-66.0); Platelet Count 189 K/mm3 (150-450); Red Blood Count 3.21 M/mm3 (4.1-5.4); Red Cell Distribution Width 13.7 % (11.5-14.0); White Blood Count 6.3 K/mm3 (4.0-10.5)
[2021-03-22 06:14] LABS: ANION GAP 8.6 MEQ/L (5-15); BLOOD UREA NITROGEN 18 mg/dL (7-17); CHLORIDE 90 mmol/L (98-107); Calcium 8.6 mg/dL (8.4-10.2); Carbon Dioxide 39 mmol/L (22-30); Creatinine 1 0.93 mg/dL (0.52-1.04); EST GLOMERULAR FILTRATION RATE > 60.0 ML/MIN; Glucose 86 mg/dL (74-106); MAGNESIUM 1.4 mg/dL (1.6-2.3); Potassium 3.3 mmol/L (3.5-5.1); SODIUM 134 mmol/L (137-145)
[2021-03-22] MEDS: Advair Hfa 115/21 Common canister IH SCH (06:41)
[2021-03-22] MEDS: DUONEB 0.5-3 MG/3 ml Neb IH SCH (06:41)
[2021-03-22 07:52] VITALS: BP 127/64; PULSE 76; O2SAT 96
--- NOTE | 2021-03-22 08:23 | PCM.DS ---
Discharge Summary Date of Admission: 03/18/21 14:18 Admitting Physician: ALBARO HARRELL DO Primary Care Provider: ZAIRA BLISS BIJU Allergies Allergies eslicarbazepine Allergy (Verified 10/26/20 19:18) heparin Allergy (Verified 10/26/20 19:18) perampanel [From [facility]] Allergy (Verified 10/26/20 19:18) Hospital Summary - Hospital Course Hospital Course: patient admitted with pneumonia, treated emperically with vanc and zosyn, wbc normalized quickly. clinically she is improved and doing great, at her baseline and requests to go home today. - Vitals & Intake/Output Vital Signs: Vital Signs Temperature 98.2 F 03/22/21 07:51 Pulse Rate 76 03/22/21 07:51 Respiratory Rate 19 03/22/21 07:51 Blood Pressure 127/64 03/22/21 07:51 O2 Sat by Pulse Oximetry 96 03/22/21 07:51 Intake & Output: Intake & Output 03/19/21 03/20/21 03/21/21 03/22/21 11:59 11:59 11:59 11:59 Intake Total 1592 2109 3238 2120 Output Total 333 931 2096 1000 Balance 1042 1809 1388 1120 Weight 105.1 kg 107.3 kg 107.3 kg - Lab Result Diagrams: 03/22/21 05:51 03/22/21 05:51 Lab Results-Last 24 Hrs: Lab Results-Last 24 Hours 03/21/21 03/22/21 03/22/21 Range/Units 10:45 05:51 05:51 WBC 6.3 (4.0-10.5) K/mm3 RBC 3.21 L (4.1-5.4) M/mm3 Hgb 9.8 L (12.0-16.0) gm/dl Hct 32.4 L (35-47) % MCV 100.9 H (78-100) fl MCH 30.5 (26-32) pg MCHC 30.2 L (32-36) g/dl RDW 13.7 (11.5-14.0) % Plt Count 189 (150-450) K/mm3 MPV 10.6 (7.5-11.0) fl Gran % 51.2 (36.0-66.0) % Eos # (Auto) 0.21 (0-0.5) Absolute Lymphs (auto) 2.22 (1.0-4.6) Absolute Monos (auto) 0.60 (0.0-1.3) Lymphocytes % 35.4 (24.0-44.0) % Monocytes % 9.6 (0.0-12.0) % Eosinophils % 3.3 (0.00-5.0) % Basophils % 0.5 (0.0-0.4) % Absolute Granulocytes 3.21 (1.4-6.9) Basophils # 0.03 (0-0.4) Sodium 134 L (137-145) mmol/L Potassium 3.3 L (3.5-5.1) mmol/L Chloride 90 L (98-107) mmol/L Carbon Dioxide 39 H (22-30) mmol/L Anion Gap 8.6 (5-15) MEQ/L BUN 18 H (7-17) mg/dL Creatinine 0.93 (0.52-1.04) mg/dL Estimated GFR > 60.0 ML/MIN Glucose 86 (74-106) mg/dL Calcium 8.6 (8.4-10.2) mg/dL Magnesium 1.4 L (1.6-2.3) mg/dL Vancomycin Trough 31.00 H (10-20) ug/mL Micro Results-Entire Visit: Microbiology 03/18/21 08:38 Urine Culture - Final Catherized NO GROWTH 03/18/21 11:12 Blood Culture - Preliminary Blood NO GROWTH TO DATE 03/18/21 09:10 Blood Culture - Preliminary Blood NO GROWTH TO DATE - Radiology Exams Ordered Rad Exams-Entire Visit: Radiology Procedures Category Date Time Status CHEST 1 VIEW (PORTABLE) Routine Exams 03/21/21 09:14 Completed Ultrasound Bladder [BLADDER] [US] Urgent Exams 03/20/21 15:33 Completed - Procedures and Test Procedures and Tests throughout Hospitalization: Therapy Orders & Screens 03/19/21 09:27 Oxygen NASAL CANNULA 2 lpm Comment: Diagnosis: pneumonia 03/20/21 07:00 Respiratory Therapy Assessment DAILY Comment: Diagnosis: pneumonia Discharge Exam General Appearance: no apparent distress, obese Neurologic Exam: alert, cooperative Respiratory Exam: normal breath sounds, lungs clear, No respiratory distress Cardiovascular Exam: regular rate/rhythm, normal heart sounds Gastrointestinal/Abdomen Exam: soft, No tenderness, No mass Extremity Exam: pedal edema, swelling Skin Exam: normal color, warm, dry Final Diagnosis/Problem List - Final Discharge Diagnosis/Problem (1) Pneumonia Current Visit: No Status: Acute Assessment & Plan: po levaquin ordered Code(s): J18.9 - PNEUMONIA, UNSPECIFIED ORGANISM (2) History of CHF (congestive heart failure) Current Visit: No Status: Chronic Code(s): Z86.79 - PERSONAL HISTORY OF OTH ER DISEASES OF THE CIRCULATORY SYSTEM (3) Seizure Current Visit: No Status: Acute Code(s): R56.9 - UNSPECIFIED CONVULSIONS - Discharge Disposition: Skilled Care @ [facility] Condition: Good Prescriptions: New Levofloxacin [Levaquin] 500 mg PO DAILY #7 tablet Continue Levothyroxine Sodium 50 Mcg [Synthroid 50 Mcg] 50 mcg PO DAILY Potassium Chloride 20 Meq [Klor-Con 20 MEQ] 20 meq PO QID PANTOPRAZOLE 40 mg Tablet [Protonix 40MG Tablet] 40 mg PO DAILY Clobazam [Onfi] 20 mg PO BID Magnesium Oxide 400 mg [Mag-Ox 400] 400 mg PO DAILY Ferrous Sulfate 325 mg [Feosol 325 mg] 325 mg PO DAILY Docusate Sodium 100 mg [Colace 100 MG] 100 mg PO BID Aspirin 81 gm Chew [Baby Aspirin 81 mg Chew] 81 mg PO DAILY Sertraline HCl 50 mg [Zoloft 50 mg Tablet] 75 mg PO DAILY Multivitamin [Jtc-Fmpdmk-Kcowj] 1 each PO DAILY Lacosamide [Vimpat] 200 mg PO BID Ergocalciferol (Vitamin D2) [Vitamin D2] 50,000 unit PO Q7D Folic Acid 1 mg [Folate 1 mg] 1 mg PO DAILY Cholecalciferol (Vitamin D3) [Vitamin D3] 400 unit PO DAILY Budesonide/Formoterol Fumarate [Symbicort 160-4.5 Mcg Inhaler] 2 puff IH BID Albuterol Sulfate [Proair Hfa] 2 puff IH TID Albuterol/Ipratropium 3ml Neb* [DUONEB 0.5-3 MG/3 ml Neb] 3 ml IH TID Spironolactone 25 mg [Aldactone 25 MG] 25 mg PO DAILY Oxcarbazepine 300 mg [Trileptal 300 MG Tablet] 450 mg PO BID Bumetanide [Bumex] 2 mg PO BID Non-Formulary Drug [Non-Formulary Bulk Item] 30 ml PO TID Melatonin 1 tab PO HS Brivaracetam [Briviact] 10 ml PO BID Metolazone 2.5 mg [Zaroxolyn 2.5 MG] 2.5 mg PO UD Additional Instructions: resume all previous home meds, add levaquin 500mg daily x 7 days Follow up with: ZAIRA BLISS MD [Primary Care Provider] -
[2021-03-22] MEDS: ECOTRIN 81 MG PO SCH (09:05)
[2021-03-22] MEDS: BUMEX 1 MG PO SCH (09:05)
[2021-03-22] MEDS: ZOLOFT 50 MG TABLET PO SCH (09:05)
[2021-03-22] MEDS: VITAMIN D PO SCH (09:06)
[2021-03-22] MEDS: MAG-OX 400 PO SCH (09:06)
[2021-03-22] MEDS: Aldactone 25 MG PO SCH (09:06)
[2021-03-22] MEDS: Colace 100 MG PO SCH (09:06)
[2021-03-22] MEDS: FOLATE 1 MG PO SCH (09:06)
[2021-03-22] MEDS: FEOSOL 325 MG PO SCH (09:06)
[2021-03-22] MEDS: Klor Con 10 MEQ PO SCH (09:06)
[2021-03-22] MEDS: Protonix 40MG Tablet PO SCH (09:07)
[2021-03-22] MEDS: Trileptal 300 MG Tablet PO SCH (09:07)
[2021-03-22] MEDS: THERAGRAN MULTIVITAMIN PO SCH (09:07)
[2021-03-22] MEDS: SYNTHROID 50 MCG PO SCH (09:08)
[2021-03-22] MEDS: PATIENT OWN MEDICATION PO SCH ×3 (09:09)
[2021-03-22] MEDS: Zaroxolyn 2.5 MG PO SCH (09:10)
== END 2021-03-22 10:20 | DRG 194 ==
LOC: ED 08:05 → MED SURG 14:18 → OBSVTOIN 14:18
PROVIDERS: ADMIT Family Medicine; ATTEND Family Medicine
DX: J18.9 Pneumonia, unspecified organism (principal); E87.1 Hypo-osmolality and hyponatremia; R11.2 Nausea with vomiting, unspecified; G40.909 Epilepsy, unspecified, not intractable, without status epilepticus; I50.9 Heart failure, unspecified; E03.9 Hypothyroidism, unspecified; E78.00 Pure hypercholesterolemia, unspecified; F79 Unspecified intellectual disabilities; Z79.899 Other long term (current) drug therapy; Z86.79 Personal history of other diseases of the circulatory system; Z20.828 Contact with and (suspected) exposure to other viral communicable diseases
CPT/HCPCS: 0241U; 36415; 71045; 74176; 76705; 80048; 80053; 80202; 81001; 82150; 82947; 83036; 83605; 83690; 83735; 83880; 84484; 85025; 85610; 85730; 87040; 87086; 94640; 94760; 96365; 96367; 96374; 99285; J0456; J0696; J1956; J2001; J2405; Q0162; A9270-GY; J3370

== ENCOUNTER 2021-09-24 13:24 | Observation (INO) | payer MEDICARE ==
--- NOTE | 2021-09-24 13:28 | ERPHSYRPT ---
- History of Present Illness Time Seen by Provider: 09/24/21 13:27 Source: patient, EMS, custodial records Exam Limitations: no limitations Physician History: This is a morbidly obese 55-year-old white female who is a resident in a nearby custodial who presents with altered level consciousness. She is answering some questions appropriately today. However, her mental status has changed at the custodial. She is also eating less and is less active. Patient does have kidney disease and sees Dr. Varela as her lna. She has a history of CHF, seizure disorder with an implanted seizure device, hypothyroidism, hypertension, hypercholesterolemia and gastroesophageal reflux disease. Patient states she has no pain at this time. She is not short of breath. She states that she has vomited a few times in the last couple days. She denies diarrhea. 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 Timing/Duration: day(s) (Couple of days) Severity: moderate Character of Deficits: none Deficits: decrease ability to walk Baseline/Normal Cognition: alert oriented x 3 Current Cognition: alert oriented x 3 Baseline Gait: walks w/o assistance Associated Symptoms: nausea, vomiting Allergies/Adverse Reactions: eslicarbazepine Allergy (Verified 09/24/21 13:41) heparin Allergy (Verified 09/24/21 13:41) perampanel [From Fycompa] Allergy (Verified 09/24/21 13:41) Home Medications: Aspirin 81 gm Chew [Baby Aspirin 81 mg Chew] 81 mg PO DAILY 06/22/16 [History] Clobazam [Onfi] 20 mg PO BID 06/22/16 [History] Docusate Sodium 100 mg [Docusate Sodium 100 MG] 100 mg PO BID 06/22/16 [History] Ferrous Sulfate 325 mg [Feosol 325 mg] 325 mg PO DAILY 06/22/16 [History] Levothyroxine Sodium 50 Mcg [Synthroid 50 Mcg] 50 mcg PO DAILY 06/22/16 [History] Magnesium Oxide 400 mg [Mag-Ox 400] 400 mg PO DAILY 06/22/16 [History] PANTOPRAZOLE 40 mg Tablet [Protonix 40MG Tablet] 40 mg PO DAILY 06/22/16 [History] Potassium Chloride 20 Meq [Klor-Con 20 MEQ] 20 meq PO QID 06/22/16 [History] Sertraline HCl 50 mg [Zoloft 50 mg Tablet] 75 mg PO DAILY 06/22/16 [History] Ergocalciferol (Vitamin D2) [Vitamin D2] 50,000 unit PO Q7D 05/10/18 [History] Folic Acid 1 mg [Folate 1 mg] 1 mg PO DAILY 05/10/18 [History] Lacosamide [Vimpat] 200 mg PO BID 05/10/18 [History] Multivitamin [Vlq-Nipfpd-Ywjmz] 1 each PO DAILY 05/10/18 [History] Albuterol Sulfate [Proair Hfa] 2 puff IH TID 05/16/20 [History] Budesonide/Formoterol Fumarate [Symbicort 160-4.5 Mcg Inhaler] 2 puff IH BID 05/16/20 [History] Cholecalciferol (Vitamin D3) [Vitamin D3] 400 unit PO DAILY 05/16/20 [History] Albuterol/Ipratropium 3ml Neb* [DUONEB 0.5-3 MG/3 ml Neb] 3 ml IH TID 10/26/20 [History] Bumetanide [Bumex] 2 mg PO BID 10/26/20 [History] Oxcarbazepine 300 mg [Trileptal 300 MG Tablet] 450 mg PO BID 10/26/20 [History] Spironolactone 25 mg [Aldactone 25 MG] 25 mg PO DAILY 10/26/20 [History] Brivaracetam [Briviact] 10 ml PO BID 10/27/20 [History] Melatonin 1 tab PO HS 10/27/20 [History] Metolazone 2.5 mg [Zaroxolyn 2.5 MG] 2.5 mg PO UD 10/27/20 [History] Non-Formulary Drug [Non-Formulary Bulk Item] 30 ml PO TID 10/27/20 [History] Hx Tetanus, Diphtheria Vaccination/Date Given: No Hx Influenza Vaccination/Date Given: No Hx Pneumococcal Vaccination/Date Given: No Travel Risk - International Travel Have you traveled outside of the country in past 3 weeks: No - Coronavirus Screening Are you exhibiting any of the following symptoms?: No Close contact with a COVID-19 positive Pt in past 14-21 Days: No - Vaccine Status Have you recieved a Covid-19 vaccination: No (unknown) - Review of Systems Constitutional: Weakness Eyes: No Symptoms Ears, Nose, & Throat: No Symptoms Respiratory: No Symptoms Cardiac: No Symptoms Abdominal/Gastrointestinal: Nausea, Vomiting, No Abdominal Pain, No Diarrhea, No Constipation Genitourinary Symptoms: No Symptoms Musculoskeletal: No Symptoms Skin: No Symptoms Neurological: Gait Changes Psychological: No Symptoms Endocrine: No Symptoms Hematologic/Lymphatic: No Symptoms Immunological/Allergic: No Symptoms All Other Systems: Reviewed and Negative - Past Medical History Pertinent Past Medical History: Yes Neurological History: Epilepsy, Seizures ENT History: No Pertinent History Cardiac History: Congestive Heart Failure, High Cholesterol Respiratory History: No Pertinent History Endocrine Medical History: Hypothyroidism, Other Musculoskeletal History: No Pertinent History GI Medical History: GERD History: No Pertinent History Psycho-Social History: Depression Female Reproductive Disorders: No Pertinent History Other Medical History: kidney disease - Past Surgical History Past Surgical History: Yes Neuro Surgical History: No Pertinent History Cardiac: No Pertinent History Respiratory: No Pertinent History Gastrointestinal: No Pertinent History Genitourinary: No Pertinent History Musculoskeletal: No Pertinent History Female Surgical History: No Pertinent History Other Surgical History: implanted seizure device - Social History Smoking Status: Never smoker Exposure to second hand smoke: No Drug Use: none Patient Lives Alone: No - Nursing Vital Signs Nursing Vital Signs: Initial Vital Signs Temperature 98.4 F 09/24/21 13:26 Pulse Rate 92 H 09/24/21 13:26 Respiratory Rate 22 09/24/21 13:26 Blood Pressure 128/105 09/24/21 13:26 O2 Sat by Pulse Oximetry 99 09/24/21 13:26 Pain Scale Pain Intensity 0 - Ramesh Coma Scale Best Eye Response ([place]): (4) open spontaneously Best Verbal Response (Ramesh): (5) oriented Best Motor Response ([place]): (6) obeys commands [place] Total: 15 - Physical Exam General Appearance: no apparent distress, alert, anxiety, obese Eye Exam: bilateral eye: normal inspection, PERRL, EOMI Ears, Nose, Throat Exam: TMs normal, dry mucous membranes Neck Exam: normal inspection, non-tender, supple, full range of motion Respiratory: normal breath sounds, lungs clear, airway intact, No chest tenderness, No respiratory distress Cardiovascular: regular rate/rhythm, normal heart sounds, normal peripheral pulses Gastrointestinal: soft, normal bowel sounds, No tenderness Pelvic Exam: not done Rectal Exam: not done Back Exam: normal inspection, normal range of motion, No CVA tenderness, No vertebral tenderness Extremity Exam: normal inspection, normal range of motion, pelvis stable Mental Status: alert, oriented x 3 carton wrapper Exam: normal hearing, normal speech, PERRL, tongue midline Motor/Sensory: no motor deficit, no sensory deficit, no pronator drift Skin Exam: normal color, warm, dry SpO2 Interpretation: normal O2 Delivery: Room Air - Course Nursing assessment & vital signs reviewed: Yes EKG Interpreted by Me: RATE, Sinus Rhythm, NORMAL AXIS, Left Bundle Branch Block, Other (No acute ischemic changes on today's EKG.) Ordered Tests: Active Orders 24 hr Category Date Time Status Orthotist Prosthetist STAT Care 09/24/21 17:12 Active EKG-ER Only STAT Care 09/24/21 13:46 Active Loera [Catheter-[place] Loera] STAT Care 09/24/21 15:50 Active IV Insertion STAT Care 09/24/21 13:46 Active NPO (ED) STAT Care 09/24/21 13:46 Active Oxygen-ED Only Nasal Cannula 2 lpm Care 09/24/21 17:20 Active Pulse Oximetry (ED) STAT Care 09/24/21 13:46 Active HEAD WITHOUT CONTRAST [CT] Stat Exams 09/24/21 14:03 Completed BMP Stat Lab 09/24/21 20:10 Completed CBC W DIFF Stat Lab 09/24/21 13:46 Completed CMP Stat Lab 09/24/21 14:30 Completed CULTURE,URINE Stat Lab 09/24/21 15:49 Received MAGNESIUM Stat Lab 09/24/21 14:30 Completed T4 (Thyroxine) Stat Lab 09/24/21 14:30 Completed TROPONIN Q3H Lab 09/24/21 14:30 Completed TROPONIN Q3H Lab 09/24/21 17:30 Completed TROPONIN Q3H Lab 09/24/21 18:06 Completed TROPONIN Q3H Lab 09/24/21 23:00 Ordered TSH, 3RD Generation Stat Lab 09/24/21 14:30 Completed UA W/RFX CULTURE Stat Lab 09/24/21 15:49 Completed Urine Triage Profile Stat Lab 09/24/21 15:49 Completed Transfer Order Routine Transfer 09/24/21 Ordered Medication Summary Generic Name Dose Route Start Last Admin Trade Name Jessica PRN Reason Stop Dose Admin Sodium Chloride 1,000 mls @ 100 mls/hr 09/24/21 14:00 09/24/21 14:07 Sodium Chloride 0.9% 1000 Ml IV 10/24/21 13:59 100 mls/hr .Q10H ANDREE Administration Discontinued Medications Generic Name Dose Route Start Last Admin Trade Name Jessica PRN Reason Stop Dose Admin Calcium Gluconate 1,000 mg 09/24/21 16:11 09/24/21 17:10 Calcium Gluconate 1000 Mg/10 Ml Vial IV 09/24/21 16:12 1,000 mg STAT ONE Administration Calcium Gluconate Confirm 09/24/21 17:02 Calcium Gluconate 1000 Mg/10 Ml Vial Administered 09/24/21 17:03 Dose 1,000 mg IV .STK-MED ONE Dextrose 50 ml 09/24/21 16:12 09/24/21 17:11 Dextrose 50%-Water 50 Ml Abboject IV 09/24/21 16:13 50 ml STAT ONE Administration Dextrose Confirm 09/24/21 17:04 Dextrose 50%-Water 50 Ml Abboject Administered 09/24/21 17:05 Dose 50 ml IV .STK-MED ONE Furosemide 20 mg 09/24/21 16:15 09/24/21 17:00 Furosemide 20 Mg/Vial IV 09/24/21 16:16 Not Given STAT ONE Furosemide 20 mg 09/24/21 17:00 09/24/21 17:10 Furosemide 40 Mg/4 Ml Vial IV 09/24/21 17:01 20 mg STAT ONE Administration Furosemide Confirm 09/24/21 17:03 Furosemide 40 Mg/4 Ml Vial Administered 09/24/21 17:04 Dose 40 mg .ROUTE .STK-MED ONE Ceftriaxone Sodium/Dextrose 1 g in 50 mls @ 100 mls/hr 09/24/21 18:02 09/24/21 18:51 Rocephin 1 Gm-D5w 50 Ml Bag IV 09/24/21 18:31 Infused STAT STA Infusion Ceftriaxone Sodium/Dextrose Confirm 09/24/21 18:17 Rocephin 1 Gm-D5w 50 Ml Bag Administered 09/24/21 18:18 Dose 1 g in 50 mls @ ud IV .STK-MED ONE Insulin Human Regular 5 unit 09/24/21 16:12 09/24/21 17:11 Insulin Regular, Human 1 Unit IV 09/24/21 16:13 5 unit STAT ONE Administration Insulin Human Regular Confirm 09/24/21 17:03 Insulin Regular, Human 1 Unit Administered 09/24/21 17:04 Dose 5 unit .ROUTE .STK-MED ONE Patiromer 8.4 gm 09/24/21 16:15 09/24/21 17:11 Patiromer Calcium Sorbitex 8.4 Gm Powd.Pack PO 09/24/21 16:16 8.4 gm STAT STA Administration Patiromer Confirm 09/24/21 17:04 Patiromer Calcium Sorbitex 8.4 Gm Powd.Pack Administered 09/24/21 17:05 Dose 8.4 gm PO .STK-MED ONE Lab/Rad Data: Laboratory Result Diagrams 09/24/21 13:46 09/24/21 20:10 Laboratory Results 09/24/21 09/24/21 09/24/21 Range/Units 20:10 18:06 17:30 WBC (4.0-10.5) x10^3/uL RBC (4.1-5.4) x10^6/uL Hgb (12.0-16.0) g/dL Hct (35-47) % MCV (78-100) fL MCH (26-32) pg MCHC (32-36) g/dL RDW (11.5-14.0) % Plt Count (150-450) x10^3/uL MPV (7.5-11.0) fL Gran % (36.0-66.0) % Immature Gran % (Auto) (0.00-0.4) % Nucleat RBC Rel Count (0.00-0.1) % Eos # (Auto) (0-0.5) x10^3/uL Immature Gran # (Auto) (0.00-0.03) x10^3u/L Absolute Lymphs (auto) (1.0-4.6) x10^3/uL Absolute Monos (auto) (0.0-1.3) x10^3/uL Absolute Nucleated RBC (0.00-0.01) x10^3u/L Lymphocytes % (24.0-44.0) % Monocytes % (0.0-12.0) % Eosinophils % (0.00-5.0) % Basophils % (0.0-0.4) % Absolute Granulocytes (1.4-6.9) x10^3/uL Basophils # (0-0.4) x10^3/uL Sodium 143 (137-145) mmol/L Potassium 3.8 D (3.5-5.1) mmol/L Chloride 97 L (98-107) mmol/L Carbon Dioxide 35 H (22-30) mmol/L Anion Gap 15.5 H (5-15) MEQ/L BUN 30 H (7-17) mg/dL Creatinine 1.63 H (0.52-1.04) mg/dL Estimated GFR 34.7 ML/MIN Glucose 121 H (74-106) mg/dL Calcium 10.9 H (8.4-10.2) mg/dL Magnesium (1.6-2.3) mg/dL Total Bilirubin (0.2-1.3) mg/dL AST (14-36) U/L ALT (0-35) U/L Alkaline Phosphatase (38-126) U/L Ammonia (9-30) umol/L Troponin I 0.128 H* 0.101 H* (0.000-0.034) ng/mL Serum Total Protein (6.3-8.2) g/dL Albumin (3.5-5.0) g/dL Thyroxine (T4) (5.53-10.96) ug/dL TSH 3rd Generation (0.47-4.68) mIU/L Urinalys Dipstick Clnc Urine Color (YELLOW) Urine Appearance (CLEAR) Urine pH (5-6) Ur Specific [place] (1.005-1.025) POC Urine Protein Conf (Negative) Urine Ketones (NEGATIVE) Urine Nitrite (NEGATIVE) Urine Bilirubin (NEGATIVE) Urine Urobilinogen (0-1) mg/dL Urine Leukocytes (NEGATIVE) Urine WBC (Auto) (0-5) /HPF Urine RBC (Auto) (0-2) /HPF U Hyaline Cast (Auto) (0-2) /LPF U Epithel Cells (Auto) (FEW) /HPF Urine Bacteria (Auto) (NEGATIVE) /HPF Urine RBC (0-5) Gurjit/ul Urine Mucus (Auto) (NEGATIVE) /HPF Ur Culture Indicated? Urine Glucose (NEGATIVE) mg/dL Urine Opiates Level (NEGATIVE) Ur Methadone (NEGATIVE) Urine Barbiturates (NEGATIVE) Ur Phencyclidine (PCP) (NEGATIVE) Urine Amphetamine (NEGATIVE) U Benzodiazepine Level (NEGATIVE) Urine Cocaine (NEGATIVE) Urine Marijuana (THC) (NEGATIVE) Influenza Type A Ag (NEGATIVE) Influenza Type B Ag (NEGATIVE) RSV (PCR) (Negative) SARS-CoV-2 (PCR) (NEGATIVE) Slides for Path Review 09/24/21 09/24/21 09/24/21 Range/Units 16:20 15:49 15:49 WBC (4.0-10.5) x10^3/uL RBC (4.1-5.4) x10^6/uL Hgb (12.0-16.0) g/dL Hct (35-47) % MCV (78-100) fL MCH (26-32) pg MCHC (32-36) g/dL RDW (11.5-14.0) % Plt Count (150-450) x10^3/uL MPV (7.5-11.0) fL Gran % (36.0-66.0) % Immature Gran % (Auto) (0.00-0.4) % Nucleat RBC Rel Count (0.00-0.1) % Eos # (Auto) (0-0.5) x10^3/uL Immature Gran # (Auto) (0.00-0.03) x10^3u/L Absolute Lymphs (auto) (1.0-4.6) x10^3/uL Absolute Monos (auto) (0.0-1.3) x10^3/uL Absolute Nucleated RBC (0.00-0.01) x10^3u/L Lymphocytes % (24.0-44.0) % Monocytes % (0.0-12.0) % Eosinophils % (0.00-5.0) % Basophils % (0.0-0.4) % Absolute Granulocytes (1.4-6.9) x10^3/uL Basophils # (0-0.4) x10^3/uL Sodium (137-145) mmol/L Potassium (3.5-5.1) mmol/L Chloride (98-107) mmol/L Carbon Dioxide (22-30) mmol/L Anion Gap (5-15) MEQ/L BUN (7-17) mg/dL Creatinine (0.52-1.04) mg/dL Estimated GFR ML/MIN Glucose (74-106) mg/dL Calcium (8.4-10.2) mg/dL Magnesium (1.6-2.3) mg/dL Total Bilirubin (0.2-1.3) mg/dL AST (14-36) U/L ALT (0-35) U/L Alkaline Phosphatase (38-126) U/L Ammonia (9-30) umol/L Troponin I (0.000-0.034) ng/mL Serum Total Protein (6.3-8.2) g/dL Albumin (3.5-5.0) g/dL Thyroxine (T4) (5.53-10.96) ug/dL TSH 3rd Generation (0.47-4.68) mIU/L Urinalys Dipstick Clnc MAIN LAB Urine Color YELLOW (YELLOW) Urine Appearance SLIGHTLY HAZY (CLEAR) Urine pH 7.0 (5-6) Ur Specific [place] 1.015 (1.005-1.025) POC Urine Protein Conf 30 (Negative) Urine Ketones NEGATIVE (NEGATIVE) Urine Nitrite POSITIVE (NEGATIVE) Urine Bilirubin NEGATIVE (NEGATIVE) Urine Urobilinogen 1 (0-1) mg/dL Urine Leukocytes SMALL (NEGATIVE) Urine WBC (Auto) 26-50 (0-5) /HPF Urine RBC (Auto) 3-5 (0-2) /HPF U Hyaline Cast (Auto) >50 (0-2) /LPF U Epithel Cells (Auto) NONE (FEW) /HPF Urine Bacteria (Auto) MODERATE (NEGATIVE) /HPF Urine RBC TRACE-INTACT (0-5) Gurjit/ul Urine Mucus (Auto) SLIGHT (NEGATIVE) /HPF Ur Culture Indicated? YES Urine Glucose NEGATIVE (NEGATIVE) mg/dL Urine Opiates Level NEGATIVE (NEGATIVE) Ur Methadone NEGATIVE (NEGATIVE) Urine Barbiturates NEGATIVE (NEGATIVE) Ur Phencyclidine (PCP) NEGATIVE (NEGATIVE) Urine Amphetamine NEGATIVE (NEGATIVE) U Benzodiazepine Level POSITIVE (NEGATIVE) Urine Cocaine NEGATIVE (NEGATIVE) Urine Marijuana (THC) NEGATIVE (NEGATIVE) Influenza Type A Ag NEGATIVE (NEGATIVE) Influenza Type B Ag NEGATIVE (NEGATIVE) RSV (PCR) NEGATIVE (Negative) SARS-CoV-2 (PCR) NEGATIVE (NEGATIVE) Slides for Path Review 09/24/21 09/24/21 09/24/21 Range/Units 14:30 14:30 14:30 WBC (4.0-10.5) x10^3/uL RBC (4.1-5.4) x10^6/uL Hgb (12.0-16.0) g/dL Hct (35-47) % MCV (78-100) fL MCH (26-32) pg MCHC (32-36) g/dL RDW (11.5-14.0) % Plt Count (150-450) x10^3/uL MPV (7.5-11.0) fL Gran % (36.0-66.0) % Immature Gran % (Auto) (0.00-0.4) % Nucleat RBC Rel Count (0.00-0.1) % Eos # (Auto) (0-0.5) x10^3/uL Immature Gran # (Auto) (0.00-0.03) x10^3u/L Absolute Lymphs (auto) (1.0-4.6) x10^3/uL Absolute Monos (auto) (0.0-1.3) x10^3/uL Absolute Nucleated RBC (0.00-0.01) x10^3u/L Lymphocytes % (24.0-44.0) % Monocytes % (0.0-12.0) % Eosinophils % (0.00-5.0) % Basophils % (0.0-0.4) % Absolute Granulocytes (1.4-6.9) x10^3/uL Basophils # (0-0.4) x10^3/uL Sodium 144 (137-145) mmol/L Potassium 6.4 H* D (3.5-5.1) mmol/L Chloride 100 (98-107) mmol/L Carbon Dioxide 33 H (22-30) mmol/L Anion Gap 17.5 H (5-15) MEQ/L BUN 28 H (7-17) mg/dL Creatinine 1.97 H (0.52-1.04) mg/dL Estimated GFR 27.9 ML/MIN Glucose 115 H (74-106) mg/dL Calcium 10.7 H (8.4-10.2) mg/dL Magnesium 2.0 (1.6-2.3) mg/dL Total Bilirubin 1.00 (0.2-1.3) mg/dL AST 44 H (14-36) U/L ALT 34 (0-35) U/L Alkaline Phosphatase 147 H (38-126) U/L Ammonia 11 (9-30) umol/L Troponin I 0.101 H* (0.000-0.034) ng/mL Serum Total Protein 10.1 H (6.3-8.2) g/dL Albumin 4.7 (3.5-5.0) g/dL Thyroxine (T4) 6.83 (5.53-10.96) ug/dL TSH 3rd Generation 1.470 (0.47-4.68) mIU/L Urinalys Dipstick Clnc Urine Color (YELLOW) Urine Appearance (CLEAR) Urine pH (5-6) Ur Specific [place] (1.005-1.025) POC Urine Protein Conf (Negative) Urine Ketones (NEGATIVE) Urine Nitrite (NEGATIVE) Urine Bilirubin (NEGATIVE) Urine Urobilinogen (0-1) mg/dL Urine Leukocytes (NEGATIVE) Urine WBC (Auto) (0-5) /HPF Urine RBC (Auto) (0-2) /HPF U Hyaline Cast (Auto) (0-2) /LPF U Epithel Cells (Auto) (FEW) /HPF Urine Bacteria (Auto) (NEGATIVE) /HPF Urine RBC (0-5) Gurjit/ul Urine Mucus (Auto) (NEGATIVE) /HPF Ur Culture Indicated? Urine Glucose (NEGATIVE) mg/dL Urine Opiates Level (NEGATIVE) Ur Methadone (NEGATIVE) Urine Barbiturates (NEGATIVE) Ur Phencyclidine (PCP) (NEGATIVE) Urine Amphetamine (NEGATIVE) U Benzodiazepine Level (NEGATIVE) Urine Cocaine (NEGATIVE) Urine Marijuana (THC) (NEGATIVE) Influenza Type A Ag (NEGATIVE) Influenza Type B Ag (NEGATIVE) RSV (PCR) (Negative) SARS-CoV-2 (PCR) (NEGATIVE) Slides for Path Review 09/24/21 Range/Units 13:46 WBC 15.0 H (4.0-10.5) x10^3/uL RBC 4.39 (4.1-5.4) x10^6/uL Hgb 14.4 (12.0-16.0) g/dL Hct 45.3 (35-47) % MCV 103.2 H (78-100) fL MCH 32.8 H (26-32) pg MCHC 31.8 L (32-36) g/dL RDW 14.4 H (11.5-14.0) % Plt Count 200 (150-450) x10^3/uL MPV 10.1 (7.5-11.0) fL Gran % 75.7 H (36.0-66.0) % Immature Gran % (Auto) 0.5 H (0.00-0.4) % Nucleat RBC Rel Count 0.0 (0.00-0.1) % Eos # (Auto) 0 (0-0.5) x10^3/uL Immature Gran # (Auto) 0.08 H (0.00-0.03) x10^3u/L Absolute Lymphs (auto) 1.67 (1.0-4.6) x10^3/uL Absolute Monos (auto) 1.84 H (0.0-1.3) x10^3/uL Absolute Nucleated RBC 0.00 (0.00-0.01) x10^3u/L Lymphocytes % 11.2 L (24.0-44.0) % Monocytes % 12.3 H (0.0-12.0) % Eosinophils % 0.0 (0.00-5.0) % Basophils % 0.3 (0.0-0.4) % Absolute Granulocytes 11.33 H (1.4-6.9) x10^3/uL Basophils # 0.05 (0-0.4) x10^3/uL Sodium (137-145) mmol/L Potassium (3.5-5.1) mmol/L Chloride (98-107) mmol/L Carbon Dioxide (22-30) mmol/L Anion Gap (5-15) MEQ/L BUN (7-17) mg/dL Creatinine (0.52-1.04) mg/dL Estimated GFR ML/MIN Glucose (74-106) mg/dL Calcium (8.4-10.2) mg/dL Magnesium (1.6-2.3) mg/dL Total Bilirubin (0.2-1.3) mg/dL AST (14-36) U/L ALT (0-35) U/L Alkaline Phosphatase (38-126) U/L Ammonia (9-30) umol/L Troponin I (0.000-0.034) ng/mL Serum Total Protein (6.3-8.2) g/dL Albumin (3.5-5.0) g/dL Thyroxine (T4) (5.53-10.96) ug/dL TSH 3rd Generation (0.47-4.68) mIU/L Urinalys Dipstick Clnc Urine Color (YELLOW) Urine Appearance (CLEAR) Urine pH (5-6) Ur Specific [place] (1.005-1.025) POC Urine Protein Conf (Negative) Urine Ketones (NEGATIVE) Urine Nitrite (NEGATIVE) Urine Bilirubin (NEGATIVE) Urine Urobilinogen (0-1) mg/dL Urine Leukocytes (NEGATIVE) Urine WBC (Auto) (0-5) /HPF Urine RBC (Auto) (0-2) /HPF U Hyaline Cast (Auto) (0-2) /LPF U Epithel Cells (Auto) (FEW) /HPF Urine Bacteria (Auto) (NEGATIVE) /HPF Urine RBC (0-5) Gurjit/ul Urine Mucus (Auto) (NEGATIVE) /HPF Ur Culture Indicated? Urine Glucose (NEGATIVE) mg/dL Urine Opiates Level (NEGATIVE) Ur Methadone (NEGATIVE) Urine Barbiturates (NEGATIVE) Ur Phencyclidine (PCP) (NEGATIVE) Urine Amphetamine (NEGATIVE) U Benzodiazepine Level (NEGATIVE) Urine Cocaine (NEGATIVE) Urine Marijuana (THC) (NEGATIVE) Influenza Type A Ag (NEGATIVE) Influenza Type B Ag (NEGATIVE) RSV (PCR) (Negative) SARS-CoV-2 (PCR) (NEGATIVE) Slides for Path Review YES - Progress Progress: improved, re-examined Progress Note: 09/24/21 16:24 CAT scan of the head without contrast is showing stable atrophy and degenerative micro ischemic changes. No new acute intracranial abnormalities 09/24/21 19:46 Medical decision making: Patient's family wants the patient to be transferred to [facility] if possible. I spoke with Dr. Mcdonnell who is a hospitalist at [facility]. I reviewed the patient history, work-up results and current vital signs with her. She accepts the patient transfer. We are waiting transfer center to contact us to make us aware when a bed is available. 09/24/21 23:03 Medical decision making: [facility] contacted us and stated that the progressive beds will be available so sometime tomorrow. They do not feel that there will be a bed available tonight. I spoke with Dr. Mckeon who is the hospitalist for unassigned patients. I reviewed the patient history, work-up results and patient vital signs and condition. We will place the patient in observation on a monitored bed and repeat labs, repeat EKG in the morning provide the patient with Lovenox. Discussed with : Mannie Counseled pt/family regarding: lab results, diagnosis, rad results - Departure Departure Disposition: Observation Clinical Impression: Hyperkalemia, Acute renal failure, UTI (urinary tract infection), Elevated troponin Condition: Fair Critical Care Time: Yes Critical Care Time(excluding separately billable procedures): Critical 30-74 mins Referrals: ENVIVE,ENVIVE [Primary Care Provider] - Follow up/PCP as directed
[2021-09-24] MEDS: Sodium Chloride 0.9% 1000 ML 1,000 ML IV SCH (14:07)
--- NOTE | 2021-09-24 14:36 | XRAY ---
Indication: Altered mental status. Chronic seizure history. Multiple contiguous axial images obtained through the head without contrast. Comparison: May 24, 2020. Grossly stable global atrophy with mild periventricular degenerative micro-ischemia. No acute intracranial hemorrhage, abnormal extra-axial fluid collection, or mass effect. Fourth ventricle is midline without hydrocephalus. Bony calvarium intact. Visualized paranasal sinuses and mastoid air cells are clear. Impression: Grossly stable atrophy and degenerative micro-ischemia. No new or acute intracranial abnormalities.
[2021-09-24 14:48] LABS: Absolute Neutrophil Ct (ANC) 11.33 x10^3/uL (1.4-6.9); Basophil (Absolute #) 0.05 x10^3/uL (0-0.4); Eosinophil (Absolute #) 0 x10^3/uL (0-0.5); Hematocrit 45.3 % (35-47); Hemoglobin 14.4 g/dL (12.0-16.0); Lymphocyte (Absolute #) 1.67 x10^3/uL (1.0-4.6); Lymphocytes % 11.2 % (24.0-44.0); Mean Cell Volume 103.2 fL (78-100); Mean Corpuscular Hemoglobin 32.8 pg (26-32); Mean Corpuscular Hgb Concent. 31.8 g/dL (32-36); Mean Platelet Volume 10.1 fL (7.5-11.0); Monocyte (Absolute #) 1.84 x10^3/uL (0.0-1.3); Monocytes % 12.3 % (0.0-12.0); Neutrophil % 75.7 % (36.0-66.0); Platelet Count 200 x10^3/uL (150-450); Red Blood Count 4.39 x10^6/uL (4.1-5.4); Red Cell Distribution Width 14.4 % (11.5-14.0)
[2021-09-24 15:28] LABS: ALBUMIN 4.7 g/dL (3.5-5.0); ANION GAP 17.5 MEQ/L (5-15); Calcium 10.7 mg/dL (8.4-10.2); Creatinine 1 1.97 mg/dL (0.52-1.04); EST GLOMERULAR FILTRATION RATE 27.9 ML/MIN; T4 (Thyroxine) 6.83 ug/dL (5.53-10.96); TSH, 3RD Generation 1.47 mIU/L (0.47-4.68); Total Protein 10.1 g/dL (6.3-8.2)
[2021-09-24 16:00] LABS: Potassium 6.4 mmol/L (3.5-5.1)
[2021-09-24] MEDS ORDERED: Calcium Gluconate 10% 1000 MG IV ONE ×2 (16:11→17:02)
[2021-09-24] MEDS ORDERED: HUMULIN R IV ONE (16:12)
[2021-09-24] MEDS ORDERED: D50W 50 ml Abboject IV ONE ×2 (16:12→17:04)
[2021-09-24] MEDS ORDERED: Lasix 20 MG/2 ML IV ONE (16:15)
[2021-09-24] MEDS ORDERED: VELTASSA PO STA (16:15)
[2021-09-24 16:20] LABS: Bacteria MODERATE /HPF (NEGATIVE); Hyaline Casts >50 /LPF (0-2); Mucus SLIGHT /HPF (NEGATIVE); WBC 26-50 /HPF (0-5)
[2021-09-24 16:32] LABS: Amphetamine,Urine NEGATIVE (NEGATIVE); Barbiturate,Urine NEGATIVE (NEGATIVE); Benzodiazepine,Urine POSITIVE (NEGATIVE); Cocaine,Urine NEGATIVE (NEGATIVE); Methadone,Urine NEGATIVE (NEGATIVE); Opiate,Urine NEGATIVE (NEGATIVE); PCP,Urine NEGATIVE (NEGATIVE); THC,Urine NEGATIVE (NEGATIVE)
[2021-09-24 16:34] LABS: Appearance SLIGHTLY HAZY (CLEAR); Bilirubin NEGATIVE (NEGATIVE); Glucose NEGATIVE (NEGATIVE); Ketones NEGATIVE (NEGATIVE); Specific Gravity 1.015 (1.005-1.025)
[2021-09-24 16:35] LABS: Dipstick done @ ? MAIN LAB; Nitrite POSITIVE (NEGATIVE); Protein,Urine Dip 30 (Negative); RBC TRACE-INTACT Ery/ul (0-5); Urobilinogen 1 mg/dL (0-1)
[2021-09-24 16:36] LABS: Urine Cultured Indicated? YES
[2021-09-24] MEDS ORDERED: Lasix 40 MG/4 ML IV ONE (17:00)
[2021-09-24] MEDS ORDERED: HUMULIN R ONE (17:03)
[2021-09-24] MEDS ORDERED: Lasix 40 MG/4 ML ONE (17:03)
[2021-09-24] MEDS ORDERED: VELTASSA PO ONE (17:04)
[2021-09-24 17:59] LABS: INFLUENZA A NEGATIVE (NEGATIVE); INFLUENZA B NEGATIVE (NEGATIVE); RESPIRATORY SYNCTIAL VIRUS NEGATIVE (Negative); SARS-CoV-2 Xpert Express NEGATIVE (NEGATIVE)
[2021-09-24] MEDS ORDERED: ROCEPHIN 1 Gm-D5w 50 ml Bag** 1 G/50 ML IVPB IV STA (18:02)
[2021-09-24] MEDS ORDERED: ROCEPHIN 1 Gm-D5w 50 ml Bag** 1 G/50 ML IVPB IV ONE (18:17)
[2021-09-24 20:28] LABS: ANION GAP 15.5 MEQ/L (5-15); Calcium 10.9 mg/dL (8.4-10.2); Creatinine 1 1.63 mg/dL (0.52-1.04); EST GLOMERULAR FILTRATION RATE 34.7 ML/MIN
[2021-09-24 20:34] LABS: Potassium 3.8 mmol/L (3.5-5.1)
[2021-09-24 23:01] LABS: Slide Review 1 YES
[2021-09-25] MEDS ORDERED: TYLENOL 325 MG PO PRN ×2 (00:05→12:25)
[2021-09-25] MEDS ORDERED: Zofran 4 MG/2 ML VIAL IV PRN (00:05)
[2021-09-25] MEDS ORDERED: PROTONIX 40 MG IV IV SCH ×2 (00:05→22:00)
[2021-09-25 05:10] LABS: Absolute Neutrophil Ct (ANC) 7.62 x10^3/uL (1.4-6.9); Basophil (Absolute #) 0.06 x10^3/uL (0-0.4); Eosinophil % 0.3 % (0.00-5.0); Eosinophil (Absolute #) 0.04 x10^3/uL (0-0.5); Hematocrit 42.5 % (35-47); Hemoglobin 13.4 g/dL (12.0-16.0); Lymphocyte (Absolute #) 2.72 x10^3/uL (1.0-4.6); Lymphocytes % 23.5 % (24.0-44.0); Mean Cell Volume 101.7 fL (78-100); Mean Corpuscular Hemoglobin 32.1 pg (26-32); Mean Corpuscular Hgb Concent. 31.5 g/dL (32-36); Mean Platelet Volume 9.9 fL (7.5-11.0); Monocyte (Absolute #) 1.12 x10^3/uL (0.0-1.3); Monocytes % 9.7 % (0.0-12.0); Neutrophil % 65.7 % (36.0-66.0); Platelet Count 181 x10^3/uL (150-450); Red Blood Count 4.18 x10^6/uL (4.1-5.4); Red Cell Distribution Width 14.3 % (11.5-14.0); White Blood Count 11.6 x10^3/uL (4.0-10.5)
[2021-09-25 05:37] LABS: ALBUMIN 4.4 g/dL (3.5-5.0); ANION GAP 12.5 MEQ/L (5-15); BILIRUBIN,TOTAL 0.7 mg/dL (0.2-1.3); Calcium 10.6 mg/dL (8.4-10.2); Creatinine 1 1.57 mg/dL (0.52-1.04); EST GLOMERULAR FILTRATION RATE 36.2 ML/MIN; Potassium 3.1 mmol/L (3.5-5.1); Total Protein 9.4 g/dL (6.3-8.2)
[2021-09-25] MEDS ORDERED: Advair Hfa 230/21 Mcg COMMON CANISTER IH SCH (07:00)
[2021-09-25] MEDS: DUONEB 0.5-3 MG/3 ml Neb IH SCH ×2 (08:38→13:27)
[2021-09-25] MEDS ORDERED: ROCEPHIN 1 Gm-D5w 50 ml Bag** 1 G/50 ML IVPB IV SCH (10:00)
[2021-09-25] MEDS: Sodium Chloride 0.9% 1000 ML 1,000 ML IV SCH (11:13)
[2021-09-25] MEDS ORDERED: ZINC OXIDE TOP SCH (12:30)
[2021-09-25] MEDS ORDERED: NON-FORMULARY ITEM (Metolazone [Metolazone] 5 MG Tablet) PO SCH (12:30)
[2021-09-25] MEDS ORDERED: POTASSIUM CHLORIDE IV SCH (12:30)
[2021-09-25] MEDS ORDERED: NON-FORMULARY ITEM (Non-Formulary Drug [Non-Formulary Item] 1 EACH Each) TOP SCH ×2 (12:30→22:00)
[2021-09-25] MEDS ORDERED: [UNRECOGNIZED DRUG - OTHER] TOP SCH (12:30)
[2021-09-25] MEDS ORDERED: SODIUM CHLORIDE 0.9% IV SCH (12:30)
[2021-09-25] MEDS ORDERED: NON-FORMULARY ITEM (Non-Formulary Drug [Non-Formulary Item] 1 EACH Each) PO SCH (12:30)
[2021-09-25] MEDS ORDERED: MENTHOL TOP SCH (12:30)
[2021-09-25] MEDS ORDERED: NON-FORMULARY ITEM (Cholecalciferol (Vitamin D3) [Vitamin D3] 1,250 MCG Capsule) PO SCH (12:30)
[2021-09-25] MEDS ORDERED: ZOLOFT 50 MG TABLET PO SCH (13:00)
[2021-09-25] MEDS ORDERED: Vitamin B-12 500 MCG PO SCH (13:00)
[2021-09-25] MEDS ORDERED: Aldactone 25 MG PO SCH (13:00)
[2021-09-25] MEDS ORDERED: MAG-OX 400 PO SCH (13:00)
[2021-09-25] MEDS ORDERED: Trileptal 300 MG Tablet PO SCH ×2 (13:00→22:00)
[2021-09-25] MEDS ORDERED: ECOTRIN 81 MG PO SCH (13:00)
[2021-09-25] MEDS ORDERED: Docusate Sodium 100 MG PO SCH (13:00)
[2021-09-25] MEDS ORDERED: SYNTHROID 50 MCG PO SCH (13:00)
[2021-09-25] MEDS ORDERED: Protonix 20MG Tablet PO SCH (13:00)
[2021-09-25] MEDS ORDERED: Miralax Powder 17GM PACKET PO SCH (13:00)
[2021-09-25] MEDS ORDERED: MEDICATION INTERVENTION MC SCH ×3 (13:15)
[2021-09-25] MEDS ORDERED: LOTRIMIN CREAM 30 GM TOP SCH (15:00)
[2021-09-25] MEDS ORDERED: Klor Con PO SCH (15:00)
[2021-09-25 15:42] VITALS: BP 96/63; PULSE 81; O2SAT 96
[2021-09-25] MEDS ORDERED: BUMEX 1 MG PO SCH (17:00)
[2021-09-25] MEDS ORDERED: NYSTOP POWDER 15 GM TOP SCH (22:00)
[2021-09-25] MEDS ORDERED: BRIVARACETAM 10 MG/ML PO SCH (22:00)
[2021-09-25] MEDS ORDERED: CLOBAZAM 20 MG PO SCH (22:00)
[2021-09-25] MEDS ORDERED: LACOSAMIDE 200 MG PO SCH (22:00)
[2021-09-26] MEDS ORDERED: NON-FORMULARY ITEM (Cyanocobalamin (Vitamin B-12) [Vitamin B-12] 1,000 MCG Tablet) PO SCH (10:00)
[2021-09-26] MEDS ORDERED: Zaroxolyn 2.5 MG PO SCH (10:00)
[2021-09-26] MEDS ORDERED: VITAMIN D2 PO SCH (10:00)
--- NOTE | 2021-10-02 20:59 | PCM.SSS ---
History of Present Illness - Chief Complaint Chief Complaint: HYPERKALEMIA, UTI, RENAL FAILURE, ELEVATED TROPONIN Date: 09/25/21 History of Present Illness: is a 55 year old female. pt. presented to ER with elevated troponin, uti some vomiting, and hypokalemia. Pt. admitted to hospital for further evaluation, monitoring and treatment. - Review of Systems Constitutional: No Fever, No Chills Eyes: No Symptoms Ears, Nose, & Throat: No Symptoms Respiratory: No Cough, No Short Of Breath Cardiac: No Chest Pain, No Edema, No Syncope Abdominal/Gastrointestinal: Vomiting, No Abdominal Pain, No Nausea, No Diarrhea Genitourinary Symptoms: No Dysuria Musculoskeletal: No Back Pain, No Neck Pain Skin: No Rash Neurological: No Dizziness, No Focal Weakness, No Sensory Changes Psychological: No Symptoms Endocrine: No Symptoms Hematologic/Lymphatic: No Symptoms Immunological/Allergic: No Symptoms Medications & Allergies Home Medications: Home Medication List Acetaminophen 325 mg [Tylenol 325 mg] 2 tab PO Q4H PRN 09/25/21 [History Confirmed 09/25/21] Aspirin 81 gm Chew [Baby Aspirin 81 mg Chew] 1 tab PO DAILY 09/25/21 [History Confirmed 09/25/21] Brivaracetam [Briviact] 100 mg PO BID 09/25/21 [History Confirmed 09/25/21] Budesonide/Formoterol Fumarate [Budesonide-Formoterol 160-4.5] 2 puff IH BID 09/25/21 [History Confirmed 09/25/21] Bumetanide 1 mg [Bumex 1 mg] 4 mg PO BID 09/25/21 [History Confirmed 09/25/21] Cholecalciferol (Vitamin D3) [Vitamin D] 50,000 unit PO Q7D 09/25/21 [History Confirmed 09/25/21] Cyanocobalamin (Vitamin B-12) [Vitamin B-12] 1,000 mcg PO DAILY 09/25/21 [History Confirmed 09/25/21] Docusate Sodium 100 mg [Docusate Sodium 100 MG] 1 cap PO BID 09/25/21 [History Confirmed 09/25/21] Ipratropium/Albuterol Sulfate [Iprat-Albut 0.5-3(2.5) mg/3 ml] 1 inh IH TID 09/25/21 [History Confirmed 09/25/21] Lacosamide [Vimpat] 1 tab PO BID 09/25/21 [History Confirmed 09/25/21] Levothyroxine Sodium 50 Mcg [Synthroid 50 Mcg] 1 tab PO DAILY 09/25/21 [History Confirmed 09/25/21] Magnesium Oxide 400 mg [Mag-Ox 400] 1 tab PO DAILY 09/25/21 [History Confirmed 09/25/21] Menthol/Zinc Oxide [Menthol-Zinc Oxide Ointment] 1 ea TOP UD 09/25/21 [History Confirmed 09/25/21] Non-Formulary Drug [Non-Formulary Item] 1 each TOP BID 09/25/21 [History Confirmed 09/25/21] Non-Formulary Drug [Non-Formulary Item] 1 each TOP UD 09/25/21 [History Confirmed 09/25/21] Non-Formulary Drug [Non-Formulary Item] 30 ml PO UD 09/25/21 [History Confirmed 09/25/21] Oxcarbazepine 300 mg [Trileptal 300 MG Tablet] 150 mg PO BID 09/25/21 [History Confirmed 09/25/21] Oxcarbazepine 300 mg [Trileptal 300 MG Tablet] 300 mg PO BID 09/25/21 [History Confirmed 09/25/21] Pantoprazole Sodium 20 mg PO DAILY 09/25/21 [History Confirmed 09/25/21] Polyethylene Glycol 3350 [Miralax] 17 gm PO DAILY 09/25/21 [History Confirmed 09/25/21] Sertraline HCl 50 mg [Zoloft 50 mg Tablet] 1 tab PO DAILY 09/25/21 [History Confirmed 09/25/21] Spironolactone 25 mg [Aldactone 25 MG] 1 tab PO DAILY 09/25/21 [History Confirmed 09/25/21] cloBAZam [Clobazam] 1 tab PO BID 09/25/21 [History Confirmed 09/25/21] metOLazone [Metolazone] 1 tab PO UD 09/25/21 [History Confirmed 09/25/21] Allergies/Adverse Reactions: Allergies Allergy/AdvReac Type Severity Reaction Status Date / Time eslicarbazepine Allergy Verified 09/24/21 13:41 heparin Allergy Verified 09/24/21 13:41 perampanel [From Fycompa] Allergy Verified 09/24/21 13:41 - Past Medical History Past Medical History: Yes Neurological History: Epilepsy, Seizures ENT History: No Pertinent History Cardiac History: Congestive Heart Failure, High Cholesterol Respiratory History: No Pertinent History Endocrine Medical History: Hypothyroidism, Other Musculoskelatal History: No Pertinent History GI Medical History: GERD History: No Pertinent History Pyscho-Social History: Depression Reproductive Disorders: No Pertinent History Comment: kidney disease - Female History Are you now?: No - Past Surgical History Past Surgical History: Yes Neuro Surgical History: No Pertinent History Cardiac History: No Pertinent History Respiratory Surgery: No Pertinent History GI Surgical History: No Pertinent History Genitourinary Surgical Hx: No Pertinent History Musculskeletal Surgical Hx: No Pertinent History Female Surgical History: No Pertinent History Other Surgical History: implanted seizure device - Social History Smoking Status: Never smoker Exposure to second hand smoke: No Alcohol: None Drug Use: none - Physical Exam General Appearance: no apparent distress, alert Neurologic Exam: alert, oriented x 3, cooperative, normal mood/affect, nml cerebellar function, nml station & gait, sensation nml, No motor deficits Eye Exam: PERRL/EOMI, eyes nml inspection Ears, Nose, Throat Exam: normal ENT inspection, TMs normal, pharynx normal, moist mucous membranes Neck Exam: normal inspection, non-tender, supple, full range of motion Respiratory Exam: normal breath sounds, lungs clear, No respiratory distress Cardiovascular Exam: regular rate/rhythm, normal heart sounds, normal peripheral pulses Gastrointestinal/Abdomen Exam: soft, normal bowel sounds, No tenderness, No mass Back Exam: normal inspection, normal range of motion, No CVA tenderness, No vertebral tenderness Extremity Exam: normal inspection, normal range of motion, pelvis stable Skin Exam: normal color, warm, dry, No rash Lymphatic Exam: No adenopathy Results - Labs Lab/Micro Results: Microbiology 09/24/21 15:49 Urine Culture - Final Catherized Klebsiella Pneumoniae Assessment/Plan (1) AMOR (acute kidney injury) Status: Acute Code(s): N17.9 - ACUTE KIDNEY FAILURE, UNSPECIFIED (2) Mental status change resolved Status: Acute Code(s): Z86.59 - PERSONAL HISTORY OF OTHER MENTAL AND BEHAVI ORAL DISORDERS (3) UTI (urinary tract infection) Status: Acute Code(s): N39.0 - URINARY TRACT INFECTION, SITE NOT SPECIFIED (4) Mentally challenged Status: Chronic Code(s): F79 - UNSPECIFIED INTELLECTUAL DISABILITIES (5) Vomiting Status: Resolved Code(s): R11.10 - VOMITING, UNSPECIFIED (6) Elevated troponin Status: Acute Code(s): R77.8 - OTHER SPECIFIED ABNORMALITIES OF PLASMA PROTEINS Hospital Summary - Hospital Course Hospital Course: Pt. was admitted in observation awaiting transfer to facility for further cardiac evaluation, this opened up shortly upon admission and was subseuently transferred to [place] for further care. - Vitals & Intake/Output Vital Signs: Vital Signs Temperature 98.0 F 09/25/21 15:41 Pulse Rate 81 09/25/21 15:41 Respiratory Rate 16 09/25/21 15:41 Blood Pressure 96/63 09/25/21 15:41 O2 Sat by Pulse Oximetry 96 09/25/21 15:41 - Lab Result Diagrams: 09/25/21 05:07 09/25/21 05:07 Micro Results-Entire Visit: Microbiology 09/24/21 15:49 Urine Culture - Final Catherized Klebsiella Pneumoniae - Procedures and Test Procedures and Tests throughout Hospitalization: Therapy Orders & Screens 09/25/21 00:05 EKG REPEAT IN AM Comment: Respiratory Therapy Consult ROUTINE Comment: Reason For Exam: 09/25/21 00:51 Oxygen Nasal Cannula 2 lpm Comment: Diagnosis: HYPERKALEMIA, UTI, RENAL FAILURE, ELEVATED TROPONIN Respiratory Therapy Assessment DAILY Comment: Diagnosis: HYPERKALEMIA, UTI, RENAL FAILURE, ELEVATED TROPONIN - Discharge Discharge Date: 09/25/21 Disposition: DC TO [facility] Condition: Fair Prescriptions: No Action Acetaminophen 325 mg [Tylenol 325 mg] 2 tab PO Q4H PRN PRN Reason: Pain And/Or Fever Non-Formulary Drug [Non-Formulary Item] 30 ml PO UD Non-Formulary Drug [Non-Formulary Item] 1 each TOP UD Menthol/Zinc Oxide [Menthol-Zinc Oxide Ointment] 1 ea TOP UD Ipratropium/Albuterol Sulfate [Iprat-Albut 0.5-3(2.5) mg/3 ml] 1 inh IH TID Oxcarbazepine 300 mg [Trileptal 300 MG Tablet] 300 mg PO BID Lacosamide [Vimpat] 1 tab PO BID Oxcarbazepine 300 mg [Trileptal 300 MG Tablet] 150 mg PO BID Non-Formulary Drug [Non-Formulary Item] 1 each TOP BID Docusate Sodium 100 mg [Docusate Sodium 100 MG] 1 cap PO BID cloBAZam [Clobazam] 1 tab PO BID Bumetanide 1 mg [Bumex 1 mg] 4 mg PO BID Budesonide/Formoterol Fumarate [Budesonide-Formoterol 160-4.5] 2 puff IH BID Brivaracetam [Briviact] 100 mg PO BID Cholecalciferol (Vitamin D3) [Vitamin D] 50,000 unit PO Q7D Cyanocobalamin (Vitamin B-12) [Vitamin B-12] 1,000 mcg PO DAILY Spironolactone 25 mg [Aldactone 25 MG] 1 tab PO DAILY Sertraline HCl 50 mg [Zoloft 50 mg Tablet] 1 tab PO DAILY Pantoprazole Sodium 20 mg PO DAILY metOLazone [Metolazone] 1 tab PO UD Magnesium Oxide 400 mg [Mag-Ox 400] 1 tab PO DAILY Levothyroxine Sodium 50 Mcg [Synthroid 50 Mcg] 1 tab PO DAILY Polyethylene Glycol 3350 [Miralax] 17 gm PO DAILY Aspirin 81 gm Chew [Baby Aspirin 81 mg Chew] 1 tab PO DAILY Follow up with: PATRIA,PATRIA [Primary Care Provider] - ZAIRA BLISS MD [Family Provider] -
== END 2021-09-25 16:05 | disposition home or self-care (01) ==
LOC: ED 13:24 → MED SURG 09-25
PROVIDERS: ADMIT Family Medicine; ATTEND Family Medicine
DX: N17.9 Acute kidney failure, unspecified (principal); N39.0 Urinary tract infection, site not specified; F79 Unspecified intellectual disabilities; R77.8 Other specified abnormalities of plasma proteins; E87.5 Hyperkalemia; I50.9 Heart failure, unspecified; E78.00 Pure hypercholesterolemia, unspecified; R11.10 Vomiting, unspecified; R41.82 Altered mental status, unspecified; Z79.899 Other long term (current) drug therapy; Z20.828 Contact with and (suspected) exposure to other viral communicable diseases; Z86.59 Personal history of other mental and behavioral disorders
CPT/HCPCS: 0241U; 36000; 36415; 51702; 70450; 80048; 80053; 80307; 81015; 82140; 83735; 84436; 84443; 84484; 85025; 87077; 87086; 87186; 93005; 93041; 93268; 94640; 94760; 96365; 96374; 96375; 99285; 99291; G0378; J0610; J0696; J1815; J1940; J3480; A9270-GY